=== PATIENT | female | born 1950 | race Caucasian/White ===

== ENCOUNTER 2017-03-28 14:12 | Outpatient (RCR) | payer MEDICARE, OTHER, SELFPAY ==
[2017-03-28 15:30] LABS: Albumin, Serum 3.8 g/dL (3.2-5.0); BUN 24 mg/dL (7-18); BUN/Creat Ratio 17.6 RATIO (10-20); Calcium,Total 8.8 mg/dL (8.5-10.1); Chloride 107 mmol/L (98-107); Creatinine, Serum 1.36 mg/dL (0.55-1.02); EST Glomerular Filtration Rate 41 mL/min (>60); Est Glom Filt Rate - Afr Amer 50 mL/min (>60); Glucose 182 mg/dL (74-106); Phosphorus 4.2 mg/dL (2.5-4.9); Potassium 4.6 mmol/L (3.5-5.1); Sodium Level 140 mmol/L (136-145)
== END 2017-03-28 15:00 | disposition home or self-care (01) ==
LOC: LAB 14:12
PROVIDERS: Visit Provider Internal Medicine Nephrology
DX: N18.3 Chronic kidney disease, stage 3 (moderate) (principal)
CPT/HCPCS: 36415; 80069

== ENCOUNTER 2017-04-28 13:54 | Outpatient (RCR) | payer MEDICARE, OTHER, SELFPAY ==
[2017-04-28 15:29] LABS: Albumin, Serum 3.8 g/dL (3.2-5.0); BUN 33 mg/dL (7-18); BUN/Creat Ratio 21.2 RATIO (10-20); Calcium,Total 8.5 mg/dL (8.5-10.1); Chloride 106 mmol/L (98-107); Creatinine, Serum 1.56 mg/dL (0.55-1.02); EST Glomerular Filtration Rate 35 mL/min (>60); Est Glom Filt Rate - Afr Amer 42 mL/min (>60); Glucose 153 mg/dL (74-106); Phosphorus 4.5 mg/dL (2.5-4.9); Potassium 4.9 mmol/L (3.5-5.1); Sodium Level 141 mmol/L (136-145)
== END 2017-04-28 15:00 | disposition home or self-care (01) ==
LOC: LAB 13:54
PROVIDERS: Visit Provider Internal Medicine Nephrology
DX: N18.3 Chronic kidney disease, stage 3 (moderate) (principal); E87.5 Hyperkalemia
CPT/HCPCS: 36415; 80069

== ENCOUNTER 2017-05-27 15:43 | Outpatient (RCR) | payer MEDICARE, OTHER, SELFPAY ==
[2017-05-27 18:06] LABS: BUN 28 mg/dL (7-18); BUN/Creat Ratio 19.7 RATIO (10-20); Calcium,Total 8.7 mg/dL (8.5-10.1); Chloride 104 mmol/L (98-107); Creatinine, Serum 1.42 mg/dL (0.55-1.02); EST Glomerular Filtration Rate 39 mL/min (>60); Est Glom Filt Rate - Afr Amer 47 mL/min (>60); Glucose 232 mg/dL (74-106); Phosphorus 4.1 mg/dL (2.5-4.9); Potassium 4.6 mmol/L (3.5-5.1); Sodium Level 138 mmol/L (136-145)
== END 2017-05-27 16:00 | disposition home or self-care (01) ==
LOC: LAB 15:43
PROVIDERS: Visit Provider Internal Medicine Nephrology
DX: N18.3 Chronic kidney disease, stage 3 (moderate) (principal); E87.5 Hyperkalemia
CPT/HCPCS: 36415; 80069

== ENCOUNTER → 2017-08-21 15:29 | Outpatient (CLI) | payer MEDICARE, OTHER, SELFPAY ==
[2017-08-21 17:31] LABS: Albumin, Serum 3.9 g/dL (3.2-5.0); BUN 52 mg/dL (7-18); BUN/Creat Ratio 19.8 RATIO (10-20); Calcium,Total 8.6 mg/dL (8.5-10.1); Chloride 109 mmol/L (98-107); Creatinine, Serum 2.63 mg/dL (0.55-1.02); EST Glomerular Filtration Rate 19 mL/min (>60); Est Glom Filt Rate - Afr Amer 23 mL/min (>60); Glucose 109 mg/dL (74-106); Phosphorus 4.8 mg/dL (2.5-4.9); Sodium Level 140 mmol/L (136-145)
== END ==
PROVIDERS: Visit Provider Internal Medicine Nephrology
DX: N18.3 Chronic kidney disease, stage 3 (moderate) (principal)
CPT/HCPCS: 36415; 80069

== ENCOUNTER → 2017-09-01 16:55 | Outpatient (CLI) | payer MEDICARE, OTHER, SELFPAY ==
[2017-09-01 17:36] LABS: Absolute Lymphocyte Count 2.13 X10^3/ul (0.83-4.51); Absolute Neutrophil Count 4.1 X10^3/uL (2.0-7.7); Basophil# 0.04 X10^3/uL; Basophil% 0.6 % (0-1); Eosinophil# 0.28 X10^3/uL; Hemoglobin 10.2 g/dl (12.0-15.0); Lymphocyte # 2.13 X10^3/ul (4.0); Lymphocyte % 30.4 % (19-41); Mean Corp Hgb Conc 32.9 g/gl (32-36); Mean Corpuscular Hgb 26.8 pg (27.0-32.0); Mean Corpuscular Volume 81.4 fL (81-99); Mean Platelet Vol. 10.8 fl (6.2-12.0); Monocyte# 0.42 X10^3/uL; Neutrophil # 4.12 X10^3/uL (2.7-7.7); Neutrophil % 58.9 % (47-70); Platelet Count 271 K/mm3 (150-450); RBC Distribution Width CV 16.7 % (11.6-14.6); RBC Distribution Width SD 48.1 fl (35.1-43.9); Red Blood Count 3.81 M/mm3 (4.2-5.4)
[2017-09-01 17:44] LABS: POSITIVE COUNT NO; POSITIVE DIFFERENTIAL NO; POSITIVE MORPHOLOGY NO
[2017-09-01 18:05] LABS: Vitamin D,25 Hydroxy 58.8 ng/mL (29.95-100.01)
[2017-09-01 18:06] LABS: ALB/GLOB Ratio 0.9 RATIO (0.9-2.4); AST(SGOT) 24 U/L (15-37); Alanine Aminotransfer ALT/SGPT 24 U/L (13-56); Alkaline Phosphatase 114 U/L (45-117); Anion Gap 10 (5-15); BUN 71 mg/dL (7-18); BUN/Creat Ratio 15.3 RATIO (10-20); Calcium,Total 8.7 mg/dL (8.5-10.1); Chloride 108 mmol/L (98-107); Creatinine, Serum 4.63 mg/dL (0.55-1.02); EST Glomerular Filtration Rate 10 mL/min (>60); Est Glom Filt Rate - Afr Amer 12 mL/min (>60); Globulin 4.4 g/dL (2.2-4.2); Glucose 84 mg/dL (74-106); Potassium 4.9 mmol/L (3.5-5.1); Protein, Total 8.4 g/dL (6.4-8.2); Sodium Level 140 mmol/L (136-145); Thyroid Stim Hormone (TSH) 0.81 uIU/mL (0.358-3.74)
[2017-09-02 09:06] LABS: Iron 65 ug/dL (50-170); Iron Binding Capacity,Total 316 ug/dL (250-450); PERCENT IRON SATURATION 20.6 % (15.0-55.0)
[2017-09-03 10:05] LABS: Hep C Antibodies <0.1 s/co ratio (0.0-0.9)
== END ==
PROVIDERS: Visit Provider Family Medicine Geriatric Medicine
DX: I10 Essential (primary) hypertension (principal); E55.9 Vitamin D deficiency, unspecified; D64.9 Anemia, unspecified; Z13.89 Encounter for screening for other disorder
CPT/HCPCS: 36415; 80053; 82306; 83540; 83550; 84443; 85025; 86803

== ENCOUNTER → 2017-09-16 11:57 | Outpatient (CLI) | payer MEDICARE, OTHER, SELFPAY ==
--- NOTE | 2017-09-16 12:18 | RAD_ITS ---
STUDY: X-RAY - LUMBAR SPINE REASON FOR EXAM: Female, 67 years old. Lower back pain radiating into the lower thoracic region for several years. TECHNIQUE: 3 view(s) of the lumbar spine were obtained. COMPARISON: None FINDINGS: Osteopenia. Unremarkable pelvis. No significant hip joint degenerative changes. No acute intra-abdominal process. Postsurgical changes are present in the epigastrium. Mild levoscoliotic curvature of the lumbar spine. Normal lordosis. Normal vertebral body height and alignment. Minimal disc narrowing at multiple levels, no significant disc or endplate degenerative changes. Minimal mid to low lumbar facet arthropathy. RAD/Lumbar Spine 2 or 3 Views IMPRESSION: Minimal spondylosis. No acute fracture or traumatic subluxation. Electronically Signed: Matias Hussein, at 12:56 EDT Tel , Service support ,
== END ==
PROVIDERS: Visit Provider Family Medicine Geriatric Medicine
DX: M54.5 Low back pain (principal); N17.9 Acute kidney failure, unspecified; N18.3 Chronic kidney disease, stage 3 (moderate)
CPT/HCPCS: 36415; 72100; 80069; 83970

== ENCOUNTER → 2017-09-16 15:56 | Outpatient (CLI) | payer MEDICARE, OTHER, SELFPAY ==
[2017-09-16 17:42] LABS: Albumin, Serum 4.4 g/dL (3.2-5.0); BUN 51 mg/dL (7-18); BUN/Creat Ratio 16.3 RATIO (10-20); Calcium,Total 9.4 mg/dL (8.5-10.1); Chloride 103 mmol/L (98-107); Creatinine, Serum 3.13 mg/dL (0.55-1.02); EST Glomerular Filtration Rate 16 mL/min (>60); Est Glom Filt Rate - Afr Amer 19 mL/min (>60); Glucose 116 mg/dL (74-106); Phosphorus 3.9 mg/dL (2.5-4.9); Potassium 4.5 mmol/L (3.5-5.1); Sodium Level 139 mmol/L (136-145)
[2017-09-17 08:25] LABS: PTHIN 160.7 pg/mL (18.4-80.1)
== END ==
PROVIDERS: Visit Provider Internal Medicine Nephrology
DX: N17.9 Acute kidney failure, unspecified (principal); N18.3 Chronic kidney disease, stage 3 (moderate)
CPT/HCPCS: 36415; 80069; 83970

== ENCOUNTER → 2017-10-06 16:56 | Outpatient (CLI) | payer MEDICARE, OTHER, SELFPAY ==
[2017-10-06 18:00] LABS: Anion Gap 6 (5-15); BUN 40 mg/dL (7-18); BUN/Creat Ratio 20.4 RATIO (10-20); Calcium,Total 9.1 mg/dL (8.5-10.1); Chloride 106 mmol/L (98-107); Cholesterol 174 mg/dL (200); Creatinine, Serum 1.96 mg/dL (0.55-1.02); EST Glomerular Filtration Rate 27 mL/min (>60); Est Glom Filt Rate - Afr Amer 33 mL/min (>60); Glucose 123 mg/dL (74-106); High Density Lipoprotein 25 mg/dL; Potassium 4.2 mmol/L (3.5-5.1); Sodium Level 139 mmol/L (136-145); Triglycerides 215 mg/dL; Very Low Density Lipoprotein 43 mg/dL (5-40)
== END ==
PROVIDERS: Visit Provider Family Medicine Geriatric Medicine
DX: N18.3 Chronic kidney disease, stage 3 (moderate) (principal); E78.4 Other hyperlipidemia
CPT/HCPCS: 36415; 80048; 80061

== ENCOUNTER → 2017-12-09 15:55 | Outpatient (CLI) | payer MEDICARE, OTHER, SELFPAY ==
--- NOTE | 2017-12-09 16:15 | RAD_ITS ---
STUDY: X-RAY CHEST REASON FOR EXAM: Female, 67 years old. Shortness of breath. Fatigue. Chest pain for one week. TECHNIQUE: PA and lateral views of the chest. COMPARISON: None. FINDINGS: The lungs are clear and expanded. There is no demonstrated pleural abnormality. Normal size heart. Normal mediastinum and rola. Normal visualized pulmonary arteries. Normal visualized aortic arch and descending thoracic aorta. There are diffuse degenerative changes of the visualized thoracic spine. There is degenerative osteoarthritis of the bilateral shoulders. There is no demonstrated abnormality of the visualized soft tissue structures of the upper abdomen. RAD/Chest PA and Lateral IMPRESSION: No acute cardiopulmonary disease. Electronically Signed: Christopher Waddell DO at 18:32 EDT Tel [phone], Service support ,
[2017-12-09 16:51] LABS: Hematocrit 30.7 % (37-47); Hemoglobin 9.9 g/dl (12.0-15.0); Mean Corp Hgb Conc 32.2 g/gl (32-36); Mean Corpuscular Hgb 27.6 pg (27.0-32.0); Mean Corpuscular Volume 85.5 fL (81-99); Mean Platelet Vol. 11.2 fl (6.2-12.0); Platelet Count 271 K/mm3 (150-450); RBC Distribution Width CV 14.9 % (11.6-14.6); Red Blood Count 3.59 M/mm3 (4.2-5.4); White Blood Count 9.2 K/mm3 (4.4-11.0)
[2017-12-09 16:56] LABS: Scan Indicated on CBC? Y/N NO
[2017-12-09 17:09] LABS: Anion Gap 9 (5-15); BUN 37 mg/dL (7-18); BUN/Creat Ratio 21.5 RATIO (10-20); CPK Total, Creatine Kinase 60 U/L (26-192); Calcium,Total 9.2 mg/dL (8.5-10.1); Chloride 112 mmol/L (98-107); Creatinine, Serum 1.72 mg/dL (0.55-1.02); EST Glomerular Filtration Rate 31 mL/min (>60); Est Glom Filt Rate - Afr Amer 38 mL/min (>60); Glucose 138 mg/dL (74-106); Potassium 5.2 mmol/L (3.5-5.1); Sodium Level 143 mmol/L (136-145)
[2017-12-09 17:14] LABS: BNP,B-Type NATRIURETIC PEPTIDE 606.2 pg/mL (0-100)
[2017-12-11 13:36] LABS: Myoglobin, Serum 81 ng/mL (25-58)
== END ==
LOC: POLAB3 15:57 → RAD 16:12
PROVIDERS: Family Provider Family Medicine Geriatric Medicine; PCP Family Medicine Geriatric Medicine; Referring Provider Family Medicine Geriatric Medicine; Visit Provider Family Medicine Geriatric Medicine
DX: I10 Essential (primary) hypertension (principal); R06.02 Shortness of breath; R53.83 Other fatigue; R07.9 Chest pain, unspecified
CPT/HCPCS: 36415; 71046; 80048; 82550; 83874; 83880; 84443; 85027; 85379

== ENCOUNTER → 2017-12-10 08:17 | Outpatient (CLI) | payer MEDICARE, OTHER, SELFPAY ==
--- NOTE | 2017-12-10 08:32 | CT_ITS ---
STUDY: CTA CHEST REASON FOR EXAM: Female, 67 years old. Shortness of breath with elevated d-dimer RADIATION DOSAGE (If Supplied By Facility): CTDIvol = ( 25.78 ) mGy, DLP = ( 638.99 ) mGycm TECHNIQUE: The examination was performed with the intravenous administration of 75 ml of Isovue 370 contrast material. Post-processing of the angiographic images was performed, with multiplanar reformation and 3D reconstruction. Individualized dose optimization techniques were used for this CT. COMPARISON: None. FINDINGS: Normal enhancement of the main pulmonary artery and right and left pulmonary arteries. Normal enhancement of the bilateral peripheral pulmonary arteries. There is no demonstrated pulmonary embolism. Normal thoracic aorta and visualized great vessels. There is no demonstrated aortic dissection. Normal heart and pericardium. Several small mediastinal lymph nodes are noted. Normal hilar regions. Normal visualized trachea and bronchi. The lungs are well expanded. Normal pulmonary parenchyma. Normal pleura. Left upper lobe pulmonary nodule measuring 4 mm. Pleural-based pulmonary nodule in the left lower lobe measuring 4.3 mm as well as in the right middle lobe measuring 2.8 mm Normal chest wall structures. There are degenerative changes of thoracic spine. Postsurgical changes of the stomach CT/CTA Chest W/WO Contrast IMPRESSION: 1. Negative for pulmonary embolism or thoracic aortic dissection 2. Lungs are adequately inflated and clear 3. Small pulmonary nodules as above Electronically Signed: Sean Bush DO at 9:18 EDT Tel , Service support ,
[2017-12-10 11:36] LABS: Anion Gap 9 (5-15); BUN 36 mg/dL (7-18); CPK Total, Creatine Kinase 57 U/L (26-192); Calcium,Total 8.7 mg/dL (8.5-10.1); Chloride 112 mmol/L (98-107); EST Glomerular Filtration Rate 30 mL/min (>60); Est Glom Filt Rate - Afr Amer 36 mL/min (>60); Glucose 130 mg/dL (74-106); Potassium 4.8 mmol/L (3.5-5.1); Sodium Level 142 mmol/L (136-145)
--- NOTE | 2017-12-10 13:58 | ECHOD_ITS ---
Reason For Study: ARRYTHMIA Procedure This was a 2D Doppler, Color Flow transthoracic echocardiogram. Exam performed in department. Left Ventricle Normal LV size. Left ventricular systolic function is normal. The estimated ejection fraction is 60 %. Stage 2 diastolic dysfunction. No regional wall motion abnormalities noted. Right Ventricle Normal RV size. Normal systolic function. Atria The left atrium is mildly enlarged. Normal right atrium. Bubble contrast study negative for right to left interatrial shunt. Mitral Valve Normal mitral valve. Trivial eccentric mitral valve insufficiency. Tricuspid Valve Normal tricuspid valve. Moderate (2+) tricuspid valve insufficiency. Pulmonary artery systolic pressure is 54 mmHg. Moderate pulmonary hypertension. Aortic Valve Trisinus/trileaflet aortic valve. Mild focal aortic valve calcification. Pulmonic Valve Normal pulmonic valve. Great Vessels Normal aortic root. The pulmonary artery is normal size. Normal inferior vena cava. Pericardium/Pleural No pericardial effusion. Medication 22 gauge I.V. with prn adaptor inserted into right arm. Performed a rapid injection of agitated mix of 9 cc saline and 1cc air to assess for atrial septal defect. MMode/2D Measurements & Calculations LVIDd: 4.8 cm IVSd: 0.87 cm Ao root diam: 3.3 cm LVIDs: 3.0 cm LVPWd: 0.90 cm LA dimension: 4.0 cm RVDd: 4.0 cm FS: 37.9 % LAV(MOD-bp): 84.5 ml LVAd ap4: 36.5 cm2 SV(MOD-sp4): 85.5 ml LAV(MOD-bp) Indexed: 46.0 ml/m2 EDV(MOD-sp4): 134.4 ml LAV(MOD-sp2): 90.4 ml EDV(sp4-el): 140.8 ml LAV(MOD-sp4): 74.8 ml LVAs ap4: 19.2 cm2 ESV(MOD-sp4): 48.9 ml ESV(sp4-el): 48.5 ml EF(MOD-sp4): 63.6 % EF(sp4-el): 65.6 % SV(sp4-el): 92.4 ml LA A4 area: 24.0 cm2 RA A4 area: 19.8 cm2 Time Measurements MV dec time: 0.16 sec Doppler Measurements & Calculations MV E max josephine: 156.2 cm/sec Ao V2 max: 186.5 cm/sec LV V1 max: 193.1 cm/sec MV A max josephine: 99.1 cm/sec Ao max P.9 mmHg LV V1 max P.9 mmHg MV E/A: 1.6 PA V2 max: 161.3 cm/sec TR max josephine: 356.6 cm/sec TR max P.9 mmHg Interpretation Summary Normal LV size. Left ventricular systolic function is normal. The estimated ejection fraction is 60 %. Stage 2 diastolic dysfunction. Moderate pulmonary hypertension. Ordering Physician: John Julio Referring Physician: Rigo Mckinney Chi Performed By: Ebony Moeller RDCS
[2017-12-11 13:37] LABS: Myoglobin, Serum 64 ng/mL (25-58)
== END ==
PROVIDERS: Family Provider Family Medicine Geriatric Medicine; PCP Family Medicine Geriatric Medicine; Referring Provider Family Medicine Geriatric Medicine; Visit Provider Family Medicine Geriatric Medicine
DX: I26.99 Other pulmonary embolism without acute cor pulmonale (principal); R07.9 Chest pain, unspecified; R06.02 Shortness of breath; I44.1 Atrioventricular block, second degree; I11.0 Hypertensive heart disease with heart failure; N18.9 Chronic kidney disease, unspecified
CPT/HCPCS: 36415; 71275; 80048; 81001; 82550; 83874; 84484; 93306; Q9967; A4216

== ENCOUNTER → 2017-12-10 13:48 | Outpatient (CLI) | payer MEDICARE, OTHER, SELFPAY ==
[2017-12-10 13:52] LABS: Bacteria 0 SEEN /hpf (None Seen); Mucous, Urine 0 SEEN /hpf (<or=2+)
[2017-12-10 16:49] LABS: Color, Urine Yellow (Yellow); Glucose, Dipstick Normal (Normal); Ketone-Dipstick 5 mg/dl (Negative); Leukocyte Esterase-Dipstick 25 /ul (Negative); Nitrite-Dipstick Negative (Negative); Occult Blood-Urine 25 /ul (Negative); Protein-Dipstick 500 mg/dl (Negative); Specific Gravity, Urine 1.015 (1.002-1.030); Urine Bilirubin Dipstick Negative (Negative); Urine Clarity Clear (Clear); Urine Urobilinogen Normal (Normal)
[2017-12-10 17:55] LABS: Amorphous Sediment 1+ URATE; Hyaline Cast 0-5 SEEN /lpf (0-5); Red Blood Cells-Urine 0-5 SEEN /hpf (0-5); Squamous Epithelial Cells - UA 0-5 SEEN /hpf (5-10); White Blood Cells 0-5 SEEN /hpf (0-5)
== END ==
PROVIDERS: Family Provider Family Medicine Geriatric Medicine; PCP Family Medicine Geriatric Medicine; Visit Provider Internal Medicine Cardiovascular Disease
DX: I50.9 Heart failure, unspecified (principal); I44.1 Atrioventricular block, second degree; N18.9 Chronic kidney disease, unspecified
CPT/HCPCS: 81001; A4216

== ENCOUNTER 2017-12-11 09:34 | Observation (INO) | payer MEDICARE, OTHER, SELFPAY ==
[2017-12-10 13:29] VITALS: BMI 30.4
[2017-12-11] VITALS (18 sets, daily range): BP systolic 149–185; BP diastolic 68–83; PULSE 75–90; RESP 18; TEMP 36.7–37; O2SAT 94–98
[2017-12-11] MEDS: Acetaminophen 325 MG Tablet 650 MG PO ×2 (13:48→20:07)
[2017-12-11] MEDS: traMADol 50 MG Tablet 100 MG PO (23:14)
[2017-12-11] MEDS: Lisinopril 10 MG Tablet PO (23:14)
[2017-12-11] MEDS: Gabapentin 300 MG Capsule PO (23:14)
[2017-12-12 00:05] VITALS: BP 167/94; PULSE 79; RESP 16; TEMP 36.7; O2SAT 95
[2017-12-12 02:55] VITALS: PULSE 77
[2017-12-12 05:13] VITALS: BP 141/83; PULSE 74; RESP 16; TEMP 36.8; O2SAT 96
[2017-12-12] MEDS: Acetaminophen 325 MG Tablet 650 MG PO (05:20)
--- NOTE | 2017-12-12 05:55 | RAD_ITS ---
STUDY: X-RAY CHEST REASON FOR EXAM: Female, 67 years old. Pacemaker insertion TECHNIQUE: Frontal and lateral views of the chest. # of Images: 2 COMPARISON: None. FINDINGS: Dual-chamber pacemaker on the left. Leads overlie appropriate positions. No pneumothorax is seen. The lungs are clear and expanded. There is no demonstrated pleural abnormality. Normal size heart. Normal mediastinum and rola. Normal visualized pulmonary arteries. Normal visualized aortic arch and descending thoracic aorta. There are diffuse degenerative changes of the visualized thoracic spine. Normal visualized ribs, clavicles, and shoulders. Abdominal clips. RAD/Chest PA and Lateral IMPRESSION: Dual-chamber pacemaker on the left. Leads overlie appropriate positions. No pneumothorax is seen. Electronically Signed: Rell Yanez MD at 6:34 EDT Tel , Service support ,
--- NOTE | 2017-12-12 05:55 | RAD_ITS ---
STUDY: X-RAY CHEST REASON FOR EXAM: Female, 67 years old. Pacemaker insertion TECHNIQUE: Single frontal view of the chest. # of Images: 1 COMPARISON: 12/12/2017 FINDINGS: Dual-chamber pacemaker on the left. Leads overlie the appropriate positions. No pneumothorax. Stable left basilar atelectasis. Evolving central vascular congestion. There is no demonstrated pleural abnormality. Normal size heart. Normal mediastinum and rola. Normal visualized pulmonary arteries. Normal visualized aortic arch and descending thoracic aorta. Normal visualized thoracic spine. Normal visualized ribs, clavicles, and shoulders. There is no demonstrated abnormality of the visualized soft tissue structures of the upper abdomen. RAD/Chest 1 View IMPRESSION: Dual-chamber pacemaker on the left. Leads overlie the appropriate positions. No pneumothorax. Stable left basilar atelectasis. Evolving central vascular congestion. Electronically Signed: Rell Yanez MD at 6:36 EDT Tel , Service support ,
--- NOTE | 2017-12-12 06:55 | PCM.PN.CARD ---
Subjectve: Patient seen and evaluated. Appears to be doing well. Objective: Vital Signs Temp Pulse Resp BP Pulse Ox 98.3 F 74 16 141/83 H 96 12/12/17 05:13 12/12/17 05:13 12/12/17 05:13 12/12/17 05:13 12/12/17 05:13 Oxygen Delivery Method Room Air Weight: 177 lb Body Mass Index (BMI) 30.4 Intake and Output for Last 24 Hours 12/10/17 12/11/17 12/12/17 23:59 23:59 23:59 Intake Total 780 / 780 360 / 360 Balance 780 / 780 360 / 360 General: Awake, Alert, Oriented x 3 HEENT: PERRL, EOMI, Sclera Non Icteric Neck: Supple, Good ROM, No Lymph Node Enlargement Lungs: Clear to auscultation Cardiovascular: Regular Rhythm, Normal S1, Normal S2, No Murmurs, No Rubs, No Gallops Vascular: No Carotid Bruits, Normal Femoral Pulses, Normal Radial Pulses, Normal Dorsalis Pedal Pulse, Normal Posterior Tibial Pulses Abdomen: Bowel Sounds Present, Soft, Non Tender, No HSM, No Organomegaly Extremities: No Cyanosis, No Clubbing, No edema Neurological: No Focal Motor or Sensory Deficit Rhythm: EKG: ECHO: Stress Test: Cardiac Cath: PCI: CT Surgery: Holter monitor: EPS: PPM: CXR: Chest CT Scan: Medical Necessity - Tobacco Use Smoking Status: Former smoker Assessment/Plan 1. Status post pacemaker placement for high-grade AV block. Patient underwent dual-chamber pacemaker placement for high-grade AV block. Chest x-ray demonstrates adequate positioning. The pacemaker will be checked this morning. If it appears to be functioning well the patient will be discharged for outpatient follow-up. 2. Hypertension Patient's blood pressure appears to have improved. Would recommend restarting home medications. Thank you for allowing me to participate in the care of your patient. Please don't hesitate to call if any issues arise
[2017-12-12 07:07] VITALS: PULSE 74
--- NOTE | 2017-12-12 07:48 | PCM.DC.PACE ---
Discharge Diet: No Restrictions Discharge Activity: May Not Drive May resume sexual activity in: 2 weeks Call your doctor if your incision/area has: Continuous Slow Oozing, Sudden Increased Bleeding, Increased Pain/ Swelling, Increased Redness, Foul Smelling Discharge, Swelling at the incision site Call your doctor if you observe: Fever of 101 or Higher, Shortness of breath, Dizziness, Fainting spells, Swelling in the ankles, Chest pain, Prolonged hiccoughing, Increased palpitations (irregular heartbeat) Suture Line Care: Avoid Pulling/Pushing, Avoid Pinching/Bending Cleanse incision/area with: Do not get Incision Wet, Keep Dressing Clean & Dry Additional Dressing/Incision Instructions:: When dressing is removed, wash and dry incision. Keep covered with a light bandage if it is rubbing against your clothing. Do not cover the incision with an airtight bandage. Change the bandage daily. Do not remove steri strips. The strips will fall off on their own. Additional Instructions: Signs and Symptoms to Report to Your Doctor at Once - call your doctor's office or Doctor's Registry ([phone]) Call [phone] or go to the nearest Emergency Department if you feel you need urgent care. *Infection (fever, increased redness or swelling at the incision site, drainage from the incision increased pain at the pacemaker site) *Shortness of breath *Dizziness *Fainting spells *Swelling in the ankles *Chest pain *Prolonged hiccoughing *Increased palpitaitons (irregular heartbeat) Medications: Take your pain medication as directed. Refer to your discharge instruction sheet for a list of medications you are to take. Allergies/Adverse Reactions: Allergies NSAIDS (Non-Steroidal Anti-Inflamma Adverse Reaction (Verified 12/10/17 11:18) Had bariatric surgery Medications to take at Discharge cholecalciferol (vitamin D3) 2,000 unit capsule 5,000 unit PO QWEEK 12/10/17 famotidine 20 mg tablet 20 mg PO BID 12/10/17 Gabapentin [Neurontin] 300 mg PO QHS 12/11/17 Tramadol HCl [Ultram] 100 mg PO 12/11/17 Primary Care Physician: Rigo Mckinney Chi, MD [Primary Care Provider] - Test Results: Test results from this visit will be discussed in further detail at your follow-up appointment, if applicable. Please Follow Up With: [facility] 12/17 AT 2 PM
--- NOTE | 2017-12-12 07:52 | DCINST_ITS ---
Discharge Diet: No Restrictions Discharge Activity: May Not Drive May resume sexual activity in: 2 weeks Call your doctor if your incision/area has: Continuous Slow Oozing, Sudden Increased Bleeding, Increased Pain/ Swelling, Increased Redness, Foul Smelling Discharge, Swelling at the incision site Call your doctor if you observe: Fever of 101 or Higher, Shortness of breath, Dizziness, Fainting spells, Swelling in the ankles, Chest pain, Prolonged hiccoughing, Increased palpitations (irregular heartbeat) Suture Line Care: Avoid Pulling/Pushing, Avoid Pinching/Bending Cleanse incision/area with: Do not get Incision Wet, Keep Dressing Clean & Dry Additional Dressing/Incision Instructions:: When dressing is removed, wash and dry incision. Keep covered with a light bandage if it is rubbing against your clothing. Do not cover the incision with an airtight bandage. Change the bandage daily. Do not remove steri strips. The strips will fall off on their own. Additional Instructions: Signs and Symptoms to Report to Your Doctor at Once - call your doctor's office or Doctor's Registry ([phone]) Call [phone] or go to the nearest Emergency Department if you feel you need urgent care. *Infection (fever, increased redness or swelling at the incision site, drainage from the incision increased pain at the pacemaker site) *Shortness of breath *Dizziness *Fainting spells *Swelling in the ankles *Chest pain *Prolonged hiccoughing *Increased palpitaitons (irregular heartbeat) Medications: Take your pain medication as directed. Refer to your discharge instruction sheet for a list of medications you are to take. Allergies/Adverse Reactions: Allergies NSAIDS (Non-Steroidal Anti-Inflamma Adverse Reaction (Verified 12/10/17 11:18) Had bariatric surgery Medications to take at Discharge cholecalciferol (vitamin D3) 2,000 unit capsule 5,000 unit PO QWEEK 12/10/17 famotidine 20 mg tablet 20 mg PO BID 12/10/17 Gabapentin [Neurontin] 300 mg PO QHS 12/11/17 Tramadol HCl [Ultram] 100 mg PO 12/11/17 Primary Care Physician: Rigo Mckinney Chi, MD [Primary Care Provider] - Test Results: Test results from this visit will be discussed in further detail at your follow- up appointment, if applicable. Please Follow Up With: [facility] 12/17 AT 2 PM
[2017-12-12 08:47] VITALS: BP 164/80; PULSE 90; RESP 16; TEMP 36.8; O2SAT 97
--- NOTE | 2017-12-12 13:33 | CL.IE_ITS ---
Patient: GILBERTO COBURN Study Date: 12/11/2017 Performing: John Julio MD : 1950 Age: 67 Gender: female PROCEDURES PERFORMED [id number] PACER INSERT+DUAL LEADS INDICATIONS Mobitz (type II) AV block PROCEDURE DETAILS The patient was brought to the Catheterization Lab in the postabsorptive nonsedated state. Informed consent was obtained prior to the procedure. Local anesthetic was given subcutaneously to the left longoria bclavian region with Lidocaine 2%. Incision was made to the left upper chest. Access was achieved and a guidewire was advanced into the left subclavian vein. PPM ventricular lead was inserted / position ed to right ventricular septal wall. PPM ventricular lead testing performed. PPM ventricular lead blake ting performed. PPM atrial lead was inserted / positioned to the right atrial appendage. PPM atrial l ead testing performed. PPM atrial lead was repositioned and checked. The Atrial lead sutured in place with 2-0 Silk. The Ventricular PM lead sutured in place with 2-0 Silk. Device pocket was irrigated w ith antibiotic. PPM generator was attached to the lead(s) and inserted into the pocket. PPM generator was then interrogated by the graphics programmer. Steri-strips applied to left subclavicular incision. Instru ment, sponge, and needle counts were noted to be normal. The patient tolerated the procedure well. Estimated Blood Loss: < 10 mls IMPLANTED / EX-PLANTED DEVICES IMPLANTED DEVICE(S): PPM Generator - Revolving Field Assembler: [employer], Model # L111 , Serial # [id number] PPM Atrial lead - Revolving Field Assembler: [employer], Model # 7740 , Serial # [id number] PPM Ventricular lead - Revolving Field Assembler: [employer], Model # 7741 , Serial # [id number] DEVICE PARAMETERS ATRIAL LEAD PARAMETERS: P wave (mV) - 1.7 Current (mA) - 1.5 threshold (V) - 0.8 impedence (OHMS) - 562 VENTRICULAR LEAD PARAMETERS: current (mA) - 0.5 threshold (V) - 0.4 impedence (OHMS) - 849 R wave (mV) - 11.8 DEVICE PARAMETERS: Mode - DDD lower rate - 60 upper rate - 130 rate response off CONCLUSIONS / RECOMMENDATIONS Device Conclusions: Successful implantation of a dual chamber pacemaker Device Recommendations: Follow up with Primary Care Physician PROCEDURE MEDICATIONS Versed 1 mg IV Fentanyl 50 mcg IV Versed 1 mg IV Versed 1 mg IV Versed 1 mg IV Oxygen: 2 L/min via nasal cannula Antibiotic given in appropriate timeframe. Ancef 2 Gm IV @ 12/11/2017 08:10:22 Signed By John Julio MD On 12/12/2017 13:32:59 John Julio MD
== END 2017-12-12 07:52 | disposition home or self-care (01) ==
LOC: PCU 12-12 11:33
PROVIDERS: Admitting Provider Internal Medicine Cardiovascular Disease; Family Provider Family Medicine Geriatric Medicine; PCP Family Medicine Geriatric Medicine; Referring Provider Internal Medicine Cardiovascular Disease; Visit Provider Internal Medicine Cardiovascular Disease
DX: Z45.018 Encounter for adjustment and management of other part of cardiac pacemaker (principal); I44.1 Atrioventricular block, second degree; I13.0 Hypertensive heart and chronic kidney disease with heart failure and stage 1 through stage 4 chronic kidney disease, or unspecified chronic kidney disease; N18.9 Chronic kidney disease, unspecified; I50.9 Heart failure, unspecified; Z98.84 Bariatric surgery status; Z87.891 Personal history of nicotine dependence
CPT/HCPCS: 33208; 71045; 71046; 99152; 99153; 99218; J7040; J7050; C1894; G0378; G0379

== ENCOUNTER → 2017-12-17 15:43 | Outpatient (CLI) | payer MEDICARE, OTHER, SELFPAY ==
[2017-12-17 16:41] LABS: Absolute Lymphocyte Count 2.89 X10^3/ul (0.83-4.51); Basophil# 0.06 X10^3/uL; Basophil% 0.7 % (0-1); Eosinophil# 0.31 X10^3/uL; Eosinophils% 3.6 % (0-5); Hematocrit 32.7 % (37-47); Hemoglobin 10.3 g/dl (12.0-15.0); Lymphocyte # 2.89 X10^3/ul (4.0); Lymphocyte % 33.3 % (19-41); Mean Corp Hgb Conc 31.5 g/gl (32-36); Mean Corpuscular Hgb 27.2 pg (27.0-32.0); Mean Corpuscular Volume 86.5 fL (81-99); Mean Platelet Vol. 10.7 fl (6.2-12.0); Monocyte# 0.41 X10^3/uL; Monocyte% 4.7 % (0-10); Neutrophil % 57.6 % (47-70); Platelet Count 301 K/mm3 (150-450); RBC Distribution Width CV 15.1 % (11.6-14.6); RBC Distribution Width SD 46.5 fl (35.1-43.9); Red Blood Count 3.78 M/mm3 (4.2-5.4); White Blood Count 8.7 K/mm3 (4.4-11.0)
[2017-12-17 16:44] LABS: POSITIVE COUNT NO; POSITIVE DIFFERENTIAL NO; POSITIVE MORPHOLOGY NO
[2017-12-17 16:59] LABS: ALB/GLOB Ratio 0.9 RATIO (0.9-2.4); AST(SGOT) 20 U/L (15-37); Alanine Aminotransfer ALT/SGPT 24 U/L (13-56); Albumin, Serum 3.7 g/dL (3.2-5.0); Alkaline Phosphatase 113 U/L (45-117); Anion Gap 6 (5-15); BUN 30 mg/dL (7-18); Bilirubin, Direct 0.07 mg/dL (0.00-0.30); Calcium,Total 8.7 mg/dL (8.5-10.1); Chloride 110 mmol/L (98-107); Cholesterol 174 mg/dL (200); EST Glomerular Filtration Rate 37 mL/min (>60); Est Glom Filt Rate - Afr Amer 44 mL/min (>60); Globulin 3.9 g/dL (2.2-4.2); Glucose 108 mg/dL (74-106); High Density Lipoprotein 30 mg/dL; Phosphorus 3.4 mg/dL (2.5-4.9); Potassium 5.2 mmol/L (3.5-5.1); Protein, Total 7.6 g/dL (6.4-8.2); Sodium Level 141 mmol/L (136-145); Thyroid Stim Hormone (TSH) 1.21 uIU/mL (0.358-3.74); Triglycerides 253 mg/dL; Very Low Density Lipoprotein 51 mg/dL (5-40); Vitamin D,25 Hydroxy 48.4 ng/mL (29.95-100.01)
[2017-12-17 17:14] LABS: PTHIN 138.6 pg/mL (18.4-80.1)
== END ==
PROVIDERS: Internal Medicine Nephrology; Family Provider Family Medicine Geriatric Medicine; PCP Family Medicine Geriatric Medicine; Visit Provider Family Medicine Geriatric Medicine
DX: E11.22 Type 2 diabetes mellitus with diabetic chronic kidney disease (principal); I12.9 Hypertensive chronic kidney disease with stage 1 through stage 4 chronic kidney disease, or unspecified chronic kidney disease; N18.3 Chronic kidney disease, stage 3 (moderate); D50.9 Iron deficiency anemia, unspecified; E78.49 Other hyperlipidemia; E55.9 Vitamin D deficiency, unspecified
CPT/HCPCS: 36415; 80053; 80061; 82248; 82306; 83970; 84100; 84443; 85025

== ENCOUNTER → 2017-12-24 05:25 | Outpatient (CLI) | payer MEDICARE, OTHER, SELFPAY ==
[2017-12-24 17:58] LABS: Protein, Urine (Random) 244.8 mg/dL (<11.9); Protein:Creat Ratio 2974 mg/g CRE (0-200)
== END ==
PROVIDERS: Family Provider Family Medicine Geriatric Medicine; PCP Family Medicine Geriatric Medicine; Visit Provider Internal Medicine Nephrology
DX: E11.22 Type 2 diabetes mellitus with diabetic chronic kidney disease (principal)
CPT/HCPCS: 82570; 84156

== ENCOUNTER → 2018-01-21 06:56 | Outpatient (CLI) | payer MEDICARE, OTHER, SELFPAY ==
--- NOTE | 2018-01-21 13:05 | STRESSREP ---
Stress Test Report Pharmacologic myocardial perfusion stress test. 67-year-old lady with a history of shortness of breath status post pacemaker implantation. Resting EKG demonstrates normal sinus rhythm with a rate of 97 bpm and ventricular pacing. 0.4 mg of regadenoson was infused per usual protocol followed by rapid intravenous saline flush injection continuous EKG monitoring was performed. The patient maintained sinus rhythm with ventricular pacing throughout the recording. The maximum heart rate attained was 146 bpm was 96% of maximum predicted heart rate maximum workload was 1 metabolic equivalent. The patient maintained ventricular pacing throughout. The resting blood pressure was 162/100 mmHg with a final blood pressure 170/88 mmHg. Myocardial perfusion protocol. 11.9 mCi of technetium 99m sestamibi was injected at rest. 0.4 mg of regadenoson was infused per usual protocol peak infusion 31.2 mCi of technetium 99m sestamibi was injected stress images were obtained stress and rest images were reconstructed and compared in the short axis vertical long horizontal long axis. Gated images were also obtained per Perfusion SPECT analysis. Review of the stress images demonstrate normal uptake of tracer noted in the septum anterior wall and lateral wall. There is a medium-sized defect noted in the mid inferior wall on the stress images which normalizes on the resting images. It extends to the inferolateral wall. The above is suggestive of a medium size inferior and inferolateral perfusion defect. Gated SPECT analysis: The gated ejection fraction is noted to be 60%. Conclusion: Abnormal pharmacologic myocardial perfusion stress test with evidence of mid inferior and inferolateral ischemia. Preserved ejection fraction. Ventricular pacing noted.
--- OUTSIDE RECORDS SUMMARY | 2018-03-18 11:37 | XMS RPT_ITS ---
:1950 Author Organization [place] Support Name Relationship Address Phone IRISHROJELIOY Unavailable [address] + [place] [address] PIETRASZ, ZHANG Unavailable Unavailable + [place] [address] R Unavailable Unavailable Unavailable PIETRASZ, LUCÍA Unavailable [address] + [place] [address] PIETRASZ, ZHANG Unavailable Unavailable + [place] [address] R Unavailable Unavailable Unavailable PIETRASZ, LUCÍA Unavailable [address] + [place] [address] PIETRASZ, ZHANG Unavailable Unavailable + [place] [address] R Unavailable Unavailable Unavailable PIETRASZ, LUCÍA Unavailable [address] + [place] [address] PIETRASZ, ZHANG Unavailable Unavailable + [place] [address] R Unavailable Unavailable Unavailable PIETRASZ, LUCÍA Unavailable [address] + [place] [address] PIETRASZ, ZHANG Unavailable Unavailable + [place] [address] R Unavailable Unavailable Unavailable PIETRASZ, LUCÍA Unavailable [address] + [place] [address] PIETRASZ, ZHANG Unavailable Unavailable + [place] [address] R Unavailable Unavailable Unavailable PIETRASZ, LUCÍA Unavailable [address] + [place] [address] PIETRASZ, ZHANG Unavailable Unavailable + [place] [address] R Unavailable Unavailable Unavailable PIETRASZ, LUCÍA Unavailable [address] + [place] [address] PIETRASZ, ZHANG Unavailable Unavailable + [place] [address] R Unavailable Unavailable Unavailable PIETRASZ, LUCÍA Unavailable [address] + [place] [address] PIETRASZ, ZHANG Unavailable Unavailable + [place] [address] R Unavailable Unavailable Unavailable PIETRASZ, LUCÍA Unavailable [address] + [place] [address] PIETRASZ, ZHANG Unavailable Unavailable + [place] [address] R Unavailable Unavailable Unavailable PIETRASZ, LUCÍA Unavailable [address] + [place] [address] PIETRASZ, ZHANG Unavailable Unavailable + [place] [address] R Unavailable Unavailable Unavailable PIETRASZ, LUCÍA Unavailable [address] + [place] [address] PIETRASZ, ZHANG Unavailable Unavailable + [place] [address] R Unavailable Unavailable Unavailable PIETRASZ, LUCÍA Unavailable [address] + [place] [address] PIETRASZ, ZHANG Unavailable Unavailable + [place] [address] R Unavailable Unavailable Unavailable PIETRASZ, LUCÍA Unavailable [address] + [place] [address] PIETRASZ, ZHANG Unavailable Unavailable + [place] [address] R Unavailable Unavailable Unavailable PIETRASZ, LUCÍA Unavailable [address] + [place] [address] PIETRASZ, ZHANG Unavailable Unavailable + [place] [address] R Unavailable Unavailable Unavailable PIETRASZ, LUCÍA Unavailable [address] + [place] [address] PIETRASZ, ZHANG Unavailable Unavailable + [place] [address] R Unavailable Unavailable Unavailable PIETRASZ, LUCÍA Unavailable [address] + [place] [address] PIETRASZ, ZHANG Unavailable Unavailable + [place] [address] R Unavailable Unavailable Unavailable PIETRASZ, LUCÍA Unavailable [address] + [place] [address] PIETRASZ, ZHANG Unavailable Unavailable + [place] [address] R Unavailable Unavailable Unavailable PIETRASZ, LUCÍA Unavailable [address] + [place] [address] PIETRASZ, ZHANG Unavailable Unavailable + [place] [address] R Unavailable Unavailable Unavailable PIETRASZ, LUCÍA Unavailable [address] + [place] [address] PIETRASZ, ZHANG Unavailable Unavailable + [place] [address] R Unavailable Unavailable Unavailable PIETRASZ, LUCÍA Unavailable [address] + [place] [address] PIETRASZ, ZHANG Unavailable Unavailable + [place] [address] R Unavailable Unavailable Unavailable PIETRASZ, LUCÍA Unavailable [address] + [place] [address] PIETRASZ, ZHANG Unavailable Unavailable + [place] [address] R Unavailable Unavailable Unavailable PIETRASZ, LUCÍA Unavailable [address] + [place] [address] PIETRASZ, ZHANG Unavailable Unavailable + [place] [address] R Unavailable Unavailable Unavailable PIETRASZ, LUCÍA Unavailable [address] + [place] [address] PIETRASZ, ZHANG Unavailable Unavailable + [place] [address] R Unavailable Unavailable Unavailable PIETRASZ, LUCÍA Unavailable [address] + [place] [address] PIETRASZ, ZHANG Unavailable Unavailable + [place] [address] R Unavailable Unavailable Unavailable PIETRASZ, LUCÍA Unavailable [address] + [place] [address] PIETRASZ, ZHANG Unavailable Unavailable + [place] [address] R Unavailable Unavailable Unavailable PIETRASZ, LUCÍA Unavailable [address] + [place] [address] PIETRASZ, ZHANG Unavailable Unavailable + [place] [address] R Unavailable Unavailable Unavailable PIETRASZ, LUCÍA Unavailable [address] + [place] [address] PIETRASZ, ZHANG Unavailable Unavailable + [place] [address] R Unavailable Unavailable Unavailable PIETRASZ, LUCÍA Unavailable [address] + [place] [address] PIETRASZ, ZHANG Unavailable Unavailable + [place] [address] R Unavailable Unavailable Unavailable PIETRASZ, LUCÍA Unavailable [address] + [place] [address] PIETRASZ, ZHANG Unavailable . + [place] [address] R Unavailable Unavailable Unavailable PIETRASZ, LUCÍA Unavailable [address] + [place] [address] PIETRASZ, ZHANG Unavailable . + [place] [address] R Unavailable Unavailable Unavailable PIETRASZ, LUCÍA Unavailable [address] + [place] [address] PIETRASZ, ZHANG Unavailable . + [place] [address] R Unavailable Unavailable Unavailable Care Team Providers Name Role Phone RELL SERRANO Referring Unavailable RELL SERRANO Attending Unavailable RELL SERRANO Referring Unavailable YAMILET MAGANA Attending Unavailable AYMILET MAGANA Referring Unavailable JANET PATTERSON Admitting Unavailable JANET PATTERSON Attending Unavailable LUCIANA REDMAN Consulting Unavailable Sumanth, John Attending Unavailable Sumanth, Lockbourne Referring Unavailable Rubén Singhine Attending Unavailable NEGRO KATE Primary Care Unavailable Luciana Singh Attending Unavailable Francisco, Luciana Referring Unavailable NEGRO KATE Primary Care Unavailable Luciana Singh Attending Unavailable Francisco, Luciana Referring Unavailable NEGRO KATE Primary Care Unavailable Luciana Singh Attending Unavailable Francisco, Luciana Referring Unavailable NEGRO KATE Primary Care Unavailable Luciana Singh Attending Unavailable Francisco, Luciana Referring Unavailable NEGRO KATE Primary Care Unavailable Luciana Singh Attending Unavailable NEGRO KATE Primary Care Unavailable Francisco, Luciana Referring Unavailable Hank, Rigo Chi Attending Unavailable NEGRO KATE Primary Care Unavailable Hank, Rigo Chi Attending Unavailable Hank, Rigo Chi Referring Unavailable NEGRO KATE Primary Care Unavailable Francisco, Luciana Attending Unavailable Francisco, Luciana Attending Unavailable NEGRO KATE Primary Care Unavailable Hank, Rigo Chi Attending Unavailable NEGRO KATE Primary Care Unavailable Hank, Rigo Chi Attending Unavailable Hank, Rigo Chi Referring Unavailable Hank, Rigo Chi Primary Care Unavailable Hank, Rigo Chi Attending Unavailable Hank, Rigo Chi Referring Unavailable Hank, Rigo Chi Primary Care Unavailable Sumanth, John Attending Unavailable Hank, Rigo Chi Referring Unavailable Sumanth, John Attending Unavailable Hank, Rigo Chi Primary Care Unavailable Sumanth, Lockbourne Referring Unavailable Sumanth, Lockbourne Admitting Unavailable Sumanth, Lockbourne Attending Unavailable Hank, Rigo Chi Primary Care Unavailable Sumanth, John Attending Unavailable Hank, Rigo Chi Referring Unavailable Hank, Rigo Chi Primary Care Unavailable Hank, Rigo Chi Consulting Unavailable Sumanth, John Attending Unavailable Sumanth, John Referring Unavailable Hank, Rigo Chi Primary Care Unavailable Sumanth, John Consulting Unavailable Katie Perry Attending Unavailable Hank, Rgio Chi Referring Unavailable Hank, Rigo Chi Attending Unavailable Hank, Rigo Chi Primary Care Unavailable Francisco, Luciana Attending Unavailable Hank, Rigo Chi Primary Care Unavailable Francisco, Lucaina Attending Unavailable Hank, Rigo Chi Primary Care Unavailable Sumanth, Lockbourne Attending Unavailable Sumanth, Lockbourne Referring Unavailable Francisco, Luciana Attending Unavailable Hank, Rigo Chi Primary Care Unavailable Heide Ivey Attending Unavailable Sumanth, Lockbourne Attending Unavailable Hank, Rigo Chi Referring Unavailable Sumanth, Lockbourne Attending Unavailable Sumanth, John Referring Unavailable Hank, Rigo Chi Primary Care Unavailable Katie Perry Attending Unavailable Hank, Rigo Chi Referring Unavailable Nurse, Standard Attending Unavailable Hank, Rigo Chi Referring Unavailable Sumanth, John Attending Unavailable Sumanth, John Referring Unavailable Hank, Rigo Chi Primary Care Unavailable Sumanth, Lockbourne Attending Unavailable Sumanth, John Referring Unavailable Hank, Rigo Chi Primary Care Unavailable PROBLEMS PROBLEMS DATE TYPE CONDITION / CODE ATTENDING STATUS SOURCE 02/10/2018 Unknown R06.02 - Shortness of Sumanth, Lockbourne Active [facility] breath / Community R06.02(ICD-10) Hospital Repository 01/09/2018 Unknown I10 - Essential Sumanth, John Active [facility] (primary) hypertension Community / I10(ICD-10) Hospital Repository 01/09/2018 Unknown Z95.0 - Presence of Sumanth, Lockbourne Active [facility] cardiac pacemaker / Community Z95.0(ICD-10) Hospital Repository 01/09/2018 Unknown I50.32 - Chronic Sumanth, Lockbourne Active [facility] diastolic (congestive) Community heart failure / Hospital I50.32(ICD-10) Repository 12/17/2017 Unknown E55.9 - Vitamin D Hank, Rigo Chi Active [facility] deficiency, Community unspecified / Hospital E55.9(ICD-10) Repository 12/18/2017 Unknown 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, second degree / Hospital I44.1(ICD-10) Repository 12/18/2017 Unknown R00.1 - Bradycardia, Katie Perry Active [facility] unspecified / Community R00.1(ICD-10) Hospital Repository 12/18/2017 Unknown I51.9 - Heart disease, Katie Perry Active [facility] unspecified / Community I51.9(ICD-10) Hospital Repository 12/10/2017 Unknown I50.9 - Heart failure, Sumanth, Lockbourne Active [facility] unspecified / Community I50.9(ICD-10) Hospital Repository 10/07/2017 Active Unknown / UNK(Unknown) YAMILET MAGANA Active [facility] [place] Repository 10/31/2017 Unknown N18.3 - Chronic kidney Hank, Rigo Chi Active [facility] disease, stage 3 Community (moderate) / Hospital N18.3(ICD-10) Repository 09/16/2017 Unknown M54.5 - Low back pain Hank, Rigo Chi Active [facility] / M54.5(ICD-10) Community Hospital Repository 09/05/2017 Active Hyperosmolality and CHUKWUANI, Active [facility] hypernatremia / [facility] Other E87.0(ICD-10) [place] Repository 09/05/2017 Active Acidosis / CHUKWUANI, Active [facility] E87.2(ICD-10) [facility] Other [place] Repository 09/05/2017 Active Anemia, unspecified / CHUKWUANI, Active [facility] D64.9(ICD-10) [facility] Other [place] Repository 09/02/2017 Active Chronic kidney CHUKWUANI, Active [facility] disease, stage 5 / [facility] Other N18.5(ICD-10) [place] Repository 09/02/2017 Active Type 2 diabetes CHUKWUANI, Active [facility] mellitus with diabetic [facility] Other chronic kidney disease [place] / E11.22(ICD-10) Repository 09/02/2017 Active Essential (primary) CHUKWUANI, Active [facility] hypertension / [facility] Other I10(ICD-10) [place] Repository 09/02/2017 Active Acute kidney failure, CHUKWUANI, Active [facility] unspecified / [facility] Other N17.9(ICD-10) [place] Repository 09/02/2017 Active Chronic kidney CHUKWUANI, Active [facility] disease, unspecified / [facility] Other N18.9(ICD-10) [place] Repository 09/02/2017 Active Hypermagnesemia / CHUKWUANI, Active [facility] E83.41(ICD-10) [facility] Other [place] Repository 09/02/2017 Active Other acute kidney CHUKWUANI, Active [facility] failure / [facility] Other N17.8(ICD-10) [place] Repository 08/13/2017 Active Restless legs syndrome NA Active [facility] / G25.81(ICD-10) Clinic Main [place] Repository 07/24/2017 Active Iron deficiency NA Active [facility] anemia, unspecified / Clinic Main D50.9(ICD-10) [place] Repository 07/24/2017 Active Type 2 diabetes NA Active [facility] mellitus without Clinic Main complications / [place] E11.9(ICD-10) Repository 07/15/2017 Active Encounter for NA Active [facility] screening mammogram Clinic Other for malignant neoplasm [place] of breast / Repository Z12.31(ICD-10) PROCEDURES PROCEDURES No Procedure Records FoundRESULTS RESULTS PACEMAKER CHECK Observed: 01/26/2018 Status: F Source: [place] 8:40 AM [facility] REPOSITORY [facility] [address] [place] [address]. [address] [place] [address] Pacemaker Check Date of Service: 01/23/18 1659 MR#: [id number] Acct: [id number] Name: CELESTE DESOUZA Rep #: [id number] : 1950 From: Katie Perry Age/Sex: 67/F [place] [facility] [place] Status: Signed Billing Codes PM Device Codes: PM Dev Erin Wise, Dual 01/23/18 1701 <Electronically signed by Katie Perry > Date Katie Perry 01/26/18 0840<Electronically signed by John Julio MD> Cosigner Signature: Date (if applicable) John Julio MD CC: PROTHROMBIN TIME W/INR Collected: 01/23/2018 Status: F Source: [place] 3:25 PM [facility] REPOSITORY TYPE CODE TESTS RESULT OUT OF RANGE REFERENCE UNITS LAB L300.4150 11.7-14.9 SECONDS Normal PROTIME 13.5 LAB L300.4200 Normal INR 1.0 Performed By: #### L300.3900 #### [facility] [place], [address] CBC W/DIFF, AUTOMATED Collected: 01/23/2018 Status: F Source: [place] 3:25 PM [facility] REPOSITORY TYPE CODE TESTS RESULT OUT OF RANGE REFERENCE UNITS LAB L100.1000 4.4-11.0 K/mm3 Normal WBC 9.5 LAB L100.1200 4.2-5.4 M/mm3 Low RBC 4.01 LAB L100.1300 12.0-15.0 g/dl Low HGB 10.6 LAB L100.1400 37-47 % Low HCT 33.8 LAB L100.1500 81-99 fL Normal MCV 84.3 LAB L100.1600 27.0-32.0 pg Low MCH 26.4 LAB L100.1700 32-36 g/gl Low MCHC 31.4 LAB L100.1810 11.6-14.6 % High RDW CV 15.2 LAB L100.1820 35.1-43.9 fl High RDW SD 47.2 LAB L100.1900 150-450 K/mm3 Normal PLT 321 LAB L100.2000 6.2-12.0 fl Normal MPV 9.5 LAB L100.2100 47-70 % Normal NEUT% 54.8 LAB L100.2200 19-41 % Normal LY% 33.4 LAB L100.2300 0-10 % Normal MONO% 6.5 LAB L100.2400 0-5 % Normal EO% 4.8 LAB L100.2500 0-1 % Normal BASO% 0.4 LAB L100.2550 0.0-0.9 % Normal IM GRAN % 0.100 Result Comment: IG% - Immature Granulocytes (promyelocytes, myelocytes and metamyelocytes) > 1% indicates that a LEFT SHIFT is Present. LAB L100.2620 2.0-7.7 X10 3/uL Normal Absolute Neut 5.2 LAB L100.2720 0.83-4.51 X10 3/ul Normal Absolute Lymph 3.16 Performed By: #### L100.0100 #### [facility] [address] [place], [address] BASIC METABOLIC Collected: 01/23/2018 Status: F Source: [place] PROFILE ([facility]) 3:25 PM [facility] REPOSITORY TYPE CODE TESTS RESULT OUT OF RANGE REFERENCE UNITS LAB L501.0100 74-106 mg/dL Low GLU 73 Result Comment: Please note revised GLUCOSE reference range effective 2017. LAB L501.1000 7-18 mg/dL High BUN 29 LAB L501.1100 0.55-1.02 mg/dL High CREAT,SERUM 1.64 Result Comment: The validity of the calculated GFR AND GFRAA in patients over 70 years has not been determined. Clinical correlation is essential. LAB L501.1110 >60 mL/min Low EST GFR 33 Result Comment: Non- GFR Calc LAB L501.1115 >60 mL/min Low EST GFR - AA 40 Result Comment: GFR Calc LAB L501.1300 10-20 RATIO Normal BUN/CRE 17.7 LAB L501.2200 8.5-10.1 mg/dL CA Normal 9.2 LAB L501.5300 136-145 mmol/L NA Normal 142 LAB L501.5600 3.5-5.1 mmol/L K Normal 5.1 LAB L501.5900 98-107 mmol/L High CL 108 LAB L501.6100 21.0-32.0 mmol/L Normal CO2 28.0 LAB L501.6200 5-15 Normal GAP 6 Performed By: #### L500.2500 #### [facility] [address] [facility] [place], [address] STRESS REPORT Observed: 01/21/2018 Status: F Source: [place] 1:08 PM [facility] REPOSITORY [facility] Cardiovascular Services [address] [place] [address] MR#: [id number] Acct: [id number] Name: CELESTE DESOUZA Rep #: [id number] : 1950 67 From: John Julio MD Primary Care: Hank SMYTH,Rigo Chi Status: REG CLI Ordering Dr: Sex: F C Stress Test Report Pharmacologic myocardial perfusion stress test. 67-year-old lady with a history of shortness of breath status post pacemaker implantation. Resting EKG demonstrates normal sinus rhythm with a rate of 97 bpm and ventricular pacing. 0.4 mg of regadenoson was infused per usual protocol followed by rapid intravenous saline flush injection continuous EKG monitoring was performed. The patient maintained sinus rhythm with ventricular pacing throughout the recording. The maximum heart rate attained was 146 bpm was 96% of maximum predicted heart rate maximum workload was 1 metabolic equivalent. The patient maintained ventricular pacing throughout. The resting blood pressure was 162/100 mmHg with a final blood pressure 170/88 mmHg. Myocardial perfusion protocol. 11.9 mCi of technetium 99m sestamibi was injected at rest. 0.4 mg of regadenoson was infused per usual protocol peak infusion 31.2 mCi of technetium 99m sestamibi was injected stress images were obtained stress and rest images were reconstructed and compared in the short axis vertical long horizontal long axis. Gated images were also obtained per Perfusion SPECT analysis. Review of the stress images demonstrate normal uptake of tracer noted in the septum anterior wall and lateral wall. There is a medium-sized defect noted in the mid inferior wall on the stress images which normalizes on the resting images. It extends to the inferolateral wall. The above is suggestive of a medium size inferior and inferolateral perfusion defect. Gated SPECT analysis: The gated ejection fraction is noted to be 60%. Conclusion: Abnormal pharmacologic myocardial perfusion stress test with evidence of mid inferior and inferolateral ischemia. Preserved ejection fraction. Ventricular pacing noted. 01/21/18 1308 <Electronically signed by John Julio MD> Date John Julio MD CC: John Julio MD; Rigo Mckinney MD Date Dictated: 01/21/181304 Date Transcribed: 01/21/181304 Health Analyst: CO Signed CARDIOLOGY VISIT Observed: 01/09/2018 Status: F Source: [place] REPORT 2:39 PM [facility] REPOSITORY [facility] [address] [place] [address] OFFICE VISIT Date of Service: 01/09/18 MR#: [id number] Acct: [id number] Name: CELESTE DESOUZA Rep #: [id number] : 1950 Provider: John Julio MD Age/Sex: 67/F Location: [facility] [place] Status: Signed HPI HPI Chief Complaint: Follow up visit Details: CELESTE DESOUZA, is a 67 F who presents to the office today for a follow-up visit. She had been seen in the office earlier on complaining of chest discomfort and a dull ache she was noted to be in a 2-1 heart block with an elevated natruretic peptide and a low hemoglobin. She underwent a permanent pacemaker implantation on 12/11/2017. Since then she has been seen in the pacemaker clinic she says that she has been feeling well since then denying any chest pain or shortness breath or paroxysmal nocturnal dyspnea pedal edema she has had no neck arm or jaw discomfort suggest angina. She has been compliant with her medications. Her physical exam demonstrates clear lung little regular rate and rhythm and no pedal edema. Intake Vital Signs01/09/18 Height 5 ft 4 in 01/09/18 Weight: 175 lb 01/09/18 Body Mass Index (BMI) 30.0 01/09/18 Blood Pressure 124/70 H 01/09/18 Respiratory Rate 18 01/09/18 Pulse Rate 74 Intake Visit Reasons: post implant f/up Allergies NSAIDS (Non-Steroidal Anti-Inflamma Adverse Reaction (Verified 01/09/18 13:27) Had bariatric surgery Medications famotidine 20 mg tablet 20 mg PO BID 12/10/17 [History Confirmed 01/09/18] cholecalciferol (vitamin D3) 50,000 unit capsule 50,000 unit PO .QOW cap 01/09/18 [History Confirmed 01/09/18] doxepin 25 mg capsule 25 mg PO QHS 01/09/18 [History Confirmed 01/09/18] metoprolol tartrate 50 mg tablet 50 mg PO BID 01/09/18 [History Confirmed 01/09/18] [facility] Medical History Incomplete right bundle branch block (Chronic) Chronic diastolic (congestive) heart failure (Chronic) Diastolic dysfunction (Chronic) Secondary pulmonary arterial hypertension (Chronic) Non-rheumatic tricuspid valve insufficiency (Chronic) Second degree AV block (Acute) Essential (primary) hypertension (Chronic) Type 2 diabetes mellitus (Acute) Chronic kidney disease (Chronic) Anemia (Chronic) Obesity (Chronic) HOMAR (acute kidney injury) (Inactive) Bradycardia (Inactive) Surgical History Presence of permanent cardiac pacemaker (Chronic 12/11/17) Bariatric surgery status (Resolved) Family History Mother Cancer Other Adopted Sudden cardiac Social History Smoking Status: Former smoker quit date: 02/24/93 pack-years: 35 ROS Const Const: Positive for fatigue; negative for weakness, difficulty sleeping, frequent falls, excessive sweating or headache(s) Eyes Eyes: Negative for loss of peripheral vision, transient loss of vision, blurry vision, tunnel vision or double vision ENT ENT: Negative for headache(s), dizziness, Nosebleed/epistaxis or balance problems Cardio Chest Pain: No Palpitations: No Edema: None Muscle aches with walking: None Resp Respiratory: Negative for SOB with activity, SOB at rest, SOB orthopnea\SOB lying down, paroxysmal nocturnal dyspnea or Cough GI GI: Negative nausea, heartburn, black,tarry stools or vomiting : Negative for hematuria Musc Musc: Negative for balance problems, muscle aches/ myalgia, muscle weakness or joint pain Skin Skin: Negative non-healing lesions, unusual bruising or rash Neuro Neuro: Negative for weakness, frequent falls, headache(s), blurry vision, double vision, dizziness, lightheadedness, orthostatic symptoms, near syncope, syncope or lack of coordination Martin Hematologic/Lymphatic: Negative for easy bruising or easy bleeding Endo Endo: Positive for fatigue; negative for excessive sweating or increased thirst/drinking Psych Psych: Positive for depression; negative for anxiety Allergy Allergy/Immunology: Negative for hives, Negative for rash Cardiology Exam Const Appearance: cooperative, healthy appearing, well developed, well groomed and no acute distress Nutritional Appearance: well nourished and average body habitus Orientation: alert, awake and oriented x3 Head Head: normal to inspection, normocephalic and atraumatic Ears: hearing grossly normal bilaterally and external ears normal Nose: external nose normal, nasal mucous membranes and turbinates normal, nares normal, septum normal, no nasal discharge Face and Sinus: face symmetric Mouth: oral mucosae normal, tongue normal, oropharynx normal and moist mucous membranes Teeth and gingiva: dentition normal Throat: posterior oropharynx normal, tonsils normal and uvula midline Eyes General: appearance normal, both eyes and all related structures Eyelids: eyelids normal Conjunctivae: conjunctivae normal Pupils: PERRL, normal by confrontation and accommodation normal EOM: EOM intact bilaterally Neck Neck: normal visual inspection, trachea midline and no JVD JVD: +5 Carotids: normal carotid upstroke and bounding pulses Chest Chest inspection: normal inspection of the chest, symmetric chest movement and normal respiratory effort Auscultation: Bilateral: Clear to Auscultation Cardio Palpation: normal PMI Rate: regular rate Rhythm: regular rhythm Heart sounds: S1 normal, S2 normal and normal, physiologic split S2; negative rub, gallop or murmur GI GI: normal to inspection, soft, no hepatosplenomegaly and bowel sounds present Neuro General: alert, awake, oriented x3, no focal sensory deficit, gait normal and moves all extremities Skin Skin: no rashes or lesions noted Extremities Pulses: Normal: Right Femoral Pulse, Left Femoral Pulse, Right Dorsalis Pedis Pulse, Left Dorsalis Pedis Pulse, Right Posterior Tibial Pulse, Left Posterior Tibial Pulse, Right Radial Pulse, Left Radial Pulse Lower Extremity Edema: None: Bilateral Musculoskel Musculoskeletal: No joint tenderness Psych Psychological: normal affect Assessment AND Plan 1. Presence of permanent cardiac pacemaker Z95.0 Plan She does have a permanent pacemaker implanted. Her pacemaker check demonstrated adequate pacemaker function. I would not recommend we make any changes he will continue following up in the pacemaker clinic. 2. Essential (primary) hypertension I10 Plan She does have a history of hypertension blood pressure appears to be well controlled at this visit she will remain on the metoprolol at the same dosage without making any changes. 3. Chronic diastolic (congestive) heart failure I50.32 Plan She did appear to have shortness of breath on her last visit an echocardiogram which was performed that demonstrated stage II diastolic dysfunction with pulmonary pressures of 54 mmHg and an ejection fraction of 60%. Her natruretic peptide was also elevated. At this particular time she appears to doing remarkably well my recommendation would be for us to obtain a pharmacologic myocardial perfusion stress test to exclude coronary ischemia as responsible for some of her presentation. Depending on the findings further recommendations will be made. Orders Orders: Plan Detail Follow Up 6 Months (expander) Coding Level of Care Code Off vis,est,level 3 Diagnoses Presence of permanent cardiac pacemaker Z95.0 Essential (primary) hypertension I10 Chronic diastolic (congestive) heart failure I50.32 Coding Level of Care Code Off vis,est,level 3 Diagnoses Presence of permanent cardiac pacemaker Z95.0 Essential (primary) hypertension I10 Chronic diastolic (congestive) heart failure I50.32 01/09/18 1439 <Electronically signed by John Julio MD> Date John Julio MD Cosigner Signature: Date (if applicable) CC: Rigo Mckinney MD PROTEIN+CREATININE Collected: Status: F Source: [place] RATIO,URINE 12/24/2017 3:37 PM [facility] REPOSITORY TYPE CODE TESTS RESULT OUT OF RANGE REFERENCE UNITS LAB L501.1200 NO RANGE EST. mg/dL Normal UR CREAT 82.30 LAB L501.1930 <11.9 mg/dL High 244.8 PROTEIN,UR.R AN. LAB L501.1940 0-200 mg/g CRE High PROT:CRE 2974 RATIO Performed By: #### L501.0900 #### [facility] [address] [place], [address] PACEMAKER CHECK Observed: 12/17/2017 Status: F Source: [place] 4:38 PM [facility] REPOSITORY [facility] [address] [place] [address] Pacemaker Check Date of Service: 12/17/171623 MR#: [id number] Acct: [id number] Name: CELESTE DESOUZA Rep #: [id number] : 1950 From: Katie Perry Age/Sex: 67/F [place] [facility] [place] Status: Signed Billing Codes PM Device Codes: PM Dev Prog Eval, Dual 12/17/17 1625 <Electronically signed by Katei Perry > Date Katie Perry 12/17/17 1638<Electronically signed by Vijaya GROSSMAN> Cosigner Signature: Date (if applicable) Vijaya Coyle CC: John Julio MD CBC W/DIFF, AUTOMATED Collected: 12/17/2017 Status: F Source: [place] 3:47 PM [facility] REPOSITORY TYPE CODE TESTS RESULT OUT OF RANGE REFERENCE UNITS LAB L100.1000 4.4-11.0 K/mm3 Normal WBC 8.7 LAB L100.1200 4.2-5.4 M/mm3 Low RBC 3.78 LAB L100.1300 12.0-15.0 g/dl Low HGB 10.3 LAB L100.1400 37-47 % Low HCT 32.7 LAB L100.1500 81-99 fL Normal MCV 86.5 LAB L100.1600 27.0-32.0 pg Normal MCH 27.2 LAB L100.1700 32-36 g/gl Low MCHC 31.5 LAB L100.1810 11.6-14.6 % High RDW CV 15.1 LAB L100.1820 35.1-43.9 fl High RDW SD 46.5 LAB L100.1900 150-450 K/mm3 Normal PLT 301 LAB L100.2000 6.2-12.0 fl Normal MPV 10.7 LAB L100.2100 47-70 % Normal NEUT% 57.6 LAB L100.2200 19-41 % Normal LY% 33.3 LAB L100.2300 0-10 % Normal MONO% 4.7 LAB L100.2400 0-5 % Normal EO% 3.6 LAB L100.2500 0-1 % Normal BASO% 0.7 LAB L100.2550 0.0-0.9 % Normal IM GRAN % 0.100 Result Comment: IG% - Immature Granulocytes (promyelocytes, myelocytes and metamyelocytes) > 1% indicates that a LEFT SHIFT is Present. LAB L100.2620 2.0-7.7 X10 3/uL Normal Absolute Neut 5.0 LAB L100.2720 0.83-4.51 X10 3/ul Normal Absolute Lymph 2.89 Performed By: #### L100.0100 #### [facility] [address] [facility] [place], [place], [address] COMPREHENSIVE METABOLIC Collected: 12/17/2017 Status: F [facility] 3:47 PM [facility] REPOSITORY Order Comment: DR SINGH ORDERED RENAL ONLY PT UNABLE TO VOID TYPE CODE TESTS RESULT OUT OF RANGE REFERENCE UNITS LAB L501.0100 74-106 mg/dL High GLU 108 Result Comment: Fasting Glucose result from 100 to 125 mg/dL suggests IMPAIRED HOMEOSTASIS per A.D.A. criteria. Please note revised GLUCOSE reference range effective 2017. LAB L501.1000 7-18 mg/dL High BUN 30 LAB L501.1100 0.55-1.02 mg/dL High CREAT,SERUM 1.50 Result Comment: The validity of the calculated GFR AND GFRAA in patients over 70 years has not been determined. Clinical correlation is essential. LAB L501.1110 >60 mL/min Low EST GFR 37 Result Comment: Non- GFR Calc LAB L501.1115 >60 mL/min Low EST GFR - AA 44 Result Comment: GFR Calc LAB L501.1300 10-20 RATIO Normal BUN/CRE 20.0 LAB L501.1500 6.4-8.2 g/dL T Normal PROT 7.6 LAB L501.1800 3.2-5.0 g/dL Normal ALB 3.7 LAB L501.1950 2.2-4.2 g/dL Normal GLOB 3.9 LAB L501.2000 0.9-2.4 RATIO Normal A/G 0.9 LAB L501.2200 8.5-10.1 mg/dL CA Normal 8.7 LAB L501.4100 15-37 U/L Normal AST 20 LAB L501.4305 45-117 U/L Normal ALK P 113 LAB L501.4405 13-56 U/L Normal ALT 24 LAB L501.4600 0.20-1.00 mg/dL T Normal BILI 0.30 LAB L501.5300 136-145 mmol/L NA Normal 141 LAB L501.5600 3.5-5.1 mmol/L High K 5.2 LAB L501.5900 98-107 mmol/L High CL 110 LAB L501.6100 21.0-32.0 mmol/L Normal CO2 25.0 LAB L501.6200 5-15 Normal GAP 6 Performed By: #### L500.4050, L500.4100, L501.2300, L501.4700, L501.9520 #### [facility] [address] [place], [address] LIPID PROFILE Collected: 12/17/2017 Status: F Source: [place] 3:47 PM [facility] REPOSITORY Order Comment: DR SINGH ORDERED RENAL ONLY PT UNABLE TO VOID TYPE CODE TESTS RESULT OUT OF RANGE REFERENCE UNITS LAB L501.4900 200 mg/dL Normal CHOL 174 Result Comment: <200 mg/dL Desirable 200-240 mg/dL Borderline >240 mg/dL High Risk LAB L501.5000 mg/dL High TRIG 253 Result Comment: The drugs N-Acetylcysteine and Metamizole may falsely depress this assay. Serum Triglycerides Reference Interval Normal <150 mg/dL Borderline high 150 - 199 mg/dL High 200 - 499 mg/dL Very High > or = 500 mg/dL LAB L501.6400 mg/dL Low HDL 30 Result Comment: The drugs N-Acetylcysteine and Metamizole may falsely depress this assay. Reference Range HDL <40 mg/dL Low HDL Cholesterol HDL >or= 60 mg/dL High HDL Cholesterol LAB L501.6500 0-130 mg/dL Normal LDL 93 LAB L501.6600 5-40 mg/dL High VLDL 51 Performed By: #### L500.4050, L500.4100, L501.2300, L501.4700, L501.9520 #### [facility] [address] [place], [place], [address] PHOSPHORUS Collected: 12/17/2017 Status: F Source: [place] 3:47 PM [facility] REPOSITORY Order Comment: DR SINGH ORDERED RENAL ONLY PT UNABLE TO VOID TYPE CODE TESTS RESULT OUT OF RANGE REFERENCE UNITS LAB L501.2300 2.5-4.9 mg/dL Normal PHOS 3.4 Performed By: #### L500.4050, L500.4100, L501.2300, L501.4700, L501.9520 #### [facility] [address] [place], [place], [id number] BILIRUBIN, DIRECT Collected: 12/17/2017 Status: F Source: [place] 3:47 PM [facility] REPOSITORY Order Comment: DR SINGH ORDERED RENAL ONLY PT UNABLE TO VOID TYPE CODE TESTS RESULT OUT OF RANGE REFERENCE UNITS LAB L501.4700 0.00-0.30 mg/dL Normal D BILI 0.07 Performed By: #### L500.4050, L500.4100, L501.2300, L501.4700, L501.9520 #### [facility] [address] [place], [place], [id number] THYROID STIM HORMONE Collected: 12/17/2017 Status: F Source: [place] (TSH) 3:47 PM [facility] REPOSITORY Order Comment: DR SINGH ORDERED RENAL ONLY PT UNABLE TO VOID TYPE CODE TESTS RESULT OUT OF RANGE REFERENCE UNITS LAB L501.9520 0.358-3.74 uIU/mL Normal TSH 1.21 Performed By: #### L500.4050, L500.4100, L501.2300, L501.4700, L501.9520 #### [facility] [address] [place], [address] VITAMIN D,25 HYDROXY Collected: 12/17/2017 Status: F Source: [place] 3:47 PM [facility] REPOSITORY TYPE CODE TESTS RESULT OUT OF RANGE REFERENCE UNITS LAB L506.1000 29.95-100.01 ng/mL Normal Vitamin D 48.4 25-OH Result Comment: Vitamin D 25(OH) Status Range Deficiency <20 ng/mL (50nmol/L) Insuffciency 20 - 30 ng/mL (50 - 75 nmol/L) Sufficiency 30 - 100 ng/mL (75 - 250 nmol/L) Toxicity >100 ng/mL (>250 nmol/L) Performed By: #### L506.1000 #### [facility] [address] [place], [address] PTHIN Collected: 12/17/2017 Status: F Source: [place] 3:47 PM [facility] REPOSITORY TYPE CODE TESTS RESULT OUT OF RANGE REFERENCE UNITS LAB L509.1000 18.4-80.1 pg/mL High PTHIN 138.6 Performed By: #### L509.1000 #### [facility] [address] [place], [address] DISCHARGE INSTRUCTION Observed: 12/12/2017 Status: F Source: [place] 7:52 AM [facility] REPOSITORY [facility] Medical Records Department [address] [place] [address] Instructions for Home/Discharge Instructions 12/12/17 0748 MR#: [id number] Acct: [id number] Name: CELESTE DESOUZA Rep #: [id number] : 1950 67 From: John Julio MD PCP: Rigo Mckinney MD, Chi Status: REG SDC Discharge Diet: No Restrictions Discharge Activity: May Not Drive May resume sexual activity in: 2 weeks Call your doctor if your incision/area has: Continuous Slow Oozing, Sudden Increased Bleeding, Increased Pain/ Swelling, Increased Redness, Foul Smelling Discharge, Swelling at the incision site Call your doctor if you observe: Fever of 101 or Higher, Shortness of breath, Dizziness, Fainting spells, Swelling in the ankles, Chest pain, Prolonged hiccoughing, Increased palpitations (irregular heartbeat) Suture Line Care: Avoid Pulling/Pushing, Avoid Pinching/Bending Cleanse incision/area with: Do not get Incision Wet, Keep Dressing Clean AND Dry Additional Dressing/Incision Instructions:: When dressing is removed, wash and dry incision. Keep covered with a light bandage if it is rubbing against your clothing. Do not cover the incision with an airtight bandage. Change the bandage daily. Do not remove steri strips. The strips will fall off on their own. Additional Instructions: Signs and Symptoms to Report to Your Doctor at Once - call your doctor's office or Doctor's Registry ([phone]) Call 911 or go to the nearest Emergency Department if you feel you need urgent care. *Infection (fever, increased redness or swelling at the incision site, drainage from the incision increased pain at the pacemaker site) *Shortness of breath *Dizziness *Fainting spells *Swelling in the ankles *Chest pain *Prolonged hiccoughing *Increased palpitaitons (irregular heartbeat) Medications: Take your pain medication as directed. Refer to your discharge instruction sheet for a list of medications you are to take. Allergies/Adverse Reactions: Allergies NSAIDS (Non-Steroidal Anti-Inflamma Adverse Reaction (Verified 12/10/17 11:18) Had bariatric surgery Medications to take at Discharge cholecalciferol (vitamin D3) 2,000 unit capsule 5,000 unit PO QWEEK 12/10/17 famotidine 20 mg tablet 20 mg PO BID 12/10/17 Gabapentin [Neurontin] 300 mg PO QHS 12/11/17 Tramadol HCl [Ultram] 100 mg PO 12/11/17 Primary Care Physician: Rigo Mckinney Chi, MD [Primary Care Provider] - Test Results: Test results from this visit will be discussed in further detail at your follow-up appointment, if applicable. Please Follow Up With: [facility] 12/17 AT 2 PM 12/12/17 0752 <Electronically signed by John Julio MD> Date John Julio MD CC: Rigo Mckinney MD CHEST 1 VIEW Observed: 12/12/2017 Status: F Source: [place] 12:12 AM [facility] REPOSITORY [facility] Imaging Services [address] [place] [address] Chest 1 View MR#: [id number] Acct: [id number] Name: CELESTE DESOUZA Rep #: [id number] : 1950 F 67 From: Rell Yanez MD PCP: Rigo Mckinney MD, Chi Status: REG [facility] Study: Chest 1 View Date of Exam: 12/12/17 Exam# [id number] Ordering Dr: John Julio MD STUDY: X-RAY CHEST REASON FOR EXAM: Female, 67 years old. Pacemaker insertion TECHNIQUE: Single frontal view of the chest. # of Images: 1 COMPARISON: 12/12/2017 FINDINGS: Dual-chamber pacemaker on the left. Leads overlie the appropriate positions. No pneumothorax. Stable left basilar atelectasis. Evolving central vascular congestion. There is no demonstrated pleural abnormality. Normal size heart. Normal mediastinum and rola. Normal visualized pulmonary arteries. Normal visualized aortic arch and descending thoracic aorta. Normal visualized thoracic spine. Normal visualized ribs, clavicles, and shoulders. There is no demonstrated abnormality of the visualized soft tissue structures of the upper abdomen. RAD/Chest 1 View IMPRESSION: Dual-chamber pacemaker on the left. Leads overlie the appropriate positions. No pneumothorax. Stable left basilar atelectasis. Evolving central vascular congestion. Electronically Signed: Rell Yanez MD at 6:36 EDT Tel , Service support , CC: John Julio MD; Rigo Mckinney MD Health Analyst: Signed CHEST PA AND LATERAL Observed: 12/12/2017 Status: F Source: [place] 12:00 AM [facility] REPOSITORY [facility] Imaging Services [address] [place] [address] Chest PA and Lateral MR#: [id number] Acct: [id number] Name: CELESTE DESOUZA Rep #: [id number] : 1950 F 67 From: Rell Yanez MD PCP: Rigo Mckinney MD, Chi Status: REG [facility] [place] Study: Chest PA and Lateral Date of Exam: 12/12/17 Exam# [id number] Ordering Dr: John Julio MD STUDY: X-RAY CHEST REASON FOR EXAM: Female, 67 years old. Pacemaker insertion TECHNIQUE: Frontal and lateral views of the chest. # of Images: 2 COMPARISON: None. FINDINGS: Dual-chamber pacemaker on the left. Leads overlie appropriate positions. No pneumothorax is seen. The lungs are clear and expanded. There is no demonstrated pleural abnormality. Normal size heart. Normal mediastinum and rola. Normal visualized pulmonary arteries. Normal visualized aortic arch and descending thoracic aorta. There are diffuse degenerative changes of the visualized thoracic spine. Normal visualized ribs, clavicles, and shoulders. Abdominal clips. RAD/Chest PA and Lateral IMPRESSION: Dual-chamber pacemaker on the left. Leads overlie appropriate positions. No pneumothorax is seen. Electronically Signed: Rell Yanez MD at 6:34 EDT Tel , Service support , CC: John Julio MD; Rigo Mckinney MD Health Analyst: Signed ECHOCARDIOGRAM COMPLETE Observed: 12/10/2017 Status: F Source: [place] 5:10 PM [facility] REPOSITORY [facility] Cardiovascular [place] [address] Echo Complete 12/10/17 1427 MR#: [id number] Acct: [id number] Name: CELESTE DESOUZA Rep #: [id number] : 1950 67 From: John Julio MD Attending Dr: Rigo Mckinney MD, Chi Status: REG CLI Ordering Dr: John Julio MD Date: 12/10/17 Location: MD Sex: F C Admitted: Reason For Study: ARRYTHMIA Procedure This was a 2D Doppler, Color Flow transthoracic echocardiogram. Exam performed in department. Left Ventricle Normal LV size. Left ventricular systolic function is normal. The estimated ejection fraction is 60 %. Stage 2 diastolic dysfunction. No regional wall motion abnormalities noted. Right Ventricle Normal RV size. Normal systolic function. Atria The left atrium is mildly enlarged. Normal right atrium. Bubble contrast study negative for right to left interatrial shunt. Mitral Valve Normal mitral valve. Trivial eccentric mitral valve insufficiency. Tricuspid Valve Normal tricuspid valve. Moderate (2+) tricuspid valve insufficiency. Pulmonary artery systolic pressure is 54 mmHg. Moderate pulmonary hypertension. Aortic Valve Trisinus/trileaflet aortic valve. Mild focal aortic valve calcification. Pulmonic Valve Normal pulmonic valve. Great Vessels Normal aortic root. The pulmonary artery is normal size. Normal inferior vena cava. Pericardium/Pleural No pericardial effusion. Medication 22 gauge I.V. with prn adaptor inserted into right arm. Performed a rapid injection of agitated mix of 9 cc saline and 1cc air to assess for atrial septal defect. MMode/2D Measurements AND Calculations LVIDd: 4.8 cm IVSd: 0.87 cm Ao root diam: 3.3 cm LVIDs: 3.0 cm LVPWd: 0.90 cm LA dimension: 4.0 cm RVDd: 4.0 cm FS: 37.9 % LAV(MOD-bp): 84.5 ml LVAd ap4: 36.5 cm2 SV(MOD-sp4): 85.5 ml LAV(MOD-bp) Indexed: 46.0 ml/m2 EDV(MOD-sp4): 134.4 ml LAV(MOD-sp2): 90.4 ml EDV(sp4-el): 140.8 ml LAV(MOD-sp4): 74.8 ml LVAs ap4: 19.2 cm2 ESV(MOD-sp4): 48.9 ml ESV(sp4-el): 48.5 ml EF(MOD-sp4): 63.6 % EF(sp4-el): 65.6 % SV(sp4-el): 92.4 ml LA A4 area: 24.0 cm2 RA A4 area: 19.8 cm2 Time Measurements MV dec time: 0.16 sec Doppler Measurements AND Calculations MV E max josepihne: 156.2 cm/sec Ao V2 max: 186.5 cm/sec LV V1 max: 193.1 cm/sec MV A max josephine: 99.1 cm/sec Ao max P.9 mmHg LV V1 max P.9 mmHg MV E/A: 1.6 PA V2 max: 161.3 cm/sec TR max josephine: 356.6 cm/sec TR max P.9 mmHg Interpretation Summary Normal LV size. Left ventricular systolic function is normal. The estimated ejection fraction is 60 %. Stage 2 diastolic dysfunction. Moderate pulmonary hypertension. Ordering Physician: John Julio Referring Physician: Rigo Mckinney Chi Performed By: Ebony Moeller RDCS 12/10/17 171 Date John Julio MD CC: John Julio MD; Rigo Mckinney MD Date Dictated: 12/10/17 142 Date Transcribed: 12/10/171709 Health Analyst: Signed URINALYSIS, COMPLETE Collected: 12/10/2017 Status: F Source: [place] 1:51 PM [facility] REPOSITORY Order Comment: How was Urine Obtained? CLEAN CATCH TYPE CODE TESTS RESULT OUT OF RANGE REFERENCE UNITS LAB L400.3000 Yellow COLOR Normal Yellow LAB L400.3050 Clear Normal CLARITY Clear LAB L400.3200 Normal mg/dl Normal GLUCOSE, UR Normal LAB L400.3300 Negative mg/dL Normal BILIRUBIN URINE Negative LAB L400.3400 Negative mg/dl High 5 KETONE UR LAB L400.3465 1.002-1.030 Normal SP.GR. DIPSTX 1.015 LAB L400.3550 5.0 - 8.0 pH UR Normal 5.0 LAB L400.3600 Negative mg/dl High PROT DIPSTX 500 LAB L400.3700 Normal mg/dl Normal UROBILI Normal LAB L400.3750 Negative Normal NITRITE UR Negative LAB L400.3780 Negative /ul High 25 OCCULT BLOOD-UR LAB L400.3800 Negative /ul High LEUK 25 ESTERASE LAB L400.4050 0-5 /hpf WBC Normal 0-5 SEEN LAB L400.4100 0-5 /hpf Normal RBC-UA 0-5 SEEN LAB L400.4150 5-10 /hpf SQUAM Normal EPI 0-5 SEEN LAB L400.4300 None Seen /hpf 0 Normal BACTERIA SEEN LAB L400.4350 <or=2+ /hpf 0 Normal MUCUS, URINE SEEN LAB L400.4400 0-5 /lpf Normal HYALINE CAST 0-5 SEEN LAB L400.4900 1+ Normal AMORPHOUS URATE Performed By: #### L400.0001 #### [facility] [address] [place], [address] CARDIOLOGY VISIT Observed: 12/10/2017 Status: F Source: [place] REPORT 11:50 AM [facility] REPOSITORY [facility] [address] [place] [address] OFFICE VISIT Date of Service: 12/10/17 MR#: [id number] Acct: [id number] Name: CELESTE DESOUZA Rep #: [id number] : 1950 Provider: John Julio MD Age/Sex: 67/F Location: [facility] [place] Status: Signed HPI HPI Chief Complaint: Initial visit Details: CELESTE DESOUZA, is a 67 F who presents to the office today for an initial visit. She is a pleasant lady who has been complaining of fatigue over the last few months. She says that she also has been having some chest discomfort which is a dull constant ache. A few weeks ago they went into the crouch and she had a very hard time getting back up. She was noted to be fatigued and short of breath with minimal exertion. As you know she has had some anemia previously. She was seen in the office an EKG was done which demonstrated an incomplete right bundle branch block and also noted to be in a 2-1 heart block. Her natruretic peptide was also elevated at 600 and her hemoglobin was down to 9.9. She tells me that she has had an episode of dizziness in the past as well as syncope a few months ago. She was asked to see me today. Her physical exam demonstrates clear lung little regular rate and rhythm with no pedal edema. Her electric cardiogram was reviewed. It does reveal sinus rhythm with a 2-1 heart block. Intake Vital Signs12/10/17 Height 5 ft 4 in 12/10/17 Weight: 177 lb 12/10/17 Body Mass Index (BMI) 30.4 12/10/17 Blood Pressure 182/50 H 12/10/17 Respiratory Rate 18 12/10/17 Pulse Rate 42 L Intake Visit Reasons: PCP ref'd for daron, afib, SOB, elevated d-dimer Allergies NSAIDS (Non-Steroidal Anti-Inflamma Adverse Reaction (Verified 12/10/17 11:18) Had bariatric surgery Medications cholecalciferol (vitamin D3) 2,000 unit capsule 2,000 unit PO DAILY 12/10/17 [History Confirmed 12/10/17] famotidine 20 mg tablet 20 mg PO DAILY 12/10/17 [History Confirmed 12/10/17] PFSH Medical History CKD (chronic kidney disease) (Chronic) Essential (primary) hypertension (Chronic) Congestive heart failure (Acute) HOMAR (acute kidney injury) (Acute) Anemia (Chronic) Obesity (Chronic) Surgical History Bariatric surgery status (Resolved) Family History Mother Cancer Other Adopted Sudden cardiac Social History Smoking Status: Former smoker quit date: 02/24/93 pack-years: 35 ROS Const Const: Positive for fatigue; negative for weakness, difficulty sleeping, frequent falls, excessive sweating or headache(s) Eyes Eyes: Negative for loss of peripheral vision, transient loss of vision, blurry vision, tunnel vision or double vision ENT ENT: Negative for headache(s), dizziness, Nosebleed/epistaxis or balance problems Cardio Chest Pain: Yes (New onset 6 days ago with SOB) Palpitations: No Edema: None Muscle aches with walking: None Resp Respiratory: Positive for SOB with activity and SOB at rest; negative for SOB orthopnea\SOB lying down, paroxysmal nocturnal dyspnea or Cough GI GI: Negative nausea, heartburn, black,tarry stools or vomiting : Negative for hematuria Musc Musc: Negative for balance problems, muscle aches/ myalgia, muscle weakness or joint pain Skin Skin: Negative non-healing lesions, unusual bruising or rash Neuro Neuro: Negative for weakness, frequent falls, headache(s), blurry vision, double vision, dizziness, lightheadedness, orthostatic symptoms, near syncope, syncope or lack of coordination Martin Hematologic/Lymphatic: Negative for easy bruising or easy bleeding Endo Endo: Positive for fatigue; negative for excessive sweating or increased thirst/drinking Psych Psych: Negative for anxiety or depression Allergy Allergy/Immunology: Negative for hives, Negative for rash Cardiology Exam Const Appearance: cooperative, healthy appearing, well developed, well groomed and no acute distress Nutritional Appearance: well nourished and average body habitus Orientation: alert, awake and oriented x3 Head Head: normal to inspection, normocephalic and atraumatic Ears: hearing grossly normal bilaterally and external ears normal Nose: external nose normal, nasal mucous membranes and turbinates normal, nares normal, septum normal, no nasal discharge Face and Sinus: face symmetric Mouth: oral mucosae normal, tongue normal, oropharynx normal and moist mucous membranes Teeth and gingiva: dentition normal Throat: posterior oropharynx normal, tonsils normal and uvula midline Eyes General: appearance normal, both eyes and all related structures Eyelids: eyelids normal Conjunctivae: conjunctivae normal Pupils: PERRL, normal by confrontation and accommodation normal EOM: EOM intact bilaterally Neck Neck: normal visual inspection, trachea midline and no JVD JVD: +5 Carotids: normal carotid upstroke and bounding pulses Chest Chest inspection: normal inspection of the chest, symmetric chest movement and normal respiratory effort Auscultation: Bilateral: Clear to Auscultation Cardio Palpation: normal PMI Rate: regular rate Rhythm: regular rhythm Heart sounds: S1 normal, S2 normal and normal, physiologic split S2; negative rub, gallop or murmur GI GI: normal to inspection, soft, no hepatosplenomegaly and bowel sounds present Neuro General: alert, awake, oriented x3, no focal sensory deficit, gait normal and moves all extremities Skin Skin: no rashes or lesions noted Extremities Pulses: Normal: Right Femoral Pulse, Left Femoral Pulse, Right Dorsalis Pedis Pulse, Left Dorsalis Pedis Pulse, Right Posterior Tibial Pulse, Left Posterior Tibial Pulse, Right Radial Pulse, Left Radial Pulse Lower Extremity Edema: None: Bilateral Musculoskel Musculoskeletal: No joint tenderness Psych Psychological: normal affect Assessment AND Plan 1. 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 My recommendation at this time will be for us to proceed with a permanent pacemaker implantation. Risks benefits and alternatives have been explained to her she understands and agrees to proceed. I would also recommend that we obtain an echocardiogram to assess her left ventricular function. Orders Orders: 2. Congestive heart failure I50.9 Plan She likely has congestive heart failure as well due to her elevated natruretic peptide. I would recommend that we obtain an echocardiogram to assess her left ventricular function. Depending on the findings of the above further recommendations will be made. 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 criteria. Please note revised GLUCOSE reference range effective 2017. LAB L501.1000 7-18 mg/dL High BUN 36 LAB L501.1100 0.55-1.02 mg/dL High CREAT,SERUM 1.80 Result Comment: The validity of the calculated GFR AND GFRAA in patients over 70 years has not been determined. Clinical correlation is essential. LAB L501.1110 >60 mL/min Low EST GFR 30 Result Comment: Non- GFR Calc LAB L501.1115 >60 mL/min Low EST GFR - AA 36 Result Comment: GFR Calc LAB L501.1300 10-20 RATIO Normal BUN/CRE 20.0 LAB L501.2200 8.5-10.1 mg/dL CA Normal 8.7 LAB L501.5300 136-145 mmol/L NA Normal 142 LAB L501.5600 3.5-5.1 mmol/L K Normal 4.8 LAB L501.5900 98-107 mmol/L High CL 112 LAB L501.6100 21.0-32.0 mmol/L Normal CO2 21.0 LAB L501.6200 5-15 Normal GAP 9 Performed By: #### L500.2500, L501.3620, L501.4010 #### [facility] [address] [place], [address] CPK TOTAL, CREATINE Collected: 12/10/2017 Status: F Source: [place]INASE 10:53 AM [facility] REPOSITORY Order Comment: 'TROP' Serial specimen #1, #2, #3, or #4: 1 TYPE CODE TESTS RESULT OUT OF RANGE REFERENCE UNITS LAB L501.3620 26-192 U/L Normal CPK TOTAL 57 Performed By: #### L500.2500, L501.3620, L501.4010 #### [facility] [address] [place], [place], [address] TROPONIN-I Collected: 12/10/2017 Status: F Source: PAVAN 10:53 AM [facility] REPOSITORY Order Comment: 'TROP' Serial specimen #1, #2, #3, or #4: 1 TYPE CODE TESTS RESULT OUT OF RANGE REFERENCE UNITS LAB L501.4010 <0.045 ng/mL Normal < 0.015 TROPONIN-I Result Comment: TROPONIN-I EXPECTED VALUES <0.045 Negative 0.045 - 0.590 Consistent with Cardiac Damage > OR = 0.600 Critical Value Not every elevated troponin is indicative of AR. These values should be used with clinical judgement in examining the patient's clinical picture for diagnosis. To establish a diagnosis of AR versus myocardial injury, there must be a demonstrated rise and/or fall in the troponin values, in addition to ischemic symptoms, EKG changes, new regional wall motion abnormality, and/or angiographical evidence. PLEASE NOTE: REFERENCE RANGES EDITED 17 Performed By: #### L500.2500, L501.3620, L501.4010 #### [facility] [address] [place], [address] MYOGLOBIN, SERUM Collected: 12/10/2017 Status: F Source: PAVAN 10:53 AM [facility] REPOSITORY TYPE CODE TESTS RESULT OUT OF RANGE REFERENCE UNITS LAB L3600.5100 25-58 ng/mL High 64 Myoglobin, Ser Result Comment: Performed at: - [facility] [id number] [place] Dipper: Mega Blanca PhD, Phone: [phone] Performed By: #### L3600.5100 #### [facility] (refer to report for specific site) refer to report for address and phone number CTA CHEST W/WO Observed: 12/10/2017 Status: F Source: PAVAN CONTRAST 8:33 AM [facility] REPOSITORY [facility] Imaging Services [address] [place] [address] CTA Chest W/WO Contrast MR#: [id number] Acct: [id number] Name: CELESTE DESOUZA Rep #: [id number] : 1950 F 67 From: Sean Bush DO PCP: Rigo Mckinney MD, Chi Status: REG CLI Study: CTA Chest W/WO Contrast Date of Exam: 12/10/17 Exam# [id number] Ordering Dr: Rigo Mckinney MD STUDY: CTA CHEST REASON FOR EXAM: Female, 67 years old. Shortness of breath with elevated d-dimer RADIATION DOSAGE (If Supplied By Facility): CTDIvol = ( 25.78 ) mGy, DLP = ( 638.99 ) mGycm TECHNIQUE: The examination was performed with the intravenous administration of 75 ml of Isovue 370 contrast material. Post-processing of the angiographic images was performed, with multiplanar reformation and 3D reconstruction. Individualized dose optimization techniques were used for this CT. COMPARISON: None. FINDINGS: Normal enhancement of the main pulmonary artery and right and left pulmonary arteries. Normal enhancement of the bilateral peripheral pulmonary arteries. There is no demonstrated pulmonary embolism. Normal thoracic aorta and visualized great vessels. There is no demonstrated aortic dissection. Normal heart and pericardium. Several small mediastinal lymph nodes are noted. Normal hilar regions. Normal visualized trachea and bronchi. The lungs are well expanded. Normal pulmonary parenchyma. Normal pleura. Left upper lobe pulmonary nodule measuring 4 mm. Pleural-based pulmonary nodule in the left lower lobe measuring 4.3 mm as well as in the right middle lobe measuring 2.8 mm Normal chest wall structures. There are degenerative changes of thoracic spine. Postsurgical changes of the stomach CT/CTA Chest W/WO Contrast IMPRESSION: 1. Negative for pulmonary embolism or thoracic aortic dissection 2. Lungs are adequately inflated and clear 3. Small pulmonary nodules as above Electronically Signed: Sean Bush DO at 9:18 EDT Tel , Service support , CC: Rigo Mckinney MD Health Analyst: Signed CHEST PA AND LATERAL Observed: 12/09/2017 Status: F Source: [place] 4:13 PM [facility] REPOSITORY [facility] Imaging Services [address] [place] [address] Chest PA and Lateral MR#: [id number] Acct: [id number] Name: CELESTE DESOUZA Rep #: [id number] : 1950 F 67 From: Christopher Waddell DO PCP: Rigo Mckinney MD, Chi Status: REG CLI Study: Chest PA and Lateral Date of Exam: 12/09/17 Exam# [id number] Ordering Dr: Rigo Mckinney MD STUDY: X-RAY CHEST REASON FOR EXAM: Female, 67 years old. Shortness of breath. Fatigue. Chest pain for one week. TECHNIQUE: PA and lateral views of the chest. COMPARISON: None. FINDINGS: The lungs are clear and expanded. There is no demonstrated pleural abnormality. Normal size heart. Normal mediastinum and rola. Normal visualized pulmonary arteries. Normal visualized aortic arch and descending thoracic aorta. There are diffuse degenerative changes of the visualized thoracic spine. There is degenerative osteoarthritis of the bilateral shoulders. There is no demonstrated abnormality of the visualized soft tissue structures of the upper abdomen. RAD/Chest PA and Lateral IMPRESSION: No acute cardiopulmonary disease. Electronically Signed: Christopher Waddell DO at 18:32 EDT Tel [phone], Service support , CC: Rigo Mckinney MD Health Analyst: Signed CBC-COMPLETE BLOOD CNT Collected: 12/09/2017 Status: F Source: PAVAN NO DIFF 3:58 PM [facility] REPOSITORY TYPE CODE TESTS RESULT OUT OF RANGE REFERENCE UNITS LAB L100.1000 4.4-11.0 K/mm3 Normal WBC 9.2 LAB L100.1200 4.2-5.4 M/mm3 Low RBC 3.59 LAB L100.1300 12.0-15.0 g/dl Low HGB 9.9 LAB L100.1400 37-47 % Low HCT 30.7 LAB L100.1500 81-99 fL Normal MCV 85.5 LAB L100.1600 27.0-32.0 pg Normal MCH 27.6 LAB L100.1700 32-36 g/gl Normal MCHC 32.2 LAB L100.1810 11.6-14.6 % High RDW CV 14.9 LAB L100.1820 35.1-43.9 fl High RDW SD 45.0 LAB L100.1900 150-450 K/mm3 Normal PLT 271 LAB L100.2000 6.2-12.0 fl Normal MPV 11.2 Performed By: #### L100.0500 #### [facility] [place], [address] BASIC METABOLIC Collected: 12/09/2017 Status: F Source: PAVAN PROFILE (BMP) 3:58 PM [facility] REPOSITORY TYPE CODE TESTS RESULT OUT OF RANGE REFERENCE UNITS LAB L501.0100 74-106 mg/dL High GLU 138 Result Comment: Fasting Glucose result greater than or equal to 126 mg/dL suggests DIABETES MELLITUS per A.D.A. criteria. Please note revised GLUCOSE reference range effective 2017. LAB L501.1000 7-18 mg/dL High BUN 37 LAB L501.1100 0.55-1.02 mg/dL High CREAT,SERUM 1.72 Result Comment: The validity of the calculated GFR AND GFRAA in patients over 70 years has not been determined. Clinical correlation is essential. LAB L501.1110 >60 mL/min Low EST GFR 31 Result Comment: Non- GFR Calc LAB L501.1115 >60 mL/min Low EST GFR - AA 38 Result Comment: GFR Calc LAB L501.1300 10-20 RATIO High BUN/CRE 21.5 LAB L501.2200 8.5-10.1 mg/dL CA Normal 9.2 LAB L501.5300 136-145 mmol/L NA Normal 143 LAB L501.5600 3.5-5.1 mmol/L High K 5.2 LAB L501.5900 98-107 mmol/L High CL 112 LAB L501.6100 21.0-32.0 mmol/L Normal CO2 22.0 LAB L501.6200 5-15 Normal GAP 9 Performed By: #### L500.2500, L501.3620, L501.9520 #### [facility] [address] [place], [place], [id number] CPK TOTAL, CREATINE Collected: 12/09/2017 Status: F Source: PAVAN KINASE 3:58 PM [facility] REPOSITORY TYPE CODE TESTS RESULT OUT OF RANGE REFERENCE UNITS LAB L501.3620 26-192 U/L Normal CPK TOTAL 60 Performed By: #### L500.2500, L501.3620, L501.9520 #### [facility] [address] [place], [address] THYROID STIM HORMONE Collected: 12/09/2017 Status: F Source: PAVAN (TSH) 3:58 PM [facility] REPOSITORY TYPE CODE TESTS RESULT OUT OF RANGE REFERENCE UNITS LAB L501.9520 0.358-3.74 uIU/mL Normal TSH 0.90 Performed By: #### L500.2500, L501.3620, L501.9520 #### [facility] [address] [place], [address] BNP,B-TYPE NATRIURETIC Collected: 12/09/2017 Status: F Source: PAVAN PEPTIDE 3:58 PM [facility] REPOSITORY TYPE CODE TESTS RESULT OUT OF RANGE REFERENCE UNITS LAB L503.6620 0-100 pg/mL High B-TYPE 606.2 NIC PEP Performed By: #### L503.6620 #### [facility] [address] [place], [address] D-DIMER QUANTITATIVE Collected: 12/09/2017 Status: F Source: PAVAN (DVT/PE) 3:58 PM [facility] REPOSITORY TYPE CODE TESTS RESULT OUT OF RANGE REFERENCE UNITS LAB L300.8000 0.27-0.49 FEU/ug/m High alert D-DIMER 2.40 QUANT Result Comment: D-Dimer ELEVATED (>0.49): Additional studies and clinical assessments are indicated to conclude diagnosis of: Deep Vein Thrombosis (DVT) or Pulmonary Embolism (PE) CRITICAL VALUE VERIFIED. CALLED TO DR MCKINNEY 12/09/17 172 Kajal Worrell. RESULTS READ BACK BY SAME . Performed By: #### L300.8000 #### [facility] [address] [place], [address] MYOGLOBIN, SERUM Collected: 12/09/2017 Status: F Source: PAVAN 3:58 PM [facility] REPOSITORY TYPE CODE TESTS RESULT OUT OF RANGE REFERENCE UNITS LAB L3600.5100 25-58 ng/mL High 81 Myoglobin, Ser Result Comment: Performed at: - [facility] [address] [id number] [place] Dipper: Mega Blanca PhD, Phone: [phone] Performed By: #### L3600.5100 #### [facility] (refer to report for specific site) refer to report for address and phone number PROGRESS Observed: 10/07/2017 Status: COMPLETED Source: [place] 4:16 PM [facility] REPOSITORY HNO ID: [id number] Author: Yamilet Magana MD Service: (none) Author Type: Physician Type: Progress Notes Filed: 10/08/2017 3:53 PM Note Text: Celeste Desouza is a 67 year old who presents for her annual gynecologic exam without complaints. Thorough past history obtained/updated/reviewed with today's visit. Pt states there are no significant changes to her past medical and surgical history. 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 ABN discussed- her supplemental covers annual exams. Postmenopausal: Yes since age ~50's HRT use: No. Last Pap: 2009 normal History of abnormal pap: No Last mammogram: 2018 normal History of abnormal mammogram: Yes - benign biopsy Sexually active: RARELY- not interested, also has medical issues Hot flashes/Night sweats: No Vaginal dryness: No Obstetric History T2 L2 SAB0 TAB0 Ectopic0 Multiple0 Live Births2 PAST MEDICAL HISTORY Diagnosis Date - Ankle fracture, bimalleolar, closed s/p surgery R, - CTS (carpal tunnel syndrome) bilateral s/p surgery - Diabetes mellitus 1989 - Esophageal varices with hemorrhage (HCC) 2008 cauterized - Hypercholesteremia - Hyperkalemia history of admit - Hypertension - Osteoarthritis multiple sites - Osteopenia - PUD (peptic ulcer disease) 2009 after bariatric surgery - Restless leg syndrome PAST SURGICAL HISTORY Procedure Laterality Date - BREAST BIOPSY 2007 right - CARPAL TUNNEL 2012 left then right - COLONOSCOPY 07/06 Dr Kline - KNEE SCOPE,DIAGNOSTIC 04/29/12 meniscal tear - LAPAROSCOP GASTRIC BYPASS 2009 - PAST SURGICAL HISTORY OF Left toe fracture - PROC RM-UPPER GI ENDSCOPY W/CA - REPAIR COMPL ROTATOR CUFF AVULSN,CHR right - TREATMENT OF ANKLE FRACTURE ~2001 left plates and screws - TREATMENT OF ANKLE FRACTURE 2012 ORIF ANKLE BIMALLEOLAR (Right) - VAGINAL HYSTERECTOMY adenomyosis FAMILY HISTORY Problem Relation Age of Onset - Adopted: Yes - Cancer Mother uterine - None Son - Multiple Sclerosis Son SOCIAL HISTORY Social History Substance Use Topics - Smoking status: Former Smoker Packs/day: 1.00 Years: 0.00 Types: Cigarettes - Smokeless tobacco: Never Used Comment: quit 20 years ago - Alcohol use No REVIEW OF SYSTEMS Abdomen: No abdominal pain, nausea, vomiting, diarrhea. No bloating, early satiety, indigestion, or increased flatulence. Chronic issues with constipation Bladder: No dysuria, gross hematuria, urinary frequency, urinary urgency, or incontinence Breast: No breast lumps, nipple d/c, overlying skin changes, redness or skin retraction and +/-SBE normal Allergies and current medication updated:Yes EXAM: BP 110/52 Wt 170 lb 12.8 oz (77.5kg) GENERAL: pleasant, female in no apparent distress HEENT: Normocephalic, atraumatic, mucus membranes moist and no lesions NECK: Supple, full range of motion, no adenopathy and thyroid normal DERMATOLOGY: Normal, without lesions, non-icteric and non-hirsute BREAST: soft, non-tender, symmetric, no dominant mass, normal nipple-areolar complex, no lymphadenopathy and no nipple discharge CHEST: Clear to auscultation Normal inspiratory effort Regular rate and rhythm ABDOMEN: soft, non-tender and no masses PELVIC: external genitalia normal, normal Bartholin's glands, urethra, Quitman's glands, no vulvar lesions, physiologic discharge present, normal appearing perineal body and perianal region, cervix surgically absent, atrophic changes BIMANUAL: no adnexal masses, non-tender and uterus surgically absent RECTOVAGINAL: deferred. NEURO: alert and oriented x3,exam grossly non-focal EXTREMITIES: normal ASSESSMENT/PLAN: 1) Health maintenance: Pap/HPV screening no longer needed Mammogram ordered Nutrition, exercise and routine health maintenance exams reviewed. Calcium/Vitamin D supplementation information provided. Colon cancer screening: up to date with screening- [facility] (2017) TSH/lipids/glucose: With PCP AND up to date BMD: BMD/Dexa done 2014, shows osteopenia 2) Follow up one year or sooner as needed 3) Pt made aware that we will notify of Abnormal results only. I will use her MyChart as needed for results, she may contact office to get any results at her convenience. Yamilet Magana MD, MD MARREROOV Observed: 10/07/2017 Status: COMPLETED Source: [place] 3:30 PM [facility] REPOSITORY Office Visit (OBGMEM) CELESTE DESOUZA ([id number]) 1950 F Date Time Provider Department 10/07/17 3:30 PM YAMILET MAGANA During your visit today, we recorded the following information about you: Blood pressure Weight 110/52 77.5 kg Yamilet Magana MD, MD 10/08/2017 3:53 PM Signed Celeste Desouza is a 67 year old who presents for her annual gynecologic exam without complaints. Thorough past history obtained/updated/reviewed with today's visit. Pt states there are no significant changes to her past medical and surgical history. 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 ABN discussed- her supplemental covers annual exams. Postmenopausal: Yes since age ~50's HRT use: No. Last Pap: 2009 normal History of abnormal pap: No Last mammogram: 2017 normal History of abnormal mammogram: Yes - benign biopsy Sexually active: RARELY- not interested, also has medical issues Hot flashes/Night sweats: No Vaginal dryness: No Obstetric History T2 L2 SAB0 TAB0 Ectopic0 Multiple0 Live Births2 PAST MEDICAL HISTORY Diagnosis Date - Ankle fracture, bimalleolar, closed s/p surgery R, - CTS (carpal tunnel syndrome) bilateral s/p surgery - Diabetes mellitus 1989 - Esophageal varices with hemorrhage (HCC) 2009 cauterized - Hypercholesteremia - Hyperkalemia history of admit - Hypertension - Osteoarthritis multiple sites - Osteopenia - PUD (peptic ulcer disease) 2009 after bariatric surgery - Restless leg syndrome PAST SURGICAL HISTORY Procedure Laterality Date - BREAST BIOPSY 2007 right - CARPAL TUNNEL 2012 left then right - COLONOSCOPY 07/06 Dr Kline - KNEE SCOPE,DIAGNOSTIC 04/29/12 meniscal tear - LAPAROSCOP GASTRIC BYPASS 2009 - PAST SURGICAL HISTORY OF Left toe fracture - PROC RM-UPPER GI ENDSCOPY W/CA - REPAIR COMPL ROTATOR CUFF AVULSN,CHR right - TREATMENT OF ANKLE FRACTURE ~2001 left plates and screws - TREATMENT OF ANKLE FRACTURE 2012 ORIF ANKLE BIMALLEOLAR (Right) - VAGINAL HYSTERECTOMY adenomyosis FAMILY HISTORY Problem Relation Age of Onset - Adopted: Yes - Cancer Mother uterine - None Son - Multiple Sclerosis Son SOCIAL HISTORY Social History Substance Use Topics - Smoking status: Former Smoker Packs/day: 1.00 Years: 0.00 Types: Cigarettes - Smokeless tobacco: Never Used Comment: quit 20 years ago - Alcohol use No REVIEW OF SYSTEMS Abdomen: No abdominal pain, nausea, vomiting, diarrhea. No bloating, early satiety, indigestion, or increased flatulence. Chronic issues with constipation Bladder: No dysuria, gross hematuria, urinary frequency, urinary urgency, or incontinence Breast: No breast lumps, nipple d/c, overlying skin changes, redness or skin retraction and +/-SBE normal Allergies and current medication updated:Yes EXAM: BP 110/52 Wt 170 lb 12.8 oz (77.5kg) GENERAL: pleasant, female in no apparent distress HEENT: Normocephalic, atraumatic, mucus membranes moist and no lesions NECK: Supple, full range of motion, no adenopathy and thyroid normal DERMATOLOGY: Normal, without lesions, non-icteric and non-hirsute BREAST: soft, non-tender, symmetric, no dominant mass, normal nipple-areolar complex, no lymphadenopathy and no nipple discharge CHEST: Clear to auscultation Normal inspiratory effort Regular rate and rhythm ABDOMEN: soft, non-tender and no masses PELVIC: external genitalia normal, normal Bartholin's glands, urethra, Quitman's glands, no vulvar lesions, physiologic discharge present, normal appearing perineal body and perianal region, cervix surgically absent, atrophic changes BIMANUAL: no adnexal masses, non-tender and uterus surgically absent RECTOVAGINAL: deferred. NEURO: alert and oriented x3,exam grossly non-focal EXTREMITIES: normal ASSESSMENT/PLAN: 1) Health maintenance: Pap/HPV screening no longer needed Mammogram ordered Nutrition, exercise and routine health maintenance exams reviewed. Calcium/Vitamin D supplementation information provided. Colon cancer screening: up to date with screening- [facility] (2017) TSH/lipids/glucose: With PCP AND up to date BMD: BMD/Dexa done 2014, shows osteopenia 2) Follow up one year or sooner as needed 3) Pt made aware that we will notify of Abnormal results only. I will use her MyChart as needed for results, she may contact office to get any results at her convenience. Yamilet Magana MD, MD Yamilet Magana MD, MD 10/07/2017 4:22 PM Signed Calcium and Vitamin D Supplementation (from the National Institutes of Health Office of Dietary Supplements 2011) Calcium is required by the body for blood vessel, muscle, hormone and nerve functioning. Most of the body's calcium is stored in the bones and teeth where it supports structure and function. Bone is continuously broken down and reformed. When bone breakdown exceeds formation, especially in postmenopausal women, bone loss can increase the risk of osteoporosis and fractures. In addition to low calcium intake, women who smoke, have a family history of osteoporosis, are thin, or , or who take certain medications such as cancer chemotherapy, seizure mediations and steroids are at increased risk of osteoporosis. The calcium requirements in women change with age. The National Institutes of Health (NIH) recommends: 1000mg elemental calcium for premenopausal women age 19-50 1200mg elemental calcium for postmenopausal women and all women over 50 Milk, yogurt, and cheese are rich natural sources of calcium and are the major food contributors in the [place]. For example, 8oz of milk (whole, lowfat or skim) contains about 300mg calcium, 8oz of yogurt contains 415mg. Nondairy sources include salmon and sardines and vegetables, such as Iranian cabbage, kale, and broccoli. Foods fortified with calcium include many fruit juices, tofu and cereals. For more food calcium content information, visit http://ods.od.nih.gov/factsheets/calcium. Calcium supplements come in several different forms. Remember that the recommendations are for millgrams (mg) of elemental calcium which may be less than the total weight of the supplement. The amount of elemental calcium is required to be printed on the label. Calcium carbonate is the least expensive form. It must be taken on a full stomach to be properly absorbed. Some patients may experience gas or constipation. Calcium phosphate and calcium citrate may be taken either with or without food and tend to have less side effects but are generally more expensive. Because of its ability to neutralize stomach acid, calcium carbonate is found in some gjgi-sgy-fuhjgla antacid products, such as Tums? and Rolaids?. Depending on its strength, each chewable pill or softchew provides 200 to 400 mg of elemental calcium. The percentage of calcium absorbed depends on the total amount of elemental calcium consumed at one time. Absorption is highest in doses <500mg. So a woman who takes 1,000mg/day of calcium from supplements should split the dose and take 500mg at two separate times during the day. Too much calcium can cause kidney stones, constipation, difficulty absorbing other nutrients and calcium buildup in blood vessels. Women under 50 should not exceed 2500mg/day (2000mg/day for women over 50) of calcium from food and supplements. Excessive alcohol and caffeine intake can inhibit absorption of calcium. Calcium can reduce the absorption of some medications if taken at the same time of day (bisphosphonates, thyroid medication, Phenytoin and other seizure medications, some antibiotics and iron supplements). Vitamin D promotes calcium absorption in the gut and maintains adequate blood levels of calcium and phosphate for normal bone growth and bone remodeling. Vitamin D also helps regulate cell growth as well as nerve, muscle and immune system function. Vitamin D is produced in the skin as a result of ultraviolet sunlight rays and must be altered in the liver and kidney to become its active form. Recommended intake according to the National Institutes of Health is 600 International Units (IU) for girls and women ages 1-70 and 800 IU for women over 70. Very few foods in nature contain vitamin D. The flesh of fatty fish (such as salmon, tuna, and mackerel) and fish liver oils are among the best sources. Small amounts of vitamin D are found in beef liver, cheese, mushrooms and egg yolks. Most people meet at least some of their vitamin D needs through exposure to sunlight. Season, time of day, length of day, cloud cover, smog, skin melanin content, and sunscreen are among the factors that affect UV radiation exposure and vitamin D synthesis. Despite the importance of the sun for vitamin D synthesis, it is prudent to limit exposure of skin to sunlight and avoid tanning beds. UV radiation is a carcinogen responsible for most of the estimated 1.5 million skin cancers that occur annually in the [place]. Lifetime cumulative UV damage to skin is also responsible for some age-associated dryness and other cosmetic changes. In supplements and fortified foods, vitamin D is available in two forms, D2 (ergocalciferol) and D3 (cholecalciferol). The two are equivalent at normal supplement doses. For women who require high supplement doses because of vitamin D deficiency, D3 may work better to raise blood levels. Some medications can prevent proper absorption of Vitamin D. These include laxatives, corticosteroids like prednisone, the seizure drugs phenobarbital and phenytoin, the weight-loss drug orlistat ( Xenical? and AlliTM) and the cholesterol-lowering drug cholestyramine (Questran?, LoCholest?, and Prevalite?). Talk to your doctor about adjusting your recommended daily vitamin D dosage if you take these medications. You should not exceed 4000 mg of vitamin D supplementation daily unless specifically prescribed by your doctor. ACOG Screening Guidelines (2015) The following health screening schedule is recommended by the [place] [employer] (ACOG). Some of these tests may be ordered or performed by your primary care doctor. Pap test screening The pap test looks at cells on the cervix (the opening from the vagina to the uterus) to look for cancer or pre-cancerous changes. These changes are caused by the human papillomavirus (HPV). Studies estimate that half of all women will test positive for this virus within 3 years of starting sexual activity. For young women with a normal immune system, 90% of HPV infections will resolve within 2 years. There is a vaccine available against some forms of HPV. This is recommended for girls and women age 9-26 and is a series of 3 injections over 6 months. Because this vaccine does not protect against all HPV types which can cause cervical cancer, women who received the vaccine still need pap tests. Pap smear screening should be started at age 21. The pap test should be done every 3 years from age 21-29. From age 30-65, pap smears can be done every 5 years if HPV test is negative or every 3 years if HPV testing is not done. For women over the age of 65, ACOG recommends against screening women who have had adequate prior screening and are not otherwise at high risk for cervical cancer. Women who have had a hysterectomy also do not need routine pap smear screening unless the pap smear was done for a cervical cancer or moderate to severe dysplasia. Breast cancer screening Mammogram should be performed every 1-2 years starting at age 40 and every year starting at age 50. Screening may be started earlier depending on family history. Cholesterol screening Lipid panel (cholesterol test) should be checked every 5 years starting at age 45. Diabetes screening Fasting glucose (blood sugar) test should be performed every 3 years starting at age 45. Colorectal cancer screening Starting at age 50, women should have a screening colonoscopy at least every 10 years. Screening may be started earlier depending on family history. Thyroid screening Thyroid function test (TSH) should be checked every 5 years starting at age 50. Bone mineral density screening All postmenopausal women age 65 and over and postmenopausal women with risk factors for osteoporosis should have a bone mineral density test performed. Risk factors include race, family history of osteoporosis, personal history of fractures, poor nutrition, smoking, heavy alcohol use, early menopause, low calcium intake and low body weight. Certain medical conditions and long-term use of some medications may also increase risk. Referring Provider: SELF [[id number]] Allergies As of Date: 10/07/2017 Noted Allergy Reaction AMITRIPTYLINE 07/06/2010 14 - Other: See Comments Comments: Dizziness CLOZAPINE 07/06/2010 14 - Other: See Comments Comments: Nightmares ENALAPRIL 08/19/2011 14 - Other: See Comments Comments: Increase potassium LISINOPRIL 07/06/2010 14 - Other: See Comments Comments: increases potassium Date Reviewed: 10/07/2017 Reviewed by: Yamilet Magana MD - Fully Assessed Reason for Visit: Well Woman [1463] Cmt: Annual Primary Visit Diagnosis:Encounter for gynecological examination (general) (routine) without abnormal findings [Z01.419] Other Visit Diagnosis:Encounter for screening mammogram for breast cancer [Z12.31] Order(s):[facility] SCREENING W JULIO [[id number]] Order #: [id number] FUTURE Prescriptions as of 10/07/2017 Sig: VITAMIN B12 ORAL Take by mouth once daily. VITAMIN DAILY ORAL Take by mouth once daily. Vit* GABAPENTIN 100 MG CAPSULE Take 2 capsules by mouth marily* BLOOD SUGAR DIAGNOSTIC STRIPS Accu check test strips check * ERGOCALCIFEROL (VITAMIN D2) 5* TAKE ONE CAPSULE BY MOUTH ONC* METOPROLOL TARTRATE 50 MG TAB* TAKE 1 TABLET BY MOUTH TWICE * LANCETS Use as instructed AMLODIPINE 5 MG TABLET Take 1 tablet by mouth once d* Patient not taking: Reported on 10/07/2017 FAMOTIDINE 20 MG TABLET Take 1 tablet by mouth every * Patient not taking: Reported on 10/07/2017 Problem List As Of Date 10/07/2017 Noted Resolved Hypertension [I10] INVALID FOR*12/15/2014 More... Hypercholesterolemia [E78.00] INVALID FOR* Diabetes mellitus [E11.9] INVALID FOR*12/15/2014 More... Osteopenia [M85.80] INVALID FOR* CTS (carpal tunnel syndrome) [G56.00] INVALID FOR*01/24/2016 Bimalleolar ankle fracture [S82.843A] INVALID FOR*05/14/2013 More... SUMMARY [V999.95] INVALID FOR*11/29/2015 Priority: A More... Delirium [R41.0] INVALID FOR*05/14/2013 Priority: C More... Fever and leucocytosis [R50.9] INVALID FOR*05/14/2013 Priority: B More... PUD (peptic ulcer disease) [K27.9] More... 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 Restless leg syndrome [G25.81] Medial meniscus tear [S83.249A] INVALID FOR*11/15/2013 Fibromyalgia [M79.7] INVALID FOR*01/24/2016 Fracture of metatarsal bone, open [S92.309B] INVALID FOR*11/15/2013 Fracture of metatarsal [S92.309A] INVALID FOR*11/15/2013 Metatarsal fracture [S92.309A] INVALID FOR* Hyperkalemia [E87.5] 12/15/2014 More... Trigger ring finger of right hand [M65.341] INVALID FOR*01/24/2016 Degenerative arthritis of finger [M19.049] INVALID FOR* Type 2 diabetes mellitus with stage 5 chronic k*INVALID FOR* Essential hypertension [I10] INVALID FOR* Primary osteoarthritis involving multiple joint*INVALID FOR* Tubular adenoma [D36.9] INVALID FOR* More... Qsloi-ka-bbdrpzb kidney injury (HCC) [N17.9, N1*INVALID FOR*09/05/2017 Anemia [D64.9] INVALID FOR* Hyperchloremic metabolic acidosis [E87.2] INVALID FOR*09/05/2017 Hypernatremia [E87.0] INVALID FOR*09/05/2017 CKD (chronic kidney disease) stage 5, GFR less *INVALID FOR* Other instructions from your clinician: Calcium and Vitamin D Supplementation (from the National Institutes of Health Office of Dietary Supplements 2010) Calcium is required by the body for blood vessel, muscle, hormone and nerve functioning. Most of the body's calcium is stored in the bones and teeth where it supports structure and function. Bone is continuously broken down and reformed. When bone breakdown exceeds formation, especially in postmenopausal women, bone loss can increase the risk of osteoporosis and fractures. In addition to low calcium intake, women who smoke, have a family history of osteoporosis, are thin, or , or who take certain medications such as cancer chemotherapy, seizure mediations and steroids are at increased risk of osteoporosis. The calcium requirements in women change with age. The National Institutes of Health (NIH) recommends: 1000mg elemental calcium for premenopausal women age 19-50 1200mg elemental calcium for postmenopausal women and all women over 50 Milk, yogurt, and cheese are rich natural sources of calcium and are the major food contributors in the [place]. For example, 8oz of milk (whole, lowfat or skim) contains about 300mg calcium, 8oz of yogurt contains 415mg. Nondairy sources include salmon and sardines and vegetables, such as Iranian cabbage, kale, and broccoli. Foods fortified with calcium include many fruit juices, tofu and cereals. For more food calcium content information, visit http://ods.od.nih.gov/factsheets/calcium. Calcium supplements come in several different forms. Remember that the recommendations are for millgrams (mg) of elemental calcium which may be less than the total weight of the supplement. The amount of elemental calcium is required to be printed on the label. Calcium carbonate is the least expensive form. It must be taken on a full stomach to be properly absorbed. Some patients may experience gas or constipation. Calcium phosphate and calcium citrate may be taken either with or without food and tend to have less side effects but are generally more expensive. Because of its ability to neutralize stomach acid, calcium carbonate is found in some jiwd-lhp-jdwffqz antacid products, such as Tums? and Rolaids?. Depending on its strength, each chewable pill or softchew provides 200 to 400 mg of elemental calcium. The percentage of calcium absorbed depends on the total amount of elemental calcium consumed at one time. Absorption is highest in doses <500mg. So a woman who takes 1,000mg/day of calcium from supplements should split the dose and take 500mg at two separate times during the day. Too much calcium can cause kidney stones, constipation, difficulty absorbing other nutrients and calcium buildup in blood vessels. Women under 50 should not exceed 2500mg/day (2000mg/day for women over 50) of calcium from food and supplements. Excessive alcohol and caffeine intake can inhibit absorption of calcium. Calcium can reduce the absorption of some medications if taken at the same time of day (bisphosphonates, thyroid medication, Phenytoin and other seizure medications, some antibiotics and iron supplements). Vitamin D promotes calcium absorption in the gut and maintains adequate blood levels of calcium and phosphate for normal bone growth and bone remodeling. Vitamin D also helps regulate cell growth as well as nerve, muscle and immune system function. Vitamin D is produced in the skin as a result of ultraviolet sunlight rays and must be altered in the liver and kidney to become its active form. Recommended intake according to the National Institutes of Health is 600 International Units (IU) for girls and women ages 1-70 and 800 IU for women over 70. Very few foods in nature contain vitamin D. The flesh of fatty fish (such as salmon, tuna, and mackerel) and fish liver oils are among the best sources. Small amounts of vitamin D are found in beef liver, cheese, mushrooms and egg yolks. Most people meet at least some of their vitamin D needs through exposure to sunlight. Season, time of day, length of day, cloud cover, smog, skin melanin content, and sunscreen are among the factors that affect UV radiation exposure and vitamin D synthesis. Despite the importance of the sun for vitamin D synthesis, it is prudent to limit exposure of skin to sunlight and avoid tanning beds. UV radiation is a carcinogen responsible for most of the estimated 1.5 million skin cancers that occur annually in the [place]. Lifetime cumulative UV damage to skin is also responsible for some age-associated dryness and other cosmetic changes. In supplements and fortified foods, vitamin D is available in two forms, D2 (ergocalciferol) and D3 (cholecalciferol). The two are equivalent at normal supplement doses. For women who require high supplement doses because of vitamin D deficiency, D3 may work better to raise blood levels. Some medications can prevent proper absorption of Vitamin D. These include laxatives, corticosteroids like prednisone, the seizure drugs phenobarbital and phenytoin, the weight-loss drug orlistat ( Xenical? and AlliTM) and the cholesterol-lowering drug cholestyramine (Questran?, LoCholest?, and Prevalite?). Talk to your doctor about adjusting your recommended daily vitamin D dosage if you take these medications. You should not exceed 4000 mg of vitamin D supplementation daily unless specifically prescribed by your doctor. ACOG Screening Guidelines (2015) The following health screening schedule is recommended by the [employer] [employer] (ACOG). Some of these tests may be ordered or performed by your primary care doctor. Pap test screening The pap test looks at cells on the cervix (the opening from the vagina to the uterus) to look for cancer or pre-cancerous changes. These changes are caused by the human papillomavirus (HPV). Studies estimate that half of all women will test positive for this virus within 3 years of starting sexual activity. For young women with a normal immune system, 90% of HPV infections will resolve within 2 years. There is a vaccine available against some forms of HPV. This is recommended for girls and women age 9-26 and is a series of 3 injections over 6 months. Because this vaccine does not protect against all HPV types which can cause cervical cancer, women who received the vaccine still need pap tests. Pap smear screening should be started at age 21. The pap test should be done every 3 years from age 21-29. From age 30-65, pap smears can be done every 5 years if HPV test is negative or every 3 years if HPV testing is not done. For women over the age of 65, ACOG recommends against screening women who have had adequate prior screening and are not otherwise at high risk for cervical cancer. Women who have had a hysterectomy also do not need routine pap smear screening unless the pap smear was done for a cervical cancer or moderate to severe dysplasia. Breast cancer screening Mammogram should be performed every 1-2 years starting at age 40 and every year starting at age 50. Screening may be started earlier depending on family history. Cholesterol screening Lipid panel (cholesterol test) should be checked every 5 years starting at age 45. Diabetes screening Fasting glucose (blood sugar) test should be performed every 3 years starting at age 45. Colorectal cancer screening Starting at age 50, women should have a screening colonoscopy at least every 10 years. Screening may be started earlier depending on family history. Thyroid screening Thyroid function test (TSH) should be checked every 5 years starting at age 50. Bone mineral density screening All postmenopausal women age 65 and over and postmenopausal women with risk factors for osteoporosis should have a bone mineral density test performed. Risk factors include race, family history of osteoporosis, personal history of fractures, poor nutrition, smoking, heavy alcohol use, early menopause, low calcium intake and low body weight. Certain medical conditions and long-term use of some medications may also increase risk. Disposition: Return in 1 year (on 10/07/2018), or if symptoms worsen or fail to improve, for Annual Exam. Follow-up and Disposition History Recorded Encounter Status:Closed by YAMILET MAGANA MD on 10/08/17 BASIC METABOLIC Collected: 10/06/2017 Status: F Source: [place] PROFILE (BMP) 4:57 PM [facility] REPOSITORY TYPE CODE TESTS RESULT OUT OF RANGE REFERENCE UNITS LAB L501.0100 74-106 mg/dL High GLU 123 Result Comment: Fasting Glucose result from 100 to 125 mg/dL suggests IMPAIRED HOMEOSTASIS per A.D.A. criteria. Please note revised GLUCOSE reference range effective 2017. LAB L501.1000 7-18 mg/dL High BUN 40 LAB L501.1100 0.55-1.02 mg/dL High CREAT,SERUM 1.96 Result Comment: The validity of the calculated GFR AND GFRAA in patients over 70 years has not been determined. Clinical correlation is essential. LAB L501.1110 >60 mL/min Low EST GFR 27 Result Comment: Non- GFR Calc LAB L501.1115 >60 mL/min Low EST GFR - AA 33 Result Comment: GFR Calc LAB L501.1300 10-20 RATIO High BUN/CRE 20.4 LAB L501.2200 8.5-10.1 mg/dL CA Normal 9.1 LAB L501.5300 136-145 mmol/L NA Normal 139 LAB L501.5600 3.5-5.1 mmol/L K Normal 4.2 LAB L501.5900 98-107 mmol/L CL Normal 106 LAB L501.6100 21.0-32.0 mmol/L Normal CO2 27.0 LAB L501.6200 5-15 Normal GAP 6 Performed By: #### L500.2500, L500.4100 #### [facility] [address] [place], [place], [id number] LIPID PROFILE Collected: 10/06/2017 Status: F Source: [place] 4:57 PM [facility] REPOSITORY TYPE CODE TESTS RESULT OUT OF RANGE REFERENCE UNITS LAB L501.4900 200 mg/dL Normal CHOL 174 Result Comment: <200 mg/dL Desirable 200-240 mg/dL Borderline >240 mg/dL High Risk LAB L501.5000 mg/dL High TRIG 215 Result Comment: The drugs N-Acetylcysteine and Metamizole may falsely depress this assay. Serum Triglycerides Reference Interval Normal <150 mg/dL Borderline high 150 - 199 mg/dL High 200 - 499 mg/dL Very High > or = 500 mg/dL LAB L501.6400 mg/dL Low HDL 25 Result Comment: The drugs N-Acetylcysteine and Metamizole may falsely depress this assay. Reference Range HDL <40 mg/dL Low HDL Cholesterol HDL >or= 60 mg/dL High HDL Cholesterol LAB L501.6500 0-130 mg/dL Normal LDL 106 LAB L501.6600 5-40 mg/dL High VLDL 43 Performed By: #### L500.2500, L500.4100 #### [facility] [address] [place], [address] RENAL PROFILE Collected: 09/16/2017 Status: F Source: [place] 3:57 PM [facility] REPOSITORY TYPE CODE TESTS RESULT OUT OF RANGE REFERENCE UNITS LAB L501.0100 74-106 mg/dL High GLU 116 Result Comment: Fasting Glucose result from 100 to 125 mg/dL suggests IMPAIRED HOMEOSTASIS per A.D.A. criteria. Please note revised GLUCOSE reference range effective 2017. LAB L501.1000 7-18 mg/dL High BUN 51 LAB L501.1100 0.55-1.02 mg/dL High CREAT,SERUM 3.13 Result Comment: The validity of the calculated GFR AND GFRAA in patients over 70 years has not been determined. Clinical correlation is essential. LAB L501.1110 >60 mL/min Low EST GFR 16 Result Comment: Non- GFR Calc LAB L501.1115 >60 mL/min Low EST GFR - AA 19 Result Comment: GFR Calc LAB L501.1300 10-20 RATIO Normal BUN/CRE 16.3 LAB L501.1800 3.2-5.0 g/dL Normal ALB 4.4 LAB L501.2200 8.5-10.1 mg/dL CA Normal 9.4 LAB L501.2300 2.5-4.9 mg/dL Normal PHOS 3.9 LAB L501.5300 136-145 mmol/L NA Normal 139 LAB L501.5600 3.5-5.1 mmol/L K Normal 4.5 LAB L501.5900 98-107 mmol/L CL Normal 103 LAB L501.6100 21.0-32.0 mmol/L Normal CO2 28.0 Performed By: #### L500.3600 #### [facility] [address] [place], [address] PTHIN Collected: 09/16/2017 Status: F Source: [place] 3:57 PM [facility] REPOSITORY TYPE CODE TESTS RESULT OUT OF RANGE REFERENCE UNITS LAB L509.1000 18.4-80.1 pg/mL High PTHIN 160.7 Performed By: #### L509.1000 #### [facility] [address] [place], [address] LUMBAR SPINE 2 OR 3 Observed: 09/16/2017 Status: F Source: [place] VIEWS 12:02 PM [facility] REPOSITORY [facility] Imaging Services [address] [facility] [place] [address] Lumbar Spine 2 or 3 Views MR#: [id number] Acct: [id number] Name: CELESTE DESOUZA Rep #: [id number] : [id number] F [id number] From: Matias Hussein MD PCP: OUT OF [facility] Status: REG CLI Study: Lumbar Spine 2 or 3 Views Date of Exam: 09/16/17 Exam# [id number] Ordering Dr: Rigo Mckinney MD STUDY: X-RAY - LUMBAR SPINE REASON FOR EXAM: Female, 67 years old. Lower back pain radiating into the lower thoracic region for several years. TECHNIQUE: 3 view(s) of the lumbar spine were obtained. COMPARISON: None FINDINGS: Osteopenia. Unremarkable pelvis. No significant hip joint degenerative changes. No acute intra-abdominal process. Postsurgical changes are present in the epigastrium. Mild levoscoliotic curvature of the lumbar spine. Normal lordosis. Normal vertebral body height and alignment. Minimal disc narrowing at multiple levels, no significant disc or endplate degenerative changes. Minimal mid to low lumbar facet arthropathy. RAD/Lumbar Spine 2 or 3 Views IMPRESSION: Minimal spondylosis. No acute fracture or traumatic subluxation. Electronically Signed: Matias Hussein, at 12:56 EDT Tel , Service support , CC: OUT [facility] DOCTOR; Rigo Mckinney MD Health Analyst: Signed CASE MANAGEM Observed: 09/05/2017 Status: COMPLETED Source: [place] 4:07 PM [facility] OTHER [facility] REPOSITORY O ID: [id number] Author: Amanda Buckner ([place]) Service: Care Management Author Type: Chair Upholsterer Type: Care Mgt Progress Note Filed: 09/05/2017 4:10 PM Note Text: CARE MANAGEMENT DISCHARGE NOTE SERVICE DATE: 09/05/2017 SERVICE TIME: 4:07 PM LOS: 3 days Admission Date: 09/02/2017 DISCHARGE ARRANGEMENT (list agency and phone number) Home Provider: n/a Phone: n/a CAREGIVER ASSESSMENT: Caregiver is ready, willing and able to meet the patient's needs as recommended by the inter-professional team? No Caregiver Needed Patient's transition needs and plan for meeting these needs: Pt returning home with supportive and self care. Does the patient have an acute stroke diagnosis, or has the patient had a stroke during this admission? No HANDOFF COMMUNICATION: Primary Care Physician: Rigo Mckinney TRANSPORTATION ARRANGEMENTS: Car via family ADDITIONAL CONTACT RESOURCES: n/a Discharge Information Row Name ED to Hosp-Admission (Current) from 09/02/2017 in [facility] Follow-Up Appointment Specialty PCP Provider Name Rigo Mckinney MD Address [address] [place] [address], [facility] [address] Mckinney's office will contact you to schedule a follow up appointment. Additonal Instructions Patient should bring the following to appointment: Picture ID, Insurance Card, Copay (if applicable), Medications/Med List. Please provide a minimum of 24 hours' notice for cancelations/rescheduling. Please arrive 15 minutes prior to your appointment. D/c orders received for pt to return home with no skilled needs. Pt was out of the room prior to CM discussing d/c with pt. [facility] scheduled PCP follow up appt. No identified skilled needs. Summary of care sent to PCP via [facility]. SIGNATURE: Amanda Buckner MSW, FOREPART REDUCER PATIENT NAME: Celeste Desouza DATE: September 05, 2017 TIME: 4:07 PM PAGER/CONTACT #: [phone] CNDS Observed: 09/05/2017 Status: COMPLETED Source: [place] 3:50 PM CLINIC OTHER CAMPUS REPOSITORY HNO ID: [id number] Author: Janet Patterson Service: Hospital Medicine Author Type: Physician Type: Discharge Summaries Filed: 09/08/2017 3:06 AM Note Text: DISCHARGE SUMMARY PATIENT NAME: Celeste Desouza Admission Information Admission Information ADMIT DATE: 09/02/2017 DISCHARGE DATE: 09/05/17 MY DOCTORS AND MEDICAL TEAM: My Main Hospital Doctor: Janet Patterson Primary Care Provider: Rigo Mckinney MD My Medical Team Members: Treatment Team: Attending Provider: Janet Patterson Consulting: Luciana Singh I MY CONDITION AT DISCHARGE: Stable REASON I WAS IN THE HOSPITAL: Admitted because of Weakness,tremors and clumsiness with labs showing acute on chronic kidney injury stage 3,hyperchloremic hypernatremic metabolic acidosis. Was hypertensive on admission as some if her meds (including losartan) was recently stopped by her station attendant. Cr on admission Was 4.61.It was 2.22 on 08/13/17. Last baseline 01/25/17 was 1.4 Renal U/S was negative. Kidney numbers improved with intravenous hydration. Her medications were adjusted Per renal dosing. Cr at discharge was 3.34. She was seen by the station attendant who recc continuing the IVF, adjusted her BP meds. She belives the tremors is due to tramadol./neurontin And plans to wean her off the medication during f/up.. The station attendant recommends f/up in a week. She was advised to see her family doctor in 5 Days . Until then, advised to Check her blood pressure every 1-2 days. Target blood pressure is >100/60 and <130/80 as long as she Does not Feel dizzy. SUMMARY OF WHAT HAPPENED WHILE I WAS IN THE HOSPITAL: See above OTHER PROBLEMS/DIAGNOSIS: Active Problems: Type 2 diabetes mellitus with stage 5 chronic kidney disease not on chronic dialysis, without long-term current use of insulin (HCC) Essential hypertension Anemia CKD (chronic kidney disease) stage 5, GFR less than 15 ml/min ([facility]) Resolved Problems: Pikdw-vk-zwybmxp kidney injury (HCC) Hyperchloremic metabolic acidosis Hypernatremia OPERATIONS PERFORMED WHILE IN THE HOSPITAL: None IMPORTANT TEST/PROCEDURES: No procedures performed TEST RESULTS NOT AVAILABLE AT THIS TIME: No pending results Discharge Disposition Discharge Disposition: Home With Self Care Activity When You Leave the Hospital Resume pre-hospital activity As tolerated Diet Instructions Diabetic No Added Salt Renal Call Your Doctor If For the following: Any Health Questions or concerns Follow Up Appointments Follow-Up Appointment Repeat cbc an BMP during follow up When: In 5 days Patient/Parents to call for appointment?: Yes Rigo Mckinney [phone] [address] PCP Requested Referral Follow-Up Appointment When: In 5 days Luciana Singh I [phone] [facility] [address] [facility] [address] [address] [address] PCP Requested Referral Additional Provider to Provider Information: See discharge instructions FOLLOW-UP APPOINTMENTS ALREADY SCHEDULED WITH A [facility] PROVIDER: Future Appointments Date Time Provider Department Center 10/07/2017 3:30 PM Yamilet Magana MD [facility] 11/14/2017 1:40 PM [facility] Discharge Information Row Name ED to Hosp-Admission (Discharged) from 09/02/2017 in [facility] Follow-Up Appointment Specialty PCP Provider Name Rigo Mckinney MD Address [address] [facility] [address], [facility] [address] Mckinney's office will contact you to schedule a follow up appointment. Additonal Instructions Patient should bring the following to appointment: Picture ID, Insurance Card, Copay (if applicable), Medications/Med List. Please provide a minimum of 24 hours' notice for cancelations/rescheduling. Please arrive 15 minutes prior to your appointment. DISCHARGE MEDICATION: Discharge Medication List as of 09/05/2017 3:08 PM START taking these medications amLODIPine (NORVASC) 5 mg tablet Take 1 tablet by mouth once daily. Normal, Disp-30 tablet, R-0, Long-term CONTINUE these medications which have CHANGED gabapentin (NEURONTIN) 100 mg capsule Take 2 capsules by mouth daily at bedtime for 30 days. Print RX, Disp-60 capsule, R-0, Long-term famotidine (PEPCID) 20 mg tablet Take 1 tablet by mouth every 48 hours. Med Update CONTINUE these medications which have NOT CHANGED traMADol (ULTRAM) 50 mg tablet Take 1-2 tablets every 8 hours as needed max of 6 pills per day Call Rx, Disp-180 tablet, R-0 Dx: 1. Fibromyalgia 2. Restless leg syndrome blood sugar diagnostic test strip Accu check test strips check twice time daily dx dm 250.00 ICD E11.9 Normal, Disp-200 Strip, R-3 ergocalciferol, vitamin D2, (DRISDOL) 50,000 unit capsule TAKE ONE CAPSULE BY MOUTH ONCE A WEEK Normal, Disp-12 capsule, R-3, Long-term metoprolol tartrate, short acting, (LOPRESSOR) 50 mg tablet TAKE 1 TABLET BY MOUTH TWICE DAILY. Normal, Disp-180 tablet, R-3, Long-term Lancets lancets Use as instructed Normal, Disp-90 Each, R-3 Discharge Physical Exam: VITAL SIGNS: BP 154/59 Pulse 62 Temp 36.5 ?C (97.7 ?F) (Oral) Resp 20 Ht 162.6 cm (5' 4) Wt 81.5 kg (179 lb 9.6 oz) SpO2 99% BMI 30.83 kg/m? GENERAL: Alert, no distress, cooperative,anxious LUNGS: Lungs clear to auscultation, Good diaphragmatic excursion CARDIAC: Normal S1 and S2; no rubs, murmurs, or gallops ABDOMEN: Abdomen soft, non-tender, BS normal, EXTREMITIES:No edema NEURO: Awake,alert,oriented x3 ,No obvious focal neurological deficit TIME OF CARE: Discharge Management: I personally spent greater than 30 minutes involved in the discharge management of this patient. SIGNATURE: Janet Patterson MD PAGER/CONTACT #: DATE: September 08, 2017 TIME: 2:50 AM CBC Collected: 09/05/2017 Status: F Source: [place] 4:43 AM CLINIC OTHER CAMPUS REPOSITORY TYPE CODE TESTS RESULT OUT OF REFERENCE UNITS RANGE LAB WBC 3.70-11.00 k/uL WBC 8.74 LAB RBC 3.90-5.20 m/uL Low RBC 3.42 LAB HGB 11.5-15.5 g/dL Low Hemoglobin 9.1 LAB HCT 36.0-46.0 % Low Hematocrit 27.5 LAB MCV 80.0-100.0 fL MCV 80.4 LAB MCH 26.0-34.0 pG MCH 26.6 LAB MCHC 30.5-36.0 g/dL MCHC 33.1 LAB RDWCV 11.5-15.0 % RDW-CV High 15.9 LAB PLTCT 150-400 k/uL Platelet Count 247 LAB MPV 9.0-12.7 fL MPV 10.1 Performed By: #### CBC, BMP, MG1 #### [facility] [address] [facility] [phone] BASIC METABOLIC PANL Collected: 09/05/2017 Status: F Source: [place] 4:43 AM [facility] OTHER CAMPUS REPOSITORY TYPE CODE TESTS RESULT OUT OF REFERENCE UNITS RANGE LAB GLU 74-99 mg/dL High Glucose 106 Result Comment: The [place] Diabetes [employer] (ADA) provides guidance for cutoff values for fasting glucose and random glucose. The ADA defines fasting as no caloric intake for at least 8 hours. Fas ting plasma glucose results between 100 to 125 mg/dL indicate increased risk for diabetes (prediabetes). Fasting plasma glucose results greater than or equal to 126 mg/dL meet the criteria for diagnosis of diabetes. In the absence of unequivocal hyperglycemia, results should be confirmed by repeat testing. In a patient with classic symptoms of hyperglycemia or hyperglycemic crisis, random plasma glucose results greater than or equal to 200 mg/dL meet the criteria for diagnosis of diabetes. Reference: Standards of Medical Care in Diabetes 2016, [place] [employer] Association. Diabetes Care. 2016.39(Suppl 1). LAB BUN 7-21 mg/dL BUN High 49 LAB CRET 0.58-0.96 mg/dL Creatinine High 3.34 LAB NA 136-144 mmol/L Sodium 141 LAB K 3.7-5.1 mmol/L Potassium 4.0 LAB CL 97-105 mmol/L Chloride 105 LAB CO2 22-30 mmol/L CO2 23 LAB AGAP 9-18 mmol/L Anion Gap 13 LAB CA 8.5-10.2 mg/dL Calcium, Total 8.6 LAB GFRAA eGFR- Amer. 17 LAB GFRNAA . eGFR-All Other Races 14 Result Comment: eGFR (Estimated GFR) Units of measure: mL/min/1.73 meters squared eGFR is derived from the reexpressed MDRD Study equation using the following parameters: serum creatinine, age, gender and race. The creatinine assay has been calibrated to be traceable to IDWV. An eGFR <60 mL/min/1.73m2 for >3 months is consistent with chronic kidney disease. Refer to KDOQI guidelines for clinical interpretation. In patients with unstable renal function, e.g. those with acute kidney injury, the eGFR may not accurately reflect actual GFR. Performed By: #### CBC, BMP, MG1 #### [facility] [address] [place] [address] MAGNESIUM Collected: 09/05/2017 Status: F Source: [place] 4:43 AM [facility] REPOSITORY TYPE CODE TESTS RESULT OUT OF REFERENCE UNITS RANGE LAB MG 1.7-2.3 mg/dL Magnesium 1.8 Performed By: #### CBC, BMP, MG1 #### [facility] [address] [facility] [phone] NURSING PROG Observed: 09/05/2017 Status: COMPLETED Source: [place] 3:09 AM [facility] REPOSITORY HNO ID: [id number] Author: Carlota (Rn) SAUL Fernandez Service: (none) Author Type: Registered Nurse Type: Nursing Progress Note Filed: 09/05/2017 3:13 AM Note Text: Nursing Progress Note Patient Name: Celeste Desouza Patient Location[id number] Daily Note: Patient calls for assist to use the BR. Patient unsteady with plugging and unplugging her iv pump. Patient is pleasant and cooperative, and maintains all safety instruction and education. Patient hopes to be discharged in the am. to check labs in am to determine DC or not. Safety maintained. Will continue to monitor patient. This note was completed by: Carlota Fernandez RN CNCO Observed: 09/05/2017 Status: COMPLETED Source: [place] 12:00 AM [facility] OTHER [place] REPOSITORY Letter Text September 05, 2017 Celeste Desouza [address] [place] [address] Dear Ms. Desouza, The nurses and staff of [facility] hope this letter finds you feeling well and progressing in your recovery. Our staff would like to thank you for trusting and choosing us for your health care needs. It was an honor for us to provide your nursing care. We know that placing our Patients First and maintaining a culture of continuous improvement each and every day, are essential to the success of our organization. I hope your stay with us has been positive. We want to hear from you. If you have any comments, questions or concerns about your hospital stay, please feel free to contact me, Domonique Narvaez RN ([phone]) or email me at, [email or web address] Additionally, you will receive a survey in the mail asking you to rate the care you received while in the hospital. Please take the time to complete and send back the survey, as it is essential to our continued success. I personally review all the results and would appreciate your feedback. Thank you in advance for your participation and thank you for choosing the [facility] for your health needs. Sincerely, Nurse Print Finishing Worker: Domonique Narvaez RN ([phone]) [facility] Unit: 2 [facility] CASE MANAGEM Observed: 09/04/2017 Status: COMPLETED Source: [place] 3:01 PM [facility] OTHER CAMPUS REPOSITORY HNO ID: [id number] Author: Amanda Buckner (Sw) Service: Care Management Author Type: Chair Upholsterer Type: Care Mgt Progress Note Filed: 09/04/2017 3:03 PM Note Text: CARE MANAGEMENT PROGRESS NOTE SERVICE DATE: 09/04/2017 SERVICE TIME: 3:01 PM LOS: 2 days Needs Prior to Discharge: To Be Determined Darcy reviewed EMR. Pt's creatinine decreasing, but still significantly elevated at 3.67 from 4.61. Per chart, baseline is 1.4. Anticipate d/c home with no skilled needs. CM will continue to follow for d/c planning. SIGNATURE: BENITO Ruiz, KRISTAL PATIENT NAME: Celeste Desouza DATE: September 04, 2017 TIME: 3:01 PM PAGER/CONTACT #: [phone] NUTRITION Observed: 09/04/2017 Status: COMPLETED Source: [place] 2:57 PM CLINIC OTHER CAMPUS REPOSITORY HNO ID: [id number] Author: Nikia Dominique) [place] Service: Nutrition Therapy Author Type: Registered Dietitian Type: Nutrition Filed: 09/04/2017 2:59 PM Note Text: NUTRITION THERAPY NOTE SERVICE DATE: 09/04/2017 SERVICE TIME: 1400 Anthropometrics: Height: 162.6 cm (5' 4) Current Weight: Weight: 81.5 kg (179 lb 9.6 oz) Intentional weight loss reported Date: Wt: 09/02/2017 81.5 kg (179 lb 9.6 oz) 08/13/2017 84.4 kg (186 lb) 01/27/2017 94.3 kg (208 lb) 12/02/2016 93.4 kg (206 lb) 07/24/2016 91.2 kg (201 lb) 03/21/2016 89.8 kg (198 lb) 01/24/2016 90.7 kg (200 lb) 11/29/2015 89.9 kg (198 lb 3.2 oz) 11/06/2015 88.9 kg (195 lb 14.4 oz) 07/13/2015 91.4 kg (201 lb 9.6 oz) Body mass index is 30.83 kg/m?. Loss of lean body mass/visual muscle wasting: no Admitting Diagnosis: Acute renal failure (ARF) ([facility]) [N17.9] Present Diet Order: Heart Healthy 2 gm Na and Renal Is the patient having any pain that is interfering with oral/enteral intake? No Allergies: ALLERGIES Allergen Reactions - Amitriptyline Other: See Comments Dizziness - Clozapine Other: See Comments Nightmares - Enalapril Other: See Comments Increase potassium - Lisinopril Other: See Comments increases potassium Reason for Visit: Education needs: Patient education completed for: diabetes and renal Refer to patient education notes Intentionally losing weight, following a high metabolism diet that they discovered on Dr. Solorzano They cycle carbs (3 days high carb followed by 3 days low carbs- discussed this not being good for her kidney function and that she should not continue following this diet Nursing Admission Assessment Malnutrition Score Tool: 0 Plan of Care: Recommendation No problems noted at this time. Will screen again within 7 days Discharge Plan: Carb controlled, renal MNT Billing Type: Initial Assess/15 min 4 units SIGNATURE: Nikia Esquivel RD PATIENT NAME: Celeste Desouza DATE: September 04, 2017 TIME: 2:57 PM NUTRITION Observed: 09/04/2017 Status: COMPLETED Source: [place] 2:55 PM [facility] OTHER [place] REPOSITORY HNO ID: [id number] Author: Nikia Esquivel Service: Nutrition Therapy Author Type: Registered Dietitian Type: Nutrition Filed: 09/04/2017 2:57 PM Note Text: NUTRITION THERAPY PATIENT EDUCATION SERVICE DATE: 09/04/2017 SERVICE TIME: 1400 TOPIC: Survival Skills: Diet Diagnosis: ADULT: Diabetes, CKD READINESS TO LEARN Cognitive Ability: Confused at times Motivation to Learn: Interested Family Support: Present and listened Instruction Provided to: Patient and Family member Patient Learns Best by: Individual Instruction Written Instruction - Hand-outs Verbal Instruction Factors Affecting Learning: None Physical Limitations Affecting Learning: None LEARNING RESPONSE Patient / Family Response: Verbalizes understanding of Verbalizes understanding of high carbohydrate foods, counting carbohydrate exchanges, reading and identifying number of carbohydrates on a nutrition label, how to create a balanced plate (2-3 choices per meal) Discussed renal diet education, following a low potassium diet, foods that are high, moderate and low in potassium along with relationship of this with the carbohydrate foods Method of Instruction: Individual instruction Instructional Aids Used: NA Supplemental Material Provided to Patient: Diabetes guide and Your Guide to Potassium Follow-Up Plan: Complete - No need for follow-up Referral (Recommendation): Nutrition - Outpatient and Primary Care Provider MNT Billing: Initial Assess/15 min 4 units SIGNATURE: Nikia Esquivel RD PATIENT NAME: Celeste Desouza DATE: September 04, 2017 TIME: 2:55 PM PROGRESS Observed: 09/04/2017 Status: COMPLETED Source: [place] 12:10 PM [facility] OTHER [place] REPOSITORY HNO ID: [id number] Author: Luciana Singh I Service: Nephrology Author Type: Physician Type: Progress Notes Filed: 09/04/2017 12:15 PM Note Text: INPATIENT NEPHROLOGY PROGRESS NOTE Patient Name: Celeste Desouza DATE of SERVICE: 09/04/2017 TIME of SERVICE: 12:10 PM PRIMARY SERVICE: Nephrology INTERVAL HPI: She is doing well without shortness of breath, edema, CP. Tremors resolved. Renal fxn improving. Still has pain in back and ankles without relief with gabapentin. States tramadol helps. States she has prescription waiting for her at the pharmacy for lower dose of gabapentin. MEDICATIONS: Current hospital medications: gabapentin 200 mg cap(s) (NEURONTIN) 200 mg ORAL AT BEDTIME NaCl 0.45% iv infusion 100 mL/hr INTRAVENOUS CONTINUOUS melatonin 6 mg tab(s) 6 mg ORAL DAILY (8 PM) amLODIPine 5 mg tab(s) (NORVASC) 5 mg ORAL DAILY traMADol 50 mg tab(s) (ULTRAM) 50 mg ORAL q 12 H PRN metoprolol tartrate (short acting) 50 mg tab(s) (LOPRESSOR) 50 mg ORAL BID famotidine 20 mg tab(s) (PEPCID) 20 mg ORAL q 48 HR [START ON 09/07/2017] ergocalciferol (vitamin D2) 50,000 Units cap(s) (DRISDOL) 50,000 Units ORAL q 1 WEEK 0.9% NaCl 3-5 mL 3-5 mL INTRAVENOUS q 12 H docusate sodium 100 mg cap(s) (COLACE) 100 mg ORAL BID PRN dextrose 40 % 15 g 15 g ORAL PRN glucagon 1 mg injection (GLUCAGEN) 1 mg INTRAMUSCULAR PRN dextrose 50% in water 25 mL syringe 12.5 g INTRAVENOUS PRN insulin lispro injection (rapid acting) (HumaLOG) SUBCUTANEOUS w MEALS PHYSICAL EXAM: Intake/Output Summary (Last 24 hours) at 09/04/17 1210 Last data filed at 09/04/17 1100 Gross per 24 hour Intake 4451 ml Output 3401 ml Net 1050 ml Patient Vitals for the past 24 hrs: BP Temp Temp src Pulse Resp SpO2 09/04/17 1152 153/56 36.8 ?C (98.2 ?F) Oral 66 16 100 % 09/04/17 0747 158/61 36.3 ?C (97.3 ?F) Oral 71 16 100 % 09/04/17 0334 115/53 36.3 ?C (97.3 ?F) Oral 60 18 96 % 09/03/17 2354 150/57 36.8 ?C (98.2 ?F) Oral 65 18 96 % 09/03/17 1950 151/71 36.6 ?C (97.9 ?F) Oral 72 18 100 % 09/03/17 1613 167/67 36.7 ?C (98.1 ?F) Oral 74 16 98 % Body mass index is 30.83 kg/m?. GENERAL: Alert, no distress, cooperative CARDIAC: Normal S1 and S2; no rubs, murmurs, or gallops LUNGS: Lungs clear to auscultation, Good diaphragmatic excursion ABDOMEN: Abdomen soft, non-tender, BS normal, No masses or organomegaly EXTREMITIES: Extremities normal, no deformities, edema, clubbing or skin discoloration. Recent Labs 09/04/17 0457 09/03/17 0626 09/02/17 1150 CREAT 3.67* 4.19* 4.61* BUN 52* 64* 73* NA 146* 145* 140 K 4.1 4.5 4.5 CHLOR 108* 109* 103 CO2 23 21* 21* ANION 15 15 16 GLUC 99 92 111* CA 9.2 8.8 9.2 P 4.2 -- 5.5* MG 2.1 2.5* 2.8* ALB 3.7* -- 3.9 WBC 7.25 6.91 7.48 HB 9.6* 9.7* 10.4* HCT 29.2* 29.9* 32.3* PLT 246 256 263 Coags: Invalid input(s): PT ABG's: ASSESSMENT AND PLAN: 1. HOMAR on CKD stage 3 with improved creatinine on iv fluids. Continue to hold ARB. Baseline creatinine 1.4. Renal US unremarkable. 2. Tremors resolved likely from tramadol/gabapentin high doses. Wean gabapentin since it does not help with the pain 3. Anemia hgb stable 4. Mild hypernatremia. May change NSS to 1/2NS as current rate. 5. HTN added amlodipine 6. DM2 stable Discussed with hospitalist. SIGNATURE: Luciana Singh DO DATE: September 04, 2017 TIME: 12:10 PM PROGRESS Observed: 09/04/2017 Status: COMPLETED Source: [place] 11:09 AM CLINIC OTHER CAMPUS REPOSITORY HNO ID: [id number] Author: Janet Ptaterson Service: Hospital Medicine Author Type: Physician Type: Progress Notes Filed: 09/05/2017 2:12 AM Note Text: INPATIENT PROGRESS NOTE SERVICE DATE: 09/04/2017 SERVICE TIME: 10.30AM Subjective CHIEF COMPLAINT: Feeling so much better Weakness,tremors ,clumsiness resolved . Wants to know when to go home Current hospital medications: gabapentin 200 mg cap(s) (NEURONTIN) 200 mg ORAL AT BEDTIME NaCl 0.45% iv infusion 100 mL/hr INTRAVENOUS CONTINUOUS melatonin 6 mg tab(s) 6 mg ORAL DAILY (8 PM) amLODIPine 5 mg tab(s) (NORVASC) 5 mg ORAL DAILY traMADol 50 mg tab(s) (ULTRAM) 50 mg ORAL q 12 H PRN metoprolol tartrate (short acting) 50 mg tab(s) (LOPRESSOR) 50 mg ORAL BID famotidine 20 mg tab(s) (PEPCID) 20 mg ORAL q 48 HR [START ON 09/07/2017] ergocalciferol (vitamin D2) 50,000 Units cap(s) (DRISDOL) 50,000 Units ORAL q 1 WEEK 0.9% NaCl 3-5 mL 3-5 mL INTRAVENOUS q 12 H docusate sodium 100 mg cap(s) (COLACE) 100 mg ORAL BID PRN dextrose 40 % 15 g 15 g ORAL PRN glucagon 1 mg injection (GLUCAGEN) 1 mg INTRAMUSCULAR PRN dextrose 50% in water 25 mL syringe 12.5 g INTRAVENOUS PRN insulin lispro injection (rapid acting) (HumaLOG) SUBCUTANEOUS w MEALS Objective PHYSICAL EXAM: BP 158/61 Pulse 71 Temp (Src) 97.3 (Oral) Resp 16 Ht 5' 4 (1.63m) Wt 179 lb 9.6 oz (81.5kg) SpO2 100% BMI 30.81 kg/(m2). Physical Exam Performed GENERAL: Alert, no distress, cooperative LUNGS: Lungs clear to auscultation, Good diaphragmatic excursion CARDIAC: Normal S1 and S2; no rubs, murmurs, or gallops ABDOMEN: Abdomen soft, non-tender, BS normal EXTREMITIES: No edema NEURO: Awake,alert,oriented x3 DATA: Diagnostic tests reviewed for today's visit: Most recent labs and imaging results. Assessment/Plan Active Problems: ? Nmdhp-li-vzhzwqt kidney injury (HCC) POA: Yes ?Assessment AND?Plan: Unknown cause. Improving nos with IVF From 4.61 on admission to 3.67 today. Was 2.22 on 08/13 Last baseline 01/25 was 1.4 Hypernatremia and hyperchloremia persists Potassium normal . Renal ultrasound shows no obstruction, no clear cut finding of medico renal disease. Will continue IVF but change to D5 in 1/2 N/S- (discussed with nephro) Appreciate Nutrition consult ? ? Hyperchloremia/hypernatremia : Despite changing IV N/S to LR. Spoke with nephro, changed IVF to dextrose in 1/2 N/S Encourage intake of free water Daily Renal function test ?Essential hypertension POA: Yes ?Assessment AND?Plan: Improved control since starting norvasc Continue current mgt ? ? Anemia : Normocytic Stable Hgb dropped from 10.4 to 9.7 and 9.6 today likely dilutional .and also due to anemia of CKD. Anemia work up negative Patient asymptomatic Daily cbc ? ? Diabetes aruna 2 with renal complications : HBAIC 6.6 on 06/26/17 Controlled glycemic Readings Continue accuchecks and SSI (patient nnow on dextrose infusion) Possible discharge am if nos continue to improve Medication and Non-Pharmacologic VTE Prophylaxis/Anticoagulants 09/02/17 1645 pneumatic compression stockings (in,ak) 09/02/17 1645 activity - mobilize patient ([place]) VTE Prophylaxis: VTE prophylaxis appropriate SIGNATURE: Janet Patterson MD PATIENT NAME: Celeste Desouza DATE: September 04, 2017 TIME: 11:09 AM PAGER: [phone] CBC Collected: 09/04/2017 Status: F Source: [place] 4:57 AM CLINIC OTHER CAMPUS REPOSITORY TYPE CODE TESTS RESULT OUT OF REFERENCE UNITS RANGE LAB WBC 3.70-11.00 k/uL WBC 7.25 LAB RBC 3.90-5.20 m/uL Low RBC 3.62 LAB HGB 11.5-15.5 g/dL Low Hemoglobin 9.6 LAB HCT 36.0-46.0 % Low Hematocrit 29.2 LAB MCV 80.0-100.0 fL MCV 80.7 LAB MCH 26.0-34.0 pG MCH 26.5 LAB MCHC 30.5-36.0 g/dL MCHC 32.9 LAB RDWCV 11.5-15.0 % RDW-CV High 16.4 LAB PLTCT 150-400 k/uL Platelet Count 246 LAB MPV 9.0-12.7 fL MPV 10.6 Performed By: #### CBC, MG1, RFP #### [facility] [address] [facility] [phone] MAGNESIUM Collected: 09/04/2017 Status: F Source: [place] 4:57 AM CLINIC OTHER CAMPUS REPOSITORY TYPE CODE TESTS RESULT OUT OF REFERENCE UNITS RANGE LAB MG 1.7-2.3 mg/dL Magnesium 2.1 Performed By: #### CBC, MG1, RFP #### [facility] [address] [facility] [phone] RENAL FUNCTION PANEL Collected: 09/04/2017 Status: F Source: [place] 4:57 AM CLINIC OTHER CAMPUS REPOSITORY TYPE CODE TESTS RESULT OUT OF REFERENCE UNITS RANGE LAB ALB 3.9-4.9 g/dL Low Albumin 3.7 LAB CA 8.5-10.2 mg/dL Calcium, Total 9.2 LAB PHOS 2.7-4.8 mg/dL Phosphorus 4.2 LAB GLU 74-99 mg/dL Glucose 99 Result Comment: The [place] [employer] (ADA) provides guidance for cutoff values for fasting glucose and random glucose. The ADA defines fasting as no caloric intake for at least 8 hours. Fas ting plasma glucose results between 100 to 125 mg/dL indicate increased risk for diabetes (prediabetes). Fasting plasma glucose results greater than or equal to 126 mg/dL meet the criteria for diagnosis of diabetes. In the absence of unequivocal hyperglycemia, results should be confirmed by repeat testing. In a patient with classic symptoms of hyperglycemia or hyperglycemic crisis, random plasma glucose results greater than or equal to 200 mg/dL meet the criteria for diagnosis of diabetes. Reference: Standards of Medical Care in Diabetes 2016, [place] [employer]. Diabetes Care. 2016.39(Suppl 1). LAB BUN 7-21 mg/dL BUN High 52 LAB CRET 0.58-0.96 mg/dL Creatinine High 3.67 LAB NA 136-144 mmol/L Sodium High 146 LAB K 3.7-5.1 mmol/L Potassium 4.1 LAB CL 97-105 mmol/L Chloride High 108 LAB CO2 22-30 mmol/L CO2 23 LAB AGAP 9-18 mmol/L Anion Gap 15 LAB GFRAA eGFR- Amer. 15 LAB GFRNAA . eGFR-All Other Races 12 Result Comment: eGFR (Estimated GFR) Units of measure: mL/min/1.73 meters squared eGFR is derived from the reexpressed MDRD Study equation using the following parameters: serum creatinine, age, gender and race. The creatinine assay has been calibrated to be traceable to IDMS. An eGFR <60 mL/min/1.73m2 for >3 months is consistent with chronic kidney disease. Refer to KDOQI guidelines for clinical interpretation. In patients with unstable renal function, e.g. those with acute kidney injury, the eGFR may not accurately reflect actual GFR. Performed By: #### CBC, MG1, RFP #### [facility] [address] [place] [address] NURSING PROG Observed: 09/04/2017 Status: COMPLETED Source: [place] 12:10 AM [facility] REPOSITORY HNO ID: [id number] Author: Ely (Rn) SAUL Navas Service: (none) Author Type: Registered Nurse Type: Nursing Progress Note Filed: 09/04/2017 2:11 AM Note Text: Nursing Progress Note Patient Name: Celeste Desouza Patient Location: [place] [id number] Daily Note:Pt assessment completed at this time. Pt c/o restless legs, but improving. Pt with no further complaints or other needs at this time. Pt aware to call for any needs. Pts call light and belongings within reach. This note was completed by: Ely Navas CREATININE,URINE,RAN Collected: Status: F Source: [place] 09/03/2017 5:45 PM [facility] REPOSITORY TYPE CODE TESTS RESULT OUT OF RANGE REFERENCE UNITS LAB UCRR 20-300 mg/dL Low 18.0 Creatinine,U rine,Ran Performed By: #### UCRR, UNAR #### [facility] [address] [place] [address] SODIUM,URINE,RANDOM Collected: Status: F Source: [place] 09/03/2017 5:45 PM CLINIC OTHER CAMPUS REPOSITORY TYPE CODE TESTS RESULT OUT OF RANGE REFERENCE UNITS LAB UNAR 14-216 mmol/L 76 Sodium,Urine ,Random Performed By: #### UCRR, UNAR #### [facility] [address] [facility] [phone] CONSULT Observed: 09/03/2017 Status: COMPLETED Source: [place] 4:20 PM CLINIC OTHER CAMPUS REPOSITORY HNO ID: [id number] Author: Luciana Singh I Service: Nephrology Author Type: Physician Type: Consults Filed: 09/03/2017 10:06 PM Note Text: INITIAL CONSULT NEPHROLOGY SERVICE DATE: 09/03/2017 SERVICE TIME: 4:21pm Requesting Service: Nephrology Requesting Provider: Janet Patterson Opinion/advice regarding: renal failure Final recommendations will be communicated back to the requesting physician by way of shared medical record. Subjective HPI: This is a 67 year old female Well known to me with CKD Stage 3 due to hypertension, diabetes baseline creatinine of 1.4, history of hyperkalemia on ACEI, then switched to Losartan. Pt switched to new PCP Dr. Mckinney after not able to get in to see her prior PCP Dr Aldrich from [facility] for coarse tremors that started in July 2017. She was instructed to go straight to ER for rise in creatinine to 4.8 on new pt lab work ordered by Dr. Mckinney two days ago. She had an increase in creatinine to 2.6 on 08/21 and was instructed to stop her Losartan. She has not been taking her Losartan since then. She was taken off all her diabetic medications and amlodipine. She was only on metoprolol for hypertension. She denied nausea, vomiting, diarrhea. Denied NSAID use. States has been trying to keep up with her fluid intake at home but had difficulty feeding herself due to her tremors. She complained of fatigue, increased somnolence. She is on tramadol and gabapentin at home for neuopathy pain at night. She denied syncope, palpitations, chest pain or shortness of breath. Denied fever, chills, cough. Creatinine on admit was 4.8 improved to 4.19 with LR overnight. She has been tearful lately. PAST MEDICAL HISTORY Diagnosis Date - Ankle fracture, bimalleolar, closed s/p surgery R, - CTS (carpal tunnel syndrome) bilateral s/p surgery - Diabetes mellitus 1989 - Esophageal varices with hemorrhage (HCC) 2008 cauterized - Hypercholesteremia - Hyperkalemia history of admit - Hypertension - Osteoarthritis multiple sites - Osteopenia - PUD (peptic ulcer disease) 2009 after bariatric surgery - Restless leg syndrome PAST SURGICAL HISTORY Procedure Laterality Date - BREAST BIOPSY 2007 right - CARPAL TUNNEL 2011 left then right - COLONOSCOPY - COLONOSCOPY 07/06 Dr Kline - KNEE SCOPE,DIAGNOSTIC 04/29/12 meniscal tear - LAPAROSCOP GASTRIC BYPASS 2009 - PAST SURGICAL HISTORY OF Left toe fracture - PROC RM-UPPER GI ENDSCOPY W/CA - REPAIR COMPL ROTATOR CUFF AVULSN,CHR right - TREATMENT OF ANKLE FRACTURE ~2001 left plates and screws - TREATMENT OF ANKLE FRACTURE 2011 ORIF ANKLE BIMALLEOLAR (Right) - VAGINAL HYSTERECTOMY adenomyosis FAMILY HISTORY Problem Relation Age of Onset - Adopted: Yes - Cancer Mother uterine - None Son - Multiple Sclerosis Son Social History Substance Use Topics - Smoking status: Former Smoker Packs/day: 1.00 Years: 0.00 Types: Cigarettes - Smokeless tobacco: Never Used Comment: quit 20 years ago - Alcohol use No traMADol (ULTRAM) 50 mg tablet Take 1-2 tablets every 8 hours as needed max of 6 pills per day gabapentin (NEURONTIN) 300 mg capsule TAKE 1 CAPSULE BY MOUTH TWICE DAILY. famotidine (PEPCID) 20 mg tablet TAKE 1 TABLET BY MOUTH TWICE DAILY. metoprolol tartrate, short acting, (LOPRESSOR) 50 mg tablet TAKE 1 TABLET BY MOUTH TWICE DAILY. blood sugar diagnostic test strip Accu check test strips check twice time daily dx dm 250.00 ICD E11.9 ergocalciferol, vitamin D2, (DRISDOL) 50,000 unit capsule TAKE ONE CAPSULE BY MOUTH ONCE A WEEK Lancets lancets Use as instructed Current hospital medications: melatonin 6 mg tab(s) 6 mg ORAL DAILY (8 PM) [START ON 09/04/2017] gabapentin 300 mg cap(s) (NEURONTIN) 300 mg ORAL AT BEDTIME lactated ringers infusion 100 mL/hr INTRAVENOUS CONTINUOUS traMADol 50 mg tab(s) (ULTRAM) 50 mg ORAL q 12 H PRN metoprolol tartrate (short acting) 50 mg tab(s) (LOPRESSOR) 50 mg ORAL BID famotidine 20 mg tab(s) (PEPCID) 20 mg ORAL q 48 HR [START ON 09/07/2017] ergocalciferol (vitamin D2) 50,000 Units cap(s) (DRISDOL) 50,000 Units ORAL q 1 WEEK 0.9% NaCl 3-5 mL 3-5 mL INTRAVENOUS q 12 H docusate sodium 100 mg cap(s) (COLACE) 100 mg ORAL BID PRN dextrose 40 % 15 g 15 g ORAL PRN glucagon 1 mg injection (GLUCAGEN) 1 mg INTRAMUSCULAR PRN dextrose 50% in water 25 mL syringe 12.5 g INTRAVENOUS PRN insulin lispro injection (rapid acting) (HumaLOG) SUBCUTANEOUS w MEALS Amitriptyline; Clozapine; Enalapril; Lisinopril Objective COMPLETE REVIEW OF SYSTEMS: 12 systems were reveiwed and were normal, except for what is mentioned in HPI. Vital Signs PHYSICAL EXAM: BP 140-170/76 P 74 RR 14 AF AO x3, NAD, anxious HRRR LCTAB Abdomen soft +BS, NT, ND Extrem no edema, pulses intact Neuro no noticible tremor, no focal weakness MS no weakness Psych, anxious. upbeat LABS: Recent Labs 09/03/17 0626 09/02/17 1150 CREAT 4.19* 4.61* BUN 64* 73* NA 145* 140 K 4.5 4.5 CHLOR 109* 103 CO2 21* 21* ANION 15 16 GLUC 92 111* CA 8.8 9.2 P -- 5.5* MG 2.5* 2.8* ALB -- 3.9 WBC 6.91 7.48 HB 9.7* 10.4* HCT 29.9* 32.3* PLT 256 263 DATA: Diagnostic tests reviewed for today's visit: Most recent labs and imaging results. Impression/Recommendations Active Problems: Acute renal failure on CKD Stage 3 underlying diabetic, hypertensive nephropathy with baseline creatinine at 1.4 now at 4.6 improved to 4.19 today with iv fluids. Continue with fluids. Change to NSS. Check renal us. Hold Losartan. Avoid nephrotoxins. May have become prerenal with tremors, difficulty feeding herself, increased somnolence. Type 2 diabetes mellitus monitor sugars off all meds Essential hypertension BP stable, continue metoprolol. Add amlodipine if needed. Anemia hgb 9.7g monitor. Guaiac stools Tremors may be from uremia, overdose of gabapentin, tramadol in presence of worsening renal fxn Hx hyperkalemia potassium stable, follow low K diet. Check phos level Diabetic neuropathy, cautious use of tramadol and gabapentin due to renal failure SIGNATURE: Luciana Singh DO PATIENT NAME: Celeste Desouza DATE: September 03, 2017 TIME: 4:21 PM PAGER/CONTACT #: [phone] PROGRESS Observed: 09/03/2017 Status: COMPLETED Source: [place] 1:39 PM CL[facility] OTHER [facility]AMP[facility] REPOSITORY HNO ID: [id number] Author: Janet Patterson Service: Hospital Medicine Author Type: Physician Type: Progress Notes Filed: 09/04/2017 2:29 AM Note Text: INPATIENT PROGRESS NOTE SERVICE DATE: 09/03/2017 SERVICE TIME: 1.00PM Subjective CHIEF COMPLAINT: Patient feeling much better. Denies feeling weak,clumsy nor tremors Anxious about plan of mgt Current hospital medications: melatonin 6 mg tab(s) 6 mg ORAL DAILY (8 PM) [START ON 09/04/2017] gabapentin 300 mg cap(s) (NEURONTIN) 300 mg ORAL AT BEDTIME lactated ringers infusion 100 mL/hr INTRAVENOUS CONTINUOUS traMADol 50 mg tab(s) (ULTRAM) 50 mg ORAL q 12 H PRN metoprolol tartrate (short acting) 50 mg tab(s) (LOPRESSOR) 50 mg ORAL BID famotidine 20 mg tab(s) (PEPCID) 20 mg ORAL q 48 HR [START ON 09/07/2017] ergocalciferol (vitamin D2) 50,000 Units cap(s) (DRISDOL) 50,000 Units ORAL q 1 WEEK 0.9% NaCl 3-5 mL 3-5 mL INTRAVENOUS q 12 H docusate sodium 100 mg cap(s) (COLACE) 100 mg ORAL BID PRN dextrose 40 % 15 g 15 g ORAL PRN glucagon 1 mg injection (GLUCAGEN) 1 mg INTRAMUSCULAR PRN dextrose 50% in water 25 mL syringe 12.5 g INTRAVENOUS PRN insulin lispro injection (rapid acting) (HumaLOG) SUBCUTANEOUS w MEALS Objective PHYSICAL EXAM: BP 161/59 Pulse 69 Temp (Src) 97.5 (Axillary) Resp 16 Ht 5' 4 (1.63m) Wt 179 lb 9.6 oz (81.5kg) SpO2 99% BMI 30.81 kg/(m2). Physical Exam Performed GENERAL: Alert, no distress, cooperative LUNGS: Lungs clear to auscultation, Good diaphragmatic excursion CARDIAC: Normal S1 and S2; no rubs, murmurs, or gallops ABDOMEN: Abdomen soft, non-tender, BS normal, No masses or organomegaly EXTREMITIES:No edema NEURO: Awake.alert,oriented x3, can move all extremities DATA: Diagnostic tests reviewed for today's visit: Most recent labs and imaging results. Assessment/Plan Active Problems: ? Xjbmp-sd-dpvacse kidney injury (HCC) POA: Yes Assessment AND Plan: Unknown cause. IVF challenge Showed ,mild improvement in renal function CR improved from 4.61 to 4.19 Notes Rising sodium level ,chloride and low CO2. Potassium normal . Renal ultrasound shows no obstruction, no clear cut finding of medico renal disease. Will continue IVF but change to LR. Await nephrology input Nutrition consult ? Hyperchloremic non anion gap metabolic acidosis Change IV N/S to LR. Encourage intake of free water Daily Renal function test ? ? ? Essential hypertension POA: Yes Assessment AND Plan: Poor control She brought her meds llist showing she was on amlodipine and lisinopril which was d/c Not sure why amlodipine was d/c but she said lisinopril was stopped due to hyperkalemia. Can start hydralazine or Resume norvasc if she had no s/e with norvasc But will await nephrology input. Continue current mgt ? ? Anemia : Normocytic Hgb dropped from 10.4 to 9.7 likely dilutional . and also due to anemia of CKD. Anemia work up negative Daily cbc ? Diabetes aruna 2 with renal complications : HBAIC 6.6 on 06/26/17 Controlled glycemic Readings Continue accuchecks and SSI Medication and Non-Pharmacologic VTE Prophylaxis/Anticoagulants 09/02/17 1645 pneumatic compression stockings (in,ak) 09/02/17 1645 activity - mobilize patient ([place]) VTE Prophylaxis: VTE prophylaxis appropriate SIGNATURE: Janet Patterson MD PATIENT NAME: Celeste Desouza DATE: September 03, 2017 TIME: 1:39 PM PAGER: [phone] CBC Collected: 09/03/2017 Status: F Source: [place] 6:26 AM CLINIC OTHER CAMPUS REPOSITORY TYPE CODE TESTS RESULT OUT OF REFERENCE UNITS RANGE LAB WBC 3.70-11.00 k/uL WBC 6.91 LAB RBC 3.90-5.20 m/uL Low RBC 3.71 LAB HGB 11.5-15.5 g/dL Low Hemoglobin 9.7 LAB HCT 36.0-46.0 % Low Hematocrit 29.9 LAB MCV 80.0-100.0 fL MCV 80.6 LAB MCH 26.0-34.0 pG MCH 26.1 LAB MCHC 30.5-36.0 g/dL MCHC 32.4 LAB RDWCV 11.5-15.0 % RDW-CV High 16.3 LAB PLTCT 150-400 k/uL Platelet Count 256 LAB MPV 9.0-12.7 fL MPV 9.7 Performed By: #### CBC, BMP, MG1 #### [facility] [address] [facility] [phone] BASIC METABOLIC PANL Collected: 09/03/2017 Status: F Source: [place] 6:26 AM CLINIC OTHER CAMPUS REPOSITORY TYPE CODE TESTS RESULT OUT OF REFERENCE UNITS RANGE LAB GLU 74-99 mg/dL Glucose 92 Result Comment: The [place] [employer] (ADA) provides guidance for cutoff values for fasting glucose and random glucose. The ADA defines fasting as no caloric intake for at least 8 hours. Fas ting plasma glucose results between 100 to 125 mg/dL indicate increased risk for diabetes (prediabetes). Fasting plasma glucose results greater than or equal to 126 mg/dL meet the criteria for diagnosis of diabetes. In the absence of unequivocal hyperglycemia, results should be confirmed by repeat testing. In a patient with classic symptoms of hyperglycemia or hyperglycemic crisis, random plasma glucose results greater than or equal to 200 mg/dL meet the criteria for diagnosis of diabetes. Reference: Standards of Medical Care in Diabetes 2016, [place] [employer]. Diabetes Care. 2016.39(Suppl 1). LAB BUN 7-21 mg/dL BUN High 64 LAB CRET 0.58-0.96 mg/dL Creatinine High 4.19 LAB NA 136-144 mmol/L Sodium High 145 LAB K 3.7-5.1 mmol/L Potassium 4.5 LAB CL 97-105 mmol/L Chloride High 109 LAB CO2 22-30 mmol/L Low CO2 21 LAB AGAP 9-18 mmol/L Anion Gap 15 LAB CA 8.5-10.2 mg/dL Calcium, Total 8.8 LAB GFRAA eGFR- Amer. 13 LAB GFRNAA . eGFR-All Other Races 11 Result Comment: eGFR (Estimated GFR) Units of measure: mL/min/1.73 meters squared eGFR is derived from the reexpressed MDRD Study equation using the following parameters: serum creatinine, age, gender and race. The creatinine assay has been calibrated to be traceable to IDMS. An eGFR <60 mL/min/1.73m2 for >3 months is consistent with chronic kidney disease. Refer to KDOQI guidelines for clinical interpretation. In patients with unstable renal function, e.g. those with acute kidney injury, the eGFR may not accurately reflect actual GFR. Performed By: #### CBC, BMP, MG1 #### [facility] [address] [place] [address] MAGNESIUM Collected: 09/03/2017 Status: F Source: [place] 6:26 AM [facility] OTHER [place] REPOSITORY TYPE CODE TESTS RESULT OUT OF REFERENCE UNITS RANGE LAB MG 1.7-2.3 mg/dL High Magnesium 2.5 Performed By: #### CBC, BMP, MG1 #### [facility] [address] [place] [address] URINALYSIS Collected: 09/02/2017 Status: F Source: [place] 10:25 PM [facility] OTHER [place] REPOSITORY TYPE CODE TESTS RESULT OUT OF RANGE REFERENCE UNITS LAB UCOL Yellow Color Abnormal Straw Alert LAB [facility] Clear Clarity Clear LAB UGLUC Negative mg/dL Glucose, Urine Negative LAB UBIL Negative Bilirubin, Urine Negative LAB UKET Negative Ketones, Urine Negative LAB USPG 1.001-1.029 Specific [place], Ur <=1.005 LAB UHGB Negative Hemoglobin/Blood, Negative Ur LAB UPH 5.0-8.0 pH 6.0 LAB UPROT Negative mg/dL Protein, Urine Negative LAB UUROB 0.2-1.0 Urobilinogen 0.2 LAB UNITR Negative Nitrites Negative LAB ULKEST Negative Leukest Negative Performed By: #### UA #### [facility] [address] [place] [phone] US KIDNEY/BLADDER Observed: 09/02/2017 Status: F Source: [place] 6:41 PM [facility] OTHER CAMPUS REPOSITORY * * *Final Report* * * DATE OF EXAM: Sep 02 2017 6:41PM AUGUSTINE 1055 - US KIDNEY/BLADDER / PROCEDURE REASON: Renal failure, acute (kidney injury) * * * * Physician Interpretation * * * * EXAMINATION: US KIDNEY/BLADDER CLINICAL HISTORY: Renal failure Comparison: None RESULT: The kidneys are normal in size, and upper limits of normal in echogenicity. The right measures 12.6, and the left 13.1 cm in length. There appears to be extrarenal pelvis on both sides. No hydronephrosis or solid renal mass is appreciated. No focal bladder wall abnormality is seen. Urinary bladder volume is 514 cc. IMPRESSION: No evidence of hydronephrosis or solid renal mass. Renal contours are suboptimally seen due to patient body habitus and overlying bowel gas Health Analyst: [facility] Transcribe Date/Time: Sep 02 2017 7:33P Dictated by : NATHAN QUINONES MD This examination was interpreted and the report reviewed and electronically signed by: NATHAN QUINONES MD on Sep 02 2017 7:36PM EST [id number] XR CHEST 1V FRONTAL Observed: 09/02/2017 Status: F Source: [facility] 5:01 PM CLINIC OTHER CAMPUS REPOSITORY * * *Final Report* * * DATE OF EXAM: Sep 02 2017 5:01PM MDX [id number] - XR CHEST 1V FRONTAL PORT / PROCEDURE REASON: Renal failure, acute (kidney injury) * * * * Physician Interpretation * * * * EXAMINATION: CHEST RADIOGRAPH (PORTABLE SINGLE VIEW AP) Exam Date/Time: 09/02/2017 5:01 PM Clinical History: Renal failure, acute (kidney injury) MQ: [id number] Comparison: None RESULT: See impression. IMPRESSION: Lines, tubes, and devices: None. Lungs and pleura: No acute parenchymal or pleural process is seen. Linear atelectasis/scarring seen in the left lower chest. Cardiomediastinal silhouette: Normal cardiomediastinal silhouette. Other: . Health Analyst: [facility] Transcribe Date/Time: Sep 02 2017 5:07P Dictated by : HATTIE ROBINS MD This examination was interpreted and the report reviewed and electronically signed by: HATTIE ROBINS MD on Sep 02 2017 5:07PM EST [id number] HISTORY PHYSICAL Observed: 09/02/2017 Status: COMPLETED Source: [place] 4:09 PM CLINIC OTHER CAMPUS REPOSITORY HNO ID: [id number] Author: Janet Carreon Kayceeolivachandnicora Service: Hospital Medicine Author Type: Physician Type: HANDP Filed: 09/05/2017 1:57 AM Note Text: HISTORY AND PHYSICAL EXAMINATION SERVICE DATE: 09/02/2017 SERVICE TIME: 3.45pm PRIMARY CARE PHYSICIAN: Rigo Mckinney MD Subjective CHIEF COMPLAINT: abnormal labs HPI: This is a 67 year old female with a hx of HTN.stage 3 CKD ,diabetes mellitus on no meds ,HL,hyperkalemia ,PUD ,RLS. Was sent in by her pcp Because of abnormal labs. She reports that she has battling with hyperkalemia For years but was never told she has CKD. Recentlynoticed that she Was feeling very fatigued, having jerking movements and was clumsy (objects fall off her hands a lot ). She reported her concerns to her physician who ordered some labs including renal function test which showed her creatinine Have gotten worse from BUN/CR of 38/2.22 on 08/13/17 to 73/4.61 today.Potassium is normal. She was sent to the ER as a result. She denies NSAID use nor use of any new OTC meds .Drinks a lot of water . Denies fever,chills,N/V/D,abd pain,chest pain,URI nor UTI symptoms FUNCTIONAL STATUS: Independent PAST MEDICAL HISTORY Diagnosis Date - Ankle fracture, bimalleolar, closed s/p surgery R, - CTS (carpal tunnel syndrome) bilateral s/p surgery - Diabetes mellitus 1989 - Esophageal varices with hemorrhage (HCC) 2009 cauterized - Hypercholesteremia - Hyperkalemia history of admit - Hypertension - Osteoarthritis multiple sites - Osteopenia - PUD (peptic ulcer disease) 2009 after bariatric surgery - Restless leg syndrome PAST SURGICAL HISTORY Procedure Laterality Date - BREAST BIOPSY 2007 right - CARPAL TUNNEL 2012 left then right - COLONOSCOPY - COLONOSCOPY 07/06 Dr Kline - KNEE SCOPE,DIAGNOSTIC 04/29/12 meniscal tear - LAPAROSCOP GASTRIC BYPASS 2009 - PAST SURGICAL HISTORY OF Left toe fracture - PROC RM-UPPER GI ENDSCOPY W/CA - REPAIR COMPL ROTATOR CUFF AVULSN,CHR right - TREATMENT OF ANKLE FRACTURE ~2001 left plates and screws - TREATMENT OF ANKLE FRACTURE 2011 ORIF ANKLE BIMALLEOLAR (Right) - VAGINAL HYSTERECTOMY adenomyosis FAMILY HISTORY Problem Relation Age of Onset - Adopted: Yes - Cancer Mother uterine - None Son - Multiple Sclerosis Son Social History Substance Use Topics - Smoking status: Former Smoker Packs/day: 1.00 Years: 0.00 Types: Cigarettes - Smokeless tobacco: Never Used Comment: quit 20 years ago - Alcohol use No Prescriptions Prior to Admission: traMADol (ULTRAM) 50 mg tablet Take 1-2 tablets every 8 hours as needed max of 6 pills per day Disp: 180 tablet Rfl: 0 09/01/2017 at Unknown time gabapentin (NEURONTIN) 300 mg capsule TAKE 1 CAPSULE BY MOUTH TWICE DAILY. Disp: 180 capsule Rfl: 3 09/02/2017 at Unknown time famotidine (PEPCID) 20 mg tablet TAKE 1 TABLET BY MOUTH TWICE DAILY. Disp: 180 tablet Rfl: 3 09/01/2017 at Unknown time metoprolol tartrate, short acting, (LOPRESSOR) 50 mg tablet TAKE 1 TABLET BY MOUTH TWICE DAILY. Disp: 180 tablet Rfl: 3 09/01/2017 at Unknown time blood sugar diagnostic test strip Accu check test strips check twice time daily dx dm 250.00 ICD E11.9 Disp: 200 Strip Rfl: 3 Taking ergocalciferol, vitamin D2, (DRISDOL) 50,000 unit capsule TAKE ONE CAPSULE BY MOUTH ONCE A WEEK Disp: 12 capsule Rfl: 3 08/31/2017 Lancets lancets Use as instructed Disp: 90 Each Rfl: 3 Taking ALLERGIES Allergen Reactions - Amitriptyline Other: See Comments Dizziness - Clozapine Other: See Comments Nightmares - Enalapril Other: See Comments Increase potassium - Lisinopril Other: See Comments increases potassium COMPLETE REVIEW OF SYSTEMS: See HPI Objective PHYSICAL EXAM: Physical Exam Performed: GENERAL: Alert, no distress, cooperative LUNGS: Lungs clear to auscultation, Good diaphragmatic excursion CARDIAC: Normal S1 and S2; no rubs, murmurs, or gallops ABDOMEN: Abdomen soft, non-tender, BS normal, No masses or organomegaly EXTREMITIES: No edema NEURO: Awake,alert,oriented x3 BP 174/76 Pulse 74 Temp (Src) 97.3 (Oral) Resp 22 Wt 179 lb (81.2kg) SpO2 94% DATA: Diagnostic tests reviewed for today's visit: Most recent labs and imaging results. Assessment/Plan Active Problems: Pwlcw-xd-kboqtmd kidney injury (HCC) POA: Yes Assessment AND Plan: Unknown cause. BUN/CR of 38/2.22 on 08/13/17 to 73/4.61 today.Potassium is normal. Last baseline on 01/25 was 1.4 IVF challenge Renally dose meds Daily renal function test,cbc,mag,phos,PTH,UA Renal ultrasound Nephrology consult Avoid nephrotoxins Essential hypertension POA: Yes Assessment AND Plan: Poor control Resume home meds . It seems she is only on metoprolol which is not a strong antihypertensive agent. - she states that some of her meds were recently d/c.- Was on lisinopril in the past . Continue lopressor for now Reasses BP meds am and adjust meds as needed Anemia : Normocytic . Notes hgb drop from 12.1 on 01/28/17 to 10.2 on 07/24/17 to 10.4 today. ?due to anemia of CKD. Anemia work up. Daily cbc Diabetes aruna 2 with renal complications : HBAIC 6.6 on 06/26/17 She is currently not on any meds RBS 111. Start accuchecks and SSI Medication and Non-Pharmacologic VTE Prophylaxis/Anticoagulants VTE Prophylaxis: VTE prophylaxis appropriate SIGNATURE: Janet Patterson MD PATIENT NAME: Celeste Desouza DATE: September 02, 2017 TIME: 4:09 PM PAGER/CONTACT #: [phone] ED NOTE Observed: 09/02/2017 Status: COMPLETED Source: [place] 2:42 PM CLINIC OTHER CAMPUS REPOSITORY HNO ID: [id number] Author: Jaelyn Alcaraz) SAUL Reveles Service: (none) Author Type: Registered Nurse Type: ED Notes Filed: 09/02/2017 2:42 PM Note Text: report given to Carlota HUGHES. ED NOTE Observed: 09/02/2017 Status: COMPLETED Source: [place] 2:40 PM CLINIC OTHER CAMPUS REPOSITORY HNO ID: [id number] Author: Jaelyn Alcaraz) SAUL Reveles Service: (none) Author Type: Registered Nurse Type: ED Notes Filed: 09/02/2017 2:40 PM Note Text: Report called to [facility] pt updated to POC and agreeable to admission. CASE MGT INIT Observed: 09/02/2017 Status: COMPLETED Source: [facility] 2:27 PM CLINIC OTHER CAMPUS REPOSITORY HNO ID: [id number] Author: Marely (Rn) SAUL Acosta Service: (none) Author Type: Registered Nurse Type: Care Mgt Initial Assessment Filed: 09/02/2017 3:37 PM Note Text: CARE MANAGEMENT: ASSESSMENT AND DISCHARGE PLAN SERVICE DATE: 09/02/2017 SERVICE TIME: 2:27 PM underwriting account representative met with patient, patient spouse and friend at bedside in the emergency department. Introduction made and role of case management explained. Patient states she is agreeable to assessment questions. Patient gives permission for her visitors to remain at bedside and participate in the interview. Assessment information provided by electronic medical record and patient. PRIMARY CARE PHYSICIAN: Rigo Mckinney MD - confirmed Patient states she prefers afternoon appointments. ADMISSION STATUS: Emergency MEDICAL: Patient/Occupational Medicine Specialist Stated Goals: To return home to life as it was Health Insurance: MEDICARE A AND B and [employer] Health Issues Impacting Discharge Plan: Acute Renal Failure Last Admission Date: Previous admit date: 09/26/2011 Is this Within the Past 30 days? No Advance Directive: Current Advance Directive: Health Care Power of Brand Protection Manager;Living Will In Chart: No Health Literacy: 1. How often do you need to have someone help you when you read instructions, pamphlets, or other written material from your doctor or pharmacy? Rarely - 2 2. How confident are you filling out medical forms by yourself? Quite a bit - 2 If Patient scores > 3 on either question, the following interventions were put into place: Use of plain language and active listening with Patient and family, Teach back methods employed to ensure comprehension and Use concrete and specific phrases, avoid medical jargon FUNCTIONAL AND COGNITIVE/BEHAVIORAL PRIOR TO ADMISSION: Baseline Mental Status: Alert AND Oriented, Person, Place , Time and Situation Functional Status: Independent Does Patient Currently Receive Any Community Services or Home Care? None Equipment Prior to Admission: None Has the Patient Been in a [facility] Facility in the Past 30 days? No SOCIAL: Living Arrangement: Home Lives With: Spouse Financial Resources: Retired Primary Contact: [place] [address] [place] Mobile Relation: Spouse Zhang Desouza Address: [address] [place] [address] [place] [address] Relation: Son Krunal Desouza Relation: Son Supportive: Yes - patient confirms her family is supportive Other Important Patient Contacts: None Caregiver Assessment: Caregiver is ready, willing and able to meet the patient's needs as recommended by the inter-professional team? No Caregiver Needed Patient's transition needs and plan for meeting these needs: Discharge needs: To be Detemined Anticipate: Home/Self Care Discharge Transportation: Family to Transport - Spouse Does the patient have an acute stroke diagnosis, or has the patient had a stroke during this admission? No Medication Adherence: I am convinced of the importance of my prescription medication: Agree completely - 0 I worry that my prescription medication will do more harm than good to me Disagree completely - 0 I feel financially burdened by my vvf-ic-qldffz expenses for my prescription medication: Disagree completely - 0 Patient is categorized as low risk < 2 Are you interested in bedside delivery of your medications? No Food Concerns: In the Last Month, Have You had Trouble Getting Food? No trouble getting food During the Last Month, Have You Worried Whether Your Food Would Run Out Before You Had Enough Money to Buy More? No Is the Patient Psychosocially Complex? No ASSESSMENT AND PLAN: Medical Needs: 2 or more chronic diseases History of: PUD - Osteopenia - RLS - DM2 - Essential HTN - OA - CTS - Hypercholesteremia - OA Psychosocial Needs: None FREEDOM OF CHOICE EXPLAINED: N/A POTENTIAL TRANSITION PLANS Discharge Needs: To Be Determined Anticipate: Home/Self Care Discharge Transportation: Family to Transport - Spouse Patient informed Care Management is available to aid in discharge planning needs. Primary Care Physician: Rigo Mckinney MD - [facility] Summary of Care to be sent at discharge. SIGNATURE: Marely Acosta RN PATIENT NAME: Celeste Desouza DATE: September 02, 2017 TIME: 2:27 PM PAGER/CONTACT #: [phone] ED NOTE Observed: 09/02/2017 Status: COMPLETED Source: [place] 2:23 PM CLINIC OTHER CAMPUS REPOSITORY HNO ID: [id number] Author: Jaelyn Alcaraz) SAUL Reveles Service: (none) Author Type: Registered Nurse Type: ED Notes Filed: 09/02/2017 2:24 PM Note Text: 10 minute report called ED NOTE Observed: 09/02/2017 Status: COMPLETED Source: [place] 2:00 PM CLINIC OTHER CAMPUS REPOSITORY HNO ID: [id number] Author: Jaelyn GomezRn) Abdirizak RN Service: (none) Author Type: Registered Nurse Type: ED Notes Filed: 09/02/2017 2:42 PM Note Text: Pt is resting comfortably in bed with call light in reach. Pt updated on plan of care. Bed is locked and in the lowest position. Pt is stable. No acute distress. Will continue to monitor. ED NOTE Observed: 09/02/2017 Status: COMPLETED Source: [place] 1:30 PM [facility] OTHER CAMPUS REPOSITORY HNO ID: [id number] Author: Jaelyn Alcaraz) SAUL Reveles Service: (none) Author Type: Registered Nurse Type: ED Notes Filed: 09/02/2017 2:43 PM Note Text: Pt is resting comfortably in bed with call light in reach. Pt updated on plan of care. Bed is locked and in the lowest position. Pt is stable. No acute distress. Will continue to monitor. URINALYSIS Collected: 09/02/2017 Status: F Source: [place] 1:00 PM [facility] OTHER CAMPUS REPOSITORY TYPE CODE TESTS RESULT OUT OF RANGE REFERENCE UNITS LAB UCOL Yellow Color Yellow LAB [facility] Clear Clarity Clear LAB UGLUC Negative mg/dL Glucose, Urine Negative LAB UBIL Negative Bilirubin, Urine Negative LAB UKET Negative Ketones, Urine Negative LAB USPG 1.001-1.029 Specific [place], Ur <=1.005 LAB UHGB Negative Hemoglobin/Blood, Negative Ur LAB UPH 5.0-8.0 pH 6.0 LAB UPROT Negative mg/dL Protein, Urine Negative LAB UUROB 0.2-1.0 Urobilinogen 0.2 LAB UNITR Negative Nitrites Negative LAB ULKEST Negative Leukest Abnormal Trace Alert Performed By: #### UA, UAMIC #### [facility] [address] [facility] [phone] URINE MICROSCOPIC Collected: 09/02/2017 Status: F Source: [place] (FOR LAB USE ONLY) 1:00 PM [facility] OTHER CAMPUS REPOSITORY TYPE CODE TESTS RESULT OUT OF REFERENCE UNITS RANGE LAB UWBC 0-5 /HPF WBC 0-5 LAB URBC 0-3 /HPF RBC 0-3 LAB UCAST 0 /LPF Cast SEE COMMENT Result Comment: 0 LAB UBACT 0 /HPF Abnormal Bacteria Alert Few LAB UEPI /HPF Epithelial Cells SEE COMMENT Result Comment: 0-5 Squamous Epithelial Cells Performed By: #### UA, UAMIC #### [facility] [address] [facility] [phone] ED NOTE Observed: 09/02/2017 Status: COMPLETED Source: [place] 12:52 PM [facility] REPOSITORY HNO ID: [id number] Author: Jaelyn Alcaraz) SAUL Reveles Service: (none) Author Type: Registered Nurse Type: ED Notes Filed: 09/02/2017 12:52 PM Note Text: Pt is resting comfortably in bed with call light in reach. Pt updated on plan of care. Bed is locked and in the lowest position. Pt is stable. No acute distress. Will continue to monitor. ED NOTE Observed: 09/02/2017 Status: COMPLETED Source: [place] 12:51 PM [facility] REPOSITORY HNO ID: [id number] Author: Jaelyn Alcaraz) SAUL Reveles Service: (none) Author Type: Registered Nurse Type: ED Notes Filed: 09/02/2017 12:51 PM Note Text: Clean catch urine specimen obtained and sent. EKG Observed: 09/02/2017 Status: F Source: [place] 12:46 PM [facility] REPOSITORY NAME : CELESTE DESOUZA PID : [id number] 1950 Gender : Female Race : ORD : [id number] Procedure Date : Sep 02 2017 12:46:01 Edit Date : Sep 03 2017 14:51:40 Diagnosis:NORMAL SINUS RHYTHM NORMAL ECG WHEN COMPARED WITH ECG OF 24-APR-2012 10:31, NO SIGNIFICANT CHANGE WAS FOUND Confirmed by VIRGIL VARGAS D.O. ([id number]) on 09/03/2017 2:51:34 PM Ventricular Rate : 69 BPM Atrial Rate : 69 BPM P-R Interval : 178 ms QRS Duration : 102 ms Q-T Interval : 428 ms QTC Calculation(Bezet) : 458 ms P [place] : 55 degrees R [place] : 26 degrees T [place] : 37 degrees Test Reason : Arrhythmia Location : 1 : ER 16 Overread By : VIRGIL VARGAS D.O. Edited By : VIRGIL VARGAS D.O. Referred By : , Acquired by : [id number], ED NOTE Observed: 09/02/2017 Status: COMPLETED Source: [place] 12:38 PM CLINIC OTHER CAMPUS REPOSITORY HNO ID: [id number] Author: Jaelyn GomezRn) SAUL Reveles Service: (none) Author Type: Registered Nurse Type: ED Notes Filed: 09/02/2017 12:38 PM Note Text: Assumed pt care and agree with previous RN assessments. ED PROV NOTE Observed: 09/02/2017 Status: COMPLETED Source: [place] 12:14 PM CLINIC OTHER [place] REPOSITORY HNO ID: [id number] Author: Inna Segovia Service: Emergency Medicine Author Type: Physician Set Up And Lay Out Inspector Type: ED Provider Notes Filed: 09/02/2017 2:27 PM Note Text: Attestation signed by Kenneth Roblero III, MD at 09/03/2017 8:23 AM Attending Note I have personally performed a face to face assessment of the patient and have reviewed the PA/TAR WORKER note. My laird findings include: This is a 67-year-old female who was sent here by primary care physician for acute renal failure. Patient's creatinine is gone from 2, less than one month prior to now 4 with an elevated BUN of greater than 70. Etiology uncertain at this point time. Discussed with patient's station attendant will be admitted for further workup and treatment. Differential includes progressive nephropathy from diabetes, hypertension versus acute insult from possible obstruction vs. Pre-renal injury. Here given gentle hydration Signature: Kenneth Roblero III, MD Date: 09/03/2017 Time: 8:22 AM ED Provider Note Patient Name: Celeste Desouza SERVICE DATE: 09/02/17 History Patient presents with: Blood Test Abnormality This is a 67 y/o female PMHx of NIDDM, GERD, RLS, HTN, s/p bariatric surgery here per recommendations of her PCP for further evaluation of acute on chronic kidney disease. Patient recently switched PCP's and had routine visit outpatient yesterday and had bloodwork done as well. She was contacted this morning informing her that her creatinine was much higher than baseline and she should go to [facility]. Patient states that she feels fine and at baseline. She states that she routinely feels tired however she states that she is old and this is expected. No fevers, chills, dizziness, chest pain, dyspnea, n/v/d, abdominal pain, urinary symptoms, back pain, swelling in extremities, palpitations. PAST MEDICAL HISTORY Diagnosis Date - Ankle fracture, bimalleolar, closed s/p surgery R, - CTS (carpal tunnel syndrome) bilateral s/p surgery - Diabetes mellitus 1989 - Esophageal varices with hemorrhage (HCC) 2008 cauterized - Hypercholesteremia - Hyperkalemia history of admit - Hypertension - Osteoarthritis multiple sites - Osteopenia - PUD (peptic ulcer disease) 2009 after bariatric surgery - Restless leg syndrome PAST SURGICAL HISTORY Procedure Laterality Date - BREAST BIOPSY 2007 right - CARPAL TUNNEL 2012 left then right - COLONOSCOPY - COLONOSCOPY 07/06 Dr Kline - KNEE SCOPE,DIAGNOSTIC 04/29/12 meniscal tear - LAPAROSCOP GASTRIC BYPASS 2009 - PAST SURGICAL HISTORY OF Left toe fracture - PROC RM-UPPER GI ENDSCOPY W/CA - REPAIR COMPL ROTATOR CUFF AVULSN,CHR right - TREATMENT OF ANKLE FRACTURE ~2001 left plates and screws - TREATMENT OF ANKLE FRACTURE 2011 ORIF ANKLE BIMALLEOLAR (Right) - VAGINAL HYSTERECTOMY adenomyosis FAMILY HISTORY Problem Relation Age of Onset - Adopted: Yes - Cancer Mother uterine - None Son - Multiple Sclerosis Son Social History Social History Main Topics - Smoking status: Former Smoker Packs/day: 1.00 Years: 0.00 Types: Cigarettes - Smokeless tobacco: Never Used Comment: quit 20 years ago - Alcohol use No - Drug use: No - Sexual activity: No ALLERGIES Allergen Reactions - Amitriptyline Other: See Comments Dizziness - Clozapine Other: See Comments Nightmares - Enalapril Other: See Comments Increase potassium - Lisinopril Other: See Comments increases potassium Review of Systems Constitutional: Negative for chills and fever. Eyes: Negative for visual disturbance. Respiratory: Negative for shortness of breath. Cardiovascular: Negative for chest pain, palpitations and leg swelling. Gastrointestinal: Negative for abdominal pain, diarrhea, nausea and vomiting. Genitourinary: Negative for difficulty urinating, dysuria, flank pain, frequency, hematuria and urgency. Musculoskeletal: Negative for back pain. Allergic/Immunologic: Negative for immunocompromised state. Neurological: Negative for dizziness, seizures, weakness, light-headedness and headaches. Hematological: Does not bruise/bleed easily. Psychiatric/Behavioral: Negative for confusion. Physical Exam BP 134/62 Pulse 73 Temp (Src) 97.9 (Oral) Resp 14 Wt 179 lb (81.2kg) SpO2 99% Physical Exam Constitutional: She appears well-developed and well-nourished. No distress. HENT: Head: Normocephalic and atraumatic. Mucous membranes dry Eyes: Conjunctivae are normal. No scleral icterus. Neck: Neck supple. Cardiovascular: Normal rate and regular rhythm. Pulmonary/Chest: Effort normal and breath sounds normal. Abdominal: Soft. She exhibits no distension and no mass. There is no tenderness. There is no rebound and no guarding. Musculoskeletal: RIVERA x 4 Neurological: She is alert. Awake and alert. Normal speech. Steady gait. Motor grossly intact. Skin: Skin is warm and dry. Psychiatric: She has a normal mood and affect. Her behavior is normal. Nursing note and vitals reviewed. Diagnostic Testing Results for orders placed or performed during the hospital encounter of 09/02/17 CBC + DIFF Result Value Ref Range WBC 7.48 3.70 - 11.00 k/uL RBC 3.97 3.90 - 5.20 m/uL Hemoglobin 10.4 (L) 11.5 - 15.5 g/dL Hematocrit 32.3 (L) 36.0 - 46.0 % MCV 81.4 80.0 - 100.0 fL MCH 26.2 26.0 - 34.0 pG MCHC 32.2 30.5 - 36.0 g/dL RDW-CV 16.8 (H) 11.5 - 15.0 % Platelet Count 263 150 - 400 k/uL MPV 10.4 9.0 - 12.7 fL Neut% 57.6 % Abs Neut (ANC) 4.31 1.45 - 7.50 k/uL Lymph% 30.6 % Abs Lymph 2.29 1.00 - 4.00 k/uL [place]% 6.6 % Abs [place] 0.49 <0.87 k/uL Eosin% 4.7 % Abs Eosin 0.35 <0.46 k/uL Baso% 0.5 % Abs Baso 0.04 <0.11 k/uL COMP METABOLIC PANEL Result Value Ref Range Protein, Total 7.6 6.3 - 8.0 g/dL Albumin 3.9 3.9 - 4.9 g/dL Calcium 9.2 8.5 - 10.2 mg/dL Bilirubin, Total 0.3 0.2 - 1.3 mg/dL Alkaline Phosphatase 109 32 - 117 U/L AST 20 13 - 35 U/L Glucose 111 (H) 74 - 99 mg/dL BUN 73 (H) 7 - 21 mg/dL Creatinine 4.61 (H) 0.58 - 0.96 mg/dL Sodium 140 136 - 144 mmol/L Potassium 4.5 3.7 - 5.1 mmol/L Chloride 103 97 - 105 mmol/L CO2 21 (L) 22 - 30 mmol/L Anion Gap 16 9 - 18 mmol/L ALT 15 7 - 38 U/L eGFR- 11 eGFR-All Other Races 9 . MAGNESIUM BLD Result Value Ref Range Magnesium 2.8 (H) 1.7 - 2.3 mg/dL URINALYSIS Result Value Ref Range Color Yellow Yellow Appearance (U) Clear Clear Glucose, Urine Negative Negative mg/dL Bilirubin, Urine Negative Negative Ketones, Urine Negative Negative Specific [place], Ur <=1.005 1.001 - 1.029 Hemoglobin/Blood,Ur Negative Negative pH, Urine 6.0 5.0 - 8.0 Protein, Urine Negative Negative mg/dL Urobilinogen 0.2 0.2 - 1.0 Nitrites Negative Negative Leukest Trace (A) Negative URINE MICROSCOPIC Result Value Ref Range WBC, Urine 0-5 0 - 5 /HPF RBC, Urine 0-3 0 - 3 /HPF Cast SEE COMMENT 0 /LPF Bacteria Few (A) 0 /HPF Epithelial Cells SEE COMMENT /HPF -routine labs obtained and interpreted: UA with trace leuks, few bacteria. Magnesium elevated 2.8. Bicarb low 21. Stable chronic anemia 10.4/32.3. Acute on chronic renal failure 73/4.61 (2.22/38 07/2017). Procedures ED Course / Clinical Impression -IV hydration started. Clinical Impressions as of Sep 02 141 Acute renal failure superimposed on chronic kidney disease, unspecified CKD stage, unspecified acute renal failure type (HCC) Hypermagnesemia MDM / Disposition / Plan This is a 67 y/o female sent here by PCP for elevated creatinine/BUN from baseline that was found from routine outpatient blood work. Patient feeling well otherwise. HD stable. Afebrile. Non-toxic appearing. Patient already established with station attendant Dr. Luciana Singh and she would like to be consulted during patient's hospital admission. The patient was TRANSFERRED to: Medicine Condition at time of disposition: stable SIGNATURE: MICH Guadarrama Pa-C 09/02/17 1427 Kenneth Roblero III, MD 09/03/17 0823 CBC AND DIFFERENTIAL Collected: 09/02/2017 Status: F Source: [place] 11:50 AM CLINIC OTHER CAMPUS REPOSITORY TYPE CODE TESTS RESULT OUT OF REFERENCE UNITS RANGE LAB WBC 3.70-11.00 k/uL WBC 7.48 LAB RBC 3.90-5.20 m/uL RBC 3.97 LAB HGB 11.5-15.5 g/dL Low Hemoglobin 10.4 LAB HCT 36.0-46.0 % Low Hematocrit 32.3 LAB MCV 80.0-100.0 fL MCV 81.4 LAB MCH 26.0-34.0 pG MCH 26.2 LAB MCHC 30.5-36.0 g/dL MCHC 32.2 LAB RDWCV 11.5-15.0 % RDW-CV High 16.8 LAB PLTCT 150-400 k/uL Platelet Count 263 LAB MPV 9.0-12.7 fL MPV 10.4 LAB ANEUT % Neut% 57.6 LAB AANEUT 1.45-7.50 k/uL Abs Neut 4.31 LAB ALYMP % Lymph% 30.6 LAB AALYMP 1.00-4.00 k/uL Abs Lymph 2.29 LAB AMONO % [place]% 6.6 LAB AAMONO <0.87 k/uL Abs [place] 0.49 LAB AEOS % Eosin% 4.7 LAB AAEOS <0.46 k/uL Abs Eosin 0.35 LAB ABASO % Baso% 0.5 LAB AABASO <0.11 k/uL Abs Baso 0.04 Performed By: #### CBCDIF, CMP, MG1 #### [facility] [address] [facility] [phone] COMP METABOLIC PANEL Collected: 09/02/2017 Status: F Source: [place] 11:50 AM CLINIC OTHER CAMPUS REPOSITORY TYPE CODE TESTS RESULT OUT OF REFERENCE UNITS RANGE LAB TP 6.3-8.0 g/dL Protein, Total 7.6 LAB ALB 3.9-4.9 g/dL Albumin 3.9 LAB CA 8.5-10.2 mg/dL Calcium, Total 9.2 LAB TBIL 0.2-1.3 mg/dL Bilirubin, Total 0.3 LAB ALKP 32-117 U/L Alkaline Phosphatase 109 LAB AST 13-35 U/L AST 20 LAB GLU 74-99 mg/dL Glucose High 111 Result Comment: The [place] [employer] (ADA) provides guidance for cutoff values for fasting glucose and random glucose. The ADA defines fasting as no caloric intake for at least 8 hours. Fas ting plasma glucose results between 100 to 125 mg/dL indicate increased risk for diabetes (prediabetes). Fasting plasma glucose results greater than or equal to 126 mg/dL meet the criteria for diagnosis of diabetes. In the absence of unequivocal hyperglycemia, results should be confirmed by repeat testing. In a patient with classic symptoms of hyperglycemia or hyperglycemic crisis, random plasma glucose results greater than or equal to 200 mg/dL meet the criteria for diagnosis of diabetes. Reference: Standards of Medical Care in Diabetes 2016, [place] [employer] Association. Diabetes Care. 2016.39(Suppl 1). LAB BUN 7-21 mg/dL BUN High 73 LAB CRET 0.58-0.96 mg/dL Creatinine High 4.61 LAB NA 136-144 mmol/L Sodium 140 LAB K 3.7-5.1 mmol/L Potassium 4.5 LAB CL 97-105 mmol/L Chloride 103 LAB CO2 22-30 mmol/L Low CO2 21 LAB AGAP 9-18 mmol/L Anion Gap 16 LAB ALT 7-38 U/L ALT 15 LAB GFRAA eGFR- Amer. 11 LAB GFRNAA . eGFR-All Other Races 9 Result Comment: eGFR (Estimated GFR) Units of measure: mL/min/1.73 meters squared eGFR is derived from the reexpressed MDRD Study equation using the following parameters: serum creatinine, age, gender and race. The creatinine assay has been calibrated to be traceable to IDWV. An eGFR <60 mL/min/1.73m2 for >3 months is consistent with chronic kidney disease. Refer to KDOQI guidelines for clinical interpretation. In patients with unstable renal function, e.g. those with acute kidney injury, the eGFR may not accurately reflect actual GFR. Performed By: #### CBCDIF, CMP, MG1 #### [facility] [address] [place], [place] [id number] MAGNESIUM Collected: 09/02/2017 Status: F Source: [place] 11:50 AM [facility] OTHER [place] REPOSITORY TYPE CODE TESTS RESULT OUT OF REFERENCE UNITS RANGE LAB MG 1.7-2.3 mg/dL High Magnesium 2.8 Performed By: #### CBCDIF, CMP, MG1 #### [facility] [address] [place], [place] [id number] PHOSPHORUS Collected: 09/02/2017 Status: F Source: [place] 11:50 AM [facility] REPOSITORY TYPE CODE TESTS RESULT OUT OF REFERENCE UNITS RANGE LAB PHOS 2.7-4.8 mg/dL High Phosphorus 5.5 Performed By: #### PHOS #### [facility] [address] [place], [place] [id number] #### PTHI #### [facility] [address] [address] PTH, INTACT Collected: 09/02/2017 Status: F Source: [place] 11:50 AM [facility] REPOSITORY TYPE CODE TESTS RESULT OUT OF REFERENCE UNITS RANGE LAB PTH 15-65 pg/mL High PTH, Intact 124 Performed By: #### PHOS #### [facility] [address] [place], [place] [id number] #### PTHI #### [facility] [address] [address] ED NOTE Observed: 09/02/2017 Status: COMPLETED Source: [place] 11:48 AM [facility] OTHER [place] REPOSITORY HNO ID: [id number] Author: Isela Alcaraz) SAUL Lezama Service: (none) Author Type: Registered Nurse Type: ED Notes Filed: 09/02/2017 11:49 AM Note Text: Patient presents to ED per doctors office. Patient was sent in for abnormal labs patient only complaint is fatigue. ED NOTE Observed: 09/02/2017 Status: COMPLETED Source: [place] 11:02 AM CLINIC OTHER CAMPUS REPOSITORY HNO ID: [id number] Author: Virgil (Rn) SAUL Bender Service: (none) Author Type: Registered Nurse Type: ED Notes Filed: 09/02/2017 11:03 AM Note Text: Pt to ED today after receiving a phone call from her PCP Dr Singh out of [facility] advising her to come to the ED for Kidney Failure. Pt sts she had blood work drawn yesterday. CBC W/DIFF, AUTOMATED Collected: 09/01/2017 Status: F Source: [place] 4:57 PM [facility] REPOSITORY TYPE CODE TESTS RESULT OUT OF RANGE REFERENCE UNITS LAB L100.1000 4.4-11.0 K/mm3 Normal WBC 7.0 LAB L100.1200 4.2-5.4 M/mm3 Low RBC 3.81 LAB L100.1300 12.0-15.0 g/dl Low HGB 10.2 LAB L100.1400 37-47 % Low HCT 31.0 LAB L100.1500 81-99 fL Normal MCV 81.4 LAB L100.1600 27.0-32.0 pg Low MCH 26.8 LAB L100.1700 32-36 g/gl Normal MCHC 32.9 LAB L100.1810 11.6-14.6 % High RDW CV 16.7 LAB L100.1820 35.1-43.9 fl High RDW SD 48.1 LAB L100.1900 150-450 K/mm3 Normal PLT 271 LAB L100.2000 6.2-12.0 fl Normal MPV 10.8 LAB L100.2100 47-70 % Normal NEUT% 58.9 LAB L100.2200 19-41 % Normal LY% 30.4 LAB L100.2300 0-10 % Normal MONO% 6.0 LAB L100.2400 0-5 % Normal EO% 4.0 LAB L100.2500 0-1 % Normal BASO% 0.6 LAB L100.2550 0.0-0.9 % Normal IM GRAN % 0.100 Result Comment: IG% - Immature Granulocytes (promyelocytes, myelocytes and metamyelocytes) > 1% indicates that a LEFT SHIFT is Present. LAB L100.2620 2.0-7.7 X10 3/uL Normal Absolute Neut 4.1 LAB L100.2720 0.83-4.51 X10 3/ul Normal Absolute Lymph 2.13 Performed By: #### L100.0100 #### [facility] [address] [place], [address] VITAMIN D,25 HYDROXY Collected: 09/01/2017 Status: F Source: [place] 4:57 PM [facility] REPOSITORY TYPE CODE TESTS RESULT OUT OF RANGE REFERENCE UNITS LAB L506.1000 29.95-100.01 ng/mL Normal Vitamin D 58.8 25-OH Result Comment: Vitamin D 25(OH) Status Range Deficiency <20 ng/mL (50nmol/L) Insuffciency 20 - 30 ng/mL (50 - 75 nmol/L) Sufficiency 30 - 100 ng/mL (75 - 250 nmol/L) Toxicity >100 ng/mL (>250 nmol/L) Performed By: #### L506.1000 #### [facility] [address] [facility] [place], [address] COMPREHENSIVE METABOLIC Collected: 09/01/2017 Status: F Source: [facility] 4:57 PM [facility] REPOSITORY TYPE CODE TESTS RESULT OUT OF RANGE REFERENCE UNITS LAB L501.0100 74-106 mg/dL Normal GLU 84 Result Comment: Please note revised GLUCOSE reference range effective 2017. LAB L501.1000 7-18 mg/dL High BUN 71 LAB L501.1100 0.55-1.02 mg/dL High CREAT,SERUM 4.63 Result Comment: The validity of the calculated GFR AND GFRAA in patients over 70 years has not been determined. Clinical correlation is essential. LAB L501.1110 >60 mL/min Low EST GFR 10 Result Comment: Non- GFR Calc LAB L501.1115 >60 mL/min Low EST GFR - AA 12 Result Comment: GFR Calc LAB L501.1300 10-20 RATIO Normal BUN/CRE 15.3 LAB L501.1500 6.4-8.2 g/dL High T PROT 8.4 LAB L501.1800 3.2-5.0 g/dL Normal ALB 4.0 LAB L501.1950 2.2-4.2 g/dL High GLOB 4.4 LAB L501.2000 0.9-2.4 RATIO Normal A/G 0.9 LAB L501.2200 8.5-10.1 mg/dL CA Normal 8.7 LAB L501.4100 15-37 U/L Normal AST 24 LAB L501.4305 45-117 U/L Normal ALK P 114 LAB L501.4405 13-56 U/L Normal ALT 24 LAB L501.4600 0.20-1.00 mg/dL T Normal BILI 0.30 LAB L501.5300 136-145 mmol/L NA Normal 140 LAB L501.5600 3.5-5.1 mmol/L K Normal 4.9 LAB L501.5900 98-107 mmol/L High CL 108 LAB L501.6100 21.0-32.0 mmol/L Normal CO2 22.0 LAB L501.6200 5-15 Normal GAP 10 Performed By: #### L500.4050, L501.9520, L503.6030 #### [facility] [address], [place], [id number] THYROID STIM HORMONE Collected: 09/01/2017 Status: F Source: [place] (TSH) 4:57 PM [facility] REPOSITORY TYPE CODE TESTS RESULT OUT OF RANGE REFERENCE UNITS LAB L501.9520 0.358-3.74 uIU/mL Normal TSH 0.81 Performed By: #### L500.4050, L501.9520, L503.6030 #### [facility] [address], [place], [address] IRON+IRON BINDING Collected: 09/01/2017 Status: F Source: [place] CAPACITY 4:57 PM [facility] REPOSITORY TYPE CODE TESTS RESULT OUT OF RANGE REFERENCE UNITS LAB L503.6075 250-450 ug/dL TIBC Normal 316 LAB L503.6150 50-170 ug/dL IRON Normal 65 LAB L503.6250 15.0-55.0 % IRON Normal SATURATION 20.6 Performed By: #### L500.4050, L501.9520, L503.6030 #### [facility] [address] [place], [address] HEPATITIS C ANTIBODIES Collected: 09/01/2017 Status: F Source: [place] 4:57 PM [facility] REPOSITORY TYPE CODE TESTS RESULT OUT OF RANGE REFERENCE UNITS LAB L3100.0650 0.0-0.9 s/co ratio Normal HEP C AB <0.1 Result Comment: Negative: < 0.8 Indeterminate: 0.8 - 0.9 Positive: > 0.9 The CDC recommends that a positive HCV antibody result be followed up with a HCV Nucleic Acid Amplification test ([id number]). Performed at: [facility] [id number] [place] Dipper: Mega Blanca PhD, Phone: [phone] Performed By: #### L3100.0625 #### [facility] (refer to report for specific site) refer to report for address and phone number RENAL PROFILE Collected: 08/21/2017 Status: F Source: [place] 3:45 PM [facility] REPOSITORY TYPE CODE TESTS RESULT OUT OF RANGE REFERENCE UNITS LAB L501.0100 74-106 mg/dL High GLU 109 Result Comment: Fasting Glucose result from 100 to 125 mg/dL suggests IMPAIRED HOMEOSTASIS per A.D.A. criteria. Please note revised GLUCOSE reference range effective 2017. LAB L501.1000 7-18 mg/dL High BUN 52 LAB L501.1100 0.55-1.02 mg/dL High CREAT,SERUM 2.63 Result Comment: The validity of the calculated GFR AND GFRAA in patients over 70 years has not been determined. Clinical correlation is essential. LAB L501.1110 >60 mL/min Low EST GFR 19 Result Comment: Non- GFR Calc LAB L501.1115 >60 mL/min Low EST GFR - AA 23 Result Comment: GFR Calc LAB L501.1300 10-20 RATIO Normal BUN/CRE 19.8 LAB L501.1800 3.2-5.0 g/dL Normal ALB 3.9 LAB L501.2200 8.5-10.1 mg/dL CA Normal 8.6 LAB L501.2300 2.5-4.9 mg/dL Normal PHOS 4.8 LAB L501.5300 136-145 mmol/L NA Normal 140 LAB L501.5600 3.5-5.1 mmol/L K Normal 5.0 LAB L501.5900 98-107 mmol/L High CL 109 LAB L501.6100 21.0-32.0 mmol/L Normal CO2 23.0 Performed By: #### L500.3600 #### [facility] [address] [place], [address] COMP METABOLIC PANEL Collected: 08/13/2017 Status: F Source: [place] 2:47 PM [facility] REPOSITORY TYPE CODE TESTS RESULT OUT OF REFERENCE UNITS RANGE LAB TP 6.3-8.0 g/dL Protein, Total 8.0 LAB ALB 3.9-4.9 g/dL Albumin 4.5 LAB CA 8.5-10.2 mg/dL Calcium, Total 9.6 LAB TBIL 0.2-1.3 mg/dL Bilirubin, Total 0.3 LAB ALKP 32-117 U/L Alkaline Phosphatase 89 LAB AST 13-35 U/L AST 26 LAB GLU 74-99 mg/dL Glucose High 119 Result Comment: The [place] [employer] (ADA) provides guidance for cutoff values for fasting glucose and random glucose. The ADA defines fasting as no caloric intake for at least 8 hours. Fas ting plasma glucose results between 100 to 125 mg/dL indicate increased risk for diabetes (prediabetes). Fasting plasma glucose results greater than or equal to 126 mg/dL meet the criteria for diagnosis of diabetes. In the absence of unequivocal hyperglycemia, results should be confirmed by repeat testing. In a patient with classic symptoms of hyperglycemia or hyperglycemic crisis, random plasma glucose results greater than or equal to 200 mg/dL meet the criteria for diagnosis of diabetes. Reference: Standards of Medical Care in Diabetes 2016, [place] [employer]. Diabetes Care. 2016.39(Suppl 1). LAB BUN 7-21 mg/dL BUN High 38 LAB CRET 0.58-0.96 mg/dL Creatinine High 2.22 LAB NA 136-144 mmol/L Sodium 141 LAB K 3.7-5.1 mmol/L Potassium High 5.4 LAB CL 97-105 mmol/L Chloride High 107 LAB CO2 22-30 mmol/L CO2 22 LAB AGAP 9-18 mmol/L Anion Gap 12 LAB ALT 7-38 U/L ALT 15 LAB GFRAA eGFR- Amer. 27 LAB GFRNAA . eGFR-All Other Races 22 Result Comment: eGFR (Estimated GFR) Units of measure: mL/min/1.73 meters squared eGFR is derived from the reexpressed MDRD Study equation using the following parameters: serum creatinine, age, gender and race. The creatinine assay has been calibrated to be traceable to IDMS. An eGFR <60 mL/min/1.73m2 for >3 months is consistent with chronic kidney disease. Refer to KDOQI guidelines for clinical interpretation. In patients with unstable renal function, e.g. those with acute kidney injury, the eGFR may not accurately reflect actual GFR. Performed By: #### CMP, MG1 #### [facility] [address] [place], [place] [address] MAGNESIUM Collected: 08/13/2017 Status: F Source: [place] 2:47 PM [facility] REPOSITORY TYPE CODE TESTS RESULT OUT OF REFERENCE UNITS RANGE LAB MG 1.7-2.3 mg/dL High Magnesium 2.4 Performed By: #### CMP, MG1 #### [facility] [address] [place], [place] [address] PROGRESS Observed: 08/13/2017 Status: COMPLETED Source: [place] 1:59 PM [facility] REPOSITORY HNO ID: [id number] Author: Rell Serrano Service: (none) Author Type: Physician Type: Progress Notes Filed: 08/13/2017 5:54 PM Note Text: This note was created using Guverariter. Subjective Celeste Desouza is a 67 year old female. The history is provided by the patient. Diabetes She presents for her follow-up diabetic visit. She has type 2 diabetes mellitus. Her disease course has been stable. Hypoglycemia symptoms include tremors. Pertinent negatives for hypoglycemia include no dizziness, headaches, seizures or speech difficulty. There are no diabetic associated symptoms. Pertinent negatives for diabetes include no chest pain and no fatigue. Risk factors for coronary artery disease include diabetes mellitus and hypertension. Current diabetic treatment includes oral agent (monotherapy). She is compliant with treatment all of the time. She is following a generally healthy diet. An BIB inhibitor/angiotensin II receptor ervin is being taken. Hypertension This is a chronic problem. The current episode started more than 1 year ago. The problem is unchanged. The problem is controlled. Pertinent negatives include no chest pain, headaches, neck pain, palpitations or shortness of breath. There are no associated agents to hypertension. Risk factors for coronary artery disease include post-menopausal state, diabetes mellitus and dyslipidemia. Abdominal Pain This is a recurrent problem. The current episode started more than 1 week ago. The problem occurs daily. The problem has not changed since onset.The pain is associated with an unknown factor. The pain is located in the generalized abdominal region. Pertinent negatives include fever, diarrhea, nausea, vomiting, constipation, dysuria, hematuria, headaches and arthralgias. Neurologic Problem This is a new problem. The current episode started more than 1 month ago. The problem occurs daily. The problem has been unchanged. Pertinent negatives include no abdominal pain, arthralgias, chest pain, chills, congestion, coughing, diaphoresis, fatigue, fever, headaches, nausea, neck pain, numbness, rash, sore throat or vomiting. Associated symptoms comments: Tremor, fumbling with things, dropping things, trouble eating at times (chili, etc). Review of Systems Constitutional: Negative for chills, diaphoresis, fatigue and fever. HENT: Negative for congestion, sinus pressure and sore throat. Respiratory: Negative for cough, shortness of breath and wheezing. Cardiovascular: Negative for chest pain and palpitations. Gastrointestinal: Negative for abdominal pain, constipation, diarrhea, nausea and vomiting. Genitourinary: Negative for dysuria and hematuria. Musculoskeletal: Negative for arthralgias, back pain and neck pain. Skin: Negative for rash. Neurological: Positive for tremors. Negative for dizziness, seizures, facial asymmetry, speech difficulty, light-headedness, numbness and headaches. Objective BP 133/65 Pulse (!) 59 Ht 162.6 cm (5' 4) Wt 84.4 kg (186 lb) BMI 31.93 kg/m? Physical Exam Constitutional: She is oriented to person, place, and time. She appears well-developed and well-nourished. No distress. HENT: Head: Normocephalic and atraumatic. Right Ear: External ear normal. Left Ear: External ear normal. Nose: Nose normal. Mouth/Throat: Oropharynx is clear and moist. No oropharyngeal exudate. Eyes: No scleral icterus. Neck: Neck supple. No thyromegaly present. Cardiovascular: Normal rate, regular rhythm, normal heart sounds and intact distal pulses. No murmur heard. Pulmonary/Chest: Effort normal and breath sounds normal. No stridor. No respiratory distress. She has no wheezes. Abdominal: Soft. Bowel sounds are normal. She exhibits no distension. There is no tenderness. There is no rebound. Musculoskeletal: She exhibits no edema or tenderness. Neurological: She is alert and oriented to person, place, and time. Skin: Skin is dry. No rash noted. She is not diaphoretic. Psychiatric: She has a normal mood and affect. Nursing note and vitals reviewed. Lab Results Component Value Date HBA1C 6.6 07/24/2017 HBA1C 7.8 01/28/2017 HBA1C 6.7 07/29/2016 Cholesterol, Total Date Value Ref Range Status 01/28/2017 158 100 - 199 mg/dL Final HDL Cholesterol Date Value Ref Range Status 01/28/2017 29 (L) >55 mg/dL Final LDL Cholesterol Date Value Ref Range Status 01/28/2017 74 60 - 129 mg/dL Final Triglyceride Date Value Ref Range Status 01/28/2017 277 (H) 30 - 149 mg/dL Final Glucose (mg/dL) Date Value 01/25/2017 102 Potassium (mmol/L) Date Value 01/25/2017 4.8 Sodium (mmol/L) Date Value 01/25/2017 143 Chloride (mmol/L) Date Value 01/25/2017 104 CO2 (mmol/L) Date Value 01/25/2017 25 Creatinine (mg/dL) Date Value 01/25/2017 1.36 BUN (mg/dL) Date Value 01/25/2017 26 Anion Gap (mmol/L) Date Value 01/25/2017 14 Calcium (mg/dL) Date Value 01/25/2017 9.5 Results for CELESTE DESOUZA ( ) as of 08/13/2017 13:59 Ref. Range 07/24/2017 10:20 07/24/2017 10:25 07/24/2017 15:38 07/29/2017 17:55 Vitamin B12 Latest Ref Range: 232 - 1,245 pg/mL >2,000 (H) Folate Latest Ref Range: >4.7 ng/mL >20.0 Ferritin Latest Ref Range: 14.7 - 205.1 ng/mL 108.8 109.0 Iron Latest Ref Range: 41 - 186 ug/dL 52 TIBC Latest Ref Range: 232 - 386 ug/dL 238 Transferrin Saturation Latest Ref Range: 15 - 57 % 22 Creatinine, Ur Random (UCRR) Latest Ref Range: 20 - 300 mg/dL 71.7 Hematocrit Latest Ref Range: 36.0 - 46.0 % 32.2 (L) Hemoglobin A1C Latest Ref Range: 4.3 - 5.6 % 6.6 (H) Estimated Average Glucose Latest Units: mg/dL 143 WBC Latest Ref Range: 3.70 - 11.00 k/uL 8.27 RBC Latest Ref Range: 3.90 - 5.20 m/uL 3.83 (L) Hemoglobin Latest Ref Range: 11.5 - 15.5 g/dL 10.2 (L) Platelet Count Latest Ref Range: 150 - 400 k/uL 255 MCV Latest Ref Range: 80.0 - 100.0 fL 84.1 MCH Latest Ref Range: 26.0 - 34.0 pG 26.6 MCHC Latest Ref Range: 30.5 - 36.0 g/dL 31.7 MPV Latest Ref Range: 9.0 - 12.7 fL 12.0 RDW-CV Latest Ref Range: 11.5 - 15.0 % 15.9 (H) Absolute nRBC Latest Ref Range: <0.01 k/uL <0.01 Albumin/Creat Ratio Latest Ref Range: 0 - 30 mg/g 21 Albumin, Urine Random Latest Ref Range: 0.0 - 23.0 mg/L 15.3 Assessment and Plan Blood pressure 133/65, pulse (!) 59, height 162.6 cm (5' 4), weight 84.4 kg (186 lb). ASSESSMENT: (E11.9) Type 2 diabetes mellitus without complication, unspecified whether chcf insulin use (HCC) (primary encounter diagnosis) (I10) Essential hypertension (R27.8) Decreased dexterity (R25.1) Tremor (G25.81) RLS (restless legs syndrome) PLAN: Celeste was seen today for recheck. Diagnoses and all orders for this visit: Type 2 diabetes mellitus without complication, unspecified whether watermelon inspector insulin use (HCC) Essential hypertension Decreased dexterity - CONSULT TO NEUROLOGY Tremor - CONSULT TO NEUROLOGY RLS (restless legs syndrome) - CONSULT TO NEUROLOGY DM under good control HTN stable No med changes. Patient is instructed to schedule a follow-up office visit in 3 months, sooner if problems arise. No Follow-up on file. Rell Serrano MD CNOV Observed: 08/13/2017 Status: COMPLETED Source: [place] 1:40 PM [facility] REPOSITORY Office Visit (INTMST) CELESTE DESOUZA ([id number]) 1950 F Date Time Provider Department 08/13/17 1:40 PM RELL SERRANO INTMST During your visit today, we recorded the following information about you: Pulse Blood pressure Weight Height 59/minute 133/65 84.4 kg 1.626 m Domonique Real Ma 08/13/2017 1:45 PM Signed [facility] FACTS [phone] LAB HOURS: Lab is open 7:30am to 6:00pm , 7:30am to 5:00pm Fridays and open 8:00am-12:00pm on Saturdays. PHARMACY HOURS: Friday through Friday 8:00am - 6:00pm. Lab Orders 365 days after they are entered. If your lab orders , you may be required to wait in the lab while they are reinstated STANDING ORDERS are recurring orders with an expiration date. The interval will indicate how often the test should be completed. FASTING LAB means nothing to eat or drink (except water) 10- 12 hours before your blood is drawn. CT MRI IVP If you have one of these radiology exams ordered along with blood work, please complete the blood work at least one day prior to the scheduled exam. [facility] HOURS OF OPERATIONS Friday 8:00am to 12:00pm, Friday through 7:30am to 8:00pm, Friday 7:30am to 5:00pm. [facility] HOURS OF OPERATIONS Friday and Friday 8:00am to 4:00pm, Friday 6:00am to 9:00pm. Express care is for patients 2 years and older. [facility] HOURS OF OPERATIONS Friday and Friday 8:00am to 4:00pm, Friday 6:00am to 9:00pm. The walk in clinic is for patients 6 months and older. [facility] HOURS OF OPERATIONS Friday and Friday 9:00am to 4:00pm, Friday 6:00am to 9:00pm. The walk in clinic is for patients 2 years and older. For Express [facility] LOCATIONS, HOURS OF OPERATION and CURRENT WAIT TIMES, visit the following link [email or web address] for details Rell Serrano MD 08/13/2017 5:54 PM Signed This note was created using Guverariter. Subjective Celeste Desouza is a 67 year old female. The history is provided by the patient. Diabetes She presents for her follow-up diabetic visit. She has type 2 diabetes mellitus. Her disease course has been stable. Hypoglycemia symptoms include tremors. Pertinent negatives for hypoglycemia include no dizziness, headaches, seizures or speech difficulty. There are no diabetic associated symptoms. Pertinent negatives for diabetes include no chest pain and no fatigue. Risk factors for coronary artery disease include diabetes mellitus and hypertension. Current diabetic treatment includes oral agent (monotherapy). She is compliant with treatment all of the time. She is following a generally healthy diet. An BIB inhibitor/angiotensin II receptor ervin is being taken. Hypertension This is a chronic problem. The current episode started more than 1 year ago. The problem is unchanged. The problem is controlled. Pertinent negatives include no chest pain, headaches, neck pain, palpitations or shortness of breath. There are no associated agents to hypertension. Risk factors for coronary artery disease include post-menopausal state, diabetes mellitus and dyslipidemia. Abdominal Pain This is a recurrent problem. The current episode started more than 1 week ago. The problem occurs daily. The problem has not changed since onset.The pain is associated with an unknown factor. The pain is located in the generalized abdominal region. Pertinent negatives include fever, diarrhea, nausea, vomiting, constipation, dysuria, hematuria, headaches and arthralgias. Neurologic Problem This is a new problem. The current episode started more than 1 month ago. The problem occurs daily. The problem has been unchanged. Pertinent negatives include no abdominal pain, arthralgias, chest pain, chills, congestion, coughing, diaphoresis, fatigue, fever, headaches, nausea, neck pain, numbness, rash, sore throat or vomiting. Associated symptoms comments: Tremor, fumbling with things, dropping things, trouble eating at times (chili, etc). Review of Systems Constitutional: Negative for chills, diaphoresis, fatigue and fever. HENT: Negative for congestion, sinus pressure and sore throat. Respiratory: Negative for cough, shortness of breath and wheezing. Cardiovascular: Negative for chest pain and palpitations. Gastrointestinal: Negative for abdominal pain, constipation, diarrhea, nausea and vomiting. Genitourinary: Negative for dysuria and hematuria. Musculoskeletal: Negative for arthralgias, back pain and neck pain. Skin: Negative for rash. Neurological: Positive for tremors. Negative for dizziness, seizures, facial asymmetry, speech difficulty, light-headedness, numbness and headaches. Objective BP 133/65 Pulse (!) 59 Ht 162.6 cm (5' 4) Wt 84.4 kg (186 lb) BMI 31.93 kg/m? Physical Exam Constitutional: She is oriented to person, place, and time. She appears well-developed and well-nourished. No distress. HENT: Head: Normocephalic and atraumatic. Right Ear: External ear normal. Left Ear: External ear normal. Nose: Nose normal. Mouth/Throat: Oropharynx is clear and moist. No oropharyngeal exudate. Eyes: No scleral icterus. Neck: Neck supple. No thyromegaly present. Cardiovascular: Normal rate, regular rhythm, normal heart sounds and intact distal pulses. No murmur heard. Pulmonary/Chest: Effort normal and breath sounds normal. No stridor. No respiratory distress. She has no wheezes. Abdominal: Soft. Bowel sounds are normal. She exhibits no distension. There is no tenderness. There is no rebound. Musculoskeletal: She exhibits no edema or tenderness. Neurological: She is alert and oriented to person, place, and time. Skin: Skin is dry. No rash noted. She is not diaphoretic. Psychiatric: She has a normal mood and affect. Nursing note and vitals reviewed. Lab Results Component Value Date HBA1C 6.6 07/24/2017 HBA1C 7.8 01/28/2017 HBA1C 6.7 07/29/2016 Cholesterol, Total Date Value Ref Range Status 01/28/2017 158 100 - 199 mg/dL Final HDL Cholesterol Date Value Ref Range Status 01/28/2017 29 (L) >55 mg/dL Final LDL Cholesterol Date Value Ref Range Status 01/28/2017 74 60 - 129 mg/dL Final Triglyceride Date Value Ref Range Status 01/28/2017 277 (H) 30 - 149 mg/dL Final Glucose (mg/dL) Date Value 01/25/2017 102 Potassium (mmol/L) Date Value 01/25/2017 4.8 Sodium (mmol/L) Date Value 01/25/2017 143 Chloride (mmol/L) Date Value 01/25/2017 104 CO2 (mmol/L) Date Value 01/25/2017 25 Creatinine (mg/dL) Date Value 01/25/2017 1.36 BUN (mg/dL) Date Value 01/25/2017 26 Anion Gap (mmol/L) Date Value 01/25/2017 14 Calcium (mg/dL) Date Value 01/25/2017 9.5 Results for CELESTE DESOUZA ( ) as of 08/13/2017 13:59 Ref. Range 07/24/2017 10:20 07/24/2017 10:25 07/24/2017 15:38 07/29/2017 17:55 Vitamin B12 Latest Ref Range: 232 - 1,245 pg/mL >2,000 (H) Folate Latest Ref Range: >4.7 ng/mL >20.0 Ferritin Latest Ref Range: 14.7 - 205.1 ng/mL 108.8 109.0 Iron Latest Ref Range: 41 - 186 ug/dL 52 TIBC Latest Ref Range: 232 - 386 ug/dL 238 Transferrin Saturation Latest Ref Range: 15 - 57 % 22 Creatinine, Ur Random (UCRR) Latest Ref Range: 20 - 300 mg/dL 71.7 Hematocrit Latest Ref Range: 36.0 - 46.0 % 32.2 (L) Hemoglobin A1C Latest Ref Range: 4.3 - 5.6 % 6.6 (H) Estimated Average Glucose Latest Units: mg/dL 143 WBC Latest Ref Range: 3.70 - 11.00 k/uL 8.27 RBC Latest Ref Range: 3.90 - 5.20 m/uL 3.83 (L) Hemoglobin Latest Ref Range: 11.5 - 15.5 g/dL 10.2 (L) Platelet Count Latest Ref Range: 150 - 400 k/uL 255 MCV Latest Ref Range: 80.0 - 100.0 fL 84.1 MCH Latest Ref Range: 26.0 - 34.0 pG 26.6 MCHC Latest Ref Range: 30.5 - 36.0 g/dL 31.7 MPV Latest Ref Range: 9.0 - 12.7 fL 12.0 RDW-CV Latest Ref Range: 11.5 - 15.0 % 15.9 (H) Absolute nRBC Latest Ref Range: <0.01 k/uL <0.01 Albumin/Creat Ratio Latest Ref Range: 0 - 30 mg/g 21 Albumin, Urine Random Latest Ref Range: 0.0 - 23.0 mg/L 15.3 Assessment and Plan Blood pressure 133/65, pulse (!) 59, height 162.6 cm (5' 4), weight 84.4 kg (186 lb). ASSESSMENT: (E11.9) Type 2 diabetes mellitus without complication, unspecified whether watermelon inspector insulin use (HCC) (primary encounter diagnosis) (I10) Essential hypertension (R27.8) Decreased dexterity (R25.1) Tremor (G25.81) RLS (restless legs syndrome) PLAN: Celeste was seen today for recheck. Diagnoses and all orders for this visit: Type 2 diabetes mellitus without complication, unspecified whether watermelon inspector insulin use (HCC) Essential hypertension Decreased dexterity - CONSULT TO NEUROLOGY Tremor - CONSULT TO NEUROLOGY RLS (restless legs syndrome) - CONSULT TO NEUROLOGY DM under good control HTN stable No med changes. Patient is instructed to schedule a follow-up office visit in 3 months, sooner if problems arise. No Follow-up on file. Rell Serrano MD Referring Provider: SELF [[id number]] Allergies As of Date: 08/13/2017 Noted Allergy Reaction AMITRIPTYLINE 07/06/2010 14 - Other: See Comments Comments: Dizziness CLOZAPINE 07/06/2010 14 - Other: See Comments Comments: Nightmares ENALAPRIL 08/19/2011 14 - Other: See Comments Comments: Increase potassium LISINOPRIL 07/06/2010 14 - Other: See Comments Comments: increases potassium Date Reviewed: 08/13/2017 Reviewed by: Domonique Real Ma - Fully Assessed Reason for Visit: Recheck [92] Cmt: dropping thing, jerky movements, body shakes Primary Visit Diagnosis:Type 2 diabetes mellitus without complication, unspecified whether chcf insulin use (HCC) [E11.9] Other Visit Diagnoses:Essential hypertension [I10] Decreased dexterity [R27.8] Tremor [R25.1] RLS (restless legs syndrome) [G25.81] Impaired ambulation [R26.2] Order(s):CONSULT TO NEUROLOGY [9019] Order #: [id number]: 1 COMP METABOLIC PANEL [SQCMP] Order #: [id number] FUTURE MAGNESIUM BLD [SQMG1] Order #: [id number] FUTURE tiZANidine (ZANAFLEX) 4 mg tabletTake 1 tablet by mouth three times daily as needed.Disp: 30 tabletRfl: 0 PARKING FOR HANDICAPPED [7056078] Order #: [id number] Prescriptions as of 08/13/2017 Sig: BLOOD SUGAR DIAGNOSTIC STRIPS Accu check test strips check * ERGOCALCIFEROL (VITAMIN D2) 5* TAKE ONE CAPSULE BY MOUTH ONC* GABAPENTIN 300 MG CAPSULE TAKE 1 CAPSULE BY MOUTH TWICE* FAMOTIDINE 20 MG TABLET TAKE 1 TABLET BY MOUTH TWICE * LOVASTATIN 20 MG TABLET TAKE 1 TABLET BY MOUTH DAILY * AMLODIPINE 10 MG TABLET TAKE 1 TABLET BY MOUTH ONCE D* METOPROLOL TARTRATE 50 MG TAB* TAKE 1 TABLET BY MOUTH TWICE * METAMUCIL ORAL Take by mouth. LOSARTAN 25 MG TABLET Take 1 tablet by mouth once d* PREVALITE 4 GRAM POWDER FOR S* LANCETS Use as instructed TIZANIDINE 4 MG TABLET Take 1 tablet by mouth three * EMPAGLIFLOZIN 10 MG TABLET Take 1 tablet by mouth once d* Patient not taking: Reported on 08/13/2017 GLIMEPIRIDE 1 MG TABLET Take one tablet twice a day. Patient not taking: Reported on 08/13/2017 Problem List As Of Date 08/13/2017 Noted Resolved Hypertension [I10] INVALID FOR*12/15/2014 More... Hypercholesterolemia [E78.00] INVALID FOR* Diabetes mellitus [E11.9] INVALID FOR*12/15/2014 More... Osteopenia [M85.80] INVALID FOR* CTS (carpal tunnel syndrome) [G56.00] INVALID FOR*01/24/2016 Bimalleolar ankle fracture [S82.843A] INVALID FOR*05/14/2013 More... SUMMARY [V999.95] INVALID FOR*11/29/2015 Priority: A More... Delirium [R41.0] INVALID FOR*05/14/2013 Priority: C More... Fever and leucocytosis [R50.9] INVALID FOR*05/14/2013 Priority: B More... PUD (peptic ulcer disease) [K27.9] More... 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 Restless leg syndrome [G25.81] Medial meniscus tear [S83.249A] INVALID FOR*11/15/2013 Fibromyalgia [M79.7] INVALID FOR*01/24/2016 Fracture of metatarsal bone, open [S92.309B] INVALID FOR*11/15/2013 Fracture of metatarsal [S92.309A] INVALID FOR*11/15/2013 Metatarsal fracture [S92.309A] INVALID FOR* Hyperkalemia [E87.5] 12/15/2014 More... Trigger ring finger of right hand [M65.341] INVALID FOR*01/24/2016 Degenerative arthritis of finger [M19.049] INVALID FOR* Type 2 diabetes mellitus without complication (*INVALID FOR* Essential hypertension [I10] INVALID FOR* Primary osteoarthritis involving multiple joint*INVALID FOR* Tubular adenoma [D36.9] INVALID FOR* More... Other instructions from your clinician: [facility] LAB FACTS [phone] LAB HOURS: Lab is open 7:30am to 6:00pm , 7:30am to 5:00pm Fridays and open 8:00am-12:00pm on Saturdays. PHARMACY HOURS: Friday through Friday 8:00am - 6:00pm. Lab Orders 365 days after they are entered. If your lab orders , you may be required to wait in the lab while they are reinstated STANDING ORDERS are recurring orders with an expiration date. The interval will indicate how often the test should be completed. FASTING LAB means nothing to eat or drink (except water) 10-12 hours before your blood is drawn. CT MRI IVP If you have one of these radiology exams ordered along with blood work, please complete the blood work at least one day prior to the scheduled exam. [facility] HOURS OF OPERATIONS Friday 8:00am to 12:00pm, Friday through 7:30am to 8:00pm, Friday 7:30am to 5:00pm. [facility] HOURS OF OPERATIONS Friday 8:00am to 4:00pm, Friday 6:00am to 9:00pm. Express care is for patients 2 years and older. [facility] HOURS OF OPERATIONS Friday and Friday 8:00am to 4:00pm, Friday 6:00am to 9:00pm. The walk in clinic is for patients 6 months and older. [facility] HOURS OF OPERATIONS Friday 9:00am to 4:00pm, Friday 6:00am to 9:00pm. The walk in clinic is for patients 2 years and older. For Express [facility] LOCATIONS, HOURS OF OPERATION and CURRENT WAIT TIMES, visit the following link [email or web address] [email or web address] for details Prescriptions ordered this encounter Disp Refills Start End TIZANIDINE 4 MG TABLET 30 t* 0 08/13/2017 Route: ORAL Sig: Take 1 tablet by mouth three times daily as needed. Encounter Status:Closed by RELL SERRANO MD on 08/13/17 CNCO Observed: 08/11/2017 Status: COMPLETED Source: [place] 12:00 AM [facility] [place] REPOSITORY Letter Text Celeste Desouza Date this form was last completed: August 11, 2017 Name: Celeste Desouza Date of : 1950 Social Security number: [id number] [facility] Number : [id number] Current Outpatient Prescriptions: blood sugar diagnostic test strip Accu check test strips check twice time daily dx dm 250.00 ICD E11.9 ergocalciferol, vitamin D2, (DRISDOL) 50,000 unit capsule TAKE ONE CAPSULE BY MOUTH ONCE A WEEK empagliflozin (JARDIANCE) 10 mg tablet Take 1 tablet by mouth once daily. gabapentin (NEURONTIN) 300 mg capsule TAKE 1 CAPSULE BY MOUTH TWICE DAILY. famotidine (PEPCID) 20 mg tablet TAKE 1 TABLET BY MOUTH TWICE DAILY. lovastatin (MEVACOR) 20 mg tablet TAKE 1 TABLET BY MOUTH DAILY AT BEDTIME. amLODIPine (NORVASC) 10 mg tablet TAKE 1 TABLET BY MOUTH ONCE DAILY. metoprolol tartrate, short acting, (LOPRESSOR) 50 mg tablet TAKE 1 TABLET BY MOUTH TWICE DAILY. PSYLLIUM HUSK (METAMUCIL ORAL) Take by mouth. losartan (COZAAR) 25 mg tablet Take 1 tablet by mouth once daily. PREVALITE 4 gram packet glimepiride (AMARYL) 1 mg tablet Take one tablet twice a day. Lancets lancets Use as instructed No current facility-administered medications for this visit. Primary care physician: Rell Serrano MD [facility] ALBUMIN/CREAT RATIO Collected: 07/24/2017 Status: F Source: [place] 3:38 PM [facility] [place] REPOSITORY TYPE CODE TESTS RESULT OUT OF REFERENCE UNITS RANGE LAB UCRR 20-300 mg/dL Creatinine,Ur 71.7 ine,Ran LAB UALBR 0.0-23.0 mg/L Albumin Urine 15.3 Random LAB UALBCR 0-30 mg/g Albumin/Creat 21 Ratio Result Comment: 30 to 300 mg/g indicates an increased risk for diabetic nephropathy. Greater than 300 mg/g is consistent with clinical nephropathy. (Am J Kidney Disease 1995, 25:107) Performed By: #### UACR #### [facility] [address] [address] HEMOGLOBIN A1C Collected: 07/24/2017 Status: F Source: [place] 10:20 AM [facility] REPOSITORY TYPE CODE TESTS RESULT OUT OF REFERENCE UNITS RANGE LAB HGBA1C 4.3-5.6 % High Hemoglobin A1c 6.6 LAB HBA0 mg/dL Est. Average Glucose 143 Result Comment: eAG: (Estimated average glucose) is a calculated value from HgbA1c and is financial sales representative of the average blood glucose level in the last 2-3 month period. Performed By: #### HBA1C, FERR #### [address] [place] [id number] [address] FERRITIN Collected: 07/24/2017 Status: F Source: [place] 10:20 AM [facility] REPOSITORY TYPE CODE TESTS RESULT OUT OF REFERENCE UNITS RANGE LAB FERR 14.7-205.1 ng/mL Ferritin 108.8 Performed By: #### HBA1C, FERR #### [address] [place] [id number] [address] CNCO Observed: 07/15/2017 Status: COMPLETED Source: [place] 4:28 PM [facility] OTHER CAMPUS REPOSITORY HNO ID: [id number] Author: Mammography Coordinator Service: (none) Author Type: Physician Type: Letter Filed: 07/16/2017 11:32 PM Note Text: July 15, 2017 PID: [id number] Celeste Desouza [address] [place] [address] [place] [address] Dear Ms. Desouza, We are pleased to inform you that the results of your recent breast imaging exam on 07/15/2017 are normal. Your mammogram demonstrates that you have dense breast tissue, which could hide abnormalities. Dense breast tissue, in and of itself, is a relatively common condition. Therefore, this information is not provided to cause undue concern; rather, it is to raise your awareness and promote discussion with your health care provider regarding the presence of dense breast tissue in addition to other risk factors. Early detection of cancer is very important. We also understand recommendations regarding breast cancer screening are controversial. Please discuss with your primary care provider which strategy is best for you and whether a mammogram is right for you. Your imaging studies and report will be kept on file at [facility] as part of your permanent medical record and are available for your continuing care. Thank you for allowing us to help in meeting your health care needs. Sincerely, Dr. Vega Interpreting Radiologist [facility]. (Normal over 40) [facility] SCREENING W JULIO Observed: 07/15/2017 Status: F Source: [place] 2:56 PM CLINIC OTHER CAMPUS REPOSITORY * * *Final Report* * * DATE OF EXAM: Jul 15 2017 2:56PM JOCELYN [id number] - [facility] SCREENING W JULIO / PROCEDURE REASON: Z12.31-Encounter for screening mammogram for malignant neoplasm of breast * * * * Physician Interpretation * * * * #[id number] - [facility] SCREENING W JULIO BILATERAL DIGITAL SCREENING MAMMOGRAM TOMOSYNTHESIS WITH CAD: 07/15/2017 HISTORY: Z12.31-Encounter For Screening Mammogram For Malignant Neoplasm Of Breast /Screening Mammogram - patient reports NO symptoms. RESULT: TECHNIQUE: The study was acquired using full field digital technology and interpreted from soft copy. Digital Breast Tomosynthesis (DBT) images were obtained and used to assist in the interpretation of this examination. Current study was also evaluated with a Computer Aided Detection (CAD). Comparison is made to exams dated: 04/04/2016 mammogram and 01/20/2015 mammogram - [facility]. The tissue of both breasts is heterogeneously dense. This may lower the sensitivity of mammography. There are biopsy clips in the right breast. No significant masses, calcifications, or other findings are seen in either breast. There has been no significant interval change. IMPRESSION: NEGATIVE There is no mammographic evidence of malignancy. A 1 year screening mammogram is recommended. Cindy osullivan/penrad:07/15/2017 16:28:46 Rope Twisting Machine Operator: Caryn JENNINGS(Lilly)(Sara), [facility] letter sent: Normal over 40 Mammogram BI-RADS: 1 Negative Health Analyst: Nestor Transcribe Date/Time: Jul 15 2017 2:42P Dictated by : CINDY VEGA MD This examination was interpreted and the report reviewed and electronically signed by: CINDY VEGA MD on Jul 15 2017 4:28PM EST [id number] CNCO Observed: 07/11/2017 Status: COMPLETED Source: [place] 12:00 AM [facility] REPOSITORY Letter Text Celeste Jerry Desouza [facility] [address] [place] [address] July 11, 2017 Dear Ms. Celeste Desouza, Due to a change in Dr. Serrano's schedule, it is necessary to reschedule your appointment on 07/28/17. We apologize for the inconvenience. Please call the office at [phone] to reschedule and as always thank you for choosing the [facility]. The [facility] [place] CNPN Observed: 07/08/2017 Status: COMPLETED Source: [place] 12:00 AM [facility] REPOSITORY Telephone (INTMST) CELESTE DESOUZA ([id number]) 1950 F Date Time Provider Department 07/08/17 RELL SERRANO INTMST During your visit today, we recorded the following information about you: Preeti Joe Psr 07/08/2017 1:31 PM Signed Patient has been identified by name and date of : Yes traMADOL (ULTRAM) 50 mg ORAL tablet RX INSTRUCTIONS: Controlled medication - must be called in. Preeti Joe Psr Marely Bella RN 07/08/2017 1:57 PM Signed See traMADol (ULTRAM) 50 mg tablet 180 tablet 0 05/28/2017 06/27/2017 Sig: Take 1-2 tablets every 8 hours as needed max of 6 pills per day Class: Call Rx Rell Serrano MD 07/08/2017 5:19 PM Signed Patient's request for medication is as follows: Signed Prescriptions Disp Refills traMADol (ULTRAM) 50 mg tablet 180 tablet 0 Sig: Take 1-2 tablets every 8 hours as needed max of 6 pills per day PREMA Class: C-IV EL: No Authorizing Provider: RELL SERRANO Prescription(s) as above. Please process accordingly. MD Preeti Arce Psr 07/09/2017 1:41 PM Signed Patient is calling to check status can this be called into her pharmacy please advise . It has been approved and patient is out of medication Rell Serrano MD 07/09/2017 6:53 PM Signed No idea if this was called to pharmacy or not. Please advise. Domonique Real Ma 07/10/2017 10:06 AM Signed The following prescriptions have been called to [facility] in [facility] pharmacy 07/10/2017 at 10:05 AM by Domonique Real Ma. I spoke with voicemail in the pharmacy. Signed Prescriptions Disp Refills traMADol (ULTRAM) 50 mg tablet 180 tablet 0 Sig: Take 1-2 tablets every 8 hours as needed max of 6 pills per day PREMA Class: C-IV EL: No Authorizing Provider: RELL SERRANO Psr 07/10/2017 10:45 AM Signed Patient called and wanted to know what is going on; relayed message that is was called in today; patient stated the pharmacy told her they do not have it. I called and spoke to the pharmacist at [facility] and she confirmed she just got it off the voice mail and it will be ready in 30 minutes. I called the patient back to notify her; she is satisfied. Allergies As of Date: 07/08/2017 Noted Allergy Reaction AMITRIPTYLINE 07/06/2010 14 - Other: See Comments Comments: Dizziness CLOZAPINE 07/06/2010 14 - Other: See Comments Comments: Nightmares ENALAPRIL 08/19/2011 14 - Other: See Comments Comments: Increase potassium LISINOPRIL 07/06/2010 14 - Other: See Comments Comments: increases potassium Date Reviewed: 01/27/2017 Reviewed by: Domonique Real Ma - Fully Assessed Reason for Visit: Refill Request [94] Cmt: rx must be called in Reason For Visit History Recorded Visit Diagnoses:Fibromyalgia [M79.7] Restless leg syndrome [G25.81] Order(s):traMADol (ULTRAM) 50 mg tabletTake 1-2 tablets every 8 hours as needed max of 6 pills per dayDisp: 180 tabletRfl: 0 Prescriptions as of 07/08/2017 Sig: TRAMADOL 50 MG TABLET Take 1-2 tablets every 8 hour* BLOOD SUGAR DIAGNOSTIC STRIPS Accu check test strips check * ERGOCALCIFEROL (VITAMIN D2) 5* TAKE ONE CAPSULE BY MOUTH ONC* EMPAGLIFLOZIN 10 MG TABLET Take 1 tablet by mouth once d* GABAPENTIN 300 MG CAPSULE TAKE 1 CAPSULE BY MOUTH TWICE* FAMOTIDINE 20 MG TABLET TAKE 1 TABLET BY MOUTH TWICE * LOVASTATIN 20 MG TABLET TAKE 1 TABLET BY MOUTH DAILY * AMLODIPINE 10 MG TABLET TAKE 1 TABLET BY MOUTH ONCE D* METOPROLOL TARTRATE 50 MG TAB* TAKE 1 TABLET BY MOUTH TWICE * METAMUCIL ORAL Take by mouth. LOSARTAN 25 MG TABLET Take 1 tablet by mouth once d* PREVALITE 4 GRAM POWDER FOR S* GLIMEPIRIDE 1 MG TABLET Take one tablet twice a day. LANCETS Use as instructed Problem List As Of Date 07/08/2017 Noted Resolved Hypertension [I10] INVALID FOR*12/15/2014 More... Hypercholesterolemia [E78.00] INVALID FOR* Diabetes mellitus [E11.9] INVALID FOR*12/15/2014 More... Osteopenia [M85.80] INVALID FOR* CTS (carpal tunnel syndrome) [G56.00] INVALID FOR*01/24/2016 Bimalleolar ankle fracture [S82.843A] INVALID FOR*05/14/2013 More... SUMMARY [V999.95] INVALID FOR*11/29/2015 Priority: A More... Delirium [R41.0] INVALID FOR*05/14/2013 Priority: C More... Fever and leucocytosis [R50.9] INVALID FOR*05/14/2013 Priority: B More... PUD (peptic ulcer disease) [K27.9] More... 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 Restless leg syndrome [G25.81] Medial meniscus tear [S83.249A] INVALID FOR*11/15/2013 Fibromyalgia [M79.7] INVALID FOR*01/24/2016 Fracture of metatarsal bone, open [S92.309B] INVALID FOR*11/15/2013 Fracture of metatarsal [S92.309A] INVALID FOR*11/15/2013 Metatarsal fracture [S92.309A] INVALID FOR* Hyperkalemia [E87.5] 12/15/2014 More... Trigger ring finger of right hand [M65.341] INVALID FOR*01/24/2016 Degenerative arthritis of finger [M19.049] INVALID FOR* Type 2 diabetes mellitus without complication (*INVALID FOR* Essential hypertension [I10] INVALID FOR* Primary osteoarthritis involving multiple joint*INVALID FOR* Tubular adenoma [D36.9] INVALID FOR* More... Prescriptions ordered this encounter Disp Refills Start End TRAMADOL 50 MG TABLET 180 * 0 07/08/2017 08/07/2017 Class: Call Rx Sig: Take 1-2 tablets every 8 hours as needed max of 6 pills per day Medications Discontinued During This Encounter traMADol (ULTRAM) 50 mg tablet 180 * 0 05/28/2017 07/08/2017 Class: Call Rx Sig: Take 1-2 tablets every 8 hours as needed max of 6 pills per day Disc: Reason for discontinue is not on file. Encounter Status:Closed by DOMONIQUE REAL MA on 07/10/17 RENAL PROFILE Collected: 05/27/2017 Status: F Source: [place] 3:46 PM [facility] REPOSITORY TYPE CODE TESTS RESULT OUT OF RANGE REFERENCE UNITS LAB L501.0100 74-106 mg/dL High GLU 232 Result Comment: Glucose result greater than or equal to 200 mg/dL suggests DIABETES MELLITUS per A.D.A. criteria. Please note revised GLUCOSE reference range effective 2017. LAB L501.1000 7-18 mg/dL High BUN 28 LAB L501.1100 0.55-1.02 mg/dL High CREAT,SERUM 1.42 Result Comment: The validity of the calculated GFR AND GFRAA in patients over 70 years has not been determined. Clinical correlation is essential. LAB L501.1110 >60 mL/min Low EST GFR 39 Result Comment: Non- GFR Calc LAB L501.1115 >60 mL/min Low EST GFR - AA 47 Result Comment: GFR Calc LAB L501.1300 10-20 RATIO Normal BUN/CRE 19.7 LAB L501.1800 3.2-5.0 g/dL Normal ALB 4.0 LAB L501.2200 8.5-10.1 mg/dL CA Normal 8.7 LAB L501.2300 2.5-4.9 mg/dL Normal PHOS 4.1 LAB L501.5300 136-145 mmol/L NA Normal 138 LAB L501.5600 3.5-5.1 mmol/L K Normal 4.6 LAB L501.5900 98-107 mmol/L CL Normal 104 LAB L501.6100 21.0-32.0 mmol/L Normal CO2 27.0 Performed By: #### L500.3600 #### [facility] [address] [place], [address] RENAL PROFILE Collected: 04/28/2017 Status: F Source: [place] 2:01 PM [facility] REPOSITORY TYPE CODE TESTS RESULT OUT OF RANGE REFERENCE UNITS LAB L501.0100 74-106 mg/dL High GLU 153 Result Comment: Fasting Glucose result greater than or equal to 126 mg/dL suggests DIABETES MELLITUS per A.D.A. criteria. Please note revised GLUCOSE reference range effective 2017. LAB L501.1000 7-18 mg/dL High BUN 33 LAB L501.1100 0.55-1.02 mg/dL High CREAT,SERUM 1.56 Result Comment: The validity of the calculated GFR AND GFRAA in patients over 70 years has not been determined. Clinical correlation is essential. LAB L501.1110 >60 mL/min Low EST GFR 35 Result Comment: Non- GFR Calc LAB L501.1115 >60 mL/min Low EST GFR - AA 42 Result Comment: GFR Calc LAB L501.1300 10-20 RATIO High BUN/CRE 21.2 LAB L501.1800 3.2-5.0 g/dL Normal ALB 3.8 LAB L501.2200 8.5-10.1 mg/dL CA Normal 8.5 LAB L501.2300 2.5-4.9 mg/dL Normal PHOS 4.5 LAB L501.5300 136-145 mmol/L NA Normal 141 LAB L501.5600 3.5-5.1 mmol/L K Normal 4.9 LAB L501.5900 98-107 mmol/L CL Normal 106 LAB L501.6100 21.0-32.0 mmol/L Normal CO2 26.0 Performed By: #### L500.3600 #### [facility] [address] [facility] [place], [place], [address] RENAL PROFILE Collected: 03/28/2017 Status: F Source: [place] 2:27 PM [facility] REPOSITORY Order Comment: FAX RESULTS TO TYPE CODE TESTS RESULT OUT OF RANGE REFERENCE UNITS LAB L501.0100 74-106 mg/dL High GLU 182 Result Comment: Fasting Glucose result greater than or equal to 126 mg/dL suggests DIABETES MELLITUS per A.D.A. criteria. LAB L501.1000 7-18 mg/dL High BUN 24 LAB L501.1100 0.55-1.02 mg/dL High CREAT,SERUM 1.36 Result Comment: The validity of the calculated GFR AND GFRAA in patients over 70 years has not been determined. Clinical correlation is essential. LAB L501.1110 >60 mL/min Low EST GFR 41 Result Comment: Non- GFR Calc LAB L501.1115 >60 mL/min Low EST GFR - AA 50 Result Comment: GFR Calc LAB L501.1300 10-20 RATIO Normal BUN/CRE 17.6 LAB L501.1800 3.2-5.0 g/dL Normal ALB 3.8 LAB L501.2200 8.5-10.1 mg/dL CA Normal 8.8 LAB L501.2300 2.5-4.9 mg/dL Normal PHOS 4.2 LAB L501.5300 136-145 mmol/L NA Normal 140 LAB L501.5600 3.5-5.1 mmol/L K Normal 4.6 LAB L501.5900 98-107 mmol/L CL Normal 107 LAB L501.6100 21.0-32.0 mmol/L Normal CO2 26.0 Performed By: #### L500.3600 #### [facility] [address] [place], [place], [address] RENAL PROFILE Collected: 02/27/2017 Status: F Source: [place] 1:07 PM [facility] REPOSITORY TYPE CODE TESTS RESULT OUT OF RANGE REFERENCE UNITS LAB L501.0100 70-110 mg/dL High GLU 147 Result Comment: Fasting Glucose result greater than or equal to 126 mg/dL suggests DIABETES MELLITUS per A.D.A. criteria. LAB L501.1000 7-18 mg/dL High BUN 29 LAB L501.1100 0.55-1.02 mg/dL High CREAT,SERUM 1.36 Result Comment: The validity of the calculated GFR AND GFRAA in patients over 70 years has not been determined. Clinical correlation is essential. LAB L501.1110 >60 mL/min Low EST GFR 41 Result Comment: Non- GFR Calc LAB L501.1115 >60 mL/min Low EST GFR - AA 50 Result Comment: GFR Calc LAB L501.1300 10-20 RATIO High BUN/CRE 21.3 LAB L501.1800 3.4-5.0 g/dL Normal ALB 4.0 Result Comment: Please note revised Albumin AND Globulin reference range effective 2016. LAB L501.2200 8.5-10.1 mg/dL Normal CA 9.1 LAB L501.2300 2.5-4.9 mg/dL Normal PHOS 4.1 LAB L501.5300 136-145 mmol/L Normal NA 138 LAB L501.5600 3.5-5.1 mmol/L Normal K 4.4 LAB L501.5900 98-107 mmol/L Normal CL 105 LAB L501.6100 21.0-32.0 mmol/L Normal CO2 27.0 Performed By: #### L500.3600 #### [facility] [address] [place], [address] OBSOLETE Observed: 02/13/2017 Status: COMPLETED Source: [place] 12:00 AM [facility] REPOSITORY Refill (INTMST) BERTSuzetteMaurilioCELESTE ([id number]) 1950 F Date Time Provider Department 02/13/17 RELL SERRANO INTMST During your visit today, we recorded the following information about you: Elham Mile Psr 02/13/2017 4:04 PM Signed Patient has been identified by name and date of : Yes RX INSTRUCTIONS: Patient aware RX will be sent to pharmacy. No need to notify patient. Elham Treadwell Psr Domonique Real Ma 02/14/2017 10:48 AM Signed The following prescriptions have been called to [facility] pharmacy 02/14/2017 at 10:46 AM by Domonique Real Ma. I spoke with voicemail in the pharmacy. Signed Prescriptions Disp Refills traMADol (ULTRAM) 50 mg tablet 540 tablet 0 Sig: Take 1-2 tablets every 8 hours as needed max of 6 pills per day PREMA Class: C-IV EL: No Authorizing Provider: RELL SERRANO Allergies As of Date: 02/13/2017 Noted Allergy Reaction AMITRIPTYLINE 07/06/2010 14 - Other: See Comments Comments: Dizziness CLOZAPINE 07/06/2010 14 - Other: See Comments Comments: Nightmares ENALAPRIL 08/19/2011 14 - Other: See Comments Comments: Increase potassium LISINOPRIL 07/06/2010 14 - Other: See Comments Comments: increases potassium Date Reviewed: 01/27/2017 Reviewed by: Domonique Real Ma - Fully Assessed Reason for Visit: Refill Request [94] Reason For Visit History Recorded Visit Diagnoses:Fibromyalgia [M79.7] Restless leg syndrome [G25.81] Order(s):[START ON 02/19/2017] traMADol (ULTRAM) 50 mg tabletTake 1-2 tablets every 8 hours as needed max of 6 pills per dayDisp: 540 tabletRfl: 0 Prescriptions as of 02/13/2017 Sig: TRAMADOL 50 MG TABLET Take 1-2 tablets every 8 hour* METAMUCIL ORAL Take by mouth. LOSARTAN 25 MG TABLET Take 1 tablet by mouth once d* PREVALITE 4 GRAM POWDER FOR S* GLIMEPIRIDE 1 MG TABLET Take one tablet twice a day. ERGOCALCIFEROL (VITAMIN D2) 5* TAKE ONE CAPSULE BY MOUTH ONC* METOPROLOL TARTRATE 50 MG TAB* Take 1 tablet by mouth twice * LOVASTATIN 20 MG TABLET Take 1 tablet by mouth daily * GABAPENTIN 300 MG CAPSULE Take 1 capsule by mouth twice* FAMOTIDINE 20 MG TABLET Take 1 tablet by mouth twice * AMLODIPINE 10 MG TABLET Take 1 tablet by mouth once d* BLOOD SUGAR DIAGNOSTIC STRIPS Accu check test strips check * LANCETS Use as instructed Problem List As Of Date 02/13/2017 Noted Resolved Hypertension [I10] INVALID FOR*12/15/2014 More... Hypercholesterolemia [E78.00] INVALID FOR* Diabetes mellitus [E11.9] INVALID FOR*12/15/2014 More... Osteopenia [M85.80] INVALID FOR* CTS (carpal tunnel syndrome) [G56.00] INVALID FOR*01/24/2016 Bimalleolar ankle fracture [S82.843A] INVALID FOR*05/14/2013 More... SUMMARY [V999.95] INVALID FOR*11/29/2015 Priority: A More... Delirium [R41.0] INVALID FOR*05/14/2013 Priority: C More... Fever and leucocytosis [R50.9] INVALID FOR*05/14/2013 Priority: B More... PUD (peptic ulcer disease) [K27.9] More... 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 Restless leg syndrome [G25.81] Medial meniscus tear [S83.249A] INVALID FOR*11/15/2013 Fibromyalgia [M79.7] INVALID FOR*01/24/2016 Fracture of metatarsal bone, open [S92.309B] INVALID FOR*11/15/2013 Fracture of metatarsal [S92.309A] INVALID FOR*11/15/2013 Metatarsal fracture [S92.309A] INVALID FOR* Hyperkalemia [E87.5] 12/15/2014 More... Trigger ring finger of right hand [M65.341] INVALID FOR*01/24/2016 Degenerative arthritis of finger [M19.049] INVALID FOR* Type 2 diabetes mellitus without complication (*INVALID FOR* Essential hypertension [I10] INVALID FOR* Primary osteoarthritis involving multiple joint*INVALID FOR* Tubular adenoma [D36.9] INVALID FOR* More... Prescriptions ordered this encounter Disp Refills Start End TRAMADOL 50 MG TABLET 540 * 0 02/19/2017 05/15/2017 Class: Print RX Sig: Take 1-2 tablets every 8 hours as needed max of 6 pills per day Medications Discontinued During This Encounter traMADol (ULTRAM) 50 mg tablet 540 * 0 11/22/2016 02/14/2017 Class: Call Rx Sig: Take 1-2 tablets every 8 hours as needed max of 6 pills per day Disc: Reason for discontinue is not on file. Encounter Status:Closed by DOMONIQUE REAL MA on 02/14/17 ALLERGIES ALLERGIES DATE TYPE / NAME / CODE REACTION SEVERITY SOURCE CODE 01/09/2018 Drug NSAIDS Had bariatric Unknown [place] [address] (Non-Steroidal surgery Community 1446169( Anti-Inflamma/F001 [facility] OMED CT) [address](RXNORM) Repository 04/29/2012 DRUG ASPIRIN [address] [id number](SN Repository OMED CT) 08/19/2011 DRUG ENALAPRIL OTHER: SEE [address] [id number](SN Repository OMED CT) 07/06/2010 DRUG AMITRIPTYLINE OTHER: SEE [address] 2270867(SN Repository OMED CT) 07/06/2010 DRUG CLOZAPINE OTHER: SEE [address] 0750605(SN Repository OMED CT) 07/06/2010 DRUG LISINOPRIL OTHER: SEE [address] [id number](SN Repository OMED CT) ENCOUNTERS ENCOUNTERS ADMIT/DISCHARGE ACCOUNT ADMITTING ENCOUNTER LOCATION SOURCE NUMBER CLASS 02/09/2018 [id number] Ambulatory [facility] ing:LAB.FUTUR Repository E 02/02/2018/02/03/20 [id number] Ambulatory [address] ing:CLSP Repository 01/23/2018 [id number] Ambulatory [facility] ing:LAB Repository 01/23/2018/01/24/20 [id number] Ambulatory BMSBuilding:B [place] 18 [facility] Repository 01/23/2018/01/24/20 [id number] Ambulatory BMSBuilding:B [place] 18 [facility] Repository 01/21/2018 [id number] Ambulatory BMSBuilding:W [facility] Repository 01/21/2018 [id number] [facility] ing[facility] Repository 01/09/2018/01/10/20 [id number] Ambulatory BMSBuilding:B [place] 18 [facility] Repository 01/08/2018 [id number] Ambulatory BMSBuilding:B [place] MS[facility] Hospital Repository 01/05/2018 [id number] [facility] Repository E 12/24/2017 [id number] [facility] ing:POLAB3 Repository 12/17/2017 [id number] [facility] ing:POLAB3 Repository 12/17/2017/12/18/19 [id number] Ambulatory BMSBuilding:B [place] 18 [facility] Hospital Repository 12/12/2017 [id number] Ambulatory BMSBuilding:B [place] MS.[facility] Hospital Repository 12/11/2017/12/13/19 [id number] John Julio [facility] ing:PCURoom: Repository [id number]: 1 12/11/2017 [id number] Ambulatory BMSBuilding:W [facility] Repository 12/10/2017 [id number] Ambulatory BMSBuilding:B [place] MS.CF[facility] Hospital Repository 12/10/2017 [id number] [facility] ing[facility] Repository 12/10/2017/12/11/19 [id number] Ambulatory BMSBuilding:B [place] 18 [facility] Hospital Repository 12/10/2017 [id number] [facility] ing:CT Repository 12/09/2017 [id number] [facility] ing:RAD Repository 10/13/2017 [id number] Ambulatory [facility] ing:LAB.FUTUR Repository E 10/07/2017/10/10/19 [id number] Ambulatory [address] [place] Repository 10/06/2017 [id number] Ambulatory [facility] ing:POLAB3 Repository 09/16/2017 [id number] Ambulatory [facility] ing:POLAB3 Repository 09/16/2017 [id number] Ambulatory [facility] ing:RAD Repository 09/02/2017/09/06/19 [id number] ALTONCora, Inpatient [address] Other [place] Repository 09/01/2017 [id number] Ambulatory [facility] ing:POLAB3 Repository 08/21/2017 [id number] Ambulatory [facility] ing:LAB.FUTUR Repository E 08/13/2017/08/14/19 [id number] Ambulatory [address] Main [place] Repository 08/13/2017/08/15/19 [id number] Ambulatory [address] Main [place] Repository 07/24/2017 [id number] Ambulatory [facility] Main [place] Repository 07/15/2017 [id number] Ambulatory [facility] Other [place] Repository 06/24/2017 [id number] Ambulatory [facility] ing:LAB Repository 05/27/2017/05/28/19 [id number] Ambulatory [address] Hospital ing:LAB Repository 04/28/2017/04/29/19 [id number] Ambulatory [address] [facility] Hospital ing:LAB Repository 03/28/2017/03/28/19 [id number] Ambulatory [address] [facility] Hospital ing:LAB Repository 02/27/2017 [id number] Ambulatory [facility] ing:LAB Repository PAYERS PAYERS ENCOUNTER GUARANTOR PAYER SUBSCRIBER SOURCE 02/09/2018 CELESTE Edwards Primary CELESTE Crainoster [id number] Insurance:MEDICARE NIKHILZDOB: [facility] [id number] [place] Number: Repository [address]Kji: 330 [id number] [phone] (HP) Date:2017-12-26 02/09/2018 Secondary MARIO J [place] Insurance:NALCPolicy PIETRASZDOB: Community Number: [id number] Hospital [id number] Repository Date: [place], [place] [address]BL: 02/09/2018 Tertiary NOT GIVENUNK [place] Insurance:SELF PAY [facility] Number: Effective Repository Date:2017-12-26 02/02/2018 CELESTE J Primary CELESTE J [place] [id number] Insurance:MEDICARE PIETRASZDOB: Community [facility] [id number] Number: Repository [address]Ycy: [phone] [id number] [phone] (HP) Date:2018-01-21 02/02/2018 Secondary MARIO J [place] Insurance:NALCPolicy PIETRASZDOB: Community Number: [id number] Hospital [id number] Repository Date: [place], [place] [address]OO: 02/02/2018 Tertiary NOT GIVENUNK [place] Insurance:SELF PAY [facility] Number: Effective Repository Date:2018-01-21 01/23/2018 CELESTE J Primary CELESTE J [place] [id number] Insurance:MEDICARE PIETRASZDOB: Community [facility] [id number] Number: Repository [address]Mkz: [phone] [id number] [phone] (HP) Date:2018-01-23 01/23/2018 Secondary MARIO J [place] Insurance:NALCPolicy PIETRASZDOB: Community Number: [id number] Hospital [id number] Repository Date: [place], [place] [address]ET: 01/23/2018 Tertiary NOT GIVENUNK [place] Insurance:SELF PAY [facility] Number: Effective Repository Date:2018-01-23 01/23/2018 CELESTE J Primary CELESTE J [place] [id number] Insurance:MEDICARE PIETRASZDOB: [facility] [id number] Number: Repository [address]Pxf: 330 [id number] [phone] (HP) Date:2017-12-17 01/23/2018 Secondary MARIO J [place] Insurance:NALCPolicy PIETRASZDOB: Community Number: [id number] Hospital [id number] Repository Date: [place], [place] [address]LX: 01/23/2018 Tertiary NOT GIVENUNK [place] Insurance:SELF PAY [facility] Number: Effective Repository Date:2018-01-20 01/23/2018 CELESTE J Primary CELESTE J [place] [id number] Insurance:MEDICARE PIETRASZDOB: [facility] [id number] [facility] [place] Number: Repository [address]Qul: 330 [id number] [phone] (HP) Date:2018-01-22 01/23/2018 Secondary MAROI J [place] Insurance:NALCPolicy PIETRASZDOB: Community Number: [id number] Hospital [id number] Repository Date: [place], [place] [address]TS: 01/23/2018 Tertiary NOT GIVENUNK [place] Insurance:SELF PAY [facility] Number: Effective Repository Date:2018-01-23 01/21/2018 CELESTE J Primary CELESTE J [place] [id number] Insurance:MEDICARE PIETRASZDOB: [facility] [id number] Number: Repository [address]Tpl: 330 [id number] [phone] (HP) Date:2018-01-09 01/21/2018 Secondary MARIO J [place] Insurance:NALCPolicy PIETRASZDOB: Community Number: [id number] Hospital [id number] Repository Date: [place], [place] [address]OL: 01/21/2018 Tertiary NOT GIVENUNK [place] Insurance:SELF PAY [facility] Number: Effective Repository Date:2018-01-21 01/21/2018 CELESTE J Primary CELESTE J [place] [id number] Insurance:MEDICARE PIETRASZDOB: Community [place] [facility] [place] [id number] Number: Repository [address]Efd: (991) [id number] [phone] () Date:2018-01-09 01/21/2018 Secondary MARIO J [place] Insurance:NALCPolicy PIETRASZDOB: Community Number: [id number] Hospital [id number] Repository Date: [place], [place] [address]PA: 01/21/2018 Tertiary NOT GIVENUNK [place] Insurance:SELF PAY [facility] Number: Effective Repository Date:2018-01-09 01/09/2018 CELESTE J Primary CELESTE J [place] [id number] Insurance:MEDICARE PIETRASZDOB: Community [place] [facility] [place] [id number], [place] Number: Repository [address]Faz: 330 [id number] [phone] () Date:2017-12-17 01/09/2018 Secondary MARIO J [place] Insurance:NALCPolicy PIETRASZDOB: Community Number: [id number] Hospital [id number] Repository Date: [place], [place] [address]LR: 01/09/2018 Tertiary NOT GIVENUNK [place] Insurance:SELF PAY [facility] Number: Effective Repository Date:2018-01-09 01/08/2018 CELESTE J Primary CELESTE J [place] [id number] Insurance:MEDICARE PIETRASZDOB: Community [facility] [id number], [place] Number: Repository [address]Fih: [phone]) [id number] [phone] (HP) Date:2018-01-08 01/08/2018 Secondary MARIO J [place] Insurance:NALCPolicy PIETRASZDOB: Community Number: [id number] Hospital [id number] Repository Date: [place], [place] [address]OI: 01/08/2018 Tertiary NOT GIVENUNK [place] Insurance:SELF PAY [facility] Hospital Number: Effective Repository Date:2018-01-08 01/05/2018 CELESTE J Primary CELESTE J [place] [id number] Insurance:MEDICARE PIETRASZDOB: [facility] [id number] Number: Repository [address]Elt: [phone]) [id number] [phone] (HP) Date:2018-01-05 01/05/2018 Secondary MARIO J [place] Insurance:NALCPolicy PIETRASZDOB: Community Number: [id number] Hospital [id number] Repository Date: [place], [place] [address]RF: 01/05/2018 Tertiary NOT GIVENUNK [place] Insurance:SELF PAY [facility] Hospital Number: Effective Repository Date:2018-01-05 12/24/2017 CELESTE J Primary CELESTE J [place] [id number] Insurance:MEDICARE PIETRASZDOB: [facility] [id number] Number: Repository [address]Voi: [phone]) [id number] [phone] (HP) Date:2017-12-24 12/24/2017 Secondary MARIO J [place] Insurance:NALCPolicy PIETRASZDOB: Community Number: [id number] Hospital [id number] Repository Date: [place], [place] [address]IE: 12/24/2017 Tertiary NOT GIVENUNK [place] Insurance:SELF PAY [facility] Number: Effective Repository Date:2017-12-24 12/17/2017 CELESTE J Primary CELESTE J [place] [id number] Insurance:MEDICARE PIETRASZDOB: Community [facility] [id number], [place] Number: Repository [address]Tca: [phone]) [id number] [phone] (HP) Date:2017-12-17 12/17/2017 Secondary MARIO J [place] Insurance:NALCPolicy PIETRASZDOB: Community Number: [id number] Hospital [id number] Repository Date: [place], [place] [address]TH: 12/17/2017 Tertiary NOT GIVENUNK [place] Insurance:SELF PAY [facility] Hospital Number: Effective Repository Date:2017-12-17 12/17/2017 CELESTE J Primary CELESTE J [place] [id number] Insurance:MEDICARE PIETRASZDOB: Community [facility] [facility] [id number], [place] Number: Repository [address]Ayy: 330 [id number] [phone] (HP) Date:2017-12-10 12/17/2017 Secondary MARIO J [place] Insurance:NALCPolicy PIETRASZDOB: Community Number: [id number] Hospital [id number] Repository Date: [place], [place] [address]TS: 12/17/2017 Tertiary NOT GIVENUNK [place] Insurance:SELF PAY [facility] Number: Effective Repository Date:2017-12-17 12/12/2017 CELESTE J Primary CELESTE J [place] [id number] Insurance:MEDICARE PIETRASZDOB: Community [facility] [id number], [place] Number: Repository [address]Dxy: 330 [id number] [phone] (HP) Date:2017-12-10 12/12/2017 Secondary MARIO J [place] Insurance:NALCPolicy PIETRASZDOB: Community Number: [id number] Hospital [id number] Repository Date: [place], [place] [address]RL: 12/12/2017 Tertiary NOT GIVENUNK [place] Insurance:SELF PAY [facility] Number: Effective Repository Date:2017-12-12 12/11/2017 CELESTE J Primary CELESTE J [place] [id number] Insurance:MEDICARE PIETRASZDOB: Community [place] [facility] [place] [id number], [place] Number: Repository [address]Ftw: (468) [id number] [phone] () Date:2017-12-10 12/11/2017 Secondary MARIO J [place] Insurance:NALCPolicy PIETRASZDOB: Community Number: [id number] Hospital [id number] Repository Date: [place], [place] [address]BX: 12/11/2017 Tertiary NOT GIVENUNK [place] Insurance:SELF PAY [facility] Number: Effective Repository Date:2017-12-10 12/11/2017 CELESTE J Primary CELESTE J [place] [id number] Insurance:MEDICARE PIETRASZDOB: Community [facility] [id number], [place] Number: Repository [address]Rhj: [phone]) [id number] [phone] () Date:2017-12-10 12/11/2017 Secondary MARIO J [place] Insurance:NALCPolicy PIETRASZDOB: Community Number: [id number] Hospital [id number] Repository Date: [place], [place] [address]EB: 12/11/2017 Tertiary NOT GIVENUNK [place] Insurance:SELF PAY [facility] Number: Effective Repository Date:2017-12-11 12/10/2017 CELESTE J Primary CELESTE J [place] [id number] Insurance:MEDICARE PIETRASZDOB: Community [facility] [id number], [place] Number: Repository [address]Kac: [phone] [id number] [phone] (HP) Date:2017-12-10 12/10/2017 Secondary MARIO J [place] Insurance:NALCPolicy PIETRASZDOB: Community Number: [id number] Hospital [id number] Repository Date: [place], [place] [address]ML: 12/10/2017 Tertiary NOT GIVENUNK [place] Insurance:SELF PAY [facility] Number: Effective Repository Date:2017-12-10 12/10/2017 CELESTE J Primary CELESTE J [place] [id number] Insurance:MEDICARE PIETRASZDOB: [facility] [id number], [place] Number: Repository [address]Nmw: 330 [id number] [phone] (HP) Date:2017-12-10 12/10/2017 Secondary MARIO J [place] Insurance:NALCPolicy PIETRASZDOB: Community Number: [id number] Hospital [id number] Repository Date: [place], [place] [address]FO: 12/10/2017 Tertiary NOT GIVENUNK [place] Insurance:SELF PAY [facility] Hospital Number: Effective Repository Date:2017-12-10 12/10/2017 CELESTE J Primary CELESTE J [place] [id number] Insurance:MEDICARE PIETRASZDOB: [facility] [id number] Number: Repository [address]Mnr: [phone]) [id number] [phone] (HP) Date:2017-12-10 12/10/2017 Secondary MARIO J [place] Insurance:NALCPolicy PIETRASZDOB: Community Number: [id number] Hospital [id number] Repository Date: [place], [place] [address]DI: 12/10/2017 Tertiary NOT GIVENUNK [place] Insurance:SELF PAY [facility] Number: Effective Repository Date:2017-12-10 12/10/2017 CELESTE J Primary CELESTE J [place] [id number] Insurance:MEDICARE PIETRASZDOB: Community [facility] olic [id number], [place] Number: Repository [address]Jll: 330 [id number] [phone] (HP) Date:2017-12-10 12/10/2017 Secondary MARIO J [place] Insurance:NALCPolicy PIETRASZDOB: Community Number: [id number] Hospital [id number] Repository Date: [place], [place] [address]DK: 12/10/2017 Tertiary NOT GIVENUNK [place] Insurance:SELF PAY [facility] Number: Effective Repository Date:2017-12-10 12/09/2017 CELESTE J Primary CELESTE J [place] [id number] Insurance:MEDICARE PIETRASZDOB: [facility] [id number] [place] Number: Repository [address]Irk: 330 [id number] [phone] (HP) Date:2017-12-09 12/09/2017 Secondary MARIO J [place] Insurance:NALCPolicy PIETRASZDOB: Community Number: [id number] Hospital [id number] Repository Date: [place], [place] [address]XI: 12/09/2017 Tertiary NOT GIVENUNK [place] Insurance:SELF PAY [facility] Number: Effective Repository Date:2017-12-09 10/13/2017 CELESTE J Primary CELESTE J [place] [id number] Insurance:MEDICARE PIETRASZDOB: [facility] [id number], [place] Number: Repository [address]Rfq: 330 [id number] [phone] (HP) Date:2017-09-18 10/13/2017 Secondary MARIO J [place] Insurance:NALCPolicy PIETRASZDOB: Community Number: [id number] Hospital [id number] Repository Date: [place], [place] [address]QJ: 10/13/2017 Tertiary NOT GIVENUNK [place] Insurance:SELF PAY [facility] Number: Effective Repository Date:2017-09-18 10/06/2017 CELESTE J Primary CELESTE J [place] [id number] Insurance:MEDICARE PIETRASZDOB: Community [facility] [facility] [id number], [place] Number: Repository [address]Cfk: (141) [id number] [phone] () Date:2017-10-06 10/06/2017 Secondary MARIO J [place] Insurance:NALCPolicy PIETRASZDOB: Community Number: [id number] Hospital [id number] Repository Date: [place], [place] [address]DS: 10/06/2017 Tertiary NOT GIVENUNK [place] Insurance:SELF PAY [facility] Hospital Number: Effective Repository Date:2017-10-06 09/16/2017 CELESTE J Primary CELESTE J [place] [id number] Insurance:MEDICARE PIETRASZDOB: Community [place] [facility] [id number], [place] Number: Repository [address]Dkm: ([phone] [id number] [phone] () Date:2017-09-16 09/16/2017 Secondary MARIO [place] Insurance:NALCPolicy PIETRASZDOB: Community Number: [id number] Hospital [id number] Repository Date: [place], [place] [address]SN: 09/16/2017 Tertiary NOT GIVENUNK [place] Insurance:SELF PAY [facility] Number: Effective Repository Date:2017-09-16 09/16/2017 CELESTE J Primary CELESTE J [place] [id number] Insurance:MEDICARE PIETRASZDOB: Community [place] [facility] [id number] [facility] [place] Number: Repository [address]Oxl: 330 [id number] [phone] (HP) Date:2017-09-16 09/16/2017 Secondary MARIO [place] Insurance:NALCPolicy PIETRASZDOB: Community Number: [id number] Hospital [id number] Repository Date: [place], [place] [address]XX: 09/16/2017 Tertiary NOT GIVENUNK [place] Insurance:SELF PAY [facility] Number: Effective Repository Date:2017-09-16 09/01/2017 CELESTE J Primary CELESTE J [place] [id number] Insurance:MEDICARE PIETRASZDOB: Community [place] [facility] [id number] Number: Repository [address]Eqh: 330 [id number] [phone] (HP) Date:2017-09-01 09/01/2017 Secondary MARIO [place] Insurance:NALCPolicy PIETRASZDOB: Community Number: [id number] Hospital [id number] Repository Date: [place], [place] [address]IY: 09/01/2017 Tertiary NOT GIVENUNK [place] Insurance:SELF PAY [facility] Number: Effective Repository Date:2017-09-01 08/21/2017 CELESTE J Primary CELESTE J [place] [id number] Insurance:MEDICARE PIETRASZDOB: Community [facility] [facility] [id number] [place] Number: Repository [address]Nyw: 330 [id number] [phone] (HP) Date:2017-08-19 08/21/2017 Secondary MARIO [place] Insurance:NALCPolicy PIETRASZDOB: Community Number: [id number] Hospital [id number] Repository Date: [place], [place] [address]ZJ: 08/21/2017 Tertiary NOT GIVENUNK [place] Insurance:SELF PAY [facility] Number: Effective Repository Date:2017-08-19 06/24/2017 CELESTE J Primary CELESTE J [place] [id number] Insurance:MEDICARE PIETRASZDOB: Community [facility] [facility] [id number] [place] Number: Repository [address]Nmd: 330 [id number] [phone] (HP) Date:2017-03-28 06/24/2017 Secondary MARIO [place] Insurance:NALCPolicy PIETRASZDOB: Community Number: [id number] Hospital [id number] Repository Date: [place], [place] [address]YG: 06/24/2017 Tertiary NOT GIVENUNK [place] Insurance:SELF PAY [facility] Number: Effective Repository Date:2017-06-24 05/27/2017 CELESTE J Primary CELESTE J [place] [id number] Insurance:MEDICARE PIETRASZDOB: Community [facility] [facility] [id number] [place] Number: Repository [address]Oyr: 330 [id number] [phone] (HP) Date:2017-03-28 05/27/2017 Secondary MARIO [place] Insurance:NALCPolicy PIETRASZDOB: Community Number: [id number] Hospital [id number] Repository Date: [place], [place] [address]FU: 05/27/2017 Tertiary NOT GIVENUNK [place] Insurance:SELF PAY [facility] Hospital Number: Effective Repository Date:2017-05-26 04/28/2017 Celeste Primary Celeste [place] [id number] Insurance:MEDICARE PietraszDOB: Community [facility] [facility] [id number] [place] Number: Repository [address]Hht: 330 [id number] [phone] (HP) Date:2017-03-28 04/28/2017 Secondary MARIO [place] Insurance:NALCPolicy PIETRASZDOB: Community Number: [id number] Hospital [id number] Repository Date: [place], [place] [address]CW: 04/28/2017 Tertiary NOT GIVENUNK [place] Insurance:SELF PAY [facility] Number: Effective Repository Date:2017-04-25 03/28/2017 Celeste Primary Celeste [place] [id number] Insurance:MEDICARE PietraszDOB: Community [facility] [id number] Number: Repository [address]Scr: (015) [id number] [phone] (HP) Date:2017-03-28 03/28/2017 Secondary MARIO [place] Insurance:NALCPolicy PIETRASZDOB: Community Number: [id number] Hospital [id number] Repository Date: [place], [place] [address]DT: 03/28/2017 Tertiary NOT GIVENUNK [place] Insurance:SELF PAY [facility] Number: Effective Repository Date:2017-03-28 02/27/2017 Celeste Primary Celeste Browne [id number] Insurance:MEDICARE PietraszDOB: Community [facility] [facility] [id number], [place] Number: Repository [address]Zkh: (561) [id number] [phone] (HP) Date:2017-02-27 02/27/2017 Secondary MARIO [place] Insurance:NALCPolicy PIETRASZDOB: Community Number: [id number] Hospital [id number] Repository Date: [place], [place] [address]UO: 02/27/2017 Tertiary NOT GIVENUNK [place] Insurance:SELF PAY [facility] Number: Effective Repository Date:2017-02-27
== END ==
PROVIDERS: Family Provider Family Medicine Geriatric Medicine; PCP Family Medicine Geriatric Medicine; Referring Provider Internal Medicine Cardiovascular Disease; Visit Provider Internal Medicine Cardiovascular Disease
DX: I50.32 Chronic diastolic (congestive) heart failure (principal)
CPT/HCPCS: 78452; 93017; A9500; A4216; J2785

== ENCOUNTER → 2018-01-23 15:21 | Outpatient (CLI) | payer MEDICARE, OTHER, SELFPAY ==
[2018-01-23 17:18] LABS: Absolute Lymphocyte Count 3.16 X10^3/ul (0.83-4.51); Absolute Neutrophil Count 5.2 X10^3/uL (2.0-7.7); Basophil# 0.04 X10^3/uL; Basophil% 0.4 % (0-1); Eosinophil# 0.45 X10^3/uL; Eosinophils% 4.8 % (0-5); Hematocrit 33.8 % (37-47); Hemoglobin 10.6 g/dl (12.0-15.0); Lymphocyte # 3.16 X10^3/ul (4.0); Lymphocyte % 33.4 % (19-41); Mean Corp Hgb Conc 31.4 g/gl (32-36); Mean Corpuscular Hgb 26.4 pg (27.0-32.0); Mean Corpuscular Volume 84.3 fL (81-99); Mean Platelet Vol. 9.5 fl (6.2-12.0); Monocyte# 0.61 X10^3/uL; Monocyte% 6.5 % (0-10); Neutrophil # 5.18 X10^3/uL (2.7-7.7); Neutrophil % 54.8 % (47-70); Platelet Count 321 K/mm3 (150-450); RBC Distribution Width CV 15.2 % (11.6-14.6); RBC Distribution Width SD 47.2 fl (35.1-43.9); Red Blood Count 4.01 M/mm3 (4.2-5.4); White Blood Count 9.5 K/mm3 (4.4-11.0)
[2018-01-23 17:22] LABS: Prothrombin Time (Protime)PT. 13.5 SECONDS (11.7-14.9)
[2018-01-23 17:23] LABS: POSITIVE COUNT NO; POSITIVE DIFFERENTIAL NO; POSITIVE MORPHOLOGY NO
[2018-01-23 17:41] LABS: Anion Gap 6 (5-15); BUN 29 mg/dL (7-18); BUN/Creat Ratio 17.7 RATIO (10-20); Calcium,Total 9.2 mg/dL (8.5-10.1); Chloride 108 mmol/L (98-107); Creatinine, Serum 1.64 mg/dL (0.55-1.02); EST Glomerular Filtration Rate 33 mL/min (>60); Est Glom Filt Rate - Afr Amer 40 mL/min (>60); Glucose 73 mg/dL (74-106); Potassium 5.1 mmol/L (3.5-5.1); Sodium Level 142 mmol/L (136-145)
--- OUTSIDE RECORDS SUMMARY | 2018-03-20 14:28 | XMS RPT_ITS ---
:1950 Author Organization [place] Support Name Relationship Address Phone IRISHROJELIOY Unavailable [address] + [place] [address] PIETRASZ, ZHANG Unavailable Unavailable + [place] [address] R Unavailable Unavailable Unavailable PIETRASZ, LUCÍA Unavailable [address] + [place] [address] PIETRASZ, ZHANG Unavailable Unavailable + [place] [address] R Unavailable Unavailable Unavailable PIETRASZ, LUCÍA Unavailable [address] + [place] [address] PIETRASZ, ZHANG Unavailable Unavailable + [place] [address] R Unavailable Unavailable Unavailable PIETRASZ, LUCÍA Unavailable [address] + [place] [address] PIETRASZ, ZHANG Unavailable Unavailable + [place] [address] R Unavailable Unavailable Unavailable PIETRASZ, LUCÍA Unavailable [address] + [place] [address] PIETRASZ, ZHANG Unavailable Unavailable + [place] [address] R Unavailable Unavailable Unavailable PIETRASZ, LUCÍA Unavailable [address] + [place] [address] PIETRASZ, ZHANG Unavailable Unavailable + [place] [address] R Unavailable Unavailable Unavailable PIETRASZ, LUCÍA Unavailable [address] + [place] [address] PIETRASZ, ZHANG Unavailable Unavailable + [place] [address] R Unavailable Unavailable Unavailable PIETRASZ, LUCÍA Unavailable [address] + [place] [address] PIETRASZ, ZHANG Unavailable Unavailable + [place] [address] R Unavailable Unavailable Unavailable PIETRASZ, LUCÍA Unavailable [address] + [place] [address] PIETRASZ, ZHANG Unavailable Unavailable + [place] [address] R Unavailable Unavailable Unavailable PIETRASZ, LUCÍA Unavailable [address] + [place] [address] PIETRASZ, ZHANG Unavailable Unavailable + [place] [address] R Unavailable Unavailable Unavailable PIETRASZ, LUCÍA Unavailable [address] + [place] [address] PIETRASZ, ZHANG Unavailable Unavailable + [place] [address] R Unavailable Unavailable Unavailable PIETRASZ, LUCÍA Unavailable [address] + [place] [address] PIETRASZ, ZHANG Unavailable Unavailable + [place] [address] R Unavailable Unavailable Unavailable PIETRASZ, LUCÍA Unavailable [address] + [place] [address] PIETRASZ, ZHANG Unavailable Unavailable + [place] [address] R Unavailable Unavailable Unavailable PIETRASZ, LUCÍA Unavailable [address] + [place] [address] PIETRASZ, ZHANG Unavailable Unavailable + [place] [address] R Unavailable Unavailable Unavailable PIETRASZ, LUCÍA Unavailable [address] + [place] [address] PIETRASZ, ZHANG Unavailable Unavailable + [place] [address] R Unavailable Unavailable Unavailable PIETRASZ, LUCÍA Unavailable [address] + [place] [address] PIETRASZ, ZHANG Unavailable Unavailable + [place] [address] R Unavailable Unavailable Unavailable PIETRASZ, LUCÍA Unavailable [address] + [place] [address] PIETRASZ, ZHANG Unavailable Unavailable + [place] [address] R Unavailable Unavailable Unavailable PIETRASZ, LUCÍA Unavailable [address] + [place] [address] PIETRASZ, ZHANG Unavailable Unavailable + [place] [address] R Unavailable Unavailable Unavailable PIETRASZ, LUCÍA Unavailable [address] + [place] [address] PIETRASZ, ZHANG Unavailable Unavailable + [place] [address] R Unavailable Unavailable Unavailable PIETRASZ, LUCÍA Unavailable [address] + [place] [address] PIETRASZ, ZHANG Unavailable Unavailable + [place] [address] R Unavailable Unavailable Unavailable PIETRASZ, LUCÍA Unavailable [address] + [place] [address] PIETRASZ, ZHANG Unavailable Unavailable + [place] [address] R Unavailable Unavailable Unavailable PIETRASZ, LUCÍA Unavailable [address] + [place] [address] PIETRASZ, ZHANG Unavailable Unavailable + [place] [address] R Unavailable Unavailable Unavailable PIETRASZ, LUCÍA Unavailable [address] + [place] [address] PIETRASZ, ZHANG Unavailable Unavailable + [place] [address] R Unavailable Unavailable Unavailable PIETRASZ, LUCÍA Unavailable [address] + [place] [address] PIETRASZ, ZHANG Unavailable Unavailable + [place] [address] R Unavailable Unavailable Unavailable PIETRASZ, LUCÍA Unavailable [address] + [place] [address] PIETRASZ, ZHANG Unavailable Unavailable + [place] [address] R Unavailable Unavailable Unavailable PIETRASZ, LUCÍA Unavailable [address] + [place] [address] PIETRASZ, ZHANG Unavailable Unavailable + [place] [address] R Unavailable Unavailable Unavailable PIETRASZ, LUCÍA Unavailable [address] + [place] [address] PIETRASZ, ZHANG Unavailable Unavailable + [place] [address] R Unavailable Unavailable Unavailable PIETRASZ, LUCÍA Unavailable [address] + [place] [address] PIETRASZ, ZHANG Unavailable Unavailable + [place] [address] R Unavailable Unavailable Unavailable PIETRASZ, LUCÍA Unavailable [address] + [place] [address] PIETRASZ, ZHANG Unavailable Unavailable + [place] [address] R Unavailable Unavailable Unavailable PIETRASZ, LUCÍA Unavailable [address] + [place] [address] PIETRASZ, ZHANG Unavailable . + [place] [address] R Unavailable Unavailable Unavailable PIETRASZ, LUCÍA Unavailable [address] + [place] [address] PIETRASZ, ZHANG Unavailable . + [place] [address] R Unavailable Unavailable Unavailable PIETRASZ, LUCÍA Unavailable [address] + [place] [address] PIETRASZ, ZHANG Unavailable . + [place] [address] R Unavailable Unavailable Unavailable Care Team Providers Name Role Phone RELL SERRANO Referring Unavailable RELL SERRANO Attending Unavailable RELL SERRANO Referring Unavailable YAMILET MAGANA Attending Unavailable YAMILET MAGANA Referring Unavailable JANET PATTERSON Admitting Unavailable JANET PATTERSON Attending Unavailable LUCIANA REDMAN Consulting Unavailable Sumanth, John Attending Unavailable Sumanth, Orlando Referring Unavailable Rubén Singhine Attending Unavailable NEGRO [...] Hank, Rigo Chi Primary Care Unavailable Sumanth, Orlando Referring Unavailable Sumanth, Orlando Admitting Unavailable Sumanth, Orlando Attending Unavailable Hank, Rigo Chi Primary Care Unavailable Sumanth, John Attending Unavailable Hank, Rigo Chi Referring Unavailable Hank, Rigo Chi Primary Care Unavailable Hank, Rigo Chi Consulting Unavailable Sumanth, John Attending Unavailable Sumanth, John Referring Unavailable Hank, Rigo Chi Primary Care Unavailable Sumanth, John Consulting Unavailable Katie Perry Attending Unavailable Hank, Rigo Chi Referring Unavailable Hank, Rigo Chi Attending Unavailable Hank, Rigo Chi Primary Care Unavailable Francisco, Luciana Attending Unavailable Hank, Rigo Chi Primary Care Unavailable Francisco, Luciana Attending Unavailable Hank, Rigo Chi Primary Care Unavailable Sumanth, Orlando Attending Unavailable Sumanth, Orlando Referring Unavailable Francisco, Luciana Attending Unavailable Hank, Rigo Chi Primary Care Unavailable Heide Ivey Attending Unavailable Sumanth, Orlando Attending Unavailable Hank, Rigo Chi Referring Unavailable Sumanth, Orlando Attending Unavailable Sumanth, John Referring Unavailable Hank, Rigo Chi Primary Care Unavailable Katie Perry Attending Unavailable Hank, Rigo Chi Referring Unavailable Nurse, Standard Attending Unavailable Hank, Rigo Chi Referring Unavailable Sumanth, John Attending Unavailable Sumanth, John Referring Unavailable Hank, Rigo Chi Primary Care Unavailable Sumanth, Orlando Attending Unavailable Sumanth, John Referring Unavailable Hank, Rigo Chi Primary Care Unavailable PROBLEMS PROBLEMS DATE TYPE CONDITION / CODE ATTENDING STATUS SOURCE 02/10/2018 Unknown R06.02 - Shortness of Sumanth, Orlando Active [place] breath / Community R06.02(ICD-10) Hospital Repository 01/09/2018 Unknown I10 - Essential Sumanth, John Active [facility] (primary) hypertension Community / I10(ICD-10) Hospital Repository 01/09/2018 Unknown Z95.0 - Presence of Sumanth, Orlando Active [place] cardiac pacemaker / Community Z95.0(ICD-10) Hospital Repository 01/09/2018 Unknown I50.32 - Chronic Sumanth, Orlando Active [place] diastolic (congestive) Community heart failure / Hospital I50.32(ICD-10) Repository 12/17/2017 Unknown E55.9 - Vitamin D Hank, Rigo Chi Active [place] deficiency, Community unspecified / Hospital E55.9(ICD-10) Repository 12/18/2017 Unknown 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, second degree / Hospital I44.1(ICD-10) Repository 12/18/2017 Unknown R00.1 - Bradycardia, Katie Perry Active [place] unspecified / Community R00.1(ICD-10) Hospital Repository 12/18/2017 Unknown I51.9 - Heart disease, Katie Perry Active [place] unspecified / Community I51.9(ICD-10) Hospital Repository 12/10/2017 Unknown I50.9 - Heart failure, Sumanth, [place] Active [place] unspecified / Community I50.9(ICD-10) Hospital Repository 10/07/2017 Active Unknown / UNK(Unknown) YAMILET MAGANA Active [facility] [place] Repository 10/31/2017 Unknown N18.3 - Chronic kidney Hank, Rigo Chi Active [place] disease, stage 3 Community (moderate) / Hospital N18.3(ICD-10) Repository 09/16/2017 Unknown M54.5 - Low back pain Hank, Rigo Chi Active [place] / M54.5(ICD-10) Community Hospital Repository 09/05/2017 Active Hyperosmolality and CHUKWUANI, Active [place] hypernatremia / [facility] Other E87.0(ICD-10) [place] Repository 09/05/2017 Active Acidosis / CHUKWUANI, Active [place] E87.2(ICD-10) [facility] Other [place] Repository 09/05/2017 Active Anemia, unspecified / CHUKWUANI, Active [place] D64.9(ICD-10) [facility] Other [place] Repository 09/02/2017 Active Chronic kidney CHUKWUANI, Active [place] disease, stage 5 / [facility] Other N18.5(ICD-10) [place] Repository 09/02/2017 Active Type 2 diabetes CHUKWUANI, Active [place] mellitus with diabetic [facility] Other chronic kidney disease [place] / E11.22(ICD-10) Repository 09/02/2017 Active Essential (primary) CHUKWUANI, Active [place] hypertension / [facility] Other I10(ICD-10) [place] Repository 09/02/2017 Active Acute kidney failure, CHUKWUANI, Active [place] unspecified / [facility] Other N17.9(ICD-10) [place] Repository 09/02/2017 Active Chronic kidney CHUKWUANI, Active [place] disease, unspecified / [facility] Other N18.9(ICD-10) [place] Repository 09/02/2017 Active Hypermagnesemia / CHUKWUANI, Active [facility] E83.41(ICD-10) [facility] Other [place] Repository 09/02/2017 Active Other acute kidney CHUKWUANI, Active [facility] failure / [facility] Other N17.8(ICD-10) [place] Repository 08/13/2017 Active Restless legs syndrome NA Active [facility] / G25.81(ICD-10) Clinic Main [place] Repository 07/24/2017 Active Iron deficiency NA Active [facility] anemia, unspecified / Clinic Main D50.9(ICD-10) [place] Repository 07/24/2017 Active Type 2 diabetes NA Active [facility] mellitus without Clinic Main complications / [place] E11.9(ICD-10) Repository 07/15/2017 Active Encounter for NA Active [facility] screening mammogram Clinic Other for malignant neoplasm [place] of breast / Repository Z12.31(ICD-10) PROCEDURES PROCEDURES No Procedure Records FoundRESULTS RESULTS PACEMAKER CHECK Observed: 01/26/2018 Status: F Source: [place] 8:40 AM [facility] REPOSITORY [facility] [address] [place] [address]. [address] [place] [address] Pacemaker Check Date of Service: 01/23/18 1659 MR#: [id number] Acct: [id number] Name: CELESTE DESOUZA Rep #: [id number] : 1950 From: Katie Perry Age/Sex: 67/F Location: [facility] Status: Signed Billing Codes PM Device Codes: PM Dev Erin Wise, Dual 01/23/18 1701 <Electronically signed by Katie Perry > Date Katie Perry 01/26/18 0840<Electronically signed by John Julio MD> Cosigner Signature: Date (if applicable) John Julio MD CC: PROTHROMBIN TIME W/INR Collected: 01/23/2018 Status: F Source: [place] 3:25 PM [facility] REPOSITORY TYPE CODE TESTS RESULT OUT OF RANGE REFERENCE UNITS LAB L300.4150 11.7-14.9 SECONDS Normal PROTIME 13.5 LAB L300.4200 Normal INR 1.0 Performed By: #### L300.3900 #### [facility] [place], [address] CBC W/DIFF, AUTOMATED Collected: 01/23/2018 Status: F Source: [place] 3:25 PM [facility] REPOSITORY TYPE CODE TESTS RESULT OUT OF [...] Lymph 3.16 Performed By: #### L100.0100 #### [facility] [address] [place], [address] BASIC METABOLIC Collected: 01/23/2018 Status: F Source: [place] PROFILE ([facility]) 3:25 PM [facility] REPOSITORY TYPE CODE TESTS RESULT OUT OF [...] GAP 6 Performed By: #### L500.2500 #### [facility] [address] [facility] [place], [address] STRESS REPORT Observed: 01/21/2018 Status: F Source: [place] 1:08 PM [facility] REPOSITORY [facility] Cardiovascular Services [address] [place] [address] MR#: [id number] Acct: [id number] Name: CELESTE DESOUZA Rep #: [id number] : 1950 67 From: John Julio MD [...] MD Date Dictated: 01/21/181304 Date Transcribed: 01/21/181304 Planning Assistant: CO Signed CARDIOLOGY VISIT Observed: 01/09/2018 Status: F Source: [place] REPORT 2:39 PM [facility] REPOSITORY [facility] 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 mg/dL Normal UR CREAT 82.30 LAB L501.1930 <11.9 mg/dL High 244.8 PROTEIN,UR.R AN. LAB L501.1940 0-200 mg/g CRE High PROT:CRE 2974 RATIO Performed By: #### L501.0900 #### [facility] [address] [place], [address] PACEMAKER CHECK Observed: 12/17/2017 Status: F Source: [place] 4:38 PM [facility] REPOSITORY [facility] [address] [place] [address] Pacemaker Check Date of Service: 12/17/171623 MR#: [id number] Acct: [id number] Name: CELESTE DESOUZA Rep #: [id number] : 1950 From: Katie Perry Age/Sex: 67/F Location: [facility] Status: Signed Billing Codes PM Device Codes: PM Dev Prog Eval, Dual 12/17/17 1625 <Electronically signed by Katie Perry > Date Katie Perry 12/17/17 1638<Electronically signed by Vijaya GROSSMAN> Cosigner Signature: Date (if applicable) Vijaya Coyle CC: John Julio MD CBC W/DIFF, AUTOMATED Collected: 12/17/2017 Status: F Source: [place] 3:47 PM [facility] REPOSITORY TYPE CODE TESTS RESULT [...] Lymph 2.89 Performed By: #### L100.0100 #### [facility] [address] [facility]. [place], [place], [address] COMPREHENSIVE METABOLIC Collected: 12/17/2017 Status: F [facility]47 PM [facility] REPOSITORY Order Comment: DR SINGH ORDERED RENAL [...] #### L500.4050, L500.4100, L501.2300, L501.4700, L501.9520 #### [facility] [address] [place], [address] LIPID PROFILE Collected: 12/17/2017 Status: F Source: [place] 3:47 PM [facility] REPOSITORY Order Comment: DR SINGH ORDERED RENAL [...] #### L500.4050, L500.4100, L501.2300, L501.4700, L501.9520 #### [facility] [address] [place], [place], [address] PHOSPHORUS Collected: 12/17/2017 Status: F Source: [place] 3:47 PM [facility] REPOSITORY Order Comment: DR SINGH ORDERED RENAL ONLY PT UNABLE TO VOID TYPE CODE TESTS RESULT OUT OF RANGE REFERENCE UNITS LAB L501.2300 2.5-4.9 mg/dL Normal PHOS 3.4 Performed By: #### L500.4050, L500.4100, L501.2300, L501.4700, L501.9520 #### [facility] [address] [place], [place], [address] BILIRUBIN, DIRECT Collected: 12/17/2017 Status: F Source: [place] 3:47 PM [facility] REPOSITORY Order Comment: DR SINGH ORDERED RENAL ONLY PT UNABLE TO VOID TYPE CODE TESTS RESULT OUT OF RANGE REFERENCE UNITS LAB L501.4700 0.00-0.30 mg/dL Normal D BILI 0.07 Performed By: #### L500.4050, L500.4100, L501.2300, L501.4700, L501.9520 #### [facility] [address] [place], [place], [address] THYROID STIM HORMONE Collected: 12/17/2017 Status: F Source: [place] ([facility]) 3:47 PM [facility] REPOSITORY Order Comment: DR SINGH ORDERED RENAL ONLY PT UNABLE TO VOID TYPE CODE TESTS RESULT OUT OF RANGE REFERENCE UNITS LAB L501.9520 0.358-3.74 uIU/mL Normal TSH 1.21 Performed By: #### L500.4050, L500.4100, L501.2300, L501.4700, L501.9520 #### [facility] [address] [place], [address] VITAMIN D,25 HYDROXY Collected: 12/17/2017 Status: F Source: [place] 3:47 PM [facility] REPOSITORY TYPE CODE TESTS RESULT OUT OF RANGE REFERENCE UNITS LAB L506.1000 29.95-100.01 ng/mL Normal Vitamin D 48.4 25-OH Result Comment: Vitamin D 25(OH) Status Range Deficiency <20 ng/mL (50nmol/L) Insuffciency 20 - 30 ng/mL (50 - 75 nmol/L) Sufficiency 30 - 100 ng/mL (75 - 250 nmol/L) Toxicity >100 ng/mL (>250 nmol/L) Performed By: #### L506.1000 #### [facility] [address] [place], [address] PTHIN Collected: 12/17/2017 Status: F Source: [place] 3:47 PM [facility] REPOSITORY TYPE CODE TESTS RESULT OUT OF RANGE REFERENCE UNITS LAB L509.1000 18.4-80.1 pg/mL High PTHIN 138.6 Performed By: #### L509.1000 #### [facility] [address] [place], [address] DISCHARGE INSTRUCTION Observed: 12/12/2017 Status: F Source: [place] 7:52 AM [facility] REPOSITORY [facility] Medical Records Department [address] [place] [place] [address] Instructions for Home/Discharge Instructions 12/12/17 0748 MR#: [id number] Acct: [id number] Name: CELESTE DESOUZA Rep #: [id number] : 1950 67 From: John Julio MD [...] call your doctor's office or Doctor's Registry ([phone]) Call 911 or go to the nearest [...] 12/12/2017 Status: F Source: [place] 12:12 AM [facility] REPOSITORY [facility] Imaging Services [address] [place] [address] Chest 1 View MR#: [id number] Acct: [id number] Name: CELESTE DESOUZA Rep #: [id number] : 1950 F 67 From: Rell Yanez MD PCP: Rigo Mckinney MD, Chi Status: [place] [facility] [place]: Chest 1 View Date of Exam: 12/12/17 Exam# [id number] Ordering Dr: John Julio MD STUDY: X-RAY CHEST REASON FOR EXAM: Female, 67 years old. Pacemaker insertion TECHNIQUE: Single frontal view of the chest. # of Images: 1 COMPARISON: 12/12/2017 FINDINGS: Dual-chamber pacemaker on the left. Leads overlie the appropriate positions. No pneumothorax. Stable left basilar atelectasis. Evolving central vascular congestion. There is no demonstrated pleural abnormality. Normal size heart. Normal mediastinum and roal. Normal visualized pulmonary arteries. Normal visualized aortic [...] CC: John Julio MD; Rigo Mckinney MD Planning Assistant: Signed CHEST PA AND LATERAL Observed: 12/12/2017 Status: F Source: [place] 12:00 AM [facility] REPOSITORY [facility] Imaging Services [address] [place] [address] Chest PA and Lateral MR#: [id number] Acct: [id number] Name: CELESTE DESOUZA Rep #: [id number] : 1950 F 67 From: Rell Yanez MD PCP: Rgio Mckinney MD, Chi Status: [facility] Study: Chest PA and Lateral Date of Exam: 12/12/17 Exam# [id number] Ordering Dr: John Julio MD STUDY: X-RAY [...] CC: John Julio MD; Rigo Mckinney MD Planning Assistant: Signed ECHOCARDIOGRAM COMPLETE Observed: 12/10/2017 Status: F Source: [place] 5:10 PM [facility] REPOSITORY [facility] Cardiovascular [place] [address] Echo Complete 12/10/17 1427 MR#: [id number] Acct: [id number] Name: CELESTE DESOUZA Rep #: [id number] : 1950 67 From: John Julio MD Attending Dr: Rigo Mckinney MD, Chi Status: REG CLI Ordering Dr: John Julio MD Date: 12/10/17 Location: [place] Sex: F C Admitted: Reason For Study: [...] Doppler Measurements AND Calculations MV E max josephine: 156.2 cm/sec Ao V2 max: 186.5 cm/sec [...] Date Dictated: 12/10/17 142 Date Transcribed: 12/10/171709 Planning Assistant: Signed URINALYSIS, COMPLETE Collected: 12/10/2017 Status: F Source: [place] 1:51 PM [facility] REPOSITORY Order Comment: How was Urine Obtained? [...] AMORPHOUS URATE Performed By: #### L400.0001 #### [facility] [address] [place], [address] CARDIOLOGY VISIT Observed: 12/10/2017 Status: F Source: [place] REPORT 11:50 AM [facility] REPOSITORY [facility] [address] [place] [address] OFFICE VISIT Date of Service: 12/10/17 MR#: [id number] Acct: [id number] Name: CELESTE DESOUZA Rep #: [id number] : 1950 Provider: John Julio MD Age/Sex: 67/F Location: [facility] Status: Signed HPI HPI Chief Complaint: Initial [...] F Source: [place] PROFILE (BMP) 10:53 AM [facility] REPOSITORY Order Comment: 'TROP' Serial specimen #1, [...] Performed By: #### L500.2500, L501.3620, L501.4010 #### [facility] [address] [place], [address] CPK TOTAL, CREATINE Collected: 12/10/2017 Status: F Source: [place] KINASE 10:53 AM [facility] REPOSITORY Order Comment: 'TROP' Serial specimen #1, #2, #3, or #4: 1 TYPE CODE TESTS RESULT OUT OF RANGE REFERENCE UNITS LAB L501.3620 26-192 U/L Normal CPK TOTAL 57 Performed By: #### L500.2500, L501.3620, L501.4010 #### [facility] [address] [place], [place], [address] TROPONIN-I Collected: 12/10/2017 Status: F Source: [place] 10:53 AM [facility] REPOSITORY Order Comment: 'TROP' Serial specimen #1, #2, #3, or #4: 1 TYPE CODE TESTS RESULT OUT OF RANGE REFERENCE UNITS LAB L501.4010 <0.045 ng/mL Normal < 0.015 TROPONIN-I Result Comment: TROPONIN-I EXPECTED VALUES <0.045 Negative 0.045 - 0.590 Consistent with Cardiac Damage > OR = 0.600 Critical Value Not every elevated troponin is indicative of MT. These values should be used with clinical judgement in examining the patient's clinical picture for diagnosis. To establish a diagnosis of MT versus myocardial injury, there must be a demonstrated rise and/or fall in the troponin values, in addition to ischemic symptoms, EKG changes, new regional wall motion abnormality, and/or angiographical evidence. PLEASE NOTE: REFERENCE RANGES EDITED 17 Performed By: #### L500.2500, L501.3620, L501.4010 #### [facility] [address] [place], [address] MYOGLOBIN, SERUM Collected: 12/10/2017 Status: F Source: [place] 10:53 AM [facility] REPOSITORY TYPE CODE TESTS RESULT OUT OF RANGE REFERENCE UNITS LAB L3600.5100 25-58 ng/mL High 64 Myoglobin, Ser Result Comment: Performed at: - [facility] [id number] Pad Machine Offbearer: Mega Blanca PhD, Phone: [phone] Performed By: #### L3600.5100 #### [facility] (refer to report for specific site) refer to report for address and phone number CTA CHEST W/WO Observed: 12/10/2017 Status: F Source: [place] CONTRAST 8:33 AM [facility] REPOSITORY [facility] Imaging Services [address] [place] [address] CTA Chest W/WO Contrast MR#: [id number] Acct: [id number] Name: CELESTE DESOUZA Rep #: [id number] : 1950 F 67 From: Sean Bush DO PCP: Rigo Mckinney MD, Chi Status: REG CLI Study: CTA Chest W/WO Contrast Date of Exam: 12/10/17 Exam# [id number] Ordering Dr: Rigo Mckinney MD STUDY: CTA [...] Service support , CC: Rigo Mckinney MD Planning Assistant: Signed CHEST PA AND LATERAL Observed: 12/09/2017 Status: F Source: [place] 4:13 PM [facility] REPOSITORY [facility] Imaging Services [address] [place] [address] Chest PA and Lateral MR#: [id number] Acct: [id number] Name: CELESTE DESOUZA Rep #: [id number] : 1950 F 67 From: Christopher Waddell DO PCP: Rigo Mckinney MD, Chi Status: REG CLI Study: Chest PA and Lateral Date of Exam: 12/09/17 Exam# [id number] Ordering Dr: Rigo Mckinney MD STUDY: X-RAY [...] Christopher Waddell DO at 18:32 EDT Tel [phone], Service support , CC: Rigo Mckinney MD Planning Assistant: Signed CBC-COMPLETE BLOOD CNT Collected: 12/09/2017 Status: F Source: [place] NO DIFF 3:58 PM [facility] REPOSITORY TYPE CODE TESTS RESULT OUT OF [...] MPV 11.2 Performed By: #### L100.0500 #### [facility] [place], [address] BASIC METABOLIC Collected: 12/09/2017 Status: F Source: [place] PROFILE (BMP) 3:58 PM [facility] REPOSITORY TYPE CODE TESTS RESULT OUT OF [...] Performed By: #### L500.2500, L501.3620, L501.9520 #### [facility] [address] [place], [place], [id number] CPK TOTAL, CREATINE Collected: 12/09/2017 Status: F Source: [place] KINASE 3:58 PM [facility] REPOSITORY TYPE CODE TESTS RESULT OUT OF RANGE REFERENCE UNITS LAB L501.3620 26-192 U/L Normal CPK TOTAL 60 Performed By: #### L500.2500, L501.3620, L501.9520 #### [facility] [address] [place], [address] THYROID STIM HORMONE Collected: 12/09/2017 Status: F Source: [place] (TSH) 3:58 PM [facility] REPOSITORY TYPE CODE TESTS RESULT OUT OF RANGE REFERENCE UNITS LAB L501.9520 0.358-3.74 uIU/mL Normal TSH 0.90 Performed By: #### L500.2500, L501.3620, L501.9520 #### [facility] [address] [place], [address] BNP,B-TYPE NATRIURETIC Collected: 12/09/2017 Status: F Source: [place] PEPTIDE 3:58 PM [facility] REPOSITORY TYPE CODE TESTS RESULT OUT OF RANGE REFERENCE UNITS LAB L503.6620 0-100 pg/mL High B-TYPE 606.2 NIC PEP Performed By: #### L503.6620 #### [facility] [address] [place], [address] D-DIMER QUANTITATIVE Collected: 12/09/2017 Status: F Source: [place] (DVT/PE) 3:58 PM [facility] REPOSITORY TYPE CODE TESTS RESULT OUT OF [...] SAME . Performed By: #### L300.8000 #### [facility] [address] [place], [address] MYOGLOBIN, SERUM Collected: 12/09/2017 Status: F Source: [place] 3:58 PM [facility] REPOSITORY TYPE CODE TESTS RESULT OUT OF RANGE REFERENCE UNITS LAB L3600.5100 25-58 ng/mL High 81 Myoglobin, Ser Result Comment: Performed at: - [facility] [address] [id number] Pad Machine Offbearer: Mega Blanca PhD, Phone: [phone] Performed By: #### L3600.5100 #### [facility] (refer to report for specific site) refer to report for address and phone number PROGRESS Observed: 10/07/2017 Status: COMPLETED Source: [place] 4:16 PM [facility] [place] REPOSITORY HNO ID: [id number] Author: Yamilet Magana MD Service: (none) Author Type: Physician Type: Progress Notes Filed: 10/08/2017 3:53 PM Note Text: Celeste Desouza is a 67 year old who presents for her annual gynecologic exam without complaints. Thorough past history obtained/updated/reviewed with today's visit. Pt states there are no significant changes to her past medical and surgical history. Machine Technician offered: Patient declines. ABN discussed- her supplemental [...] external genitalia normal, normal Bartholin's glands, urethra, [place]'s glands, no vulvar lesions, physiologic discharge present, [...] MD MARREROOV Observed: 10/07/2017 Status: COMPLETED Source: [place] 3:30 PM [facility] REPOSITORY Office Visit (OBGMEM) CELESTE DESOUZA ([id number]) 1950 F Date Time Provider Department 10/07/17 [...] to her past medical and surgical history. Machine Technician offered: Patient declines. ABN discussed- her supplemental [...] external genitalia normal, normal Bartholin's glands, urethra, [place]'s glands, no vulvar lesions, physiologic discharge present, [...] salmon and sardines and vegetables, such as Algerian cabbage, kale, and broccoli. Foods fortified with [...] acid, calcium carbonate is found in some cfeh-yod-wgbqecb antacid products, such as Tums? and Rolaids?. [...] health screening schedule is recommended by the [place] [employer]ne[employer] (ACOG). Some [...] for screening mammogram for breast cancer [Z12.31] Order(s):[facility] SCREENING W JULIO [[id number]] Order #: [id number] FUTURE Prescriptions as of 10/07/2017 Sig: VITAMIN [...] FOR* Tubular adenoma [D36.9] INVALID FOR* More... Kabfi-qk-sswhnzh kidney injury (HCC) [N17.9, N1*INVALID FOR*09/05/2017 Anemia [...] salmon and sardines and vegetables, such as Algerian cabbage, kale, and broccoli. Foods fortified with [...] acid, calcium carbonate is found in some eccj-fiu-xkupgqr antacid products, such as Tums? and Rolaids?. [...] health screening schedule is recommended by the [place] [employer] (ACOG). Some [...] BASIC METABOLIC Collected: 10/06/2017 Status: F Source: [place] PROFILE (BMP) 4:57 PM [facility] REPOSITORY TYPE CODE TESTS RESULT OUT OF [...] 6 Performed By: #### L500.2500, L500.4100 #### [facility] [address] [place], [place], [id number] LIPID PROFILE Collected: 10/06/2017 Status: F Source: [place] 4:57 PM [facility] REPOSITORY TYPE CODE TESTS RESULT OUT OF [...] 43 Performed By: #### L500.2500, L500.4100 #### [facility] [address] [place], [address] RENAL PROFILE Collected: 09/16/2017 Status: F Source: [place] 3:57 PM [facility] REPOSITORY TYPE CODE TESTS RESULT OUT OF [...] CO2 28.0 Performed By: #### L500.3600 #### [facility] [address] [place], [address] PTHIN Collected: 09/16/2017 Status: F Source: [place] 3:57 PM [facility] REPOSITORY TYPE CODE TESTS RESULT OUT OF RANGE REFERENCE UNITS LAB L509.1000 18.4-80.1 pg/mL High PTHIN 160.7 Performed By: #### L509.1000 #### [facility] [address] [place], [address] LUMBAR SPINE 2 OR 3 Observed: 09/16/2017 Status: F Source: [place] VIEWS 12:02 PM [facility] REPOSITORY [facility] Imaging Services [address] [facility] [place] [address] Lumbar Spine 2 or 3 Views MR#: [id number] Acct: [id number] Name: CELESTE DESOUZA Rep #: [id number] : 1950 F 67 From: Matias Hussein MD PCP: OUT OF [facility] DOCTOR Status: REG CLI Study: Lumbar Spine 2 or 3 Views Date of Exam: 09/16/17 Exam# [id number] Ordering Dr: Rigo Mckinney MD STUDY: X-RAY [...] OUT OF TOWN DOCTOR; Rigo Mckinney MD Planning Assistant: Signed CASE MANAGEM Observed: 09/05/2017 Status: COMPLETED Source: [place] 4:07 PM CLINIC OTHER CAMPUS REPOSITORY O ID: [id number] Author: Amanda Buckner (Sw) Service: Care Management Author Type: Regulated Program Manager Type: Care Mgt Progress Note Filed: 09/05/2017 [...] ED to Hosp-Admission (Current) from 09/02/2017 in [facility] Follow-Up Appointment Specialty PCP Provider Name Rigo Mckinney MD Address [address] [place] [address], [facility] [address] Mckinney's office will contact [...] prior to CM discussing d/c with pt. [facility] scheduled [facility] follow up appt. No identified skilled needs. Summary of care sent to PCP via [facility]. SIGNATURE: Amanda Buckner MSW, MEAT HOSTESS PATIENT NAME: Celeste Desouza DATE: September 05, 2017 TIME: 4:07 PM PAGER/CONTACT #: [phone] CNDS Observed: 09/05/2017 Status: COMPLETED Source: [place] 3:50 PM CLINIC OTHER CAMPUS REPOSITORY HNO ID: [id number] Author: Janet Patterson Service: Hospital Medicine Author [...] (including losartan) was recently stopped by her security monitor. Cr on admission Was 4.61.It was 2.22 on 08/13/17. Last baseline 01/25/17 was 1.4 Renal U/S was negative. Kidney numbers improved with intravenous hydration. Her medications were adjusted Per renal dosing. Cr at discharge was 3.34. She was seen by the security monitor who recc continuing the IVF, adjusted her BP meds. She belives the tremors is due to tramadol./neurontin And plans to wean her off the medication during f/up.. The security monitor recommends f/up in a week. She was [...] stage 5, GFR less than 15 ml/min ([facility]) Resolved Problems: Ogjpm-wh-fssjwuz kidney injury (HCC) Hyperchloremic metabolic acidosis Hypernatremia [...] to call for appointment?: Yes Rigo Mckinney [phone] [address] PCP Requested Referral Follow-Up Appointment When: In 5 days Luciana Singh I [phone] [facility] [address] [facility] [address] [address] PCP Requested Referral Additional Provider to Provider Information: See discharge instructions FOLLOW-UP APPOINTMENTS ALREADY SCHEDULED WITH A [facility] PROVIDER: Future Appointments Date Time Provider Department Center 10/07/2017 3:30 PM Yamilet Magana MD [facility] 11/14/2017 1:40 PM [facility] Discharge Information Row Name ED to Hosp-Admission (Discharged) from 09/02/2017 in [facility] Medical Follow-Up Appointment Specialty PCP Provider Name Rigo Mckinney MD Address [address] [facility] [address], [facility] [address] Mckinney's office will contact [...] Performed By: #### CBC, BMP, MG1 #### [facility] [address] [facility] [phone] BASIC METABOLIC PANL Collected: 09/05/2017 Status: F Source: [place] 4:43 AM [facility] OTHER CAMPUS REPOSITORY TYPE CODE TESTS RESULT OUT OF REFERENCE UNITS RANGE LAB GLU 74-99 mg/dL High Glucose 106 Result Comment: The [place] Diabetes Association (ADA) provides guidance for cutoff [...] Standards of Medical Care in Diabetes 2016, [place] Diabetes Association. Diabetes Care. 2016.39(Suppl 1). LAB [...] has been calibrated to be traceable to IDWA. An eGFR <60 mL/min/1.73m2 for >3 months is consistent with chronic kidney disease. Refer to KDOQI guidelines for clinical interpretation. In patients with unstable renal function, e.g. those with acute kidney injury, the eGFR may not accurately reflect actual GFR. Performed By: #### CBC, BMP, MG1 #### [facility] [address] [place] [address] MAGNESIUM Collected: 09/05/2017 Status: F Source: [place] 4:43 AM [facility] REPOSITORY TYPE CODE TESTS RESULT OUT OF REFERENCE UNITS RANGE LAB MG 1.7-2.3 mg/dL Magnesium 1.8 Performed By: #### CBC, BMP, MG1 #### [facility] [address] [facility] [phone] NURSING PROG Observed: 09/05/2017 Status: COMPLETED Source: [place] 3:09 AM [facility] REPOSITORY HNO ID: [id number] Author: Carlota (Rn) SAUL Fernandze Service: (none) Author Type: Registered Nurse Type: Nursing Progress Note Filed: 09/05/2017 3:13 AM Note Text: Nursing Progress Note Patient Name: Celeste Desouza Patient Location: [facility]/[id number] Daily Note: Patient calls for assist to [...] RN CNCO Observed: 09/05/2017 Status: COMPLETED Source: [place] 12:00 AM [facility] OTHER [place] REPOSITORY Letter Text September 05, 2017 Celeste Desouza [address] [place] [address] Dear Ms. Desouza, The nurses and staff of [facility] hope this letter finds you feeling [...] free to contact me, Domonique Narvaez RN ([phone]) or email me at, [email or web address] Additionally, you will receive a survey [...] participation and thank you for choosing the [facility] for your health needs. Sincerely, Nurse Ur Coordinator: Domonique Narvaez RN ([phone]) [facility] Unit: [address] [facility] CASE MANAGEM Observed: 09/04/2017 Status: COMPLETED Source: [place] 3:01 PM [facility] OTHER CAMPUS REPOSITORY HNO ID: [id number] Author: Amanda Buckner (Sw) Service: Care Management Author Type: Regulated Program Manager Type: Care Mgt Progress Note Filed: 09/04/2017 [...] 04, 2017 TIME: 3:01 PM PAGER/CONTACT #: [phone] NUTRITION Observed: 09/04/2017 Status: COMPLETED Source: [place] 2:57 PM CLINIC OTHER CAMPUS REPOSITORY HNO ID: [id number] Author: Nikia Dominique) Sierra Service: Nutrition Therapy [...] no Admitting Diagnosis: Acute renal failure (ARF) ([facility]) [N17.9] Present Diet Order: Heart Healthy 2 [...] PM NUTRITION Observed: 09/04/2017 Status: COMPLETED Source: [place] 2:55 PM [facility] OTHER [place] REPOSITORY HNO ID: [id number] Author: Nikia Esquivel Service: Nutrition Therapy Author [...] PM PROGRESS Observed: 09/04/2017 Status: COMPLETED Source: [place] 12:10 PM [facility] OTHER [place] REPOSITORY HNO ID: [id number] Author: Luciana Singh I Service: Nephrology Author [...] PM PROGRESS Observed: 09/04/2017 Status: COMPLETED Source: [place] 11:09 AM CLINIC OTHER CAMPUS REPOSITORY HNO ID: [id number] Author: Janet Patterson Service: Hospital Medicine Author [...] and imaging results. Assessment/Plan Active Problems: ? Vjnns-dq-eqmuhzk kidney injury (HCC) POA: Yes ?Assessment AND?Plan: [...] VTE Prophylaxis/Anticoagulants 09/02/17 1645 pneumatic compression stockings (pa,sd) 09/02/17 1645 activity - mobilize patient ([place], [place]) VTE Prophylaxis: VTE prophylaxis appropriate SIGNATURE: Janet Patterson MD PATIENT NAME: Celeste Desouza DATE: September 04, 2017 TIME: 11:09 AM PAGER: [phone] CBC Collected: 09/04/2017 Status: F Source: [place] 4:57 AM CLINIC OTHER CAMPUS REPOSITORY TYPE [...] Performed By: #### CBC, MG1, RFP #### [facility] [address] [facility] [phone] MAGNESIUM Collected: 09/04/2017 Status: F Source: [place] 4:57 AM CLINIC OTHER CAMPUS REPOSITORY TYPE CODE TESTS RESULT OUT OF REFERENCE UNITS RANGE LAB MG 1.7-2.3 mg/dL Magnesium 2.1 Performed By: #### CBC, MG1, RFP #### [facility] [address] [facility] [phone] RENAL FUNCTION PANEL Collected: 09/04/2017 Status: F Source: [place] 4:57 AM CLINIC OTHER CAMPUS REPOSITORY TYPE CODE TESTS RESULT OUT OF REFERENCE UNITS RANGE LAB ALB 3.9-4.9 g/dL Low Albumin 3.7 LAB CA 8.5-10.2 mg/dL Calcium, Total 9.2 LAB PHOS 2.7-4.8 mg/dL Phosphorus 4.2 LAB GLU 74-99 mg/dL Glucose 99 Result Comment: The [place] Diabetes Association (ADA) provides guidance for cutoff [...] Standards of Medical Care in Diabetes 2016, [place] Diabetes Association. Diabetes Care. 2016.39(Suppl 1). LAB [...] Performed By: #### CBC, MG1, RFP #### [facility] [address] [place] [address] NURSING PROG Observed: 09/04/2017 Status: COMPLETED Source: [place] 12:10 AM [facility] REPOSITORY HNO ID: [id number] Author: Ely (Rn) SAUL Navas Service: (none) Author Type: Registered Nurse Type: Nursing Progress Note Filed: 09/04/2017 2:11 AM Note Text: Nursing Progress Note Patient Name: Celeste Desouza Patient Location: [place] [address]/DJ-[id number] Daily Note:Pt assessment completed at this time. Pt c/o restless legs, but improving. Pt with no further complaints or other needs at this time. Pt aware to call for any needs. Pts call light and belongings within reach. This note was completed by: Ely Navas CREATININE,URINE,RAN Collected: Status: F Source: [place] 09/03/2017 5:45 PM [facility] REPOSITORY TYPE CODE TESTS RESULT OUT OF RANGE REFERENCE UNITS LAB UCRR 20-300 mg/dL Low 18.0 Creatinine,U rine,Ran Performed By: #### UCRR, UNAR #### [facility] [address] [place] [address] SODIUM,URINE,RANDOM Collected: Status: F Source: [place] 09/03/2017 5:45 PM CLINIC OTHER CAMPUS REPOSITORY TYPE CODE TESTS RESULT OUT OF RANGE REFERENCE UNITS LAB UNAR 14-216 mmol/L 76 Sodium,Urine ,Random Performed By: #### UCRR, UNAR #### [facility] [address] [facility] [phone] CONSULT Observed: 09/03/2017 Status: COMPLETED Source: [place] 4:20 PM CLINIC OTHER CAMPUS REPOSITORY HNO ID: [id number] Author: Luciana Singh I Service: Nephrology Author [...] see her prior PCP Dr Aldrich from [facility] for coarse tremors that started in [...] 03, 2017 TIME: 4:21 PM PAGER/CONTACT #: [phone] PROGRESS Observed: 09/03/2017 Status: COMPLETED Source: [place] 1:39 PM CLINIC OTHER CAMPUS REPOSITORY HNO ID: [id number] Author: Janet Patterson Service: Hospital Medicine Author [...] and imaging results. Assessment/Plan Active Problems: ? Gcvfz-en-cwmnjwm kidney injury (HCC) POA: Yes Assessment AND [...] VTE Prophylaxis/Anticoagulants 09/02/17 1645 pneumatic compression stockings (pa,sd) 09/02/17 1645 activity - mobilize patient ([place], [place]) VTE Prophylaxis: VTE prophylaxis appropriate SIGNATURE: Janet Patterson MD PATIENT NAME: Celeste Desouza DATE: September 03, 2017 TIME: 1:39 PM PAGER: [phone] CBC Collected: 09/03/2017 Status: F Source: [place] 6:26 AM CLINIC OTHER CAMPUS REPOSITORY TYPE [...] Performed By: #### CBC, BMP, MG1 #### [facility] [address] [facility] [phone] BASIC METABOLIC PANL Collected: 09/03/2017 Status: F Source: [place] 6:26 AM CLINIC OTHER CAMPUS REPOSITORY TYPE CODE TESTS RESULT OUT OF REFERENCE UNITS RANGE LAB GLU 74-99 mg/dL Glucose 92 Result Comment: The [place] Diabetes Association (ADA) provides guidance for cutoff [...] Standards of Medical Care in Diabetes 2016, [place] Diabetes Association. Diabetes Care. 2016.39(Suppl 1). LAB [...] Performed By: #### CBC, BMP, MG1 #### [facility] [address] [place] [address] MAGNESIUM Collected: 09/03/2017 Status: F Source: [place] 6:26 AM [facility] OTHER [place] REPOSITORY TYPE CODE TESTS RESULT OUT OF REFERENCE UNITS RANGE LAB MG 1.7-2.3 mg/dL High Magnesium 2.5 Performed By: #### CBC, BMP, MG1 #### [facility] [address] [place] [address] URINALYSIS Collected: 09/02/2017 Status: F Source: [place] 10:25 PM [facility] OTHER [place] REPOSITORY TYPE CODE TESTS RESULT OUT OF RANGE REFERENCE UNITS LAB UCOL Yellow Color Abnormal Straw Alert LAB [facility] Clear Clarity Clear LAB UGLUC Negative mg/dL Glucose, Urine Negative LAB UBIL Negative Bilirubin, Urine Negative LAB UKET Negative Ketones, Urine Negative LAB USPG 1.001-1.029 Specific [place], Ur <=1.005 LAB UHGB Negative Hemoglobin/Blood, Negative Ur LAB UPH 5.0-8.0 pH 6.0 LAB UPROT Negative mg/dL Protein, Urine Negative LAB UUROB 0.2-1.0 Urobilinogen 0.2 LAB UNITR Negative Nitrites Negative LAB ULKEST Negative Leukest Negative Performed By: #### UA #### [facility] [address] [place] [id number] US KIDNEY/BLADDER Observed: 09/02/2017 Status: F Source: [place] 6:41 PM [facility] OTHER CAMPUS REPOSITORY * * *Final [...] patient body habitus and overlying bowel gas Planning Assistant[facility] Transcribe Date/Time: Sep 02 2017 7:33P Dictated by : NATHAN QUINONES MD This examination was interpreted and the report reviewed and electronically signed by: NATHAN QUINONES MD on Sep 02 2017 7:36PM EST [id number] XR CHEST 1V FRONTAL Observed: 09/02/2017 Status: F Source: [facility] 5:01 PM CLINIC OTHER CAMPUS REPOSITORY [...] Cardiomediastinal silhouette: Normal cardiomediastinal silhouette. Other: . Planning Assistant: [facility] Transcribe Date/Time: Sep 02 2017 5:07P Dictated by : HATTIE ROBINS MD This examination was interpreted and the report reviewed and electronically signed by: HATTIE ROBINS MD on Sep 02 2017 5:07PM EST [id number] HISTORY PHYSICAL Observed: 09/02/2017 Status: COMPLETED Source: [place] 4:09 PM CLINIC OTHER CAMPUS REPOSITORY HNO ID: [id number] Author: Janet Carreon Kayceeolivachandnicora Service: Hospital Medicine [...] labs and imaging results. Assessment/Plan Active Problems: Ucxfq-ts-rxvlzjs kidney injury (HCC) POA: Yes Assessment AND [...] 02, 2017 TIME: 4:09 PM PAGER/CONTACT #: [phone] ED NOTE Observed: 09/02/2017 Status: COMPLETED Source: [place] 2:42 PM CLINIC OTHER CAMPUS REPOSITORY HNO ID: [id number] Author: Jaelyn Alcaraz) SAUL Reveles Service: (none) Author Type: Registered Nurse Type: ED Notes Filed: 09/02/2017 2:42 PM Note Text: report given to Carlota HUGHES. ED NOTE Observed: 09/02/2017 Status: COMPLETED Source: [place] 2:40 PM CLINIC OTHER CAMPUS REPOSITORY HNO ID: [id number] Author: Jaelyn Alcaraz) SAUL Reveles Service: (none) Author Type: Registered Nurse Type: ED Notes Filed: 09/02/2017 2:40 PM Note Text: Report called to [facility] pt updated to POC and agreeable to admission. CASE MGT INIT Observed: 09/02/2017 Status: COMPLETED Source: [facility] 2:27 PM CLINIC OTHER CAMPUS REPOSITORY HNO ID: [id number] Author: Marely (Rn) SAUL Acosta Service: (none) Author Type: Registered Nurse Type: Care Mgt Initial Assessment Filed: 09/02/2017 3:37 PM Note Text: CARE MANAGEMENT: ASSESSMENT AND DISCHARGE PLAN SERVICE DATE: 09/02/2017 SERVICE TIME: 2:27 PM teen counselor met with patient, patient spouse and friend [...] prefers afternoon appointments. ADMISSION STATUS: Emergency MEDICAL: Patient/Cloth Seconds Sorter Stated Goals: To return home to life as it was Health Insurance: MEDICARE A AND B and [employer] Health Issues Impacting Discharge Plan: Acute Renal Failure Last Admission Date: Previous admit date: 09/26/2011 Is this Within the Past 30 days? No Advance Directive: Current Advance Directive: Health Care Power of Cop Winder;Living Will In Chart: No Health Literacy: 1. [...] None Has the Patient Been in a Intermediate Facility in the Past 30 days? No SOCIAL: Living Arrangement: Home Lives With: Spouse Financial Resources: Retired Primary Contact: [place] [address] [place] Mobile Relation: Spouse Zhang Desouza Address: [address] [place] [address] [place] [address] Relation: Son Krunal Desouza Relation: Son Supportive: [...] 0 I feel financially burdened by my nsg-jb-boocwg expenses for my prescription medication: Disagree completely [...] Primary Care Physician: Rigo Mckinney MD - [facility] Summary of Care to be sent at discharge. SIGNATURE: Marely Acosta RN PATIENT NAME: Celeste Desouza DATE: September 02, 2017 TIME: 2:27 PM PAGER/CONTACT #: [phone] ED NOTE Observed: 09/02/2017 Status: COMPLETED Source: [place] 2:23 PM CLINIC OTHER CAMPUS REPOSITORY HNO ID: [id number] Author: Jaelyn Alcaraz) SAUL Reveles Service: (none) Author Type: Registered Nurse Type: ED Notes Filed: 09/02/2017 2:24 PM Note Text: 10 minute report called ED NOTE Observed: 09/02/2017 Status: COMPLETED Source: [place] 2:00 PM CLINIC OTHER CAMPUS REPOSITORY HNO ID: [id number] Author: Jaelyn GomezRn) Abdirizak RN Service: (none) Author Type: Registered Nurse Type: ED Notes Filed: 09/02/2017 2:42 PM Note Text: Pt is resting comfortably in bed with call light in reach. Pt updated on plan of care. Bed is locked and in the lowest position. Pt is stable. No acute distress. Will continue to monitor. ED NOTE Observed: 09/02/2017 Status: COMPLETED Source: [place] 1:30 PM [facility] OTHER CAMPUS REPOSITORY HNO ID: [id number] Author: Jaelyn Alcaraz) SAUL Reveles Service: (none) Author Type: Registered Nurse Type: ED Notes Filed: 09/02/2017 2:43 PM Note Text: Pt is resting comfortably in bed with call light in reach. Pt updated on plan of care. Bed is locked and in the lowest position. Pt is stable. No acute distress. Will continue to monitor. URINALYSIS Collected: 09/02/2017 Status: F Source: [place] 1:00 PM [facility] OTHER CAMPUS REPOSITORY TYPE CODE TESTS RESULT OUT OF RANGE REFERENCE UNITS LAB UCOL Yellow Color Yellow LAB [facility] Clear Clarity Clear LAB UGLUC Negative mg/dL Glucose, Urine Negative LAB UBIL Negative Bilirubin, Urine Negative LAB UKET Negative Ketones, Urine Negative LAB USPG 1.001-1.029 Specific [place], Ur <=1.005 LAB UHGB Negative Hemoglobin/Blood, Negative Ur LAB UPH 5.0-8.0 pH 6.0 LAB UPROT Negative mg/dL Protein, Urine Negative LAB UUROB 0.2-1.0 Urobilinogen 0.2 LAB UNITR Negative Nitrites Negative LAB ULKEST Negative Leukest Abnormal Trace Alert Performed By: #### UA, UAMIC #### [facility] [address] [facility] [phone] URINE MICROSCOPIC Collected: 09/02/2017 Status: F Source: [place] (FOR LAB USE ONLY) 1:00 PM [facility] OTHER CAMPUS REPOSITORY TYPE CODE TESTS RESULT OUT OF REFERENCE UNITS RANGE LAB UWBC 0-5 /HPF WBC 0-5 LAB URBC 0-3 /HPF RBC 0-3 LAB UCAST 0 /LPF Cast SEE COMMENT Result Comment: 0 LAB UBACT 0 /HPF Abnormal Bacteria Alert Few LAB UEPI /HPF Epithelial Cells SEE COMMENT Result Comment: 0-5 Squamous Epithelial Cells Performed By: #### UA, UAMIC #### [facility] [address] [facility] [phone] ED NOTE Observed: 09/02/2017 Status: COMPLETED Source: [place] 12:52 PM [facility] REPOSITORY HNO ID: [id number] Author: Jaelyn Alcaraz) SAUL Reveles Service: (none) Author Type: Registered Nurse Type: ED Notes Filed: 09/02/2017 12:52 PM Note Text: Pt is resting comfortably in bed with call light in reach. Pt updated on plan of care. Bed is locked and in the lowest position. Pt is stable. No acute distress. Will continue to monitor. ED NOTE Observed: 09/02/2017 Status: COMPLETED Source: [place] 12:51 PM [facility] REPOSITORY HNO ID: [id number] Author: Jaelyn Alcaraz) SAUL Reveles Service: (none) Author Type: Registered Nurse Type: ED Notes Filed: 09/02/2017 12:51 PM Note Text: Clean catch urine specimen obtained and sent. EKG Observed: 09/02/2017 Status: F Source: [place] 12:46 PM [facility] REPOSITORY NAME : CELESTE DESOUZA PID : [id number] : 1950 Gender : Female Race : ORD : [id number] Procedure Date : Sep 02 2017 12:46:01 [...] ms QTC Calculation(Bezet) : 458 ms P [place] : 55 degrees R [place] : 26 degrees T [place] : 37 degrees Test Reason : Arrhythmia Location : 1 : ER 16 Overread By : VIRGIL VARGAS D.O. Edited By : VIRGIL VARGAS D.O. Referred By : , Acquired by : [id number], ED NOTE Observed: 09/02/2017 Status: COMPLETED Source: [place] 12:38 PM CLINIC OTHER CAMPUS REPOSITORY HNO ID: [id number] Author: Jaelyn GomezRn) SAUL Reveles Service: (none) Author Type: Registered Nurse Type: ED Notes Filed: 09/02/2017 12:38 PM Note Text: Assumed pt care and agree with previous RN assessments. ED PROV NOTE Observed: 09/02/2017 Status: COMPLETED Source: [place] 12:14 PM CLINIC OTHER [place] REPOSITORY HNO ID: [id number] Author: Inna Segovia Service: Emergency Medicine Author Type: Physician Zoning Engineer Type: ED Provider Notes Filed: 09/02/2017 2:27 PM Note Text: Attestation signed by Kenneth Roblero III, MD at 09/03/2017 8:23 AM Attending Note I have personally performed a face to face assessment of the patient and have reviewed the PA/MATLAB DEVELOPER note. My laird findings include: This is a 67-year-old female who was sent here by primary care physician for acute renal failure. Patient's creatinine is gone from 2, less than one month prior to now 4 with an elevated BUN of greater than 70. Etiology uncertain at this point time. Discussed with patient's security monitor will be admitted for further workup and [...] than baseline and she should go to [facility]. Patient states that she feels fine [...] Abs Lymph 2.29 1.00 - 4.00 k/uL Cascade% 6.6 % Abs Cascade 0.49 <0.87 k/uL Eosin% 4.7 % Abs [...] Negative Negative Ketones, Urine Negative Negative Specific [place], Ur <=1.005 1.001 - 1.029 Hemoglobin/Blood,Ur Negative [...] Afebrile. Non-toxic appearing. Patient already established with security monitor Dr. Luciana Singh and she would like to be consulted during patient's hospital admission. The patient was TRANSFERRED to: Medicine Condition at time of disposition: stable SIGNATURE: MICH Guadarrama Pa-C 09/02/17 1427 Kenneth Roblero III, MD 09/03/17 0823 CBC AND DIFFERENTIAL Collected: 09/02/2017 Status: F Source: [place] 11:50 AM CLINIC OTHER CAMPUS REPOSITORY TYPE [...] k/uL Abs Lymph 2.29 LAB AMONO % Cascade% 6.6 LAB AAMONO <0.87 k/uL Abs Cascade 0.49 LAB AEOS % Eosin% 4.7 LAB AAEOS <0.46 k/uL Abs Eosin 0.35 LAB ABASO % Baso% 0.5 LAB AABASO <0.11 k/uL Abs Baso 0.04 Performed By: #### CBCDIF, CMP, MG1 #### [facility] [address] [facility] [phone] COMP METABOLIC PANEL Collected: 09/02/2017 Status: F Source: [place] 11:50 AM CLINIC OTHER CAMPUS REPOSITORY TYPE [...] mg/dL Glucose High 111 Result Comment: The [place] Diabetes Association (ADA) provides guidance for cutoff [...] Standards of Medical Care in Diabetes 2016, [place] Diabetes Association. Diabetes Care. 2016.39(Suppl 1). LAB [...] has been calibrated to be traceable to IDWA. An eGFR <60 mL/min/1.73m2 for >3 months is consistent with chronic kidney disease. Refer to KDOQI guidelines for clinical interpretation. In patients with unstable renal function, e.g. those with acute kidney injury, the eGFR may not accurately reflect actual GFR. Performed By: #### CBCDIF, CMP, MG1 #### [facility] [address] [place], [place] [id number] MAGNESIUM Collected: 09/02/2017 Status: F Source: [place] 11:50 AM [facility] OTHER [place] REPOSITORY TYPE CODE TESTS RESULT OUT OF REFERENCE UNITS RANGE LAB MG 1.7-2.3 mg/dL High Magnesium 2.8 Performed By: #### CBCDIF, CMP, MG1 #### [facility] [address] [place], [place] [id number] PHOSPHORUS Collected: 09/02/2017 Status: F Source: [place] 11:50 AM [facility] REPOSITORY TYPE CODE TESTS RESULT OUT OF REFERENCE UNITS RANGE LAB PHOS 2.7-4.8 mg/dL High Phosphorus 5.5 Performed By: #### PHOS #### [facility] [address] [place], [place] [id number] #### PTHI #### [facility] [address] [address] PTH, INTACT Collected: 09/02/2017 Status: F Source: [place] 11:50 AM [facility] REPOSITORY TYPE CODE TESTS RESULT OUT OF REFERENCE UNITS RANGE LAB PTH 15-65 pg/mL High PTH, Intact 124 Performed By: #### PHOS #### [facility] [address] [place], [place] [id number] #### PTHI #### [facility] [address] [address] ED NOTE Observed: 09/02/2017 Status: COMPLETED Source: [place] 11:48 AM [facility] OTHER [place] REPOSITORY HNO ID: [id number] Author: Isela Alcaraz) SAUL Lezama Service: (none) Author Type: Registered Nurse Type: ED Notes Filed: 09/02/2017 11:49 AM Note Text: Patient presents to ED per doctors office. Patient was sent in for abnormal labs patient only complaint is fatigue. ED NOTE Observed: 09/02/2017 Status: COMPLETED Source: [place] 11:02 AM CLINIC OTHER CAMPUS REPOSITORY HNO ID: [id number] Author: Virgil (Rn) SAUL Bender Service: (none) Author Type: Registered Nurse Type: ED Notes Filed: 09/02/2017 11:03 AM Note Text: Pt to ED today after receiving a phone call from her PCP Dr Singh out of [facility] advising her to come to the ED for Kidney Failure. Pt sts she had blood work drawn yesterday. CBC W/DIFF, AUTOMATED Collected: 09/01/2017 Status: F Source: [place] 4:57 PM [facility] REPOSITORY TYPE CODE TESTS RESULT OUT OF [...] Lymph 2.13 Performed By: #### L100.0100 #### [facility] [address] [place], [address] VITAMIN D,25 HYDROXY Collected: 09/01/2017 Status: F Source: [place] 4:57 PM [facility] REPOSITORY TYPE CODE TESTS RESULT OUT OF RANGE REFERENCE UNITS LAB L506.1000 29.95-100.01 ng/mL Normal Vitamin D 58.8 25-OH Result Comment: Vitamin D 25(OH) Status Range Deficiency <20 ng/mL (50nmol/L) Insuffciency 20 - 30 ng/mL (50 - 75 nmol/L) Sufficiency 30 - 100 ng/mL (75 - 250 nmol/L) Toxicity >100 ng/mL (>250 nmol/L) Performed By: #### L506.1000 #### [facility] [address] [place], [address] COMPREHENSIVE METABOLIC Collected: 09/01/2017 Status: F Source: [facility] 4:57 PM [facility] REPOSITORY TYPE CODE TESTS RESULT OUT OF [...] Performed By: #### L500.4050, L501.9520, L503.6030 #### [facility] [address] [place], [place], [id number] THYROID STIM HORMONE Collected: 09/01/2017 Status: F Source: [place] ([facility]) 4:57 PM [facility] REPOSITORY TYPE CODE TESTS RESULT OUT OF RANGE REFERENCE UNITS LAB L501.9520 0.358-3.74 uIU/mL Normal TSH 0.81 Performed By: #### L500.4050, L501.9520, L503.6030 #### [facility] [address] [place], [place], [address] IRON+IRON BINDING Collected: 09/01/2017 Status: F Source: [place] CAPACITY 4:57 PM [facility] REPOSITORY TYPE CODE TESTS RESULT OUT OF RANGE REFERENCE UNITS LAB L503.6075 250-450 ug/dL TIBC Normal 316 LAB L503.6150 50-170 ug/dL IRON Normal 65 LAB L503.6250 15.0-55.0 % IRON Normal SATURATION 20.6 Performed By: #### L500.4050, L501.9520, L503.6030 #### [facility] [address] [place], [address] HEPATITIS C ANTIBODIES Collected: 09/01/2017 Status: F Source: [place] 4:57 PM [facility] REPOSITORY TYPE CODE TESTS RESULT OUT OF RANGE REFERENCE UNITS LAB L3100.0650 0.0-0.9 s/co ratio Normal HEP C AB <0.1 Result Comment: Negative: < 0.8 Indeterminate: 0.8 - 0.9 Positive: > 0.9 The CDC recommends that a positive HCV antibody result be followed up with a HCV Nucleic Acid Amplification test (158699). Performed at: [facility] [id number] Pad Machine Offbearer: Mega Blanca PhD, Phone: [phone] Performed By: #### L3100.0625 #### [facility] (refer to report for specific site) refer to report for address and phone number RENAL PROFILE Collected: 08/21/2017 Status: F Source: [place] 3:45 PM [facility] REPOSITORY TYPE CODE TESTS RESULT OUT OF [...] CO2 23.0 Performed By: #### L500.3600 #### [facility] [address] [place], [address] COMP METABOLIC PANEL Collected: 08/13/2017 Status: F Source: [place] 2:47 PM [facility] REPOSITORY TYPE CODE TESTS RESULT OUT OF REFERENCE UNITS RANGE LAB TP 6.3-8.0 g/dL Protein, Total 8.0 LAB ALB 3.9-4.9 g/dL Albumin 4.5 LAB CA 8.5-10.2 mg/dL Calcium, Total 9.6 LAB TBIL 0.2-1.3 mg/dL Bilirubin, Total 0.3 LAB ALKP 32-117 U/L Alkaline Phosphatase 89 LAB AST 13-35 U/L AST 26 LAB GLU 74-99 mg/dL Glucose High 119 Result Comment: The [place] Diabetes Association (ADA) provides guidance for cutoff [...] Standards of Medical Care in Diabetes 2016, [place] Diabetes Association. Diabetes Care. 2016.39(Suppl 1). LAB [...] GFR. Performed By: #### CMP, MG1 #### [facility] [employer] [address] [place], [place] [address] MAGNESIUM Collected: 08/13/2017 Status: F Source: [place] 2:47 PM [facility] REPOSITORY TYPE CODE TESTS RESULT OUT OF REFERENCE UNITS RANGE LAB MG 1.7-2.3 mg/dL High Magnesium 2.4 Performed By: #### CMP, MG1 #### [facility] [employer] [address] [place], [place] [address] PROGRESS Observed: 08/13/2017 Status: COMPLETED Source: [place] 1:59 PM [facility] REPOSITORY HNO ID: [id number] Author: Rell Serrano Service: (none) Author Type: Physician Type: Progress Notes Filed: 08/13/2017 5:54 PM Note Text: This note was created using SearchForceriter. Subjective Celeste Desouza is a 67 year [...] 2 diabetes mellitus without complication, unspecified whether group home insulin use (HCC) (primary encounter diagnosis) (I10) Essential hypertension (R27.8) Decreased dexterity (R25.1) Tremor (G25.81) RLS (restless legs syndrome) PLAN: Celeste was seen today for recheck. Diagnoses and all orders for this visit: Type 2 diabetes mellitus without complication, unspecified whether moth exterminator insulin use (HCC) Essential hypertension Decreased dexterity - CONSULT TO NEUROLOGY Tremor - CONSULT TO NEUROLOGY RLS (restless legs syndrome) - CONSULT TO NEUROLOGY DM under good control HTN stable No med changes. Patient is instructed to schedule a follow-up office visit in 3 months, sooner if problems arise. No Follow-up on file. Rell Serrano MD CNOV Observed: 08/13/2017 Status: COMPLETED Source: [place] 1:40 PM [facility] REPOSITORY Office Visit (INTMST) CELESTE DESOUZA ([id number]) 1950 F Date Time Provider Department 08/13/17 1:40 PM RELL SERRANO INTMST During your visit today, we recorded the following information about you: Pulse Blood pressure Weight Height 59/minute 133/65 84.4 kg 1.626 m Domonique Real Ma 08/13/2017 1:45 PM Signed [facility] FACTS [phone] LAB HOURS: Lab is open 7:30am to [...] one day prior to the scheduled exam. [facility] HOURS OF OPERATIONS Friday 8:00am to 12:00pm, Friday through 7:30am to 8:00pm, Friday 7:30am to 5:00pm. [facility] HOURS OF OPERATIONS Friday and Friday 8:00am to 4:00pm, Friday 6:00am to 9:00pm. Express care is for patients 2 years and older. [facility]ALK IN CL[facility] HOURS OF OPERATIONS Friday and Friday 8:00am to 4:00pm, Friday 6:00am to 9:00pm. The walk in clinic is for patients 6 months and older. [facility] WALK-IN HOURS HOURS OF OPERATIONS Friday and Friday 9:00am to 4:00pm, Friday 6:00am to 9:00pm. The walk in clinic is for patients 2 years and older. For [facility] LOCATIONS, HOURS OF OPERATION and CURRENT WAIT TIMES, visit the following link [email or web address] for details Rell Serrano MD 08/13/2017 5:54 PM Signed This note was created using SearchForceriter. Subjective Celeste Desouza is a 67 year [...] 2 diabetes mellitus without complication, unspecified whether moth exterminator insulin use (HCC) (primary encounter diagnosis) (I10) Essential hypertension (R27.8) Decreased dexterity (R25.1) Tremor (G25.81) RLS (restless legs syndrome) PLAN: Celeste was seen today for recheck. Diagnoses and all orders for this visit: Type 2 diabetes mellitus without complication, unspecified whether moth exterminator insulin use (HCC) Essential hypertension Decreased dexterity [...] 2 diabetes mellitus without complication, unspecified whether group home insulin use (HCC) [E11.9] Other Visit Diagnoses:Essential hypertension [I10] Decreased dexterity [R27.8] Tremor [R25.1] RLS (restless legs syndrome) [G25.81] Impaired ambulation [R26.2] Order(s):CONSULT TO NEUROLOGY [9019] Order #: [id number]: 1 COMP METABOLIC PANEL [SQCMP] Order #: [id number] FUTURE MAGNESIUM BLD [SQMG1] Order #: [id number] FUTURE tiZANidine (ZANAFLEX) 4 mg tabletTake 1 tablet by mouth three times daily as needed.Disp: 30 tabletRfl: 0 PARKING FOR HANDICAPPED [5100357] Order #: [id number] Prescriptions as of 08/13/2017 Sig: BLOOD SUGAR [...] FOR* More... Other instructions from your clinician: [facility] FACTS [phone] LAB HOURS: Lab is open 7:30am to [...] one day prior to the scheduled exam. [facility] HOURS OF OPERATIONS Friday 8:00am to 12:00pm, Friday through 7:30am to 8:00pm, Friday 7:30am to 5:00pm. [facility] HOURS OF OPERATIONS Friday 8:00am to 4:00pm, Friday 6:00am to 9:00pm. Express care is for patients 2 years and older. [facility] IN CL[facility]IC HOURS OF OPERATIONS Friday and Friday 8:00am to 4:00pm, Friday 6:00am to 9:00pm. The walk in clinic is for patients 6 months and older. [facility] WALK-IN HOURS HOURS OF OPERATIONS Friday 9:00am [...] 08/13/17 CNCO Observed: 08/11/2017 Status: COMPLETED Source: [place] 12:00 AM [facility] [place] REPOSITORY Letter Text Celeste Desouza Date this form was last completed: August 11, 2017 Name: Celeste Desouza Date of : 1950 Social Security number: [id number] [facility] Number : [id number] Current Outpatient Prescriptions: blood sugar diagnostic test [...] Primary care physician: Rell Serrano MD [facility] ALBUMIN/CREAT RATIO Collected: 07/24/2017 Status: F Source: [place] 3:38 PM [facility] [place] REPOSITORY TYPE CODE TESTS RESULT OUT OF [...] 1995, 25:107) Performed By: #### UACR #### [facility] [address] [address] HEMOGLOBIN A1C Collected: 07/24/2017 Status: F Source: [place] 10:20 AM [facility] REPOSITORY TYPE CODE TESTS RESULT OUT OF REFERENCE UNITS RANGE LAB HGBA1C 4.3-5.6 % High Hemoglobin A1c 6.6 LAB HBA0 mg/dL Est. Average Glucose 143 Result Comment: eAG: (Estimated average glucose) is a calculated value from HgbA1c and is insurance follow up representative of the average blood glucose level in the last 2-3 month period. Performed By: #### HBA1C, FERR #### [address] [place] [address] FERRITIN Collected: 07/24/2017 Status: F Source: [place] 10:20 AM [facility] REPOSITORY TYPE CODE TESTS RESULT OUT OF REFERENCE UNITS RANGE LAB FERR 14.7-205.1 ng/mL Ferritin 108.8 Performed By: #### HBA1C, FERR #### [address] [place] [address] CNCO Observed: 07/15/2017 Status: COMPLETED Source: [place] 4:28 PM [facility] OTHER CAMPUS REPOSITORY HNO ID: [id number] Author: Mammography Coordinator Service: (none) Author Type: Physician Type: Letter Filed: 07/16/2017 11:32 PM Note Text: July 15, 2017 PID: [id number] Celeste Desouza [address] [place] [address] [place] [address] Dear Ms. Desouza, We are pleased to [...] report will be kept on file at [facility] as part of your permanent medical record and are available for your continuing care. Thank you for allowing us to help in meeting your health care needs. Sincerely, Dr. Vega Interpreting Radiologist [facility]. (Normal over 40) [facility] SCREENING W JULIO Observed: 07/15/2017 Status: F Source: [place] 2:56 PM CLINIC OTHER CAMPUS REPOSITORY * * *Final Report* * * DATE OF EXAM: Jul 15 2017 2:56PM JOCELYN [id number] - [facility] SCREENING W JULIO / PROCEDURE REASON: Z12.31-Encounter for screening mammogram for malignant neoplasm of breast * * * * Physician Interpretation * * * * #[id number] - [facility] SCREENING W JULIO BILATERAL DIGITAL SCREENING MAMMOGRAM [...] dated: 04/04/2016 mammogram and 01/20/2015 mammogram - [facility]. The tissue of both breasts is heterogeneously dense. This may lower the sensitivity of mammography. There are biopsy clips in the right breast. No significant masses, calcifications, or other findings are seen in either breast. There has been no significant interval change. IMPRESSION: NEGATIVE There is no mammographic evidence of malignancy. A 1 year screening mammogram is recommended. Cindy osullivan/penrad:07/15/2017 16:28:46 Supervisor Network Control Operators: Caryn JENNINGS(Lilly)(Sara), [facility] letter sent: Normal over 40 Mammogram BI-RADS: 1 Negative Planning Assistant: Nestor Transcribe Date/Time: Jul 15 2017 2:42P Dictated by : CINDY VEGA MD This examination was interpreted and the report reviewed and electronically signed by: CINDY VEGA MD on Jul 15 2017 4:28PM EST [id number] CNCO Observed: 07/11/2017 Status: COMPLETED Source: [place] 12:00 AM [facility] REPOSITORY Letter Text Celeste Jerry Desouza [facility] [address] [place] [address] July 11, 2017 Dear Ms. Celeste Desouza, Due to a change in Dr. Serrano's schedule, it is necessary to reschedule your appointment on 07/28/17. We apologize for the inconvenience. Please call the office at [phone] to reschedule and as always thank you for choosing the [facility]. The [facility] [place] CNPN Observed: 07/08/2017 Status: COMPLETED Source: [place] 12:00 AM [facility] REPOSITORY Telephone (INTMST) CELESTE DESOUZA ([id number]) 1950 F Date Time Provider Department 07/08/17 [...] The following prescriptions have been called to [facility] 07/10/2017 at 10:05 AM by [...] and spoke to the pharmacist at [facility] and she confirmed she just got it [...] RENAL PROFILE Collected: 05/27/2017 Status: F Source: [place] 3:46 PM [facility] REPOSITORY TYPE CODE TESTS RESULT OUT OF [...] CO2 27.0 Performed By: #### L500.3600 #### [facility] [address] [place], [address] RENAL PROFILE Collected: 04/28/2017 Status: F Source: [place] 2:01 PM [facility] REPOSITORY TYPE CODE TESTS RESULT OUT OF [...] CO2 26.0 Performed By: #### L500.3600 #### [facility] [address] [facility] [place], [place], [address] RENAL PROFILE Collected: 03/28/2017 Status: F Source: [place] 2:27 PM [facility] REPOSITORY Order Comment: FAX RESULTS TO TYPE [...] CO2 26.0 Performed By: #### L500.3600 #### [facility] [address] [place], [place], [address] RENAL PROFILE Collected: 02/27/2017 Status: F Source: [place] 1:07 PM [facility] REPOSITORY TYPE CODE TESTS RESULT OUT OF [...] CO2 27.0 Performed By: #### L500.3600 #### [facility] [address] [place], [address] OBSOLETE Observed: 02/13/2017 Status: COMPLETED Source: [place] 12:00 AM [facility] REPOSITORY Refill (INTMST) BERTSuzetteMaurilioCELESTE ([id number]) 1950 F Date Time Provider Department 02/13/17 [...] The following prescriptions have been called to [facility] 02/14/2017 at 10:46 AM by Domonique [...] CODE 01/09/2018 Drug NSAIDS Had bariatric Unknown [place] [address] (Non-Steroidal surgery Community [id number]( Anti-Inflamma/F001 [facility] [place]) [address](RXNORM) Repository 04/29/2012 DRUG ASPIRIN [address] [id number](SN Repository OMED CT) 08/19/2011 DRUG ENALAPRIL OTHER: SEE [address] [id number](SN Repository OMED CT) 07/06/2010 DRUG AMITRIPTYLINE OTHER: SEE [address] [id number](SN Repository OMED CT) 07/06/2010 DRUG CLOZAPINE OTHER: SEE [address] [id number](SN Repository OMED CT) 07/06/2010 DRUG LISINOPRIL OTHER: SEE [address] [id number](SN Repository OMED CT) ENCOUNTERS ENCOUNTERS ADMIT/DISCHARGE ACCOUNT ADMITTING ENCOUNTER LOCATION SOURCE NUMBER CLASS 02/09/2018 [id number] Ambulatory [facility] ing:LAB.FUTUR Repository E 02/02/2018/02/03/20 [id number] Ambulatory [address] ing:CLSP Repository 01/23/2018 [id number] Ambulatory [facility] ing:LAB Repository 01/23/2018/01/24/20 [id number] Ambulatory BMSBuilding:B [place] 18 [facility] Repository 01/23/2018/01/24/20 [id number] Ambulatory BMSBuilding:B [place] 18 [facility] Repository 01/21/2018 [id number] Ambulatory BMSBuilding:W [facility] Hospital Repository 01/21/2018 [id number] Ambulatory [facility] Hospital ing:CVS Repository 01/09/2018/01/10/20 [id number] Ambulatory BMSBuilding:B [place] 18 [facility] Hospital Repository 01/08/2018 [id number] Ambulatory BMSBuilding:B [place] Hospital Repository 01/05/2018 [id number] [facility]LAB[facility] Repository E 12/24/2017 [id number] Ambulatory [facility] Hospital ing:POLAB3 Repository 12/17/2017 [id number] Ambulatory [facility] Hospital[facility] Hospital ing:POLAB3 Repository 12/17/2017/12/18/19 [id number] Ambulatory BMSBuilding:B [place] 18 [facility] Hospital Repository 12/12/2017 [id number] Ambulatory BMSBuilding:B [place] MS.[facility] Hospital Repository 12/11/2017/12/13/19 [id number] John Julio Amb[address] ing:PCURoom: Repository [id number]: 1 12/11/2017 [id number] Ambulatory BMSBuilding:W [facility] Hospital Repository 12/10/2017 [id number] Ambulatory BMSBuilding:B [place] MS.[facility] Hospital Repository 12/10/2017 [id number] Ambulatory [facility] HospitalBuild Hospital ing:CVS Repository 12/10/2017/12/11/19 [id number] Ambulatory BMSBuilding:B [place] 18 [facility] Hospital Repository 12/10/2017 [id number] Ambulatory [facility] HospitalBuild Hospital ing:CT Repository 12/09/2017 [id number] Ambulatory [facility] Hospital ing:RAD Repository 10/13/2017 [id number] Ambulatory [facility] Hospital ing:LAB.FUTUR Repository E 10/07/2017/10/10/19 [id number] Ambulatory [address] [place] Repository 10/06/2017 [id number] Ambulatory [facility] Hospital ing:POLAB3 Repository 09/16/2017 [id number] Ambulatory [facility] Hospital ing:POLAB3 Repository 09/16/2017 [id number] Ambulatory [facility] Hospital ing:RAD Repository 09/02/2017/09/06/19 [id number] ALTONCora, Inpatient [address] Other [place] Repository 09/01/2017 [id number] Ambulatory [facility] Hospital ing:POLAB3 Repository 08/21/2017 [id number] Ambulatory [facility] Hospital ing:LAB.FUTUR Repository E 08/13/2017/08/14/19 [id number] Ambulatory [address] Main [place] Repository 08/13/2017/08/15/19 [id number] Ambulatory [address] Main [place] Repository 07/24/2017 [id number] Ambulatory [facility] Main [place] Repository 07/15/2017 [id number] Ambulatory [facility] Other [place] Repository 06/24/2017 [id number] Ambulatory [facility] Hospital ing:LAB Repository 05/27/2017/05/28/19 [id number] Ambulatory [address] Hospital ing:LAB Repository 04/28/2017/04/29/19 [id number] Ambulatory [address] Hospitalild Hospital ing:LAB Repository 03/28/2017/03/28/19 [id number] Ambulatory [address] Hospitalild Hospital ing:LAB Repository 02/27/2017 [id number] Ambulatory [facility] Hospital ing:LAB Repository PAYERS PAYERS ENCOUNTER GUARANTOR PAYER SUBSCRIBER SOURCE 02/09/2018 CELESTE Edwards Primary CELESTE [place] [id number] Insurance:MEDICARE NIKHILZDOB: [facility] PART A [facility] [id number] [place] Number: Repository [address]Rlh: 330 [id number] [phone] (HP) Date:2017-12-26 02/09/2018 Secondary MARIO J [place] Insurance:NALCPolicy PIETRASZDOB: Community Number: [id number] Hospital [id number] Repository Date: [place], [place] [address]KJ: 02/09/2018 Tertiary NOT GIVENUNK [place] Insurance:SELF PAY [facility] Number: Effective Repository Date:2017-12-26 02/02/2018 CELESTE J Primary CELESTE J [place] [id number] Insurance:MEDICARE PIETRASZDOB: Community [place] [facility] [id number] Number: Repository [address]Cpf: [phone] [id number] [phone] (HP) Date:2018-01-21 02/02/2018 Secondary MARIO J [place] Insurance:NALCPolicy PIETRASZDOB: Community Number: [id number] Hospital [id number] Repository Date: [place], [place] [address]UW: 02/02/2018 Tertiary NOT GIVENUNK [place] Insurance:SELF PAY [facility] Number: Effective Repository Date:2018-01-21 01/23/2018 CELESTE J Primary CELESTE J [place] [id number] Insurance:MEDICARE PIETRASZDOB: Community [place] PART A [facility] [id number] Number: Repository [address]Ilc: [phone] [id number] [phone] (HP) Date:2018-01-23 01/23/2018 Secondary MARIO J [place] Insurance:NALCPolicy PIETRASZDOB: Community Number: [id number] Hospital [id number] Repository Date: [place], [place] [address]DL: 01/23/2018 Tertiary NOT GIVENUNK [place] Insurance:SELF PAY [facility] Number: Effective Repository Date:2018-01-23 01/23/2018 CELESTE J Primary CELESTE J [place] [id number] Insurance:MEDICARE PIETRASZDOB: [facility] PART A [facility] [id number][place] Number: Repository [address]Iki: 330 [id number] [phone] (HP) Date:2017-12-17 01/23/2018 Secondary MARIO J [place] Insurance:NALCPolicy PIETRASZDOB: Community Number: [id number] Hospital [id number] Repository Date: [place], [place] [address]YM: 01/23/2018 Tertiary NOT GIVENUNK [place] Insurance:SELF PAY [facility] Number: Effective Repository Date:2018-01-20 01/23/2018 CELESTE J Primary CELESTE J [place] [id number] Insurance:MEDICARE PIETRASZDOB: [facility] PART A [facility] [id number]. [facility] [place] Number: Repository [address]Kdz: 330 [id number] [phone] (HP) Date:2018-01-22 01/23/2018 Secondary MARIO J [place] Insurance:NALCPolicy PIETRASZDOB: Community Number: [id number] Hospital [id number] Repository Date: [place], [place] [address]WT: 01/23/2018 Tertiary NOT GIVENUNK [place] Insurance:SELF PAY [facility] Number: Effective Repository Date:2018-01-23 01/21/2018 CELESTE J Primary CELESTE J [place] [id number] Insurance:MEDICARE PIETRASZDOB: [facility] PART A [facility] [id number], [place] Number: Repository [address]Tki: 330 [id number] [phone] (HP) Date:2018-01-09 01/21/2018 Secondary MARIO J [place] Insurance:NALCPolicy PIETRASZDOB: Community Number: [id number] Hospital [id number] Repository Date: [place], [place] [address]HS: 01/21/2018 Tertiary NOT GIVENUNK [place] Insurance:SELF PAY [facility] Number: Effective Repository Date:2018-01-21 01/21/2018 CELESTE J Primary CELESTE J [place] [id number] Insurance:MEDICARE PIETRASZDOB: Community [place] olicy [id number], [place] Number: Repository [address]Bjl: ([phone] [id number] [phone] () Date:2018-01-09 01/21/2018 Secondary MARIO J [place] Insurance:NALCPolicy PIETRASZDOB: Community Number: [id number] Hospital [id number] Repository Date: [place], [place] [address]VH: 01/21/2018 Tertiary NOT GIVENUNK [place] Insurance:SELF PAY [facility] Number: Effective Repository Date:2018-01-09 01/09/2018 CELESTE J Primary CELESTE J [place] [id number] Insurance:MEDICARE PIETRASZDOB: Community [place] olicy [id number], [place] Number: Repository [address]Vrb: 330 [id number] [phone] () Date:2017-12-17 01/09/2018 Secondary MARIO J [place] Insurance:NALCPolicy PIETRASZDOB: Community Number: [id number] Hospital [id number] Repository Date: [place], [place] [address]NI: 01/09/2018 Tertiary NOT GIVENUNK [place] Insurance:SELF PAY [facility] Number: Effective Repository Date:2018-01-09 01/08/2018 CELESTE J Primary CELESTE J [place] [id number] Insurance:MEDICARE PIETRASZDOB: Community [place] PART A [facility] [id number], [place] Number: Repository [address]Txy: [phone]) [id number] [phone] (HP) Date:2018-01-08 01/08/2018 Secondary MARIO J [place] Insurance:NALCPolicy PIETRASZDOB: Community Number: [id number] Hospital [id number] Repository Date: [place] [address]VG: 01/08/2018 Tertiary NOT GIVENUNK [place] Insurance:SELF PAY [facility] Hospital Number: Effective Repository Date:2018-01-08 01/05/2018 CELESTE J Primary CELESTE J [place] [id number] Insurance:MEDICARE PIETRASZDOB: [facility] PART A [facility] [id number], [place] Number: Repository [address]Tda: [phone]) [id number] [phone] (HP) Date:2018-01-05 01/05/2018 Secondary MARIO J [place] Insurance:NALCPolicy PIETRASZDOB: Community Number: [id number] Hospital [id number] Repository Date: [place], [place] [address]XO: 01/05/2018 Tertiary NOT GIVENUNK [place] Insurance:SELF PAY [facility] Hospital Number: Effective Repository Date:2018-01-05 12/24/2017 CELESTE J Primary CELESTE J [place] [id number] Insurance:MEDICARE PIETRASZDOB: [facility] PART A [facility] [id number], [place] Number: Repository [address]Vzm: [phone] [id number] [phone] (HP) Date:2017-12-24 12/24/2017 Secondary MARIO J [place] Insurance:NALCPolicy PIETRASZDOB: Community Number: [id number] Hospital [id number] Repository Date: [place], [place] [address]NB: 12/24/2017 Tertiary NOT GIVENUNK [place] Insurance:SELF PAY [facility] Number: Effective Repository Date:2017-12-24 12/17/2017 CELESTE J Primary CELESTE J [place] [id number] Insurance:MEDICARE PIETRASZDOB: Community [place] PART A [facility] [id number], [place] Number: Repository [address]Bcp: [phone] [id number] [phone] (HP) Date:2017-12-17 12/17/2017 Secondary MARIO J [place] Insurance:NALCPolicy PIETRASZDOB: Community Number: [id number] Hospital [id number] Repository Date: [place], [place] [address]AN: 12/17/2017 Tertiary NOT GIVENUNK [place] Insurance:SELF PAY [facility] Hospital Number: Effective Repository Date:2017-12-17 12/17/2017 CELESTE J Primary CELESTE J [place] [id number] Insurance:MEDICARE PIETRASZDOB: Community [place] PART [place] [facility] [id number], [place] Number: Repository [address]Zdx: 330 [id number] [phone] (HP) Date:2017-12-10 12/17/2017 Secondary MARIO J [place] Insurance:NALCPolicy PIETRASZDOB: Community Number: [id number] Hospital [id number] Repository Date: [place], [place] [address]DT: 12/17/2017 Tertiary NOT GIVENUNK [place] Insurance:SELF PAY [facility] Number: Effective Repository Date:2017-12-17 12/12/2017 CELESTE J Primary CELESTE J [place] [id number] Insurance:MEDICARE PIETRASZDOB: Community [place] PART A [facility] [id number], [place] Number: Repository [address]Sxh: 330 [id number] [phone] (HP) Date:2017-12-10 12/12/2017 Secondary MARIO J [place] Insurance:NALCPolicy PIETRASZDOB: Community Number: [id number] Hospital [id number] Repository Date: [place], [place] [address]GR: 12/12/2017 Tertiary NOT GIVENUNK [place] Insurance:SELF PAY [facility] Number: Effective Repository Date:2017-12-12 12/11/2017 CELESTE J Primary CELESTE J [place] [id number] Insurance:MEDICARE PIETRASZDOB: Community [place] PART A olic [id number], [place] Number: Repository [address]Anj: [phone]) [id number] [phone] () Date:2017-12-10 12/11/2017 Secondary MARIO J [place] Insurance:NALCPolicy PIETRASZDOB: Community Number: [id number] Hospital [id number] Repository Date: [place], [place] [address]DE: 12/11/2017 Tertiary NOT GIVENUNK [place] Insurance:SELF PAY [facility] Number: Effective Repository Date:2017-12-10 12/11/2017 CELESTE J Primary CELESTE J [place] [id number] Insurance:MEDICARE PIETRASZDOB: Community [place] PART A [facility] [id number], [place] Number: Repository [address]Nqa: [phone] [id number] [phone] () Date:2017-12-10 12/11/2017 Secondary MARIO J [place] Insurance:NALCPolicy PIETRASZDOB: Community Number: [id number] Hospital [id number] Repository Date: [place], [place] [address]XY: 12/11/2017 Tertiary NOT GIVENUNK [place] Insurance:SELF PAY [facility] Number: Effective Repository Date:2017-12-11 12/10/2017 CELESTE J Primary CELESTE J [place] [id number] Insurance:MEDICARE PIETRASZDOB: Community [place] PART A [facility] [id number], [place] Number: Repository [address]Ksq: [phone] [id number] [phone] (HP) Date:2017-12-10 12/10/2017 Secondary MARIO J [place] Insurance:NALCPolicy PIETRASZDOB: Community Number: [id number] Hospital [id number] Repository Date: [place], [place] [address]HI: 12/10/2017 Tertiary NOT GIVENUNK [place] Insurance:SELF PAY [facility] Number: Effective Repository Date:2017-12-10 12/10/2017 CELESTE J Primary CELESTE J [place] [id number] Insurance:MEDICARE PIETRASZDOB: [facility] PART A [facility] [id number], [place] Number: Repository [address]Rbm: 330 [id number] [phone] (HP) Date:2017-12-10 12/10/2017 Secondary MARIO J [place] Insurance:NALCPolicy PIETRASZDOB: Community Number: [id number] Hospital [id number] Repository Date: [place], [place] [address]RE: 12/10/2017 Tertiary NOT GIVENUNK [place] Insurance:SELF PAY [facility] Hospital Number: Effective Repository Date:2017-12-10 12/10/2017 CELESTE J Primary CELESTE J [place] [id number] Insurance:MEDICARE PIETRASZDOB: [facility] PART A [facility] [id number], [place] Number: Repository [address]Lzo: [phone] [id number] [phone] (HP) Date:2017-12-10 12/10/2017 Secondary MARIO J [place] Insurance:NALCPolicy PIETRASZDOB: Community Number: [id number] Hospital [id number] Repository Date: [place], [place] [address]QR: 12/10/2017 Tertiary NOT GIVENUNK [place] Insurance:SELF PAY [facility] Number: Effective Repository Date:2017-12-10 12/10/2017 CELESTE J Primary CELESTE J [place] [id number] Insurance:MEDICARE PIETRASZDOB: [facility] olic [id number], [place] Number: Repository [address]Usa: 330 [id number] [phone] (HP) Date:2017-12-10 12/10/2017 Secondary MARIO J [place] Insurance:NALCPolicy PIETRASZDOB: Community Number: [id number] Hospital [id number] Repository Date: [place], [place] [address]GB: 12/10/2017 Tertiary NOT GIVENUNK [place] Insurance:SELF PAY [facility] Number: Effective Repository Date:2017-12-10 12/09/2017 CELESTE J Primary CELESTE J [place] [id number] Insurance:MEDICARE PIETRASZDOB: [facility] PART A [facility] [id number]. [facility] [place] Number: Repository [address]Ocf: 330 [id number] [phone] (HP) Date:2017-12-09 12/09/2017 Secondary MARIO J [place] Insurance:NALCPolicy PIETRASZDOB: Community Number: [id number] Hospital [id number] Repository Date: [place], [place] [address]YN: 12/09/2017 Tertiary NOT GIVENUNK [place] Insurance:SELF PAY [facility] Number: Effective Repository Date:2017-12-09 10/13/2017 CELESTE J Primary CELESTE J [place] [id number] Insurance:MEDICARE PIETRASZDOB: [facility] PART A [facility] [id number], [place] Number: Repository [address]Qos: 330 [id number] [phone] (HP) Date:2017-09-18 10/13/2017 Secondary MARIO J [place] Insurance:NALCPolicy PIETRASZDOB: Community Number: [id number] Hospital [id number] Repository Date: [place], [place] [address]OH: 10/13/2017 Tertiary NOT GIVENUNK [place] Insurance:SELF PAY [facility] Number: Effective Repository Date:2017-09-18 10/06/2017 CELESTE J Primary CELESTE J [place] [id number] Insurance:MEDICARE PIETRASZDOB: Community [place] PART A [facility] [id number], [place] Number: Repository [address]Mpo: [phone]) [id number] [phone] () Date:2017-10-06 10/06/2017 Secondary MARIO J [place] Insurance:NALCPolicy PIETRASZDOB: Community Number: [id number] Hospital [id number] Repository Date: [place], [place] [address]YH: 10/06/2017 Tertiary NOT GIVENUNK [place] Insurance:SELF PAY [facility] Hospital Number: Effective Repository Date:2017-10-06 09/16/2017 CELESTE J Primary CELESTE J [place] [id number] Insurance:MEDICARE PIETRASZDOB: Community [place] PART A [facility] [id number], [place] Number: Repository [address]Keg: [phone] [id number] [phone] () Date:2017-09-16 09/16/2017 Secondary MARIO [place] Insurance:NALCPolicy PIETRASZDOB: Community Number: [id number] Hospital [id number] Repository Date: [place], [place] [address]TK: 09/16/2017 Tertiary NOT GIVENUNK [place] Insurance:SELF PAY [facility] Number: Effective Repository Date:2017-09-16 09/16/2017 CELESTE J Primary CELESTE J [place] [id number] Insurance:MEDICARE PIETRASZDOB: Community [place] PART A [facility] [id number]. [facility] [place] Number: Repository [address]Ebf: 330 [id number] [phone] (HP) Date:2017-09-16 09/16/2017 Secondary MARIO [place] Insurance:NALCPolicy PIETRASZDOB: Community Number: [id number] Hospital [id number] Repository Date: [place], [place] [address]VO: 09/16/2017 Tertiary NOT GIVENUNK [place] Insurance:SELF PAY [facility] Number: Effective Repository Date:2017-09-16 09/01/2017 CELESTE J Primary CELESTE J [place] [id number] Insurance:MEDICARE PIETRASZDOB: Community [place] PART A [facility] [id number] Number: Repository [address]Lbd: 330 [id number] [phone] (HP) Date:2017-09-01 09/01/2017 Secondary MARIO [place] Insurance:NALCPolicy PIETRASZDOB: Community Number: [id number] Hospital [id number] Repository Date: [place], [place] [address]TL: 09/01/2017 Tertiary NOT GIVENUNK [place] Insurance:SELF PAY [facility] Number: Effective Repository Date:2017-09-01 08/21/2017 CELESTE J Primary CELESTE J [place] [id number] Insurance:MEDICARE PIETRASZDOB: Community [place] PART A [facility] [id number] [facility] [place] Number: Repository [address]Uzz: 330 [id number] [phone] (HP) Date:2017-08-19 08/21/2017 Secondary MARIO [place] Insurance:NALCPolicy PIETRASZDOB: Community Number: [id number] Hospital [id number] Repository Date: [place], [place] [address]EM: 08/21/2017 Tertiary NOT GIVENUNK [place] Insurance:SELF PAY [facility] Number: Effective Repository Date:2017-08-19 06/24/2017 CELESTE J Primary CELESTE J [place] [id number] Insurance:MEDICARE PIETRASZDOB: Community [place] PART A [facility] [id number] [place] Number: Repository [address]Qnf: 330 [id number] [phone] (HP) Date:2017-03-28 06/24/2017 Secondary MARIO [place] Insurance:NALCPolicy PIETRASZDOB: Community Number: [id number] Hospital [id number] Repository Date: [place], [place] [address]ZX: 06/24/2017 Tertiary NOT GIVENUNK [place] Insurance:SELF PAY [facility] Number: Effective Repository Date:2017-06-24 05/27/2017 CELESTE J Primary CELESTE J [place] [id number] Insurance:MEDICARE PIETRASZDOB: Community [place] PART A [facility] [id number] [place] Number: Repository [address]Vqh: 330 [id number] [phone] (HP) Date:2017-03-28 05/27/2017 Secondary MARIO [place] Insurance:NALCPolicy PIETRASZDOB: Community Number: [id number] Hospital [id number] Repository Date: [place], [place] [address]JH: 05/27/2017 Tertiary NOT GIVENUNK [place] Insurance:SELF PAY [facility] Hospital Number: Effective Repository Date:2017-05-26 04/28/2017 Celeste Primary Celeste [place] [id number] Insurance:MEDICARE PietraszDOB: Community [place] PART A [facility] [id number] [place] Number: Repository [address]Hve: 330 [id number] [phone] (HP) Date:2017-03-28 04/28/2017 Secondary MARIO [place] Insurance:NALCPolicy PIETRASZDOB: Community Number: [id number] Hospital [id number] Repository Date: [place], [place] [address]QG: 04/28/2017 Tertiary NOT GIVENUNK [place] Insurance:SELF PAY [facility] Number: Effective Repository Date:2017-04-25 03/28/2017 Celeste Primary Celeste [place] [id number] Insurance:MEDICARE PietraszDOB: Community [place] PART A [facility] [id number] [place] Number: Repository [address]Sar: [phone] [id number] [phone] (HP) Date:2017-03-28 03/28/2017 Secondary MARIO [place] Insurance:NALCPolicy PIETRASZDOB: Community Number: [id number] Hospital [id number] Repository Date: [place], [place] [address]QP: 03/28/2017 Tertiary NOT GIVENUNK [place] Insurance:SELF PAY [facility] Number: Effective Repository Date:2017-03-28 02/27/2017 Celeste Primary Celeste Browne [id number] Insurance:MEDICARE PietraszDOB: Community [place] PART A [facility] [id number] Park, [place] Number: Repository [address]Dts: [phone] [id number] [phone] (HP) Date:2017-02-27 02/27/2017 Secondary MARIO [place] Insurance:NALCPolicy PIETRASZDOB: Community Number: [id number] Hospital [id number] Repository Date: [place], [place] [address]NF: 02/27/2017 Tertiary NOT GIVENUNK [place] Insurance:SELF PAY [facility] Number: Effective Repository Date:2017-02-27
== END ==
PROVIDERS: Family Provider Family Medicine Geriatric Medicine; PCP Family Medicine Geriatric Medicine; Referring Provider Internal Medicine Cardiovascular Disease; Visit Provider Internal Medicine Cardiovascular Disease
DX: R94.39 Abnormal result of other cardiovascular function study (principal)
CPT/HCPCS: 36415; 80048; 85025; 85610

== ENCOUNTER 2018-02-02 06:59 | Day surgery (SDC) | payer MEDICARE, OTHER, SELFPAY ==
--- NOTE | 2018-02-02 10:09 | CL.D_ITS ---
Patient Name: GILBERTO COBURN Study Date: 02/02/2018 Performing: John Julio MD Ht: 64.17 inches 163 cm : 1950 Wt: 174.17 lbs 79 kg Age: 67 Gender: female BSA: 1.85 PROCEDURE(S) PERFORMED [id number] CLINICAL PROFILE AND INDICATIONS Indications: Suspected CAD Heart Failure: None Stress/Imaging Stress/Image Study Performed: No CAD Presentations: Stable angina. CONCLUSIONS Severe LAD stenosis with 80pct long stenosis RECOMMENDATIONS Referred for immediate PCI DESCRIPTION OF PROCEDURE The patient arrived to the procedure lab. The risks and benefits of the procedure as well as a full d escription of our services here and current unavailability of surgical backup were fully explained to the patient and/or their significant other prior to the catheterization. The Timeout was completed, verifying the correct patient and procedure. The patient's procedural site was prepped and draped in the usual fashion. Local anesthetic was given subcutaneously to right radial region with Lidocaine 2% . Using a modified Seldinger technique, arterial access was obtained via the right radial artery, a 6 Fr sheath was inserted. Left Coronary Artery selective angiography was performed in multiple views u sing a 5 Fr. 4.0 [place] catheter. Right Coronary Artery selective angiography was then performed in mu ltiple views using a 5 Fr. 4.0 [place] catheter.The arterial sheath was pulled and a TR Band was applie d for hemostasis w/ 12ml air CORONARY ANGIOGRAPHY DOMINANCE: Right Dominant LEFT HEART ASSESSMENT Left Ventricular Ejection Fraction: by Echo 60 % Normal LV wall motion Normal Left Ventricular systolic function LEFT MAIN: Mild calcification, Mild luminal irregularities LEFT ANTERIOR DECENDING ARTERY: Severe calcification PROX LAD: LONG STENOSIS UP TO 80PCT CIRCUMFLEX ARTERY: Mild luminal irregularities less than 30% RIGHT CORONARY ARTERY: Mild luminal irregularities less than 30% COMPLICATIONS No Complications PROCEDURE MEDICATIONS Versed 1 mg IV Versed 1 mg IV Fentanyl 50 mcg IV Versed 1 mg IV Heparin diluted in 23cc Heparinized saline. Patient given 10cc IA of this solution. 02/02/2018 09:51 :29 Verapamil 2.5mg, Ntg 100mcgs, 2000 units of Heparin diluted in 23cc Heparinized saline. Patient give n 10cc IA of this solution. 02/02/2018 09:51:29 IV Fluids: .9 NaCl IV started @ 100 ml/hr 02/02/2018 07:40:00 SUMMARY OF HEMODYNAMIC DATA Time AIR REST ECG 07:40:41 AO 141/68 (99) SA 09:53:22 Signed By John Julio MD On 02/02/2018 10:08:37 John Julio MD
== END 2018-02-02 12:50 | disposition home or self-care (01) ==
LOC: CLSP 07:00
PROVIDERS: Family Provider Family Medicine Geriatric Medicine; PCP Family Medicine Geriatric Medicine; Referring Provider Internal Medicine Cardiovascular Disease; Visit Provider Internal Medicine Cardiovascular Disease
DX: I25.119 Atherosclerotic heart disease of native coronary artery with unspecified angina pectoris (principal); R07.89 Other chest pain; I13.0 Hypertensive heart and chronic kidney disease with heart failure and stage 1 through stage 4 chronic kidney disease, or unspecified chronic kidney disease; I50.32 Chronic diastolic (congestive) heart failure; N18.9 Chronic kidney disease, unspecified; E11.22 Type 2 diabetes mellitus with diabetic chronic kidney disease; I44.1 Atrioventricular block, second degree; I27.21 Secondary pulmonary arterial hypertension; D64.9 Anemia, unspecified; F32.9 Major depressive disorder, single episode, unspecified; E66.9 Obesity, unspecified; Z79.82 Long term (current) use of aspirin; Z79.02 Long term (current) use of antithrombotics/antiplatelets; Z79.899 Other long term (current) drug therapy; Z87.891 Personal history of nicotine dependence; Z98.84 Bariatric surgery status; Z95.0 Presence of cardiac pacemaker
CPT/HCPCS: 93454; 99152; 99153; J7040; Q9967; C1769; C1894

== ENCOUNTER → 2018-03-18 14:41 | Outpatient (CLI) | payer MEDICARE, OTHER, SELFPAY ==
[2018-03-18 17:28] LABS: Hematocrit 33.8 % (37-47); Hemoglobin 10.6 g/dl (12.0-15.0); Mean Corp Hgb Conc 31.4 g/gl (32-36); Mean Corpuscular Hgb 26.8 pg (27.0-32.0); Mean Corpuscular Volume 85.4 fL (81-99); Mean Platelet Vol. 9.5 fl (6.2-12.0); Platelet Count 309 K/mm3 (150-450); RBC Distribution Width CV 16.5 % (11.6-14.6); RBC Distribution Width SD 51.5 fl (35.1-43.9); Red Blood Count 3.96 M/mm3 (4.2-5.4); White Blood Count 7.7 K/mm3 (4.4-11.0)
[2018-03-18 17:34] LABS: Scan Indicated on CBC? Y/N NO
[2018-03-18 17:43] LABS: Vitamin D,25 Hydroxy 32.1 ng/mL (29.95-100.01)
[2018-03-18 17:53] LABS: Albumin, Serum 3.9 g/dL (3.2-5.0); BUN 42 mg/dL (7-18); BUN/Creat Ratio 18.8 RATIO (10-20); Chloride 110 mmol/L (98-107); Creatinine, Serum 2.23 mg/dL (0.55-1.02); EST Glomerular Filtration Rate 23 mL/min (>60); Est Glom Filt Rate - Afr Amer 28 mL/min (>60); Ferritin 52 ng/mL (8-252); Glucose 113 mg/dL (74-106); Iron 99 ug/dL (50-170); Iron Binding Capacity,Total 319 ug/dL (250-450); PTHIN 112.7 pg/mL (18.4-80.1); Potassium 5.1 mmol/L (3.5-5.1); Sodium Level 142 mmol/L (136-145)
--- OUTSIDE RECORDS SUMMARY | 2018-05-20 15:35 | XMS RPT_ITS ---
:1950 Author Organization OHIP Support Name Relationship Address Phone LUCÍA DESOUZA Unavailable [address] + [place] [address] ZHANG DESOUZA Unavailable Unavailable + [place] [address] R Unavailable Unavailable Unavailable MARIO DESOUZA Unavailable [address] + [place] [address] MARIO DESOUZA Unavailable [address] + [place] [address] MARIO DESOUZA Unavailable Unavailable + LUCÍA DESOUZA Unavailable [address] + [place] [address] PIEXAVI TORRESKE Unavailable Unavailable + [place] [address] R Unavailable Unavailable Unavailable LYLY LUCÍA Unavailable [address] + [place] [address] ZHANG DESUOZA Unavailable Unavailable + [place] [address] R Unavailable Unavailable Unavailable BERTSMaurilio, LUCÍA Unavailable [address] + [place] [address] ZHANG DESOUZA Unavailable Unavailable + [place] [address] R Unavailable Unavailable Unavailable LYLY LUCÍA Unavailable [address] + [place] [address] ZHANG DESOUZA Unavailable Unavailable + [place] [address] R Unavailable Unavailable Unavailable BERTSMaurilio LUCÍA Unavailable [address] + [place] [address] LYLY ZHANG Unavailable Unavailable + [place] [address] R Unavailable Unavailable Unavailable LYLY LUCÍA Unavailable [address] + [place] [address] PIETRASZ, ZHANG Unavailable Unavailable + [place] [address] R Unavailable Unavailable Unavailable PIETRASZ, LUCÍA Unavailable [address] + [place] [address] PIETRASZ, ZHANG Unavailable Unavailable + [place] [address] R Unavailable Unavailable Unavailable PIETRASZ, LUCÍA Unavailable [address] + [place] [address] PIETRASZ, ZHANG Unavailable Unavailable + [place] [address] R Unavailable Unavailable Unavailable PIETRASZ, LUCÍA Unavailable [address] + [place] [address] PIETRASZ, ZHANG Unavailable Unavailable + [place] [address] R Unavailable Unavailable Unavailable PIETRASZ, LUCÍA Unavailable [address] + [place] [address] PIETRASZ, ZHANG Unavailable Unavailable + [place] [address] R Unavailable Unavailable Unavailable PIETRASZ, LUCÍA Unavailable [address] + [place] [address] PIETRASZ, ZHANG Unavailable Unavailable + [place] [address] R Unavailable Unavailable Unavailable PIETRASZ, LUCÍA Unavailable [address] + [place] [address] PIETRASZ, ZHANG Unavailable Unavailable + [place] [address] R Unavailable Unavailable Unavailable PIETRASZ, LUCÍA Unavailable [address] + [place] [address] PIETRASZ, ZHANG Unavailable Unavailable + [place] [address] R Unavailable Unavailable Unavailable PIETRASZ, LUCÍA Unavailable [address] + [place] [address] PIETRASZ, ZHANG Unavailable Unavailable + [place] [address] R Unavailable Unavailable Unavailable PIETRASZ, LUCÍA Unavailable [address] + [place] [address] PIETRASZ, ZHANG Unavailable Unavailable + [place] [address] R Unavailable Unavailable Unavailable PIETRASZ, LUCÍA Unavailable [address] + [place] [address] PIETRASZ, ZAHNG Unavailable Unavailable + [place] [address] R Unavailable Unavailable Unavailable PIETRASZ, LUCÍA Unavailable [address] + [place] [address] PIETRASZ, ZHANG Unavailable Unavailable + [place] [address] R Unavailable Unavailable Unavailable PIETRASZ, LUCÍA Unavailable [address] + [place] [address] PIETRASZ, ZHANG Unavailable Unavailable + [place] [address] R Unavailable Unavailable Unavailable PIETRASZ, LUCÍA Unavailable [address] + [place] [address] PIETRASZ, ZHANG Unavailable Unavailable + [place] [address] R Unavailable Unavailable Unavailable PIETRASZ, LUCÍA Unavailable [address] + [place] [address] PIETRASZ, ZHANG Unavailable Unavailable + [place] [address] R Unavailable Unavailable Unavailable PIETRASZ, LUCÍA Unavailable [address] + [place] [address] PIETRASZ, ZHANG Unavailable Unavailable + [place] [address] R Unavailable Unavailable Unavailable PIETRASZ, LUCÍA Unavailable [address] + [place] [address] PIETRASZ, ZHANG Unavailable Unavailable + [place] [address] R Unavailable Unavailable Unavailable PIETRASZ, LUCÍA Unavailable [address] + [place] [address] PIETRASZ, ZHANG Unavailable Unavailable + [place] [address] R Unavailable Unavailable Unavailable PIETRASZ, LUCÍA Unavailable [address] + [place] [address] PIETRASZ, ZHANG Unavailable Unavailable + [place] [address] R Unavailable Unavailable Unavailable PIETRASZ, LUCÍA Unavailable [address] + [place] [address] PIETRASZ, ZHANG Unavailable Unavailable + [place] [address] R Unavailable Unavailable Unavailable PIETRASZ, LUCÍA Unavailable [address] + [place] [address] PIETRASZ, ZHANG Unavailable Unavailable + [place] [address] R Unavailable Unavailable Unavailable PIETRASZ, LUCÍA Unavailable [address] + [place] [address] PIETRASZ, ZHANG Unavailable Unavailable + [place] [address] R Unavailable Unavailable Unavailable PIETRASZ, LUCÍA Unavailable [address] + [place] [address] PIETRASZ, ZHANG Unavailable Unavailable + [place] [address] R Unavailable Unavailable Unavailable PIETRASZ, LUCÍA Unavailable [address] + [place] [address] PIETRASZ, ZHANG Unavailable Unavailable + [place] [address] R Unavailable Unavailable Unavailable PIETRASZ, LUCÍA Unavailable [address] + [place] [address] PIETRASZ, ZHANG Unavailable . + [place] [address] R Unavailable Unavailable Unavailable PIETRASZ, LUCÍA Unavailable [address] + [place] [address] PIETRASZ, ZHANG Unavailable . + [place] [address] R Unavailable Unavailable Unavailable Care Team Providers Name Role Phone MARY HUI Attending Unavailable SUMANTH, JOHN S Referring Unavailable HANK, RIGO-CHI Primary Care Unavailable MARY HUI Attending Unavailable SUMANTH, JOHN S Referring Unavailable HANK, RIGO-CHI Primary Care Unavailable YAMILET MAGANA Referring Unavailable JANET PATTERSON Admitting Unavailable JANET PATTERSON Attending Unavailable LUCIANA REDMAN Unavailable UNKNOWN, PROVIDER Attending Unavailable WOOD GONZALEZ Primary Care Unavailable RELL SERRANO Referring Unavailable RELL SERRANO Attending Unavailable RELL SERRANO Referring Unavailable YAMILET MAGANA Attending Unavailable Sumanth, Gilmer Attending Unavailable Sumanth, John Referring Unavailable Hank, Rigo Chi Primary Care Unavailable Sumanth, Gilmer Attending Unavailable Sumanth, John Referring Unavailable Hank, Rigo Chi Primary Care Unavailable Nurse, Standard Attending Unavailable Hank, Rigo Chi Referring Unavailable Katie Perry Attending Unavailable Hank, Rigo Chi Referring Unavailable Sumanth, John Attending Unavailable Sumanth, John Referring Unavailable Hank, Rigo Chi Primary Care Unavailable Sumanth, Gilmer Attending Unavailable Hank, Rigo Chi Referring Unavailable Heide Ivey Attending Unavailable Francisco, Luciana Attending Unavailable Hank, Rigo Chi Primary Care Unavailable Sumanth, Gilmer Attending Unavailable Sumanth, Gilmer Referring Unavailable Francisco, Luciana Attending Unavailable Hank, Rigo Chi Primary Care Unavailable Francisco, Luciana Attending Unavailable Hank, Rigo Chi Primary Care Unavailable Sumanth, Gilmer Attending Unavailable Sumanth, Gilmer Referring Unavailable Francisco, Luciana Attending Unavailable NEGRO KATE Primary Care Unavailable Francisco, Luciana Attending Unavailable Hank, Rigo Chi Attending Unavailable Hank, Rigo Chi Referring Unavailable NEGRO KATE Primary Care Unavailable Hank, Rigo Chi Attending Unavailable NEGRO KATE Primary Care Unavailable Francisco, Luciana Attending Unavailable NEGRO KATE Primary Care Unavailable Francisco, Luciana Referring Unavailable Francisco, Luciana Attending Unavailable Francisco, Luciana Referring Unavailable NEGRO KATE Primary Care Unavailable Francisco, Luciaan Attending Unavailable Francisco, Luciana Referring Unavailable NEGRO KATE Primary Care Unavailable Francisco, Luciana Attending Unavailable Francisco, Luciana Referring Unavailable NEGRO KATE Primary Care Unavailable Francisco, Luciana Attending Unavailable Francisco, Luciana Referring Unavailable NEGRO KATE Primary Care Unavailable Hank, Rigo Chi Attending Unavailable Hank, Rigo Chi Primary Care Unavailable Katie Perry Attending Unavailable Hank, Rigo Chi Referring Unavailable Sumanth, Gilmer Attending Unavailable Sumanth, John Referring Unavailable Hank, Rigo Chi Primary Care Unavailable Sumanth, John Consulting Unavailable Sumanth, John Attending Unavailable Hank, Rigo Chi Referring Unavailable Hank, Rigo Chi Primary Care Unavailable Hank, Rigo Chi Consulting Unavailable Sumanth, Gilmer Attending Unavailable Hank, Rigo Chi Primary Care Unavailable Sumanth, Gilmer Attending Unavailable Sumanth, John Referring Unavailable Sumanth, Gilmer Attending Unavailable Hank, Rigo Chi Primary Care Unavailable Sumanth, Gilmer Referring Unavailable Sumanth, John Admitting Unavailable Sumanth, John Attending Unavailable Hank, Rigo Chi Referring Unavailable Hank, Rigo Chi Attending Unavailable Hank, Rigo Chi Referring Unavailable Hank, Rigo Chi Primary Care Unavailable Hank, Rigo Chi Attending Unavailable Hank, Rigo Chi Referring Unavailable Hank, Rigo Chi Primary Care Unavailable Hank, Rigo Chi Attending Unavailable NEGRO KATE Primary Care Unavailable SAÚL SMYTH, WOOD Admitting Unavailable SAÚL SMYTH, WOOD Attending Unavailable SAÚL SMYTH, WOOD Attending Unavailable SAÚL SMYTH, WOOD Referring Unavailable PROBLEMS PROBLEMS DATE TYPE CONDITION / CODE ATTENDING STATUS SOURCE 02/26/2018 Admitting Encounter for Unknown Active [facility] diagnosis preprocedural Repository laboratory examination / Z01.812(ICD-9) 02/26/2018 Final Encounter for Unknown Active [facility] diagnosis preprocedural Repository (discharge) laboratory examination / Z01.812(ICD-9) 02/10/2018 Unknown R06.02 - Shortness of Sumanth, John Active [facility] breath / Community R06.02(ICD-10) Hospital Repository 01/09/2018 Unknown I50.32 - Chronic Sumanth, John Active [facility] diastolic Community (congestive) heart Hospital failure / Repository I50.32(ICD-10) 01/09/2018 Unknown Z95.0 - Presence of Sumanth, John Active [facility] cardiac pacemaker / Community Z95.0(ICD-10) Hospital Repository 01/09/2018 Unknown I10 - Essential Sumanth, John Active [facility] (primary) Community hypertension / Hospital I10(ICD-10) Repository 12/17/2017 Unknown E55.9 - Vitamin D Hank, Rigo Chi Active [facility] deficiency, Community unspecified / Hospital E55.9(ICD-10) Repository 12/18/2017 Unknown I44.1 - [place], Katie Active [facility] Atrioventricular Community block, second degree Hospital / I44.1(ICD-10) Repository 12/18/2017 Unknown R00.1 - Bradycardia, [place], Katie Active [facility] unspecified / Community R00.1(ICD-10) Hospital Repository 12/18/2017 Unknown I51.9 - Heart [place], Katie Active [facility] disease, unspecified Community / I51.9(ICD-10) Hospital Repository 12/10/2017 Unknown I50.9 - Heart Sumanth, John Active [facility] failure, unspecified Community / I50.9(ICD-10) Hospital Repository 10/07/2017 Active Unknown / YAMILET MAGANA Active [facility] UNK(Unknown) [facility] Main [facility] Repository 10/31/2017 Unknown N18.3 - Chronic Hank, Rigo Chi Active [facility] kidney disease, stage Community 3 (moderate) / Hospital N18.3(ICD-10) Repository 09/16/2017 Unknown M54.5 - Low back pain Hank, Rigo Chi Active [facility] / M54.5(ICD-10) [facility] Hospital Repository 09/05/2017 Active Hyperosmolality and CHUKWUANI, Active [facility] hypernatremia / [facility] A Clinic Other E87.0(ICD-10) [facility] Repository 09/05/2017 Active Acidosis / CHUKWUANI, Active [facility] E87.2(ICD-10) [facility] Other [facility] Repository 09/05/2017 Active Anemia, unspecified / CHUKWUANI, Active [facility] D64.9(ICD-10) [facility] Other [facility] Repository 09/02/2017 Active Chronic kidney CHUKWUANI, Active [facility] disease, stage 5 / [facility] Clinic Other N18.5(ICD-10) [facility] Repository 09/02/2017 Active Type 2 diabetes CHUKWUANI, Active [facility] mellitus with [facility] Clinic Other diabetic chronic [facility] kidney disease / Repository E11.22(ICD-10) 09/02/2017 Active Essential (primary) CHUKWUANI, Active [facility] hypertension / [facility] Clinic Other I10(ICD-10) [facility] Repository 09/02/2017 Active Acute kidney failure, CHUKWUANI, Active [facility] unspecified / [facility] A Clinic Other N17.9(ICD-10) [facility] Repository 09/02/2017 Active Chronic kidney CHUKWUANI, Active [facility] disease, unspecified [facility] Clinic Other / N18.9(ICD-10) [facility] Repository 09/02/2017 Active Hypermagnesemia / CHUKWUANI, Active [facility] E83.41(ICD-10) [facility] Clinic Other [facility] Repository 09/02/2017 Active Other acute kidney CHUKWUANI, Active [facility] failure / [facility] Clinic Other N17.8(ICD-10) [facility] Repository 08/13/2017 Active Restless legs NA Active [facility] syndrome / Clinic Main G25.81(ICD-10) [facility] Repository 07/24/2017 Active Iron deficiency NA Active [facility] anemia, unspecified / Clinic Main D50.9(ICD-10) [facility] Repository 07/24/2017 Active Type 2 diabetes NA Active [facility] mellitus without Clinic Main complications / [facility] E11.9(ICD-10) Repository 07/15/2017 Active Encounter for NA Active [facility] screening mammogram Clinic Other for malignant [facility] neoplasm of breast / Repository Z12.31(ICD-10) PROCEDURES PROCEDURES No Procedure Records FoundRESULTS RESULTS CBC-COMPLETE BLOOD CNT Collected: 03/18/2018 Status: F Source: [facility] NO DIFF 2:43 PM [facility] REPOSITORY TYPE CODE TESTS RESULT OUT OF RANGE REFERENCE UNITS LAB L100.1000 4.4-11.0 K/mm3 Normal WBC 7.7 LAB L100.1200 4.2-5.4 M/mm3 Low RBC 3.96 LAB L100.1300 12.0-15.0 g/dl Low HGB 10.6 LAB L100.1400 37-47 % Low HCT 33.8 LAB L100.1500 81-99 fL Normal MCV 85.4 LAB L100.1600 27.0-32.0 pg Low MCH 26.8 LAB L100.1700 32-36 g/gl Low MCHC 31.4 LAB L100.1810 11.6-14.6 % High RDW CV 16.5 LAB L100.1820 35.1-43.9 fl High RDW SD 51.5 LAB L100.1900 150-450 K/mm3 Normal PLT 309 LAB L100.2000 6.2-12.0 fl Normal MPV 9.5 Performed By: #### L100.0500 #### [facility] [address] [place], [place], [id number] VITAMIN D,25 HYDROXY Collected: 03/18/2018 Status: F Source: [facility] 2:43 PM [facility] REPOSITORY TYPE CODE TESTS RESULT OUT OF RANGE REFERENCE UNITS LAB L506.1000 29.95-100.01 ng/mL Normal Vitamin D 32.1 25-OH Result Comment: Vitamin D 25(OH) Status Range Deficiency <20 ng/mL (50nmol/L) Insuffciency 20 - 30 ng/mL (50 - 75 nmol/L) Sufficiency 30 - 100 ng/mL (75 - 250 nmol/L) Toxicity >100 ng/mL (>250 nmol/L) Performed By: #### L506.1000 #### [facility] [address] [place], [address] PTHIN Collected: 03/18/2018 Status: F Source: HERCULES 2:43 PM [facility] REPOSITORY TYPE CODE TESTS RESULT OUT OF RANGE REFERENCE UNITS LAB L509.1000 18.4-80.1 pg/mL High PTHIN 112.7 Performed By: #### L509.1000 #### [facility] [address] [place], [address] RENAL PROFILE Collected: 03/18/2018 Status: F Source: [place] 2:43 PM [facility] REPOSITORY TYPE CODE TESTS RESULT OUT OF RANGE REFERENCE UNITS LAB L501.0100 74-106 mg/dL High GLU 113 Result Comment: Fasting Glucose result from 100 to 125 mg/dL suggests IMPAIRED HOMEOSTASIS per A.D.A. criteria. Please note revised GLUCOSE reference range effective 2017. LAB L501.1000 7-18 mg/dL High BUN 42 LAB L501.1100 0.55-1.02 mg/dL High CREAT,SERUM 2.23 Result Comment: The validity of the calculated GFR AND GFRAA in patients over 70 years has not been determined. Clinical correlation is essential. LAB L501.1110 >60 mL/min Low EST GFR 23 Result Comment: Non- GFR Calc LAB L501.1115 >60 mL/min Low EST GFR - AA 28 Result Comment: GFR Calc LAB L501.1300 10-20 RATIO Normal BUN/CRE 18.8 LAB L501.1800 3.2-5.0 g/dL Normal ALB 3.9 LAB L501.2200 8.5-10.1 mg/dL CA Normal 9.0 LAB L501.2300 2.5-4.9 mg/dL High PHOS 5.0 LAB L501.5300 136-145 mmol/L NA Normal 142 LAB L501.5600 3.5-5.1 mmol/L K Normal 5.1 LAB L501.5900 98-107 mmol/L High CL 110 LAB L501.6100 21.0-32.0 mmol/L Normal CO2 22.0 Performed By: #### L500.3600, L503.6075, L503.6150, L503.6550 #### [facility] [address] [place], [address] IRON BINDING Collected: 03/18/2018 Status: F Source: [facility] CAPACITY,TOTAL 2:43 PM [facility] REPOSITORY TYPE CODE TESTS RESULT OUT OF RANGE REFERENCE UNITS LAB L503.6075 250-450 ug/dL Normal TIBC 319 Performed By: #### L500.3600, L503.6075, L503.6150, L503.6550 #### [facility] [address] [facility] [address] IRON Collected: 03/18/2018 Status: F Source: [place] 2:43 PM [facility] REPOSITORY TYPE CODE TESTS RESULT OUT OF RANGE REFERENCE UNITS LAB L503.6150 50-170 ug/dL Normal IRON 99 Performed By: #### L500.3600, L503.6075, L503.6150, L503.6550 #### [facility] [address] [place], [address] FERRITIN Collected: 03/18/2018 Status: F Source: [place] 2:43 PM [facility] REPOSITORY TYPE CODE TESTS RESULT OUT OF RANGE REFERENCE UNITS LAB L503.6550 8-252 ng/mL Normal FERRITIN 52 Performed By: #### L500.3600, L503.6075, L503.6150, L503.6550 #### [facility] [address] [place], [address] CARDIAC CATHETERIZATION-REPORT Observed: Status: F Source: [facility] 03/13/2018 9:42 AM [facility] REPOSITORY [facility] CARDIAC CATHETERIZATION CELESTE DESOUZA PACU <[id number] [facility] WOOD GONZALEZ MD [id number] DATE: 02/27/2018 CINE NO.: PROCEDURE: 1. PTCA of drug-eluting stents of the LAD. 2. PTCA of diagonal branch. INDICATIONS: High-grade stenosis of the LAD, calcified vessels, with known angina class 4. She had catheterization done elsewhere. Referred for intervention. PROCEDURE IN DETAIL: Patient was brought to the cardiac catheterization lab. Prepped in a sterile fashion. Local anesthetic was given to right radial artery. Through a right radial artery puncture, a 6-Kazakh sheath was inserted. An EBU 3.5 guiding catheter was placed in the left coronary artery. Angiogram was done. 014 run-through wire was advanced across the LAD, and a BMW wire across the diagonal. The lesion was predilated with 2.5 x 20 mm balloon, and stented with a 2.5 x 20 mm PROMUS stent, and a 3.0 x 8 mm PROMUS stent, in overlapping fashion. The wire was then advanced to the diagonal, and a 2.0 x 12 mm balloon was used to dilate the diagonal. Repeat angiogram showed widely patent LAD, with MARCELLE-3 flow. This sheath was removed. Patient received intravenous heparin during the procedure with ACT above 300. FINAL DIAGNOSES: 1. Calcified 90% stenosis of mid left anterior descending, with 80% stenosis of ostial diagonal. 2. Successful PTCA of drug-eluting stents of the left anterior descending, with reduction of stenosis down to 0%. 3. Successful PTCA of ostial diagonal branch. . MD RENO SANTACRUZ/Anastacia /[id number] NURSING CLINICAL NOTE Observed: 02/28/2018 Status: C Source: [facility] 10:25 AM [facility] REPOSITORY patient sitting up in bed. patient alert and oriented x 3. no complaints of pain or sob at present. 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 2 + right radial pulse noted with good cap refill noted. patient up independently in room and to bathroom. discharge orders in for patient per Dr. Bennett. will await pharmacy to review meds for disch arge. will continue to monitor. safety maintained. call mota in reach. 0900 sl x 2 removed and tele off for discharge home. 1015 discharge instructions reviewed with patient for d/c home. will await her to come and pick her up. PROGRESS NOTE-PHYSICIAN Observed: 02/28/2018 Status: F Source: [facility] 8:23 AM [facility] REPOSITORY Patient: CELESTE DESOUZA Age: 67 years Sex: Female : 1950 Associated Diagnoses: None Author: EMELYN BENNETT MD Patient with no complaints this morning, denies chest pain or shortness of breath Temperature 36.8, heart rate 70 bpm, respiratory rate 16/min, blood pressure 135/67 mmHg Skin warm and dry Neck no carotid bruits upstroke and volumes are normal Heart rate and rhythm are regular S1 and S2 are normal Lungs are clear to auscultation and normal air entry Abdomen is obese positive bowel sounds soft and Right radial artery the site of left heart catheterization no active bleeding or hematoma and digits warm to palpation Twelve-lead EKG ventricular paced rhythm Sodium 144, potassium 4.3, BUN 26, creatinine 1.4 Peak troponin of 0.962 Hemoglobin 9.8, hematocrit of 28.9 Angina pectoris class IV, left heart catheterization revealing 90% proximal LAD involving the first diagonal patient underwent PTCA and drug- eluting stent to the LAD and PTCA of the diagonal branch, thi s morning patient without symptoms, case was discussed with the patient her questions were answered, medication list is reviewed we will continue with metoprolol, atorvastatin, aspirin, and Plavix, the remainder of home medication were reviewed and continued, no BIB inhibitor medication at this time due to her underlying renal dysfunction, patient may be discharged home NURSING CLINICAL NOTE Observed: 02/28/2018 Status: C Source: [facility] 7:39 AM [facility] REPOSITORY 1900- Initial rounding completed with shift handoff report from Nurse [place]. Patient needs met at this time. Patient safety intact and belongings and call button within reach. 0608- Patient resting quietly in bed with eyes closed and no expressed needs at this time. Shift hourly rounding completed at this time as patient has no morning medication administration. 0638- Critical lab value reported to this RN. Call placed to report value to Dr Bennett, wildlife biostation research ecologist for Dr Gonzalez. 0710- Value reported to Dr Bennett. No orders received at this time. BASICMETA Collected: 02/28/2018 Status: F Source: [facility] 6:29 AM [facility] REPOSITORY TYPE CODE TESTS RESULT OUT OF RANGE REFERENCE UNITS LAB [id number] 8.5-10.5 mg/dL Normal Calcium 8.8 LAB 1579937 3.5-5.1 mmol/L Normal K 4.3 LAB 4817425 72-100 mg/dL Normal Glucose 82 Result Comment: Venipuncture should occur prior to sulfasalazine administration due to the potential for falsely depressed results. Venipuncture should occur prior to sulfapyridine administration due t o the potential falsely elevated results. Baseline assay values before administration of sulfasalazine and sulfapyridine therapy would not be affected. LAB 7678 10-20 mg/dL High BUN 26 LAB 1947362 100-109 mmol/L High Chloride 114 LAB 9761068 135-145 mmol/L Na Normal 144 LAB 2715370 0.6-1.0 mg/dL High Creatinine 1.4 LAB 3951645 21.0-32.0 mmol/L CO2, venous Normal 24.6 LAB 4130939 275-295 mOsm/kg Calculated Normal Osmolality 291 LAB 32653809 mL/min/1.73 m? Glomerular Normal Filtration Rate 38 Result Comment: Non GFR Calc Medical judgement is necessary to interpret GFR. The calculated GFR may not accurately reflect renal status in patients >70 years, women, acutely ill hospitalized patients and patients with acute renal failure or known renal disease. The MDRD GFR formula is valid only for adults greater than 18 years of age. Note: Creatinine clearance (not GFR) should be used for drug dosing. LAB [id number] Normal BUN/Creat Ratio 19.1 LAB [id number](LOINC ) Normal GFR AA 47 Result Comment: GFR Calc Medical judgement is necessary to interpret GFR. The calculated GFR may not accurately reflect renal status in patients >70 years, women, acutely ill hospitalized patients and patients with acute renal failure or known renal disease. The MDRD GFR formula is valid only for adults greater than 18 years of age. Note: Creatinine clearance (not GFR) should be used for drug dosing. Performed By: #### [id number], [id number], [id number], [id number] #### [facility] [address] [place], [place] [id number] Arnp: Mario Valle MD TROPONIN Collected: 02/28/2018 Status: F Source: [facility] 6:29 AM [facility] REPOSITORY TYPE CODE TESTS RESULT OUT OF RANGE REFERENCE UNITS LAB 445325 0.000-0.099 ng/mL Abnormal TROPONIN 0.962 alert Result Comment: Critical Result(s) called at: 06:29:40 on 02/28/2018 by: Andrea Wong rechecked, RBR to: EG on 3E This test is a quantitative determination of cardiac troponin I. High levels of serum biotin may interfere with this test. Performed By: #### [id number], [id number], [id number], [id number] #### [facility] Laboratory Services [address] [place] [address] Arnp: Mario Valle MD HEMO Collected: 02/28/2018 Status: F Source: [facility] 5:47 AM [facility] REPOSITORY TYPE CODE TESTS RESULT OUT OF REFERENCE UNITS RANGE LAB 7349323(LOINC) Instr Normal WBC 7.9 LAB 8315 80.0-100.0 fL MCV Normal 81.7 LAB 8340 7.4-10.4 fL MPV Normal 7.7 LAB 8153 12.0-16.0 g/dL Low HGB 9.8 LAB 8618 11.5-14.5 RDW High 15.3 LAB 8986 4.5-11.0 x10 WBC Normal 7.9 LAB 8313 27.0-34.0 pg MCH Normal 27.8 LAB 15117421 /100WBC Normal Nucleated RBC 0 LAB 8129 36.0-46.0 % Low HCT 28.9 LAB 6028765 150-450 x1000 Normal Platelet 265 LAB 8611 4.20-5.40 x10 Low RBC 3.53 Result Comment: Note: RBC morphology is normal unless otherwise stated. Evaluation performed only if differential is requested. LAB 8314 32.0-37.0 g/dL Normal MCHC 34.0 LAB 5319366(LOIN C) Normal DIFF? No Performed By: #### [id number], 1005841, 273643, 264312 #### [facility] Laboratory Services [address] [place] [address] Arnp: Mario Valle MD AUTO DIFF Collected: 02/28/2018 Status: F Source: [facility] 5:47 AM [facility] REPOSITORY TYPE CODE TESTS RESULT OUT OF REFERENCE UNITS RANGE LAB 1881504 0.00-0.20 x1000 Baso Normal Count 0.05 LAB 9331114 0.10-1.00 x1000 [place] Normal Count 0.72 LAB 7135116 % [place] % Normal 9.0 LAB 5379329 % Normal Neutrophil % 47.0 LAB 6917507 1.40-8.80 x1000 Normal Neutrophil Count 3.73 (ANC) LAB 4701543 % Eosin % Normal 4.1 LAB 8119260 0.00-0.50 x1000 Eos Normal Count 0.33 LAB 8174150 1.20-4.80 x1000 Lymph Normal Count 3.11 LAB 0180555 % Lymph % Normal 39.2 LAB 9076736 % Basos % Normal 0.7 Performed By: #### [id number], 0284122, 820705, 680775 #### [facility] Laboratory Services [address] [place] [address] Arnp: Mario Valle MD NURSING CLINICAL NOTE Observed: 02/27/2018 Status: C Source: [facility] 5:36 PM [facility] REPOSITORY 1602- Pt arrived to from lab support technician in stable condition with lab support technician nurse at bedside. Pt is fully reovered from right radial heart cath. This RN and CLINICAL CYTOGENETICIST SCIENTIST at bedside for vitals and assessment. 1630- Pt resting in bed with family at bedside. Alert and orientedx3. Lung sounds are clear. No edema or skin breakdown noted besides incision in right radial wrist where heart cath was completed. Dress ing to site is clean, dry, intact with no drainage noted. Pt complains of generalized pain which tylenol previously taken has not helped. IVF post heart cath are infusing without any difficulty. Continu es on room air. Call light within reach. Will continue to monitor. 3097- Pt sitting up in bed eating dinner with no complaints at this time. CBC Collected: 02/26/2018 Status: F Source: [facility] 10:42 AM REPOSITORY TYPE CODE TESTS RESULT OUT OF REFERENCE UNITS RANGE LAB WBCIR(LOIN 4.4-9.9 10*3/uL C) WBC 8.2 LAB RBC(LOINC) 3.85-5.10 10*6/uL RBC 3.85 LAB HGB(LOINC) 11.8-15.3 g/dL Low HGB 10.4 LAB HCT(LOINC) 36.5-46.6 % Low HCT 32.2 LAB MCV(LOINC) 85.4-100.0 fL Low MCV 83.6 LAB MCH(LOINC) 27.5-33.0 pg Low MCH 27.0 LAB MCHC(LOINC 30.1-35.0 g/dL ) MCHC 32.3 LAB RDWCV(LOIN 12.0-15.4 % C) RDW High CV 16.1 LAB RDWSD(LOIN 39.3-48.6 fL C) RDW High SD 48.9 LAB PLTC(LOINC 155-404 10*3/uL ) Platelet Count 343 LAB MPV(LOINC) 9.9-12.1 fL MPV 9.9 LAB NRBCR(LOIN /100{WBCs} C) NRBC Automated 0.0 LAB NRBCA(LOIN 10*3/uL C) NRBC Absolute 0.00 Performed By: #### [id number] #### [facility] [address] [place] [address] PROTHROMBIN TIME Collected: 02/26/2018 Status: F Source: [facility] 10:42 AM [facility] REPOSITORY TYPE CODE TESTS RESULT OUT OF RANGE REFERENCE UNITS LAB PTI(LOINC) 9.7-12.7 sec PT 11.6 Result Comment: PLEASE NOTE NEW REFERENCE RANGE EFFECTIVE 2017 LAB INR(LOINC) 0.90-1.10 INR 1.03 Performed By: #### [id number] #### [facility] [address] [place] [address] BASIC METABOLIC PANEL Collected: 02/26/2018 Status: F Source: [facility] 10:42 AM REPOSITORY TYPE CODE TESTS RESULT OUT OF REFERENCE UNITS RANGE LAB GLU(LOINC) 70-100 mg/dL Glucose High 106 LAB UREA(LOINC 6-23 mg/dL ) Urea High Nitrogen 28 LAB CREAT(LOIN 0.50-1.05 mg/dL C) High Creatinine 1.49 LAB GFR(LOINC) Glomerular 35 Filtration Rate Result Comment: Interpretation for Chronic Kidney Disease: Stages 1&2 >60 Healthy or potential kidney damage. Mild decrease of GFR. Stage 3 30-59 Moderate decrease of GFR. Stage 4 15-29 Severe decrease of GFR. Stage 5 <15 Kidney failure or on dialysis. LAB SOD(LOINC) 136-145 mmol/L Sodium 142 LAB POT(LOINC) 3.5-5.1 mmol/L Potassium 4.3 LAB CHLOR(LOINC) 98-107 mmol/L Chloride High 110 LAB BICAR(LOINC) 21-32 mmol/L Bicarbonate 22 LAB CA(LOINC) 8.6-10.3 mg/dL Calcium 9.4 LAB ANGAP(LOINC) 10-20 mmol/L Anion Gap 14 LAB BCRAT(LOINC) 5-25 Urea/Creatinine Ratio 19 Performed By: #### [id number] #### [facility] [address] [place] [address] PACEMAKER CHECK Observed: 01/26/2018 Status: F Source: [place] 8:40 AM [facility] REPOSITORY [facility] [address] [place] [address] Pacemaker Check Date of Service: 01/23/181658 MR#: [id number] Acct: [id number] Name: CELESTE DESOUZA Rep #: [id number] : 1950 From: Katie Perry Age/Sex: 67/F Location[place] [facility] Status: Signed Billing Codes PM Device Codes: PM Dev Prog Eval, Dual 01/23/18 1701 <Electronically signed by Katie Perry > Date Katie Perry 01/26/18 0840<Electronically signed by John Julio MD> Shahram Signature: Date (if applicable) John Julio MD CC: PROTHROMBIN TIME W/INR Collected: 01/23/2018 Status: F Source: [place] 3:25 PM [facility] REPOSITORY TYPE CODE TESTS RESULT OUT OF RANGE REFERENCE UNITS LAB L300.4150 11.7-14.9 SECONDS Normal PROTIME 13.5 LAB L300.4200 Normal INR 1.0 Performed By: #### L300.3900 #### [facility] [address] [place], [address] CBC W/DIFF, AUTOMATED Collected: 01/23/2018 Status: F Source: [place] 3:25 PM [facility] REPOSITORY TYPE CODE TESTS RESULT OUT OF [...] Lymph 3.16 Performed By: #### L100.0100 #### [facility] [address] [place], [address] BASIC METABOLIC Collected: 01/23/2018 Status: F Source: [place] PROFILE (BMP) 3:25 PM [facility] REPOSITORY TYPE CODE TESTS RESULT OUT OF [...] GAP 6 Performed By: #### L500.2500 #### [facility] [address] [place], [place], [address] STRESS REPORT Observed: 01/21/2018 Status: F Source: [place] 1:08 PM [facility] Cardiovascular Services [address] [place] [address] MR#: [id number] Acct: [id number] Name: CELESTE DESOUZA Rep #: [id number] : 1950 67 From: John Julio MD Primary Care: Hank SMYTH,Rigo Valdes Status: REG CLI Ordering Dr: Sex: F [...] Julio MD; Rigo Mckinney MD Date Dictated: 01/21/18 1305 Date Transcribed: 01/21/18 130 Business Test Analyst: CO Signed CARDIOLOGY VISIT Observed: 01/09/2018 Status: F Source: [place] REPORT 2:39 PM [facility] REPOSITORY [facility] 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 mg/dL Normal UR CREAT 82.30 LAB L501.1930 <11.9 mg/dL High 244.8 PROTEIN,UR.R AN. LAB L501.1940 0-200 mg/g CRE High PROT:CRE 2974 RATIO Performed By: #### L501.0900 #### [facility] [address] [place], [address] PACEMAKER CHECK Observed: 12/17/2017 Status: F Source: [place] 4:38 PM [facility] REPOSITORY [facility] [place] [address] Pacemaker Check Date of Service: 12/17/171623 MR#: [id number] Acct: [id number] Name: CELESTE DESOUZA Rep #: [id number] : 1950 From: Katie Perry Age/Sex: 67/F Location: [facility] Status: Signed Billing Codes PM Device Codes: PM Dev Prog Eval, Dual 12/17/17 1625 <Electronically signed by Katie Perry > Date Katie Perry 12/17/17 1638<Electronically signed by Vijaya GROSSMAN> Cosigner Signature: Date (if applicable) Vijaya Coyle CC: John Julio MD CBC W/DIFF, AUTOMATED Collected: 12/17/2017 Status: F Source: [place] 3:47 PM [facility] REPOSITORY TYPE CODE TESTS RESULT OUT OF [...] Lymph 2.89 Performed By: #### L100.0100 #### [facility] [address] [place], [address] COMPREHENSIVE METABOLIC Collected: 12/17/2017 Status: F Source: [place] PROFIL 3:47 PM [facility] REPOSITORY Order Comment: DR SINGH ORDERED RENAL [...] #### L500.4050, L500.4100, L501.2300, L501.4700, L501.9520 #### [facility] [address] [place], [place], [address] LIPID PROFILE Collected: 12/17/2017 Status: F Source: [place] 3:47 PM [facility] REPOSITORY Order Comment: DR SINGH ORDERED RENAL [...] #### L500.4050, L500.4100, L501.2300, L501.4700, L501.9520 #### [facility] [address] [place], [address] PHOSPHORUS Collected: 12/17/2017 Status: F Source: [place] 3:47 PM [facility] REPOSITORY Order Comment: DR SINGH ORDERED RENAL ONLY PT UNABLE TO VOID TYPE CODE TESTS RESULT OUT OF RANGE REFERENCE UNITS LAB L501.2300 2.5-4.9 mg/dL Normal PHOS 3.4 Performed By: #### L500.4050, L500.4100, L501.2300, L501.4700, L501.9520 #### [facility] [address] [place], [address] BILIRUBIN, DIRECT Collected: 12/17/2017 Status: F Source: [place] 3:47 PM [facility] REPOSITORY Order Comment: DR SINGH ORDERED RENAL ONLY PT UNABLE TO VOID TYPE CODE TESTS RESULT OUT OF RANGE REFERENCE UNITS LAB L501.4700 0.00-0.30 mg/dL Normal D BILI 0.07 Performed By: #### L500.4050, L500.4100, L501.2300, L501.4700, L501.9520 #### [facility] [address] [place], [address] THYROID STIM HORMONE Collected: 12/17/2017 Status: F Source: [place] (TSH) 3:47 PM [facility] REPOSITORY Order Comment: DR SINGH ORDERED RENAL ONLY PT UNABLE TO VOID TYPE CODE TESTS RESULT OUT OF RANGE REFERENCE UNITS LAB L501.9520 0.358-3.74 uIU/mL Normal TSH 1.21 Performed By: #### L500.4050, L500.4100, L501.2300, L501.4700, L501.9520 #### [facility] [address] [place], [address] VITAMIN D,25 HYDROXY Collected: 12/17/2017 Status: F Source: [place] 3:47 PM [facility] REPOSITORY TYPE CODE TESTS RESULT OUT OF RANGE REFERENCE UNITS LAB L506.1000 29.95-100.01 ng/mL Normal Vitamin D 48.4 25-OH Result Comment: Vitamin D 25(OH) Status Range Deficiency <20 ng/mL (50nmol/L) Insuffciency 20 - 30 ng/mL (50 - 75 nmol/L) Sufficiency 30 - 100 ng/mL (75 - 250 nmol/L) Toxicity >100 ng/mL (>250 nmol/L) Performed By: #### L506.1000 #### [facility] [address] [place], [address] PTHIN Collected: 12/17/2017 Status: F Source: [place] 3:47 PM [facility] REPOSITORY TYPE CODE TESTS RESULT OUT OF RANGE REFERENCE UNITS LAB L509.1000 18.4-80.1 pg/mL High PTHIN 138.6 Performed By: #### L509.1000 #### [facility] [address] [facility] [place], [address] DISCHARGE INSTRUCTION Observed: 12/12/2017 Status: F Source: [place] 7:52 AM [facility] REPOSITORY [facility] Medical Records Department [address] [facility] [place] [address] Instructions for Home/Discharge Instructions 12/12/17 0748 MR#: [id number] Acct: [id number] Name: CELESTE DESOUZA Rep #: [id number] : 1950 67 From: John Julio MD PCP: Hank SMYTH,Rigo Valdes Status: REG [facility] Discharge Diet: No Restrictions Discharge Activity: May [...] call your doctor's office or Doctor's Registry ([phone]) Call 911 or go to the nearest [...] PACER CLINIC 12/17 AT 2 PM 12/12/17 0913 <Electronically signed by John Julio MD> Date John Julio MD CC: Rigo Mckinney MD CHEST 1 VIEW Observed: 12/12/2017 Status: F Source: [facility] 12:12 AM [facility] REPOSITORY [facility] Imaging Services [address] [place] [address] Chest 1 View MR#: [id number] Acct: [id number] Name: JALILSOCOCELESTE MCNULTY Jerry Rep #: [id number] : 1950 F 67 From: Rell Yanez MD PCP: Rigo Mckinney MD, Chi Status: REG [facility] Study: Chest 1 View Date of Exam: 12/12/17 Exam# [id number] Ordering Dr: John Julio MD STUDY: X-RAY [...] CC: John Julio MD; Rigo Mckinney MD Business Test Analyst: Signed CHEST PA AND LATERAL Observed: 12/12/2017 Status: F Source: [place] 12:00 AM [facility] REPOSITORY [facility] Imaging Services [address] [place] [address] Chest PA and Lateral MR#: [id number] Acct: [id number] Name: CELESTE DESOUZA Rep #: [id number] : 1950 F 67 From: Rell Yanez MD PCP: Rigo Mckinney MD, Chi Status: REG [facility] Study: Chest PA and Lateral Date of Exam: 12/12/17 Exam# [id number] Ordering Dr: John Julio MD STUDY: X-RAY [...] CC: John Julio MD; Rigo Mckinney MD Business Test Analyst: Signed ECHOCARDIOGRAM COMPLETE Observed: 12/10/2017 Status: F Source: [place] 5:10 PM [facility] REPOSITORY [facility] Cardiovascular Services [address] [place] [address] Echo Complete 12/10/17 1427 MR#: [id number] Acct: [id number] Name: CELESTE DESOUZA Rep #: [id number] : 1950 67 From: John Julio MD Attending Dr: Rigo Mckinney MD, Chi Status: REG CLI Ordering Dr: John Julio MD Date: 12/10/17 [place] [facility] Sex: F C Admitted: Reason For Study: [...] MD; Rigo Mckinney MD Date Dictated: 12/10/17 1427 Date Transcribed: 12/10/171709 Business Test Analyst: Signed URINALYSIS, COMPLETE Collected: 12/10/2017 Status: F Source: [place] 1:51 PM [facility] REPOSITORY Order Comment: How was Urine Obtained? [...] AMORPHOUS URATE Performed By: #### L400.0001 #### [facility] [address] [place], [address] CARDIOLOGY VISIT Observed: 12/10/2017 Status: F Source: [place] REPORT 11:50 AM [facility] REPOSITORY [facility] [address] [place] [address] OFFICE VISIT Date of Service: 12/10/17 MR#: [id number] Acct: [id number] Name: CELESTE DESOUZA Rep #: [id number] : 1950 Provider: John Julio MD Age/Sex: 67/F Location: [facility] Status: Signed HPI HPI Chief Complaint: Initial [...] BASIC METABOLIC Collected: 12/10/2017 Status: F Source: [place] PROFILE (BMP) 10:53 AM [facility] REPOSITORY Order Comment: 'TROP' Serial specimen #1, [...] Performed By: #### L500.2500, L501.3620, L501.4010 #### [facility] [address] [place], [address] CPK TOTAL, CREATINE Collected: 12/10/2017 Status: F Source: [place] KINASE 10:53 AM [facility] REPOSITORY Order Comment: 'TROP' Serial specimen #1, #2, #3, or #4: 1 TYPE CODE TESTS RESULT OUT OF RANGE REFERENCE UNITS LAB L501.3620 26-192 U/L Normal CPK TOTAL 57 Performed By: #### L500.2500, L501.3620, L501.4010 #### [facility] [address] [place], [address] TROPONIN-I Collected: 12/10/2017 Status: F Source: [place] 10:53 AM [facility] REPOSITORY Order Comment: 'TROP' Serial specimen #1, #2, #3, or #4: 1 TYPE CODE TESTS RESULT OUT OF RANGE REFERENCE UNITS LAB L501.4010 <0.045 ng/mL Normal < 0.015 TROPONIN-I Result Comment: TROPONIN-I EXPECTED VALUES <0.045 Negative 0.045 - 0.590 Consistent with Cardiac Damage > OR = 0.600 Critical Value Not every elevated troponin is indicative of NE. These values should be used with clinical judgement in examining the patient's clinical picture for diagnosis. To establish a diagnosis of NE versus myocardial injury, there must be a demonstrated rise and/or fall in the troponin values, in addition to ischemic symptoms, EKG changes, new regional wall motion abnormality, and/or angiographical evidence. PLEASE NOTE: REFERENCE RANGES EDITED 17 Performed By: #### L500.2500, L501.3620, L501.4010 #### [facility] [address] [place], [address] MYOGLOBIN, SERUM Collected: 12/10/2017 Status: F Source: [place] 10:53 AM [facility] REPOSITORY TYPE CODE TESTS RESULT OUT OF RANGE REFERENCE UNITS LAB L3600.5100 25-58 ng/mL High 64 Myoglobin, Ser Result Comment: Performed at: [address] [id number] Circular Clerk: Mega Blanca PhD, Phone: [phone] Performed By: #### L3600.5100 #### [facility] (refer to report for specific site) refer to report for address and phone number CTA CHEST W/WO Observed: 12/10/2017 Status: F Source: [place] CONTRAST 8:33 AM [facility] REPOSITORY [facility] Imaging Services [address] [place] [address] CTA Chest W/WO Contrast MR#: [id number] Acct: [id number] Name: CELESTE DESOUZA Rep #: [id number] : 1950 F 67 From: Sean Bush DO PCP: Rigo Mckinney MD, Chi Status: REG CLI Study: CTA Chest W/WO Contrast Date of Exam: 12/10/17 Exam# [id number] Ordering Dr: Rigo Mckinney MD STUDY: CTA [...] pulmonary nodules as above Electronically Signed: Sean DO Rachelle at 9:18 EDT Tel , Service support , CC: Rigo Mckinney MD Business Test Analyst: Signed CHEST PA AND LATERAL Observed: 12/09/2017 Status: F Source: [place] 4:13 PM [facility] REPOSITORY [facility] Imaging Services [address] [place] [address] Chest PA and Lateral MR#: [id number] Acct: [id number] Name: CELESTE DESOUZA Rep #: [id number] : 1950 F 67 From: Christopher Waddell DO PCP: Rigo Mckinney MD, Chi Status: REG CLI Study: Chest PA and Lateral Date of Exam: 12/09/17 Exam# [id number] Ordering Dr: Rigo Mckinney MD STUDY: X-RAY [...] Christopher Waddell DO at 18:32 EDT Tel [phone], Service support , CC: Rigo Mckinney MD Business Test Analyst: Signed CBC-COMPLETE BLOOD CNT Collected: 12/09/2017 Status: F Source: [place] NO DIFF 3:58 PM [facility] REPOSITORY TYPE CODE TESTS RESULT OUT OF [...] MPV 11.2 Performed By: #### L100.0500 #### [facility] [address] [place], [address] BASIC METABOLIC Collected: 12/09/2017 Status: F Source: [place] PROFILE (BMP) 3:58 PM [facility] REPOSITORY TYPE CODE TESTS RESULT OUT OF [...] Performed By: #### L500.2500, L501.3620, L501.9520 #### [facility] [address] [place], [address] CPK TOTAL, CREATINE Collected: 12/09/2017 Status: F Source: [place] KINASE 3:58 PM [facility] REPOSITORY TYPE CODE TESTS RESULT OUT OF RANGE REFERENCE UNITS LAB L501.3620 26-192 U/L Normal CPK TOTAL 60 Performed By: #### L500.2500, L501.3620, L501.9520 #### [facility] [address] [place], [address] THYROID STIM HORMONE Collected: 12/09/2017 Status: F Source: [place] (TSH) 3:58 PM [facility] REPOSITORY TYPE CODE TESTS RESULT OUT OF RANGE REFERENCE UNITS LAB L501.9520 0.358-3.74 uIU/mL Normal TSH 0.90 Performed By: #### L500.2500, L501.3620, L501.9520 #### [facility] [address] [place], [address] BNP,B-TYPE NATRIURETIC Collected: 12/09/2017 Status: F Source: [place] PEPTIDE 3:58 PM [facility] REPOSITORY TYPE CODE TESTS RESULT OUT OF RANGE REFERENCE UNITS LAB L503.6620 0-100 pg/mL High B-TYPE 606.2 NIC PEP Performed By: #### L503.6620 #### [facility] [address] [place], [address] D-DIMER QUANTITATIVE Collected: 12/09/2017 Status: F Source: [place] (DVT/PE) 3:58 PM [facility] REPOSITORY TYPE CODE TESTS RESULT OUT OF RANGE REFERENCE UNITS LAB L300.8000 0.27-0.49 FEU/ug/m High alert D-DIMER 2.40 QUANT Result Comment: D-Dimer ELEVATED (>0.49): Additional studies and clinical assessments are indicated to conclude diagnosis of: Deep Vein Thrombosis (DVT) or Pulmonary Embolism (PE) CRITICAL VALUE VERIFIED. CALLED TO DR MCKINNEY 12/09/17 1729 Kajal Worrell. RESULTS READ BACK BY SAME . Performed By: #### L300.8000 #### [facility] [address] [place], [address] MYOGLOBIN, SERUM Collected: 12/09/2017 Status: F Source: [place] 3:58 PM [facility] REPOSITORY TYPE CODE TESTS RESULT OUT OF RANGE REFERENCE UNITS LAB L3600.5100 25-58 ng/mL High 81 Myoglobin, Ser Result Comment: Performed at: - [facility] [address] [id number] Circular Clerk: Mega Blanca PhD, Phone: [phone] Performed By: #### L3600.5100 #### [facility] (refer to report for specific site) refer to report for address and phone number PROGRESS Observed: 10/07/2017 Status: COMPLETED Source: [place] 4:16 PM [facility] REPOSITORY O ID: [id number] Author: Yamilet Magana MD Service: (none) Author Type: Physician Type: Progress Notes Filed: 10/08/2017 3:53 PM Note Text: Celeste Desouza is a 67 year old who presents for her annual gynecologic exam without complaints. Thorough past history obtained/updated/reviewed with today's visit. Pt states there are no significant changes to her past medical and surgical history. Deputy City Clerk offered: Patient declines. ABN discussed- her supplemental [...] external genitalia normal, normal Bartholin's glands, urethra, [place]'s glands, no vulvar lesions, physiologic discharge present, [...] results at her convenience. Yamilet Magana MD, CNOV Observed: 10/07/2017 Status: COMPLETED Source: [place] 3:30 PM [facility] REPOSITORY Office Visit (OBGMEM) LYLYCELESTE Jerry ([id number]) 1950 F Date Time Provider Department 10/07/17 3:30 PM YAMILET MAGANA OBEM During your visit today, we recorded the following information about you: Blood pressure Weight 110/52 77.5 kg Yamilet Magana MD, MD 10/08/2017 3:53 PM Signed Celeste Desouza is a 67 year old who presents for her annual gynecologic exam without complaints. Thorough past history obtained/updated/reviewed with today's visit. Pt states there are no significant changes to her past medical and surgical history. Deputy City Clerk offered: Patient declines. ABN discussed- her supplemental [...] external genitalia normal, normal Bartholin's glands, urethra, [place]'s glands, no vulvar lesions, physiologic discharge present, [...] to date with screening- [facility] (2016) TSH/lipids/glucose: With PCP AND up to date [...] salmon and sardines and vegetables, such as Polish cabbage, kale, and broccoli. Foods fortified with [...] acid, calcium carbonate is found in some hkud-sbo-dfqbytl antacid products, such as Tums? and Rolaids?. [...] health screening schedule is recommended by the [employer] ([employer]). Some [...] for screening mammogram for breast cancer [Z12.31] Order(s):MONTANA SCREENING W JULIO [[id number]] Order #: [id number] FUTURE Prescriptions as of 10/07/2017 Sig: VITAMIN [...] FOR* Tubular adenoma [D36.9] INVALID FOR* More... Eybqh-qg-gscvtln kidney injury (HCC) [N17.9, N1*INVALID FOR*09/05/2017 Anemia [...] salmon and sardines and vegetables, such as Polish cabbage, kale, and broccoli. Foods fortified with [...] acid, calcium carbonate is found in some ywhy-ofx-msrlltt antacid products, such as Tums? and Rolaids?. [...] health screening schedule is recommended by the [place] [employer] (ACOG). Some [...] BASIC METABOLIC Collected: 10/06/2017 Status: F Source: PAVAN PROFILE (BMP) 4:57 PM [facility] REPOSITORY TYPE CODE TESTS RESULT OUT OF [...] 6 Performed By: #### L500.2500, L500.4100 #### [facility] [address] [place], [address] LIPID PROFILE Collected: 10/06/2017 Status: F Source: HERCULES 4:57 PM [facility] REPOSITORY TYPE CODE TESTS RESULT OUT OF [...] 43 Performed By: #### L500.2500, L500.4100 #### [facility] [address] [facility] [place], [place], [address] RENAL PROFILE Collected: 09/16/2017 Status: F Source: [place] 3:57 PM [facility] REPOSITORY TYPE CODE TESTS RESULT OUT OF [...] CO2 28.0 Performed By: #### L500.3600 #### [facility] [address] [place], [place], [id number] PTHIN Collected: 09/16/2017 Status: F Source: [place] 3:57 PM [facility] REPOSITORY TYPE CODE TESTS RESULT OUT OF RANGE REFERENCE UNITS LAB L509.1000 18.4-80.1 pg/mL High PTHIN 160.7 Performed By: #### L509.1000 #### [facility] [address] [place], [address] LUMBAR SPINE 2 OR 3 Observed: 09/16/2017 Status: F Source: HERCULES VIEWS 12:02 PM [facility] REPOSITORY [facility] Imaging Services [address] [place] [address] Lumbar Spine 2 or 3 Views MR#: [id number] Acct: [id number] Name: CELESTE DESOUZA Rep #: [id number] : 1950 F 67 From: Matias Hussein MD PCP: OUT OF TOWN DOCTOR Status: REG CLI Study: Lumbar Spine 2 or 3 Views Date of Exam: 09/16/17 Exam# [id number] Ordering Dr: Rigo Mckinney MD STUDY: X-RAY [...] OUT OF TOWN DOCTOR; Rigo Mckinney MD Business Test Analyst: Signed CASE MANAGEM Observed: 09/05/2017 Status: COMPLETED Source: [place] 4:07 PM CLINIC OTHER CAMPUS REPOSITORY HNO ID: [id number] Author: Amanda Buckner (Sw) Service: Care Management Author Type: Photo Machine Operator Type: Care Mgt Progress Note Filed: 09/05/2017 [...] ED to Hosp-Admission (Current) from 09/02/2017 in [facility] Follow-Up Appointment Specialty PCP Provider Name Rigo Mckinney MD Address [address] [place] [address], [facility] [address] Mckinney's office will contact [...] Summary of care sent to PCP via [employer]. SIGNATURE: BENITO Ruiz LSW PATIENT NAME: Celeste Desouza DATE: September 05, 2017 TIME: 4:07 PM PAGER/CONTACT #: [phone] CNDS Observed: 09/05/2017 Status: COMPLETED Source: [place] 3:50 PM CLINIC OTHER CAMPUS REPOSITORY O ID: [id number] Author: Janet Patterson Service: Hospital Medicine Author [...] (including losartan) was recently stopped by her talent acquisition partner. Cr on admission Was 4.61.It was 2.22 on 08/13/17. Last baseline 01/25/17 was 1.4 Renal U/S was negative. Kidney numbers improved with intravenous hydration. Her medications were adjusted Per renal dosing. Cr at discharge was 3.34. She was seen by the talent acquisition partner who recc continuing the IVF, adjusted her BP meds. She belives the tremors is due to tramadol./neurontin And plans to wean her off the medication during f/up.. The talent acquisition partner recommends f/up in a week. She was [...] stage 5, GFR less than 15 ml/min (HCC) Resolved Problems: Ljmhe-je-qdwcpoi kidney injury (HCC) Hyperchloremic metabolic acidosis Hypernatremia [...] to call for appointment?: Yes Rigo Mckinney [phone] [address] [facility] [place] [address] [address] PCP Requested Referral Follow-Up Appointment When: In 5 days Luciana Singh I [phone] [facility] Nephrology [facility] [address] [facility] [place] [address] [address] PCP Requested Referral Additional Provider to Provider Information: See discharge instructions FOLLOW-UP APPOINTMENTS ALREADY SCHEDULED WITH A [facility] PROVIDER: Future Appointments Date Time Provider Department Center 10/07/2017 3:30 PM Yamilet Magana MD [facility] 11/14/2017 1:40 PM Rell Serrano [facility] Stro Discharge Information Row Name ED to Hosp-Admission (Discharged) from 09/02/2017 in [facility] Medical Follow-Up Appointment Specialty PCP Provider Name Rigo Mckinney MD Address [address], [facility] [address] Mckinney's office will contact [...] AM CBC Collected: 09/05/2017 Status: F Source: [place] 4:43 AM CLINIC OTHER CAMPUS REPOSITORY TYPE [...] Performed By: #### CBC, BMP, MG1 #### [facility] [address] [facility] [phone] BASIC METABOLIC PANL Collected: 09/05/2017 Status: F Source: [place] 4:43 AM CLINIC OTHER CAMPUS REPOSITORY TYPE CODE TESTS RESULT OUT OF REFERENCE UNITS RANGE LAB GLU 74-99 mg/dL High Glucose 106 Result Comment: The [place] [employer] Association (ADA) provides guidance for cutoff [...] Standards of Medical Care in Diabetes 2016, [place] [employer]. Diabetes Care. 2016.39(Suppl 1). LAB [...] accurately reflect actual GFR. Performed By: #### JUSTINE, BMP, MG1 #### [facility] [address] [place] [phone] MAGNESIUM Collected: 09/05/2017 Status: F Source: [place] 4:43 AM [facility] REPOSITORY TYPE CODE TESTS RESULT OUT OF REFERENCE UNITS RANGE LAB MG 1.7-2.3 mg/dL Magnesium 1.8 Performed By: #### CBC, BMP, MG1 #### [facility] [address] [facility] [phone] NURSING PROG Observed: 09/05/2017 Status: COMPLETED Source: [place] 3:09 AM [facility] REPOSITORY HNO ID: [id number] Author: Carlota (Rn) SAUL Fernandez Service: (none) Author Type: Registered Nurse Type: Nursing Progress Note Filed: 09/05/2017 3:13 AM Note Text: Nursing Progress Note Patient Name: Celeste Desouza Patient Location: [place] [address] [address] Daily Note: Patient calls for assist to use the BR. Patient unsteady with plugging and unplugging her iv pump. Patient is pleasant and cooperative, and maintains all safety instruction and education. Patient hopes to be discharged in the am. MD to check labs in am to determine DC or not. Safety maintained. Will continue to monitor patient. This note was completed by: Carlota Fernandez RN CNCO Observed: 09/05/2017 Status: COMPLETED Source: [place] 12:00 AM [facility] REPOSITORY Letter Text September 05, 2017 Celeste Desouza [address] [place] [address] [place] [address] Dear Ms. Desouza, The nurses and staff of [facility] hope this letter finds you feeling [...] free to contact me, Domonique Narvaez RN ([phone]) or email me at, [email or web address] Additionally, you will receive a survey [...] participation and thank you for choosing the [facility] for your health needs. Sincerely, Nurse Dredging Inspector: Domonique Narvaez RN ([phone]) [facility] Unit: [address] [place] [address] CASE MANAGEM Observed: 09/04/2017 Status: COMPLETED Source: [place] 3:01 PM [facility] OTHER CAMPUS REPOSITORY HNO ID: [id number] Author: Amanda Buckner (Sw) Service: Care Management Author Type: Photo Machine Operator Type: Care Mgt Progress Note Filed: 09/04/2017 [...] follow for d/c planning. SIGNATURE: BENITO Ruiz, CARDIAC NURSE PRACTITIONER PATIENT NAME: Celeste Desouza DATE: September 04, 2017 TIME: 3:01 PM PAGER/CONTACT #: [phone] NUTRITION Observed: 09/04/2017 Status: COMPLETED Source: [place] 2:57 PM [facility] OTHER CAMPUS REPOSITORY HNO ID: [id number] Author: Nikia Esquivel Service: Nutrition Therapy Author [...] Diagnosis: Acute renal failure (ARF) ([facility]) [N17.9] Present Diet Order: Heart Healthy 2 [...] metabolism diet that they discovered on Dr. Jean. They cycle carbs (3 days high carb [...] PM NUTRITION Observed: 09/04/2017 Status: COMPLETED Source: [place] 2:55 PM CLINIC OTHER CAMPUS REPOSITORY HNO ID: [id number] Author: Nikia Esquivel Service: Nutrition Therapy Author [...] PM PROGRESS Observed: 09/04/2017 Status: COMPLETED Source: [place] 12:10 PM CLINIC OTHER CAMPUS REPOSITORY O ID: [id number] Author: Luciana Singh I Service: Nephrology Author [...] PM PROGRESS Observed: 09/04/2017 Status: COMPLETED Source: [place] 11:09 AM CLINIC OTHER CAMPUS REPOSITORY [facility] ID: [id number] Author: Janet Patterson Service: Hospital Medicine Author [...] and imaging results. Assessment/Plan Active Problems: ? Dnyqf-hu-axbdlul kidney injury (HCC) POA: Yes ?Assessment AND?Plan: [...] VTE Prophylaxis/Anticoagulants 09/02/17 1645 pneumatic compression stockings (ia,ok) 09/02/17 1645 activity - mobilize patient (ia,ok) VTE Prophylaxis: VTE prophylaxis appropriate SIGNATURE: Janet Patterson MD PATIENT NAME: Celeste Desouza DATE: September 04, 2017 TIME: 11:09 AM PAGER: [phone] CBC Collected: 09/04/2017 Status: F Source: [place] 4:57 AM CLINIC OTHER CAMPUS REPOSITORY TYPE [...] Performed By: #### CBC, MG1, RFP #### [facility] [address] [place] [address] MAGNESIUM Collected: 09/04/2017 Status: F Source: [place] 4:57 AM [facility] OTHER CAMPUS REPOSITORY TYPE CODE TESTS RESULT OUT OF REFERENCE UNITS RANGE LAB MG 1.7-2.3 mg/dL Magnesium 2.1 Performed By: #### CBC, MG1, RFP #### [facility] [address] [facility] [phone] RENAL FUNCTION PANEL Collected: 09/04/2017 Status: F Source: [place] 4:57 AM CLINIC OTHER CAMPUS REPOSITORY TYPE CODE TESTS RESULT OUT OF REFERENCE UNITS RANGE LAB ALB 3.9-4.9 g/dL Low Albumin 3.7 LAB CA 8.5-10.2 mg/dL Calcium, Total 9.2 LAB PHOS 2.7-4.8 mg/dL Phosphorus 4.2 LAB GLU 74-99 mg/dL Glucose 99 Result Comment: The [place] Diabetes [employer] (ADA) provides guidance for cutoff [...] Standards of Medical Care in Diabetes 2016, [place] [employer]. Diabetes Care. 2016.39(Suppl 1). LAB [...] Performed By: #### CBC, MG1, RFP #### [facility] [address] [place] [address] NURSING PROG Observed: 09/04/2017 Status: COMPLETED Source: [place] 12:10 AM [facility] [place] REPOSITORY HNO ID: [id number] Author: Ely (Rn) Yosef RN Service: (none) Author Type: Registered Nurse Type: Nursing Progress Note Filed: 09/04/2017 2:11 AM Note Text: Nursing Progress Note Patient Name: Celeste Desouza Patient Location: [facility]220/[id number] Daily Note:Pt assessment completed at this time. Pt c/o restless legs, but improving. Pt with no further complaints or other needs at this time. Pt aware to call for any needs. Pts call light and belongings within reach. This note was completed by: Ely Navas CREATININE,URINE,RAN Collected: Status: F Source: [place] 09/03/2017 5:45 PM [facility] [place] REPOSITORY TYPE CODE TESTS RESULT OUT OF RANGE REFERENCE UNITS LAB UCRR 20-300 mg/dL Low 18.0 Creatinine,U rine,Ran Performed By: #### UCRR, UNAR #### [facility] [address] [place], [place] [id number] SODIUM,URINE,RANDOM Collected: Status: F Source: [place] 09/03/2017 5:45 PM [facility] [place] REPOSITORY TYPE CODE TESTS RESULT OUT OF RANGE REFERENCE UNITS LAB UNAR 14-216 mmol/L 76 Sodium,Urine ,Random Performed By: #### UCRR, UNAR #### [facility] [address] [place] [phone] CONSULT Observed: 09/03/2017 Status: COMPLETED Source: [place] 4:20 PM [facility] REPOSITORY HNO ID: [id number] Author: Luciana Singh I Service: Nephrology Author [...] see her prior PCP Dr Aldrich from [facility] for coarse tremors that started in July [...] - Osteopenia - PUD (peptic ulcer disease) 2008 after bariatric surgery - Restless leg syndrome PAST SURGICAL HISTORY Procedure Laterality Date - BREAST BIOPSY 2007 right - CARPAL TUNNEL 2012 left then right - COLONOSCOPY - COLONOSCOPY 07/06 Dr Kline - KNEE SCOPE,DIAGNOSTIC 04/29/12 meniscal tear - LAPAROSCOP GASTRIC BYPASS 2008 - PAST SURGICAL HISTORY OF Left toe [...] 03, 2017 TIME: 4:21 PM PAGER/CONTACT #: [phone] PROGRESS Observed: 09/03/2017 Status: COMPLETED Source: [place] 1:39 PM CLINIC OTHER CAMPUS REPOSITORY HNO ID: [id number] Author: Janet Patterson Service: Hospital Medicine Author [...] and imaging results. Assessment/Plan Active Problems: ? Npsuz-nm-skibgbk kidney injury (HCC) POA: Yes Assessment AND [...] VTE Prophylaxis/Anticoagulants 09/02/17 1645 pneumatic compression stockings ([place], [place]) 09/02/17 1645 activity - mobilize patient ([place]) VTE Prophylaxis: VTE prophylaxis appropriate SIGNATURE: Janet Patterson MD PATIENT NAME: Celeste Desouza DATE: September 03, 2017 TIME: 1:39 PM PAGER: [phone] CBC Collected: 09/03/2017 Status: F Source: [place] 6:26 AM CLINIC OTHER CAMPUS REPOSITORY TYPE [...] Performed By: #### CBC, BMP, MG1 #### [facility] [address] [facility] [phone] BASIC METABOLIC PANL Collected: 09/03/2017 Status: F Source: [place] 6:26 AM CLINIC OTHER CAMPUS REPOSITORY TYPE CODE TESTS RESULT OUT OF REFERENCE UNITS RANGE LAB GLU 74-99 mg/dL Glucose 92 Result Comment: The [place] Diabetes Association (ADA) provides guidance for cutoff [...] Standards of Medical Care in Diabetes 2016, [place] [employer]. Diabetes Care. 2016.39(Suppl 1). LAB [...] Performed By: #### CBC, BMP, MG1 #### [facility] [address] [place] [address] MAGNESIUM Collected: 09/03/2017 Status: F Source: [place] 6:26 AM [facility] [place] REPOSITORY TYPE CODE TESTS RESULT OUT OF REFERENCE UNITS RANGE LAB MG 1.7-2.3 mg/dL High Magnesium 2.5 Performed By: #### CBC, BMP, MG1 #### [facility] [address] [place] [address] URINALYSIS Collected: 09/02/2017 Status: F Source: [place] 10:25 PM [facility] [place] REPOSITORY TYPE CODE TESTS RESULT OUT OF RANGE REFERENCE UNITS LAB UCOL Yellow Color Abnormal Straw Alert LAB [facility] Clear Clarity Clear LAB UGLUC Negative mg/dL Glucose, Urine Negative LAB UBIL Negative Bilirubin, Urine Negative LAB UKET Negative Ketones, Urine Negative LAB USPG 1.001-1.029 Specific Michie, Ur <=1.005 LAB UHGB Negative Hemoglobin/Blood, Negative Ur LAB UPH 5.0-8.0 pH 6.0 LAB UPROT Negative mg/dL Protein, Urine Negative LAB UUROB 0.2-1.0 Urobilinogen 0.2 LAB UNITR Negative Nitrites Negative LAB ULKEST Negative Leukest Negative Performed By: #### UA #### [facility] [address] [place] [address] US KIDNEY/BLADDER Observed: 09/02/2017 Status: F Source: [place] 6:41 PM [facility] REPOSITORY * * *Final Report* * * [...] patient body habitus and overlying bowel gas Business Test Analyst: ABBIE Transcribe Date/Time: Sep 02 2017 7:33P Dictated by : NATHAN QUINONES MD This examination was interpreted and the report reviewed and electronically signed by: NATHAN QUINONES MD on Sep 02 2017 7:36PM EST [id number] XR CHEST 1V FRONTAL Observed: 09/02/2017 Status: F Source: [facility] 5:01 PM CLINIC OTHER CAMPUS REPOSITORY [...] Cardiomediastinal silhouette: Normal cardiomediastinal silhouette. Other: . Business Test Analyst: [facility] Transcribe Date/Time: Sep 02 2017 5:07P Dictated by : HATTIE ROBINS MD This examination was interpreted and the report reviewed and electronically signed by: HATTIE ROBINS MD on Sep 02 2017 5:07PM EST [id number] HISTORY PHYSICAL Observed: 09/02/2017 Status: COMPLETED Source: [place] 4:09 PM [facility] OTHER CAMPUS REPOSITORY O ID: [id number] Author: Janet Patterson Service: Hospital Medicine Author [...] labs and imaging results. Assessment/Plan Active Problems: Otsnz-gj-chzzwds kidney injury (HCC) POA: Yes Assessment AND [...] 02, 2017 TIME: 4:09 PM PAGER/CONTACT #: [phone] ED NOTE Observed: 09/02/2017 Status: COMPLETED Source: [place] 2:42 PM [facility] OTHER [place] REPOSITORY HNO ID: [id number] Author: Jaelyn GomezRn) SAUL Reveles Service: (none) Author Type: Registered Nurse Type: ED Notes Filed: 09/02/2017 2:42 PM Note Text: report given to Carlota HUGHES. ED NOTE Observed: 09/02/2017 Status: COMPLETED Source: [place] 2:40 PM [facility] OTHER [place] REPOSITORY HNO ID: [id number] Author: Jaelyn Alcaraz) SAUL Reveles Service: (none) Author Type: Registered Nurse Type: ED Notes Filed: 09/02/2017 2:40 PM Note Text: Report called to [facility] pt updated to POC and agreeable to admission. CASE MGT INIT Observed: 09/02/2017 Status: COMPLETED Source: [facility] 2:27 PM CLINIC OTHER CAMPUS REPOSITORY HNO ID: [id number] Author: Marely GomezRn) SAUL Acosta Service: (none) Author Type: Registered Nurse Type: Care Mgt Initial Assessment Filed: 09/02/2017 3:37 PM Note Text: CARE MANAGEMENT: ASSESSMENT AND DISCHARGE PLAN SERVICE DATE: 09/02/2017 SERVICE TIME: 2:27 PM real estate officer met with patient, patient spouse and friend [...] prefers afternoon appointments. 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 No Advance Directive: Current Advance Directive: Health Care Power of Accounts Payable Representative;Living Will In Chart: No Health Literacy: 1. [...] None Has the Patient Been in a Long-Term Facility in the Past 30 days? No SOCIAL: Living Arrangement: Home Lives With: Spouse Financial Resources: Retired Primary Contact: Mario Desouza [address] [place] [address] [place] [address] [facility] Mobile Relation: Spouse LylyZhang Address: [address] [place] [id number] Relation: Son Krunal Desouza Relation: Son Supportive: [...] 0 I feel financially burdened by my oic-ao-xminhi expenses for my prescription medication: Disagree completely [...] Primary Care Physician: Rigo Mckinney MD - [facility] Summary of Care to be sent at discharge. SIGNATURE: Marely Acosta RN PATIENT NAME: Celeste Desouza DATE: September 02, 2017 TIME: 2:27 PM PAGER/CONTACT #: [phone] ED NOTE Observed: 09/02/2017 Status: COMPLETED Source: [place] 2:23 PM [facility] [place] REPOSITORY HNO ID: [id number] Author: Jaelyn Reveles RN Service: (none) Author Type: Registered Nurse Type: ED Notes Filed: 09/02/2017 2:24 PM Note Text: 10 minute report called ED NOTE Observed: 09/02/2017 Status: COMPLETED Source: [place] 2:00 PM [facility] [place] REPOSITORY HNO ID: [id number] Author: Jaelyn Reveles RN Service: (none) Author Type: Registered Nurse Type: ED Notes Filed: 09/02/2017 2:42 PM Note Text: Pt is resting comfortably in bed with call light in reach. Pt updated on plan of care. Bed is locked and in the lowest position. Pt is stable. No acute distress. Will continue to monitor. ED NOTE Observed: 09/02/2017 Status: COMPLETED Source: [place] 1:30 PM [facility] [place] REPOSITORY HNO ID: [id number] Author: Jaelyn GomezRn) SAUL Reveles Service: (none) Author Type: Registered Nurse Type: ED Notes Filed: 09/02/2017 2:43 PM Note Text: Pt is resting comfortably in bed with call light in reach. Pt updated on plan of care. Bed is locked and in the lowest position. Pt is stable. No acute distress. Will continue to monitor. URINALYSIS Collected: 09/02/2017 Status: F Source: [place] 1:00 PM [facility] OTHER CAMPUS REPOSITORY TYPE CODE TESTS RESULT OUT OF RANGE REFERENCE UNITS LAB UCOL Yellow Color Yellow LAB [facility] Clear Clarity Clear LAB UGLUC Negative mg/dL Glucose, Urine Negative LAB UBIL Negative Bilirubin, Urine Negative LAB UKET Negative Ketones, Urine Negative LAB USPG 1.001-1.029 Specific Michie, Ur <=1.005 LAB UHGB Negative Hemoglobin/Blood, Negative Ur LAB UPH 5.0-8.0 pH 6.0 LAB UPROT Negative mg/dL Protein, Urine Negative LAB UUROB 0.2-1.0 Urobilinogen 0.2 LAB UNITR Negative Nitrites Negative LAB ULKEST Negative Leukest Abnormal Trace Alert Performed By: #### UA, UAMIC #### [facility] [address] [facility] [phone] URINE MICROSCOPIC Collected: 09/02/2017 Status: F Source: [place] (FOR LAB USE ONLY) 1:00 PM [facility] OTHER [place] REPOSITORY TYPE CODE TESTS RESULT OUT OF REFERENCE UNITS RANGE LAB UWBC 0-5 /HPF WBC 0-5 LAB URBC 0-3 /HPF RBC 0-3 LAB UCAST 0 /LPF Cast SEE COMMENT Result Comment: 0 LAB UBACT 0 /HPF Abnormal Bacteria Alert Few LAB UEPI /HPF Epithelial Cells SEE COMMENT Result Comment: 0-5 Squamous Epithelial Cells Performed By: #### UA, UAMIC #### [facility] [address] [facility] [phone] ED NOTE Observed: 09/02/2017 Status: COMPLETED Source: [place] 12:52 PM [facility] [place] REPOSITORY HNO ID: [id number] Author: Jaelyn GomezRn) Abdirizak, SAUL Service: (none) Author Type: Registered Nurse Type: ED Notes Filed: 09/02/2017 12:52 PM Note Text: Pt is resting comfortably in bed with call light in reach. Pt updated on plan of care. Bed is locked and in the lowest position. Pt is stable. No acute distress. Will continue to monitor. ED NOTE Observed: 09/02/2017 Status: COMPLETED Source: [place] 12:51 PM [facility] [place] REPOSITORY HNO ID: [id number] Author: Jaelyn GomezRn) SAUL Reveles Service: (none) Author Type: Registered Nurse Type: ED Notes Filed: 09/02/2017 12:51 PM Note Text: Clean catch urine specimen obtained and sent. EKG Observed: 09/02/2017 Status: F Source: [place] 12:46 PM [facility] [place] REPOSITORY NAME : CELESTE DESOUZA PID : [id number] : 1950 Gender : Female Race : ORD : [id number] Procedure Date : Sep 02 2017 12:46:01 [...] ms QTC Calculation(Bezet) : 458 ms P Penning[place] : 55 degrees R Pen[place] : 26 degrees T Pen[place] : 37 degrees Test Reason : Arrhythmia Location : 1 : ER 16 Overread By : VIRGIL VARGAS D.O. Edited By : VIRGIL VARGAS D.O. Referred By : , Acquired by : [id number], ED NOTE Observed: 09/02/2017 Status: COMPLETED Source: [place] 12:38 PM [facility] [place] REPOSITORY HNO ID: [id number] Author: Jaelyn GomezRn) SAUL Reveles Service: (none) Author Type: Registered Nurse Type: ED Notes Filed: 09/02/2017 12:38 PM Note Text: Assumed pt care and agree with previous RN assessments. ED PROV NOTE Observed: 09/02/2017 Status: COMPLETED Source: [place] 12:14 PM [facility] [place] REPOSITORY HNO ID: [id number] Author: Inna Segovia Service: Emergency Medicine Author Type: Physician Dehairing Machine Tender Type: ED Provider Notes Filed: 09/02/2017 2:27 PM Note Text: Attestation signed by Kenneth Roblero III, MD at 09/03/2017 8:23 AM Attending Note I have personally performed a face to face assessment of the patient and have reviewed the PA/HOME CARE ASSOCIATE note. My laird findings include: This is a 67-year-old female who was sent here by primary care physician for acute renal failure. Patient's creatinine is gone from 2, less than one month prior to now 4 with an elevated BUN of greater than 70. Etiology uncertain at this point time. Discussed with patient's talent acquisition partner will be admitted for further workup and [...] than baseline and she should go to [facility]. Patient states that she feels fine [...] Abs Lymph 2.29 1.00 - 4.00 k/uL [place]% 6.6 % Abs [place] 0.49 <0.87 k/uL Eosin% 4.7 % Abs [...] Negative Negative Ketones, Urine Negative Negative Specific Michie, Ur <=1.005 1.001 - 1.029 Hemoglobin/Blood,Ur Negative [...] started. Clinical Impressions as of Sep 02 1418 Acute renal failure superimposed on chronic kidney disease, unspecified CKD stage, unspecified acute renal failure type (HCC) Hypermagnesemia MDM / Disposition / Plan This is a 67 y/o female sent here by PCP for elevated creatinine/BUN from baseline that was found from routine outpatient blood work. Patient feeling well otherwise. HD stable. Afebrile. Non-toxic appearing. Patient already established with talent acquisition partner Dr. Luciana Singh and she would like to be consulted during patient's hospital admission. The patient was TRANSFERRED to: Medicine Condition at time of disposition: stable SIGNATURE: MICH Guadarrama Pa-C 09/02/17 1427 Kenneth Roblero III, MD 09/03/17 0816 CBC AND DIFFERENTIAL Collected: 09/02/2017 Status: F Source: [place] 11:50 AM [facility] OTHER CAMPUS REPOSITORY TYPE CODE TESTS [...] k/uL Abs Lymph 2.29 LAB AMONO % [place]% 6.6 LAB AAMONO <0.87 k/uL Abs [place] 0.49 LAB AEOS % Eosin% 4.7 LAB AAEOS <0.46 k/uL Abs Eosin 0.35 LAB ABASO % Baso% 0.5 LAB AABASO <0.11 k/uL Abs Baso 0.04 Performed By: #### CBCDIF, CMP, MG1 #### [facility] [address] [place] [address] COMP METABOLIC PANEL Collected: 09/02/2017 Status: F Source: [place] 11:50 AM [facility] OTHER CAMPUS REPOSITORY TYPE CODE TESTS RESULT OUT OF REFERENCE UNITS RANGE LAB TP 6.3-8.0 g/dL Protein, Total 7.6 LAB ALB 3.9-4.9 g/dL Albumin 3.9 LAB CA 8.5-10.2 mg/dL Calcium, Total 9.2 LAB TBIL 0.2-1.3 mg/dL Bilirubin, Total 0.3 LAB ALKP 32-117 U/L Alkaline Phosphatase 109 LAB AST 13-35 U/L AST 20 LAB GLU 74-99 mg/dL Glucose High 111 Result Comment: The [place] Diabetes Association (ADA) provides guidance for cutoff [...] Standards of Medical Care in Diabetes 2016, [place] [employer]. Diabetes Care. 2016.39(Suppl 1). LAB [...] Performed By: #### CBCDIF, CMP, MG1 #### [facility] [address] [facility] [phone] MAGNESIUM Collected: 09/02/2017 Status: F Source: [place] 11:50 AM CLINIC OTHER CAMPUS REPOSITORY TYPE CODE TESTS RESULT OUT OF REFERENCE UNITS RANGE LAB MG 1.7-2.3 mg/dL High Magnesium 2.8 Performed By: #### CBCDIF, CMP, MG1 #### [facility] [address] [place] [phone] PHOSPHORUS Collected: 09/02/2017 Status: F Source: [place] 11:50 AM [facility] OTHER [place] REPOSITORY TYPE CODE TESTS RESULT OUT OF REFERENCE UNITS RANGE LAB PHOS 2.7-4.8 mg/dL High Phosphorus 5.5 Performed By: #### PHOS #### [facility] [address] [place] [address] #### PTHI #### [place] [phone] PTH, INTACT Collected: 09/02/2017 Status: F Source: [place] 11:50 AM [facility] OTHER [place] REPOSITORY TYPE CODE TESTS RESULT OUT OF REFERENCE UNITS RANGE LAB PTH 15-65 pg/mL High PTH, Intact 124 Performed By: #### PHOS #### [facility] [address] [place] [phone] #### PTHI #### [place] [address] ED NOTE Observed: 09/02/2017 Status: COMPLETED Source: [place] 11:48 AM [facility] REPOSITORY HNO ID: [id number] Author: Isela GomezRn) Lise RN Service: (none) Author Type: Registered Nurse Type: ED Notes Filed: 09/02/2017 11:49 AM Note Text: Patient presents to ED per doctors office. Patient was sent in for abnormal labs patient only complaint is fatigue. ED NOTE Observed: 09/02/2017 Status: COMPLETED Source: [place] 11:02 AM [facility] OTHER [place] REPOSITORY HNO ID: [id number] Author: Virgil GomezRn) Napoleon, RN Service: (none) Author Type: Registered Nurse Type: ED Notes Filed: 09/02/2017 11:03 AM Note Text: Pt to ED today after receiving a phone call from her PCP Dr Singh out of [facility] advising her to come to the ED for Kidney Failure. Pt sts she had blood work drawn yesterday. CBC W/DIFF, AUTOMATED Collected: 09/01/2017 Status: F Source: [place] 4:57 PM [facility] REPOSITORY TYPE CODE TESTS RESULT OUT OF [...] Lymph 2.13 Performed By: #### L100.0100 #### [facility] [address], [phone] VITAMIN D,25 HYDROXY Collected: 09/01/2017 Status: F Source: [place] 4:57 PM [facility] REPOSITORY TYPE CODE TESTS RESULT OUT OF RANGE REFERENCE UNITS LAB L506.1000 29.95-100.01 ng/mL Normal Vitamin D 58.8 25-OH Result Comment: Vitamin D 25(OH) Status Range Deficiency <20 ng/mL (50nmol/L) Insuffciency 20 - 30 ng/mL (50 - 75 nmol/L) Sufficiency 30 - 100 ng/mL (75 - 250 nmol/L) Toxicity >100 ng/mL (>250 nmol/L) Performed By: #### L506.1000 #### [facility] [place], [address] COMPREHENSIVE METABOLIC Collected: 09/01/2017 Status: F Source: [place] [facility] 4:57 PM [facility] REPOSITORY TYPE CODE TESTS RESULT OUT OF [...] Performed By: #### L500.4050, L501.9520, L503.6030 #### [facility] [address] [place], [place], [address] THYROID STIM HORMONE Collected: 09/01/2017 Status: F Source: [place] (TSH) 4:57 PM [facility] REPOSITORY TYPE CODE TESTS RESULT OUT OF RANGE REFERENCE UNITS LAB L501.9520 0.358-3.74 uIU/mL Normal TSH 0.81 Performed By: #### L500.4050, L501.9520, L503.6030 #### [facility] [address] [place], [place], [address] IRON+IRON BINDING Collected: 09/01/2017 Status: F Source: [place] CAPACITY 4:57 PM [facility] REPOSITORY TYPE CODE TESTS RESULT OUT OF RANGE REFERENCE UNITS LAB L503.6075 250-450 ug/dL TIBC Normal 316 LAB L503.6150 50-170 ug/dL IRON Normal 65 LAB L503.6250 15.0-55.0 % IRON Normal SATURATION 20.6 Performed By: #### L500.4050, L501.9520, L503.6030 #### [facility] [place], [place], [address] HEPATITIS C ANTIBODIES Collected: 09/01/2017 Status: F Source: [place] 4:57 PM [facility] REPOSITORY TYPE CODE TESTS RESULT OUT OF RANGE REFERENCE UNITS LAB L3100.0650 0.0-0.9 s/co ratio Normal HEP C AB <0.1 Result Comment: Negative: < 0.8 Indeterminate: 0.8 - 0.9 Positive: > 0.9 The CDC recommends that a positive HCV antibody result be followed up with a HCV Nucleic Acid Amplification test (361301). Performed at: [address] [id number] Circular Clerk: Mega Blanca PhD, Phone: [phone] Performed By: #### L3100.0621 #### [facility] (refer to report for specific site) refer to report for address and phone number RENAL PROFILE Collected: 08/21/2017 Status: F Source: [place] 3:45 PM [facility] REPOSITORY TYPE CODE TESTS RESULT OUT OF [...] CO2 23.0 Performed By: #### L500.3600 #### [facility] [address] [place], [place], [address] COMP METABOLIC PANEL Collected: 08/13/2017 Status: F Source: [place] 2:47 PM CL[facility]IC MAIN CAMPUS REPOSITORY TYPE CODE TESTS RESULT OUT OF REFERENCE UNITS RANGE LAB TP 6.3-8.0 g/dL Protein, Total 8.0 LAB ALB 3.9-4.9 g/dL Albumin 4.5 LAB CA 8.5-10.2 mg/dL Calcium, Total 9.6 LAB TBIL 0.2-1.3 mg/dL Bilirubin, Total 0.3 LAB ALKP 32-117 U/L Alkaline Phosphatase 89 LAB AST 13-35 U/L AST 26 LAB GLU 74-99 mg/dL Glucose High 119 Result Comment: The [place] Diabetes Association (ADA) provides guidance for cutoff [...] Standards of Medical Care in Diabetes 2016, [place] Diabetes Association. Diabetes Care. 2016.39(Suppl 1). LAB [...] GFR. Performed By: #### CMP, MG1 #### [facility] [address] [place], [place] [address] MAGNESIUM Collected: 08/13/2017 Status: F Source: [place] 2:47 PM [facility] REPOSITORY TYPE CODE TESTS RESULT OUT OF REFERENCE UNITS RANGE LAB MG 1.7-2.3 mg/dL High Magnesium 2.4 Performed By: #### CMP, MG1 #### [facility] [address] [place], [place] [address] PROGRESS Observed: 08/13/2017 Status: COMPLETED Source: [place] 1:59 PM [facility] REPOSITORY HNO ID: [id number] Author: Rell Serrano Service: (none) Author Type: Physician Type: Progress Notes Filed: 08/13/2017 5:54 PM Note Text: This note was created using Remarkriter. Subjective Celeste Desouza is a 67 year [...] 2 diabetes mellitus without complication, unspecified whether retirement insulin use (HCC) (primary encounter diagnosis) (I10) Essential hypertension (R27.8) Decreased dexterity (R25.1) Tremor (G25.81) RLS (restless legs syndrome) PLAN: Celeste was seen today for recheck. Diagnoses and all orders for this visit: Type 2 diabetes mellitus without complication, unspecified whether retirement insulin use (HCC) Essential hypertension Decreased dexterity - CONSULT TO NEUROLOGY Tremor - CONSULT TO NEUROLOGY RLS (restless legs syndrome) - CONSULT TO NEUROLOGY DM under good control HTN stable No med changes. Patient is instructed to schedule a follow-up office visit in 3 months, sooner if problems arise. No Follow-up on file. Rell Serrano MD CNOV Observed: 08/13/2017 Status: COMPLETED Source: [place] 1:40 PM [facility] REPOSITORY Office Visit (INTMST) CELESTE DESOUZA ([id number]) 1950 F Date Time Provider Department 08/13/17 1:40 PM RELL SERRANO INTMST During your visit today, we recorded the following information about you: Pulse Blood pressure Weight Height 59/minute 133/65 84.4 kg 1.626 m Domonique Corsteph Howe 08/13/2017 1:45 PM Signed [facility] FACTS [phone] LAB HOURS: Lab is open 7:30am to [...] one day prior to the scheduled exam. [facility] HOURS OF OPERATIONS Friday 8:00am to 12:00pm, Friday through 7:30am to 8:00pm, Friday 7:30am to 5:00pm. [facility] HOURS OF OPERATIONS Friday and Friday 8:00am to 4:00pm, Friday through Friday 6:00am to 9:00pm. Express care is for patients 2 years and older. [facility] HOURS OF OPERATIONS Friday and Friday 8:00am to 4:00pm, Friday through Friday 6:00am to 9:00pm. The walk in clinic is for patients 6 months and older. [facility] WALK-IN HOURS HOURS OF OPERATIONS Friday and Friday 9:00am to 4:00pm, Friday through Friday 6:00am to 9:00pm. The walk in clinic is for patients 2 years and older. For Express [facility] LOCATIONS, HOURS OF OPERATION and CURRENT WAIT TIMES, visit the following link [email or web address][types][0]=Express%20Care%20ClinicsAND for details Rell Serrano MD 08/13/2017 5:54 PM Signed This note was created using Remarkriter. Subjective Celeste Desouza is a 67 year [...] 2 diabetes mellitus without complication, unspecified whether retirement insulin use (HCC) (primary encounter diagnosis) (I10) Essential hypertension (R27.8) Decreased dexterity (R25.1) Tremor (G25.81) RLS (restless legs syndrome) PLAN: Celeste was seen today for recheck. 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 Other instructions from your clinician: [facility] FACTS [phone] LAB HOURS: Lab is open 7:30am to 6:00pm M-Th, 7:30am to 5:00pm Fridays and open 8:00am-12:00pm [...] one day prior to the scheduled exam. [facility] HOURS OF OPERATIONS Friday 8:00am to 12:00pm, Friday through 7:30am to 8:00pm, Friday 7:30am to 5:00pm. [facility]RS HOURS OF OPERATIONS Friday and Friday 8:00am to 4:00pm, Friday 6:00am to 9:00pm. Express care is for patients 2 years and older. [facility]-WALK IN CLINIC HOURS OF OPERATIONS Friday and Friday 8:00am to 4:00pm, Friday through Friday 6:00am to 9:00pm. The walk in clinic is for patients 6 months and older. [facility] WALK-IN HOURS HOURS OF OPERATIONS Friday and Friday 9:00am to 4:00pm, Friday 6:00am to 9:00pm. The walk in clinic is for patients 2 years and older. For [facility] LOCATIONS, HOURS OF OPERATION and CURRENT WAIT TIMES, visit the following link [email or web address][types][0]=Express%20Care%20Clin icsAND for details Prescriptions ordered this encounter Disp Refills Start End TIZANIDINE 4 MG TABLET 30 t* 0 08/13/2017 Route: ORAL Sig: Take 1 tablet by mouth three times daily as needed. Encounter Status:Closed by RELL SERRANO MD on 08/13/17 CNCO Observed: 08/11/2017 Status: COMPLETED Source: [place] 12:00 AM [facility] REPOSITORY Letter Text Celeste Desouza Date this form was last completed: August 11, 2017 Name: Celeste Desouza Date of : 1950 Social Security number: [id number] [facility] Number : [id number] Current Outpatient Prescriptions: blood sugar diagnostic test [...] Primary care physician: Rell Serrano MD [facility] ALBUMIN/CREAT RATIO Collected: 07/24/2017 Status: F Source: [place] 3:38 PM [facility] REPOSITORY TYPE CODE TESTS RESULT [...] 1995, 25:107) Performed By: #### UACR #### [facility] [address] [place] [address] HEMOGLOBIN A1C Collected: 07/24/2017 Status: F Source: [place] 10:20 AM [facility] MAIN CAMPUS REPOSITORY TYPE CODE TESTS RESULT OUT OF REFERENCE UNITS RANGE LAB HGBA1C 4.3-5.6 % High Hemoglobin A1c 6.6 LAB HBA0 mg/dL Est. Average Glucose 143 Result Comment: eAG: (Estimated average glucose) is a calculated value from HgbA1c and is medical office representative of the average blood glucose level in the last 2-3 month period. Performed By: #### HBA1C, FERR #### [facility] [address] [place], [place] [address] FERRITIN Collected: 07/24/2017 Status: F Source: [place] 10:20 AM [facility]IN [place] REPOSITORY TYPE CODE TESTS RESULT OUT OF REFERENCE UNITS RANGE LAB FERR 14.7-205.1 ng/mL Ferritin 108.8 Performed By: #### HBA1C, FERR #### [facility] [address] [place], [place] [address] CNCO Observed: 07/15/2017 Status: COMPLETED Source: [place] 4:28 PM CLINIC OTHER CAMPUS REPOSITORY HNO ID: [id number] Author: Mammography Coordinator Service: (none) Author Type: Physician Type: Letter Filed: 07/16/2017 11:32 PM Note Text: July 15, 2017 PID: [id number] Celeste Desouza [address] [place] [address] [place] [address] Dear Ms. Desouza, We are pleased to [...] report will be kept on file at [facility] as part of your permanent medical record and are available for your continuing care. Thank you for allowing us to help in meeting your health care needs. Sincerely, Dr. Vega Interpreting Radiologist [facility]. (Normal over 40) [place] [facility] Observed: 07/15/2017 Status: F Source: [place] 2:56 PM [facility] OTHER CAMPUS REPOSITORY * * *Final Report* * * DATE OF EXAM: Jul 15 2017 2:56PM JOCELYN 0582 - [place] SCREENING W JUL[facility] / PROCEDURE REASON: Z12.31-Encounter for screening mammogram for malignant neoplasm of breast * * * * Physician Interpretation * * * * #[id number] - [place] SCREENING [facility] JUL[facility] BILATERAL DIGITAL SCREENING MAMMOGRAM [...] dated: 04/04/2016 mammogram and 01/20/2015 mammogram - [facility]. The tissue of both breasts is heterogeneously dense. This may lower the sensitivity of mammography. There are biopsy clips in the right breast. No significant masses, calcifications, or other findings are seen in either breast. There has been no significant interval change. IMPRESSION: NEGATIVE There is no mammographic evidence of malignancy. A 1 year screening mammogram is recommended. Cindy osullivan/nestor:07/15/2017 16:28:46 Chainstitch Seat Joiner: Caryn JENNINGS(Lilly)(Sara), [facility] letter sent: Normal over 40 Mammogram BI-RADS: 1 Negative Business Test Analyst: Nestor Transcribe Date/Time: Jul 15 2017 2:42P Dictated by : CINDY VEGA MD This examination was interpreted and the report reviewed and electronically signed by: CINDY VEGA MD on Jul 15 2017 4:28PM EST [id number] CNCO Observed: 07/11/2017 Status: COMPLETED Source: [place] 12:00 AM [facility] REPOSITORY Letter Text Celeste Desouza [facility] [address] [place] [address] July 11, 2017 Dear Ms. Celeste Desouza, Due to a change in Dr. Serrano's schedule, it is necessary to reschedule your appointment on 07/28/17. We apologize for the inconvenience. Please call the office at [phone] to reschedule and as always thank you for choosing the [facility]. The [facility] [place] CNPN Observed: 07/08/2017 Status: COMPLETED Source: [place] 12:00 AM [facility] REPOSITORY Telephone (INTMST) CELESTE DESOUZA ([id number]) 1950 F Date Time Provider Department 07/08/17 [...] The following prescriptions have been called to [facility] 07/10/2017 at 10:05 AM by Domonique Real Ma. I spoke with voicemail in the pharmacy. Signed Prescriptions Disp Refills traMADol (ULTRAM) 50 mg tablet 180 tablet 0 Sig: Take 1-2 tablets every 8 hours as needed max of 6 pills per day PREMA Class: C-IV EL: No Authorizing Provider: RELL SERRANO [facility] 07/10/2017 10:45 AM Signed Patient called and wanted to know what is going on; relayed message that is was called in today; patient stated the pharmacy told her they do not have it. I called and spoke to the pharmacist at [facility] and she confirmed she just got it [...] RENAL PROFILE Collected: 05/27/2017 Status: F Source: [place] 3:46 PM [facility] REPOSITORY TYPE CODE TESTS RESULT OUT OF [...] CO2 27.0 Performed By: #### L500.3600 #### [facility] [address] [place], [address] RENAL PROFILE Collected: 04/28/2017 Status: F Source: [place] 2:01 PM [facility] REPOSITORY TYPE CODE TESTS RESULT OUT OF [...] CO2 26.0 Performed By: #### L500.3600 #### [facility] [address] [facility] [address] [place], [place], [address] RENAL PROFILE Collected: 03/28/2017 Status: F Source: [place] 2:27 PM [facility] REPOSITORY Order Comment: FAX RESULTS TO TYPE [...] CO2 26.0 Performed By: #### L500.3600 #### [facility] [address] [place], [place], [address] ALLERGIES ALLERGIES DATE TYPE / NAME / CODE REACTION SEVERITY SOURCE CODE 01/09/2018 Drug NSAIDS Had bariatric Unknown [place] Allergy/41 (Non-Steroidal surgery Community [id number]( Anti-Inflamma/F0010 [facility]) [address]9865(RXNORM) Repository 04/29/2012 [facility] [place] [id number]( Repository [facility]) 08/19/2011 DRUG ENALAPRIL OTHER: [facility] [place] [id number]( Repository [facility]) 07/06/2010 DRUG AMITRIPTYLINE OTHER: SEE C [place] [address] Other [place] [id number](SN Repository [facility]) 07/06/2010 DRUG CLOZAPINE OTHER: SEE C [place] [address] Other [place] [id number](SN Repository [facility]) 07/06/2010 DRUG LISINOPRIL OTHER: SEE C [place] [address] Other [place] [id number](SN Repository [facility]) NG/[id number] AMITRIPTYLINE [facility] 06(SNOMED [facility]) Repository NG/[id number] ASPIRIN [facility] 06(SNOMED [facility] System [facility]) Repository NG/0358603 CLOZAPINE [facility] 06(roomlinxOMED [facility] System CT) Repository NG/8715569 ENALAPRIL [facility] 06(TYMR System CT) Repository NG/1890319 LISINOPRIL [facility] 06(TYMR System CT) Repository ENCOUNTERS ENCOUNTERS ADMIT/DISCHARGE ACCOUNT NUMBER ADMITTING ENCOUNTER LOCATION SOURCE CLASS 03/18/2018 [id number] Ambulatory [facility] ding:POLAB3 Repository 03/13/2018 [id number] Ambulatory [id number] [facility] g:[facility] Repository 03/13/2018 [id number] Ambulatory [facility] MEDICAL Repository CENTERBuildi ng:AGCARDPOB 03/12/2018 [id number] Ambulatory [facility] MEDICAL Repository CENTERBuildi ng:AGCARDPOB 02/27/2018/02/28/19 [id number] SAÚL SMYTH, Ambulatory 63286Yuyjpip [facility] 19 NAIM ETRoom: General X349Krp: [address] [place] [address] Center Repository 02/26/2018 [id number] Ambulatory [address] [facility] Healthcare Repository 02/02/2018/02/03/20 [id number] Ambulatory [address] ding:CLSP Repository 02/02/2018/02/03/20 [id number] Ambulatory BMSBuilding: [place] Repository 01/23/2018 [id number] Ambulatory [facility] ding:LAB Repository 01/23/2018/01/24/20 [id number] Ambulatory BMSBuilding: [place] [facility] Repository 01/23/2018/01/24/20 [id number] Ambulatory BMSBuilding: [place] 18 [facility] Repository 01/21/2018 [id number] Ambulatory [facility] ding:[facility] Repository 01/21/2018 [id number] Ambulatory BMSBuilding: [place] [facility] Repository 01/09/2018/01/10/20 [id number] Ambulatory BMSBuilding: [place] 18 B[facility] Repository 01/08/2018 [id number] Ambulatory BMSBuilding: [place] BMS.[facility] Repository 01/05/2018 [id number] Ambulatory [facility] ding:LAB.FUT Repository URE 12/24/2017 [id number] Ambulatory [facility] ding:POLAB3 Repository 12/17/2017 [id number] Ambulatory [facility] ding:POLAB3 Repository 12/17/2017/12/18/19 [id number] Ambulatory BMSBuilding: [place] 18 [facility] Repository 12/12/2017 [id number] Ambulatory BMSBuilding: [place] BMS.CF.[facility] Repository 12/11/2017 [id number] Ambulatory BMSBuilding: [place] [facility] Repository 12/11/2017/12/13/19 [id number] John Julio Ambulatory [address] ding:PCURoom Repository : GBC234Oal: 1 12/10/2017 [id number] Ambulatory BMSBuilding: [place] BMS.CF.[facility] Repository 12/10/2017 [id number] Ambulatory [facility] ding:[facility] Repository 12/10/2017/12/11/19 [id number] Ambulatory BMSBuilding: [place] 18 BMS.[facility] Repository 12/10/2017 [id number] Ambulatory [facility] ding:CT Repository 12/09/2017 [id number] Ambulatory [facility] ding:RAD Repository 10/13/2017 [id number] Ambulatory [facility] ding:LAB.FUT Repository URE 10/07/2017/10/10/19 [id number] Ambulatory [address] [place] Repository 10/06/2017 [id number] Ambulatory [facility] ding:POLAB3 Repository 09/16/2017 [id number] Ambulatory [facility] ding:POLAB3 Repository 09/16/2017 [id number] Ambulatory [facility] ding:RAD Repository 09/02/2017/09/06/19 [id number] [place], Inpatient [address] Repository 09/01/2017 [id number] [facility] ding:POLAB3 Repository 08/21/2017 [id number] [facility] ding:LAB.FUT Repository URE 08/13/2017/08/14/19 [id number] Ambulatory [address] [place] Repository 08/13/2017/08/15/19 [id number] Ambulatory [address] [place] Repository 07/24/2017 [id number] Ambulatory [facility] Main [place] Repository 07/15/2017 [id number] Ambulatory [facility] Other [place] Repository 06/24/2017 [id number] [facility] ding:LAB Repository 05/27/2017/05/28/19 [id number] Ambulatory [address] ding:LAB Repository 04/28/2017/04/29/19 [id number] Ambulatory [address] ding:LAB Repository 03/28/2017/03/28/19 [id number] Ambulatory [address] ding:LAB Repository PAYERS PAYERS ENCOUNTER GUARANTOR PAYER SUBSCRIBER SOURCE 03/18/2018 CELESTE Edwards Primary CELESTE [place] [id number] Insurance:MEDICARE PIESOCOSZDOB: [facility] PART A BPolic [id number] Hospital michael TRUJILLO Number: Repository [address]Ifz: (434) [id number] [phone] () Date:2017-12-26 03/18/2018 Secondary MARIO J [place] Insurance:NALCPolicy PIETRASZDOB: Community Number: [id number] [facility] [id number] Repository Date: [place], [place] [address]UL: 03/18/2018 Tertiary NOT GIVENUNK [place] Insurance:SELF PAY [facility] Number: Effective Repository Date:2017-12-26 03/13/2018 CELESTE Primary [facility] [place] PIETRASZDOB: Insurance:MEDICAREPol PIETRASZDOB: General Health icy Number: Effective [id number] [facility] Date:7385-11-46Gugr [place] Repository MICHAEL TRUJILLO Name:MICHAEL GUEVARA [address]Ksy: [phone]~mjpietrasz [phone] (HP) @[facility] (HP) (WP) 03/13/2018 Secondary MARIO [facility] Insurance:CIGNAPolicy PIETRASZDOB: General Health Number: Effective [id number] Center Date:0289-00-78Espm [place] Repository Name:MICHAEL FIELDS [address]Txa: (HP) (WP) 03/13/2018 CELESTE J Primary CELESTE J [facility] PIETRASZDOB: Insurance:MEDICARE A PIETRASZDOB: Health System AND BPolicy Number: [id number] Repository [place] [id number] MICHAEL TRUJILLO Date: [address]Cjo: (HP) 03/13/2018 Secondary MARIO J [facility] Insurance:CIGNA NALC PIETRASZDOB: Health System [address] [place] [address] Number: [id number] Repository [id number] Date: 03/12/2018 CELESTE J Primary CELESTE J [facility] PIETRASZDOB: Insurance:MEDICARE A PIETRASZDOB: Health System AND BPolicy Number: [id number] Repository [place] [id number] [place] Date: [address]Aym: (HP) 03/12/2018 Secondary MARIO [facility] Insurance:CIGNA NALC PIETRASZDOB: Health System 2NDPolicy Number: [id number] Repository [id number] Date: 02/27/2018 CELESTE Primary CELESTE [facility] PIETRASZDOB: Insurance:MEDICAREPol PIETRASZDOB: General Health icy Number: Effective [id number] [place] Date:2008-02-25 - [place] Rep[place] [facility] 8324-22-25Oehk [facility] [place], [place] [address]Pjc: [phone]) Name:SOLO 38697Shn: (HP) [phone] (HP) (WP) 02/27/2018 Secondary MARIO [facility] PIETRASZDOB: General Health Number: Effective [id number] Center Date:2008-02-25 - [place] Repository [id number] Name:Gloria [place] [address]Emx: (HP) (WP) 02/26/2018 CELESTE J Primary CELESTE [facility] Healthcare PIETRASZDOB: Insurance:MEDICARE^L^ PIETRASZDOB: Repository 248^^^[id number]^XXPolicy [id number] [place] Number: [place] [facility] [place], [place] [id number] FELICEPREMIER [facility]ITAL[facility] [place], [place] [address]Jjl: (330) Date:Plan Name:Solo [id number]: (HP) [phone] (HP) 134859SJNXKRYHEO, [place] [address]LU: 02/26/2018 Secondary CELESTE J [facility] Healthcare Insurance:MEDICARE^L^ PIETRASZDOB: Repository 248^^^[id number]^XXPolicy [id number] Number: [place] [id number] [place] Date:Plan Name:Solo Randh[place] [facility] [address]EZFWBMNSIC, [place] [address]QP: 02/02/2018 CELESTE J Primary CELESTE J [place] [id number] Insurance:MEDICARE PIETRASZDOB: Community [place] PART A olic [id number] Number: Repository [address]Sfo: 330 [id number] [phone] (HP) Date:2018-01-21 02/02/2018 Secondary MARIO J [place] Insurance:NALCPolicy PIETRASZDOB: Community Number: [id number] Hospital [id number] Repository Date: [place], [place] [address]WS: 02/02/2018 Tertiary NOT GIVENUNK [place] Insurance:SELF PAY [facility] Number: Effective Repository Date:2018-01-21 02/02/2018 CELESTE J Primary CELESTE J [place] [id number] Insurance:MEDICARE PIETRASZDOB: Community [place] PART A [facility] [id number] Number: Repository [address]Szw: 330 [id number] [phone] () Date:2018-01-21 02/02/2018 Secondary MARIO J [place] Insurance:NALCPolicy PIETRASZDOB: Community Number: [id number] Hospital [id number] Repository Date: [place], [place] [address]FM: 02/02/2018 Tertiary NOT GIVENUNK [place] Insurance:SELF PAY [facility] Number: Effective Repository Date:2018-02-02 01/23/2018 CELESTE J Primary CELESTE J [place] [id number] Insurance:MEDICARE PIETRASZDOB: Community [place] PART A [facility] [id number], [place] Number: Repository [address]Fyr: 330 [id number] [phone] (HP) Date:2018-01-23 01/23/2018 Secondary MARIO J [place] Insurance:NALCPolicy PIETRASZDOB: Community Number: [id number] Hospital [id number] Repository Date: [place], [place] [address]QE: 01/23/2018 Tertiary NOT GIVENUNK [place] Insurance:SELF PAY [facility] Number: Effective Repository Date:2018-01-23 01/23/2018 CELESTE J Primary CELESTE J [place] [id number] Insurance:MEDICARE PIETRASZDOB: Community [place] PART A [facility] [id number], [place] Number: Repository [address]Mow: 330 [id number] [phone] () Date:2017-12-17 01/23/2018 Secondary MARIO J Aguanga Insurance:NALCPolicy PIETRASZDOB: Community Number: [id number] Hospital [id number] Repository Date: [place], [place] [address]HE: 01/23/2018 Tertiary NOT GIVENUNK [place] Insurance:SELF PAY [facility] Number: Effective Repository Date:2018-01-20 01/23/2018 CELESTE J Primary CELESTE J [place] [id number] Insurance:MEDICARE PIETRASZDOB: [facility] PART A [facility] [id number] Number: Repository [address]Nsp: 330 [id number] [phone] () Date:2018-01-22 01/23/2018 Secondary MARIO J Aguanga Insurance:NALCPolicy PIETRASZDOB: Community Number: [id number] Hospital [id number] Repository Date: [place], [place] [address]ZK: 01/23/2018 Tertiary NOT GIVENUNK [place] Insurance:SELF PAY [facility] Number: Effective Repository Date:2018-01-23 01/21/2018 CELESTE J Primary CELESTE J Aguanga [id number] Insurance:MEDICARE PIETRASZDOB: Community [place] PART A [facility] [id number], [place] Number: Repository [address]Goe: 330 [id number] [phone] (HP) Date:2018-01-09 01/21/2018 Secondary MARIO J [place] Insurance:NALCPolicy PIETRASZDOB: Community Number: [id number] Hospital [id number] Repository Date: [place], [place] [address]IE: 01/21/2018 Tertiary NOT GIVENUNK [place] Insurance:SELF PAY [facility] Number: Effective Repository Date:2018-01-09 01/21/2018 CELESTE J Primary CELESTE J Agu[place] [id number] Insurance:MEDICARE PIETRASZDOB: [facility] PART A [facility] [id number], [place] Number: Repository [address]Aue: 330 [id number] [phone] (HP) Date:2018-01-09 01/21/2018 Secondary MARIO J Aguanga Insurance:NALCPolicy PIETRASZDOB: Community Number: [id number] Hospital [id number] Repository Date:[id number] [place], [place] [address]GE: 01/21/2018 Tertiary NOT GIVENUNK [place] Insurance:SELF PAY [facility] Number: Effective Repository Date:2018-01-21 01/09/2018 CELESTE J Primary CELESTE J Aguanga [id number] Insurance:MEDICARE PIETRASZDOB: [facility] PART A [facility] [id number], [place] Number: Repository [address]Dvh: 330 [id number] [phone] (HP) Date:2017-12-17 01/09/2018 Secondary MARIO J Aguanga Insurance:NALCPolicy PIETRASZDOB: Community Number: [id number] Hospital [id number] Repository Date:[id number] [place], [place] [address]JS: 01/09/2018 Tertiary NOT GIVENUNK [place] Insurance:SELF PAY [facility] Number: Effective Repository Date:2018-01-09 01/08/2018 CELESTE J Primary CELESTE J [place] [id number] Insurance:MEDICARE PIETRASZDOB: Community [place] PART A [facility] [id number], [place] Number: Repository [address]Wlp: 330 [id number] [phone] (HP) Date:2018-01-08 01/08/2018 Secondary MARIO J Aguanga Insurance:NALCPolicy PIETRASZDOB: Community Number: [id number] Hospital [id number] Repository Date:[id number] [place], [place] [address]AI: 01/08/2018 Tertiary NOT GIVENUNK [place] Insurance:SELF PAY [facility] Number: Effective Repository Date:2018-01-08 01/05/2018 CELESTE J Primary CELESTE J [place] [id number] Insurance:MEDICARE PIETRASZDOB: [facility] PART A [facility] [id number], [place] Number: Repository [address]Rmb: 330 [id number] [phone] () Date:2018-01-05 01/05/2018 Secondary MARIO J [place] Insurance:NALCPolicy PIETRASZDOB: Community Number: [id number] Hospital [id number] Repository Date: [place], [place] [address]IS: 01/05/2018 Tertiary NOT GIVENUNK Agu[place] Insurance:SELF PAY [facility] Number: Effective Repository Date:2018-01-05 12/24/2017 CELESTE J Primary CELESTE J Aguanga [id number] Insurance:MEDICARE PIETRASZDOB: [facility] PART A [facility] [id number], [place] Number: Repository [address]Gqo: (346) [id number] [phone] (HP) Date:2017-12-24 12/24/2017 Secondary MARIO J Aguanga Insurance:NALCPolicy PIETRASZDOB: Community Number: [id number] Hospital [id number] Repository Date: [place], [place] [address]YZ: 12/24/2017 Tertiary NOT GIVENUNK Aguanga Insurance:SELF PAY [facility] Number: Effective Repository Date:2017-12-24 12/17/2017 CELESTE J Primary CELESTE J [place] [id number] Insurance:MEDICARE PIETRASZDOB: Community [place] PART A [facility] [id number], [place] Number: Repository [address]Pbh: 330 [id number] [phone] (HP) Date:2017-12-17 12/17/2017 Secondary MARIO J Aguanga Insurance:NALCPolicy PIETRASZDOB: Community Number: [id number] Hospital [id number] Repository Date: [place], [place] [address]LD: 12/17/2017 Tertiary NOT GIVENUNK [place] Insurance:SELF PAY [facility] Number: Effective Repository Date:2017-12-17 12/17/2017 CELESTE J Primary CELESTE J Aguanga [id number] Insurance:MEDICARE PIETRASZDOB: [facility] PART A [facility] [id number] Number: Repository [address]Iea: 330 [id number] [phone] (HP) Date:2017-12-10 12/17/2017 Secondary MARIO J [place] Insurance:NALCPolicy PIETRASZDOB: Community Number: [id number] Hospital [id number] Repository Date: [place], [place] [address]UZ: 12/17/2017 Tertiary NOT GIVENUNK Aguanga Insurance:SELF PAY [facility] Number: Effective Repository Date:2017-12-17 12/12/2017 CELESTE J Primary CELESTE J Aguanga [id number] Insurance:MEDICARE PIETRASZDOB: Community [place] PART A [facility] [id number], [place] Number: Repository [address]Rvt: 330 [id number] [phone] (HP) Date:2017-12-10 12/12/2017 Secondary MARIO J Aguanga Insurance:NALCPolicy PIETRASZDOB: Community Number: [id number] Hospital [id number] Repository Date: [place], [place] [address]NV: 12/12/2017 Tertiary NOT GIVENUNK [place] Insurance:SELF PAY [facility] Number: Effective Repository Date:2017-12-12 12/11/2017 CELESTE J Primary CELESTE J [place] [id number] Insurance:MEDICARE PIETRASZDOB: [facility] PART A [facility] [id number], [place] Number: Repository [address]Wyw: 330 [id number] [phone] (HP) Date:2017-12-10 12/11/2017 Secondary MARIO J Aguanga Insurance:NALCPolicy PIETRASZDOB: Community Number: [id number] Hospital [id number] Repository Date:[id number] [place], [place] [address]TT: 12/11/2017 Tertiary NOT GIVENUNK Agu[place] Insurance:SELF PAY [facility] Number: Effective Repository Date:2017-12-11 12/11/2017 CELESTE J Primary CELESTE J Aguanga [id number] Insurance:MEDICARE PIETRASZDOB: [facility] PART A [facility] [id number], [place] Number: Repository [address]Nnb: 330 [id number] [phone] (HP) Date:2017-12-10 12/11/2017 Secondary MARIO J [place] Insurance:NALCPolicy PIETRASZDOB: Community Number: [id number] Hospital [id number] Repository Date: [place], [place] [address]TR: 12/11/2017 Tertiary NOT GIVENUNK [place] Insurance:SELF PAY [facility] Number: Effective Repository Date:2017-12-10 12/10/2017 CELESTE J Primary CELESTE J [place] [id number] Insurance:MEDICARE PIETRASZDOB: Community [place] PART A [facility] [id number], [place] Number: Repository [address]Okb: 330 [id number] [phone] (HP) Date:2017-12-10 12/10/2017 Secondary MARIO J P[place] Insurance:NALCPolicy PIETRASZDOB: [facility] Number: [id number] Hospital [id number] Repository Date: [place], [place] [address]TF: 12/10/2017 Tertiary NOT GIVENUNK [place] Insurance:SELF PAY [facility] Number: Effective Repository Date:2017-12-10 12/10/2017 CELESTE J Primary CELESTE J Aguanga [id number] Insurance:MEDICARE PIETRASZDOB: Community [place] PART A [facility] [id number], [place] Number: Repository [address]Uuq: 330 [id number] [phone] (HP) Date:2017-12-10 12/10/2017 Secondary MARIO J [place] Insurance:NALCPolicy PIETRASZDOB: Community Number: [id number] Hospital [id number] Repository Date: [place], [place] [address]KY: 12/10/2017 Tertiary NOT GIVENUNK [place] Insurance:SELF PAY [facility] Number: Effective Repository Date:2017-12-10 12/10/2017 CELESTE J Primary CELESTE J Aguanga [id number] Insurance:MEDICARE PIETRASZDOB: Community [place] PART A [facility] [id number], [place] Number: Repository [address]Tel: (486) [id number] [phone] (HP) Date:2017-12-10 12/10/2017 Secondary MARIO J Aguanga Insurance:NALCPolicy PIETRASZDOB: Community Number: [id number] Hospital [id number] Repository Date: [place], [place] [address]GC: 12/10/2017 Tertiary NOT GIVENUNK Agu[place] Insurance:SELF PAY [facility] Number: Effective Repository Date:2017-12-10 12/10/2017 CELESTE J Primary CELESTE J Aguanga [id number] Insurance:MEDICARE PIETRASZDOB: [facility] PART A [facility] [id number], [place] Number: Repository [address]Pcj: 330 [id number] [phone] (HP) Date:2017-12-10 12/10/2017 Secondary MARIO J [place] Insurance:NALCPolicy PIETRASZDOB: Community Number: [id number] Hospital [id number] Repository Date:[id number] [place], [place] [address]YJ: 12/10/2017 Tertiary NOT GIVENUNK [place] Insurance:SELF PAY [facility] Number: Effective Repository Date:2017-12-10 12/09/2017 CELESTE J Primary CELESTE J [place] [id number] Insurance:MEDICARE PIETRASZDOB: [facility] PART A [facility] [id number] Number: Repository [address]Lds: 330 [id number] [phone] (HP) Date:2017-12-09 12/09/2017 Secondary MARIO J Aguanga Insurance:NALCPolicy PIETRASZDOB: Community Number: [id number] Hospital [id number] Repository Date:[id number] [place], [place] [address]NW: 12/09/2017 Tertiary NOT GIVENUNK Agu[place] Insurance:SELF PAY [facility] Number: Effective Repository Date:2017-12-09 10/13/2017 CELESTE J Primary CELESTE J [place] [id number] Insurance:MEDICARE PIETRASZDOB: Community [place] PART A [facility] [id number], [place] Number: Repository [address]Elq: 330 [id number] [phone] (HP) Date:2017-09-18 10/13/2017 Secondary MARIO J [place] Insurance:NALCPolicy PIETRASZDOB: Community Number: [id number] Hospital [id number] Repository Date: [place], [place] [address]AI: 10/13/2017 Tertiary NOT GIVENUNK Aguanga Insurance:SELF PAY [facility] Number: Effective Repository Date:2017-09-18 10/06/2017 CELESTE J Primary CELESTE J Aguanga [id number] Insurance:MEDICARE PIETRASZDOB: [facility] PART A [facility] [id number], [place] Number: Repository [address]Wxs: 330 [id number] [phone] (HP) Date:2017-10-06 10/06/2017 Secondary MARIO J Aguanga Insurance:NALCPolicy PIETRASZDOB: Community Number: [id number] Hospital [id number] Repository Date: [place], [place] [address]HW: 10/06/2017 Tertiary NOT GIVENUNK [place] Insurance:SELF PAY [facility] Number: Effective Repository Date:2017-10-06 09/16/2017 CELESTE J Primary CELESTE J Aguanga [id number] Insurance:MEDICARE PIETRASZDOB: [facility] PART A [facility] [id number], [place] Number: Repository [address]Gpl: 330 [id number] [phone] (HP) Date:2017-09-16 09/16/2017 Secondary MARIO Aguanga Insurance:NALCPolicy PIETRASZDOB: Community Number: [id number] Hospital [id number] Repository Date: [place], [place] [address]GJ: 09/16/2017 Tertiary NOT GIVENUNK Agu[place] Insurance:SELF PAY [facility] Number: Effective Repository Date:2017-09-16 09/16/2017 CELESTE J Primary CELESTE J [place] [id number] Insurance:MEDICARE PIETRASZDOB: Community [place] PART A olic [id number], [place] Number: Repository [address]Cem: 330 [id number] [phone] (HP) Date:2017-09-16 09/16/2017 Secondary MARIO Aguanga Insurance:NALCPolicy PIETRASZDOB: Community Number: [id number] Hospital [id number] Repository Date: [place], [place] [address]DN: 09/16/2017 Tertiary NOT GIVENUNK Agu[place] Insurance:SELF PAY [facility] Number: Effective Repository Date:2017-09-16 09/01/2017 CELESTE J Primary CELESTE J [place] [id number] Insurance:MEDICARE PIETRASZDOB: Community [place] PART A [facility] [id number], [place] Number: Repository [address]Zrp: 330 [id number] [phone] (HP) Date:2017-09-01 09/01/2017 Secondary MARIO Aguanga Insurance:NALCPolicy PIETRASZDOB: Community Number: [id number] Hospital [id number] Repository Date: [place], [place] [address]LT: 09/01/2017 Tertiary NOT GIVENUNK [place] Insurance:SELF PAY [facility] Number: Effective Repository Date:2017-09-01 08/21/2017 CELESTE J Primary CELESTE J [place] [id number] Insurance:MEDICARE PIETRASZDOB: Community [place] PART A [facility] [id number], [place] Number: Repository [address]Khp: 330 [id number] [phone] () Date:2017-08-19 08/21/2017 Secondary MARIO Aguanga Insurance:NALCPolicy PIETRASZDOB: Community Number: [id number] Hospital [id number] Repository Date:[id number] [place], [place] [address]BQ: 08/21/2017 Tertiary NOT GIVENUNK [place] Insurance:SELF PAY [facility] Number: Effective Repository Date:2017-08-19 06/24/2017 CELESTE J Primary CELESTE J Aguanga [id number] Insurance:MEDICARE PIETRASZDOB: Community [place] PART A [facility] [id number], [place] Number: Repository [address]Pwd: (002) [id number] [phone] () Date:2017-03-28 06/24/2017 Secondary MARIO P[place] Insurance:NALCPolicy PIETRASZDOB: Community Number: [id number] Hospital [id number] Repository Date: [place], [place] [address]QP: 06/24/2017 Tertiary NOT GIVENUNK [place] Insurance:SELF PAY [facility] Number: Effective Repository Date:2017-06-24 05/27/2017 CELESTE J Primary CELESTE J [place] [id number] Insurance:MEDICARE PIETRASZDOB: Community [place] PART A [facility] [id number] Number: Repository [address]Zfw: 330 [id number] [phone] () Date:2017-03-28 05/27/2017 Secondary MARIO Aguanga Insurance:NALCPolicy PIETRASZDOB: Community Number: [id number] Hospital [id number] Repository Date: [place], [place] [address]EN: 05/27/2017 Tertiary NOT GIVENUNK [place] Insurance:SELF PAY [facility] Number: Effective Repository Date:2017-05-26 04/28/2017 Celeste Primary Celeste Aguanga [id number] Insurance:MEDICARE PietraszDOB: Community [place] PART A [facility] [id number], [place] Number: Repository [address]Zjb: 330 [id number] [phone] () Date:2017-03-28 04/28/2017 Secondary MARIO Aguanga Insurance:NALCPolicy PIETRASZDOB: Community Number: [id number] Hospital [id number] Repository Date: [place], [place] [address]PC: 04/28/2017 Tertiary NOT GIVENUNK Aguanga Insurance:SELF PAY [facility] Number: Effective Repository Date:2017-04-25 03/28/2017 Celeste Primary Celeste Sánchezoster [id number] Insurance:MEDICARE PietraszDOB: Community [place] PART A [facility] [id number], [place] Number: Repository [address]Wik: 330 [id number] [phone] () Date:2017-03-28 03/28/2017 Secondary MARIO Aguanga Insurance:NALCPolicy PIETRASZDOB: Community Number: [id number] Hospital [id number] Repository Date: [place], [place] [address]PS: 03/28/2017 Tertiary NOT GIVENUNK [place] Insurance:SELF PAY [facility] Number: Effective Repository Date:2017-03-28
== END ==
PROVIDERS: Family Provider Family Medicine Geriatric Medicine; PCP Family Medicine Geriatric Medicine; Visit Provider Internal Medicine Nephrology
DX: N17.9 Acute kidney failure, unspecified (principal); D50.9 Iron deficiency anemia, unspecified; E21.1 Secondary hyperparathyroidism, not elsewhere classified; E87.5 Hyperkalemia; E55.9 Vitamin D deficiency, unspecified
CPT/HCPCS: 36415; 80069; 82306; 82728; 83540; 83550; 83970; 85027

== ENCOUNTER → 2018-05-19 09:56 | Outpatient (CLI) | payer MEDICARE, OTHER, SELFPAY ==
[2018-05-19 10:56] LABS: Albumin, Serum 3.4 g/dL (3.2-5.0); BUN 30 mg/dL (7-18); BUN/Creat Ratio 19.7 RATIO (10-20); Calcium,Total 8.5 mg/dL (8.5-10.1); Chloride 113 mmol/L (98-107); Creatinine, Serum 1.52 mg/dL (0.55-1.02); EST Glomerular Filtration Rate 36 mL/min (>60); Est Glom Filt Rate - Afr Amer 44 mL/min (>60); Glucose 89 mg/dL (74-106); Phosphorus 3.7 mg/dL (2.5-4.9); Potassium 4.3 mmol/L (3.5-5.1); Sodium Level 141 mmol/L (136-145)
[2018-05-19 11:02] LABS: PTHIN 120.3 pg/mL (18.4-80.1)
[2018-05-19 12:22] LABS: Protein, Urine (Random) 61.1 mg/dL (<11.9); Protein:Creat Ratio 1512 mg/g CRE (0-200)
== END ==
PROVIDERS: Family Provider Family Medicine Geriatric Medicine; PCP Family Medicine Geriatric Medicine; Referring Provider Internal Medicine Nephrology; Visit Provider Internal Medicine Nephrology
DX: E11.22 Type 2 diabetes mellitus with diabetic chronic kidney disease (principal); N18.3 Chronic kidney disease, stage 3 (moderate); N17.9 Acute kidney failure, unspecified; N25.81 Secondary hyperparathyroidism of renal origin
CPT/HCPCS: 36415; 80069; 82570; 83970; 84156

== ENCOUNTER → 2018-09-15 09:32 | Outpatient (CLI) | payer MEDICARE, OTHER, SELFPAY ==
[2018-09-15 12:59] LABS: Albumin, Serum 3.4 g/dL (3.2-5.0); BUN 33 mg/dL (7-18); BUN/Creat Ratio 20.1 RATIO (10-20); Calcium,Total 8.8 mg/dL (8.5-10.1); Chloride 111 mmol/L (98-107); Creatinine, Serum 1.64 mg/dL (0.55-1.02); EST Glomerular Filtration Rate 33 mL/min (>60); Est Glom Filt Rate - Afr Amer 40 mL/min (>60); Glucose 112 mg/dL (74-106); Phosphorus 4.2 mg/dL (2.5-4.9); Sodium Level 139 mmol/L (136-145)
== END ==
PROVIDERS: Family Provider Family Medicine Geriatric Medicine; PCP Family Medicine Geriatric Medicine; Visit Provider Internal Medicine Nephrology
DX: N17.9 Acute kidney failure, unspecified (principal)
CPT/HCPCS: 36415; 80069

== ENCOUNTER → 2018-12-15 13:38 | Outpatient (CLI) | payer MEDICARE, OTHER, SELFPAY ==
[2018-12-15 15:34] LABS: Hematocrit 34.2 % (37-47); Hemoglobin 10.7 g/dL (12.0-15.0); Mean Corp Hgb Conc 31.3 g/dL (32-36); Mean Corpuscular Hgb 27.1 pg (27.0-32.0); Mean Corpuscular Volume 86.6 fL (81-99); Mean Platelet Vol. 10.2 fl (6.2-12.0); Platelet Count 286 K/mm3 (150-450); RBC Distribution Width CV 15.1 % (11.6-14.6); RBC Distribution Width SD 47.8 fl (35.1-43.9); Red Blood Count 3.95 M/mm3 (4.2-5.4); White Blood Count 8.4 K/mm3 (4.4-11.0)
[2018-12-15 16:36] LABS: Albumin, Serum 3.6 g/dL (3.2-5.0); BUN 31 mg/dL (7-18); Calcium,Total 8.7 mg/dL (8.5-10.1); Chloride 107 mmol/L (98-107); Creatinine, Serum 1.94 mg/dL (0.55-1.02); EST Glomerular Filtration Rate 27 mL/min (>60); Est Glom Filt Rate - Afr Amer 33 mL/min (>60); Ferritin 75 ng/mL (8-252); Glucose 171 mg/dL (74-106); Iron 86 ug/dL (50-170); Iron Binding Capacity,Total 262 ug/dL (250-450); PERCENT IRON SATURATION 32.8 % (15.0-55.0); Phosphorus 3.7 mg/dL (2.5-4.9); Potassium 5.4 mmol/L (3.5-5.1); Sodium Level 139 mmol/L (136-145)
== END ==
PROVIDERS: Referring Provider Internal Medicine Nephrology; Visit Provider Internal Medicine Nephrology
DX: N18.3 Chronic kidney disease, stage 3 (moderate) (principal); D50.9 Iron deficiency anemia, unspecified
CPT/HCPCS: 36415; 80069; 82728; 83540; 83550; 85027

== ENCOUNTER → 2018-12-22 | Outpatient (CLI) | payer MEDICARE, OTHER, SELFPAY ==
[2018-12-22 18:07] LABS: Anion Gap 4 (5-15); BUN 30 mg/dL (7-18); BUN/Creat Ratio 17.2 RATIO (10-20); Calcium,Total 9.2 mg/dL (8.5-10.1); Chloride 107 mmol/L (98-107); Creatinine, Serum 1.74 mg/dL (0.55-1.02); EST Glomerular Filtration Rate 31 mL/min (>60); Est Glom Filt Rate - Afr Amer 37 mL/min (>60); Glucose 117 mg/dL (74-106); Potassium 5.5 mmol/L (3.5-5.1); Sodium Level 139 mmol/L (136-145)
== END | disposition home or self-care (01) ==
LOC: POLAB3 13:42
PROVIDERS: Visit Provider Internal Medicine Nephrology
DX: E87.5 Hyperkalemia (principal)
CPT/HCPCS: 36415; 80048

== ENCOUNTER → 2019-01-05 10:39 | Outpatient (CLI) | payer MEDICARE, OTHER, SELFPAY ==
[2019-01-05 12:53] LABS: Creatinine, Serum 1.72 mg/dL (0.55-1.02); EST Glomerular Filtration Rate 31 mL/min (>60); Est Glom Filt Rate - Afr Amer 38 mL/min (>60); Potassium 5.2 mmol/L (3.5-5.1)
== END ==
LOC: LAB.FUTURE 10:56 → LAB 11:55
PROVIDERS: Referring Provider Internal Medicine Nephrology; Visit Provider Internal Medicine Nephrology
DX: N17.9 Acute kidney failure, unspecified (principal); E87.5 Hyperkalemia
CPT/HCPCS: 36415; 82565; 84132

== ENCOUNTER → 2019-03-18 11:32 | Outpatient (CLI) | payer MEDICARE, OTHER, SELFPAY ==
[2019-03-18 12:40] LABS: Absolute Lymphocyte Count 2.19 X10^3/uL (0.83-4.51); Absolute Neutrophil Count 4.4 X10^3/uL (2.0-7.7); Basophil# 0.07 X10^3/uL; Basophil% 0.9 % (0-1); Eosinophil# 0.32 X10^3/uL; Eosinophils% 4.3 % (0-5); Hematocrit 31.9 % (37-47); Hemoglobin 9.6 g/dL (12.0-15.0); Lymphocyte # 2.19 X10^3/ul (4.0); Lymphocyte % 29.2 % (19-41); Mean Corp Hgb Conc 30.1 g/dL (32-36); Mean Corpuscular Hgb 26.8 pg (27.0-32.0); Mean Corpuscular Volume 89.1 fL (81-99); Mean Platelet Vol. 10.3 fl (6.2-12.0); Monocyte# 0.48 X10^3/uL; Monocyte% 6.4 % (0-10); NRBC Flagged by Analyzer 0 % (0-5); Neutrophil # 4.42 X10^3/uL (2.7-7.7); Neutrophil % 58.9 % (47-70); Platelet Count 308 K/mm3 (150-450); RBC Distribution Width CV 13.7 % (11.6-14.6); RBC Distribution Width SD 44.7 fl (35.1-43.9); Red Blood Count 3.58 M/mm3 (4.2-5.4); White Blood Count 7.5 K/mm3 (4.4-11.0)
[2019-03-18 12:52] LABS: Anion Gap 1 (5-15); BUN 50 mg/dL (7-18); BUN/Creat Ratio 24.3 RATIO (10-20); Calcium,Total 9.3 mg/dL (8.5-10.1); Chloride 108 mmol/L (98-107); Creatinine, Serum 2.06 mg/dL (0.55-1.02); EST Glomerular Filtration Rate 25 mL/min (>60); Est Glom Filt Rate - Afr Amer 31 mL/min (>60); Glucose 170 mg/dL (74-106); Potassium 4.9 mmol/L (3.5-5.1); Sodium Level 139 mmol/L (136-145)
== END ==
PROVIDERS: Visit Provider Internal Medicine Nephrology
DX: E87.5 Hyperkalemia (principal); D50.9 Iron deficiency anemia, unspecified
CPT/HCPCS: 36415; 80048; 85025

== ENCOUNTER → 2020-02-01 09:40 | Outpatient (CLI) | payer MEDICARE, OTHER, SELFPAY ==
[2020-02-01 10:06] LABS: Hemoglobin 12.2 g/dL (12.0-15.0); Mean Corp Hgb Conc 32.1 g/dL (32-36); Mean Corpuscular Hgb 27.7 pg (27.0-32.0); Mean Corpuscular Volume 86.4 fL (81-99); Mean Platelet Vol. 10.1 fl (6.2-12.0); Platelet Count 244 K/mm3 (150-450); RBC Distribution Width CV 13.9 % (11.6-14.6); RBC Distribution Width SD 44.2 fl (35.1-43.9)
[2020-02-01 10:42] LABS: Albumin, Serum 3.7 g/dL (3.2-5.0); BUN 31 mg/dL (7-18); BUN/Creat Ratio 17.8 RATIO (10-20); Calcium,Total 9.2 mg/dL (8.5-10.1); Chloride 104 mmol/L (98-107); Creatinine, Serum 1.74 mg/dL (0.55-1.02); EST Glomerular Filtration Rate 31 mL/min (>60); Est Glom Filt Rate - Afr Amer 37 mL/min (>60); Glucose 220 mg/dL (74-106); Phosphorus 3.5 mg/dL (2.5-4.9); Potassium 4.5 mmol/L (3.5-5.1); Sodium Level 137 mmol/L (136-145)
[2020-02-01 12:40] LABS: PTHIN 155.3 pg/mL (18.4-80.1)
== END ==
PROVIDERS: Referring Provider Internal Medicine Nephrology; Visit Provider Internal Medicine Nephrology
DX: N18.30 Chronic kidney disease, stage 3 unspecified (principal); N25.81 Secondary hyperparathyroidism of renal origin; D50.9 Iron deficiency anemia, unspecified
CPT/HCPCS: 36415; 80069; 83970; 85027

== ENCOUNTER → 2020-06-06 13:30 | Outpatient (CLI) | payer MEDICARE, OTHER, SELFPAY ==
[2020-06-06 14:16] LABS: Hematocrit 38.9 % (37-47); Hemoglobin 11.9 g/dL (12.0-15.0); Mean Corp Hgb Conc 30.6 g/dL (32-36); Mean Corpuscular Hgb 26.7 pg (27.0-32.0); Mean Corpuscular Volume 87.2 fL (81-99); Mean Platelet Vol. 10.4 fl (6.2-12.0); Platelet Count 269 K/mm3 (150-450); RBC Distribution Width CV 14.8 % (11.6-14.6); RBC Distribution Width SD 47.5 fl (35.1-43.9); Red Blood Count 4.46 M/mm3 (4.2-5.4); White Blood Count 8.9 K/mm3 (4.4-11.0)
[2020-06-06 14:45] LABS: PTHIN 252.9 pg/mL (18.4-80.1)
[2020-06-06 14:48] LABS: Albumin, Serum 3.7 g/dL (3.2-5.0); BUN 34 mg/dL (7-18); BUN/Creat Ratio 18.3 RATIO (10-20); Calcium,Total 8.9 mg/dL (8.5-10.1); Chloride 106 mmol/L (98-107); Creatinine, Serum 1.86 mg/dL (0.55-1.02); EST Glomerular Filtration Rate 28 mL/min (>60); Est Glom Filt Rate - Afr Amer 34 mL/min (>60); Glucose 198 mg/dL (74-106); Phosphorus 4.6 mg/dL (2.5-4.9); Potassium 4.8 mmol/L (3.5-5.1); Sodium Level 138 mmol/L (136-145)
== END ==
PROVIDERS: Referring Provider Internal Medicine Nephrology; Visit Provider Internal Medicine Nephrology
DX: E11.22 Type 2 diabetes mellitus with diabetic chronic kidney disease (principal); N18.32 Chronic kidney disease, stage 3b; N25.81 Secondary hyperparathyroidism of renal origin
CPT/HCPCS: 36415; 80069; 83970; 85027

== ENCOUNTER → 2020-06-08 | Outpatient (CLI) | payer MEDICARE, OTHER, SELFPAY ==
[2020-06-08 16:04] LABS: Protein:Creat Ratio 1964 mg/g CRE (0-200)
== END | disposition home or self-care (01) ==
LOC: LABSPEC 14:17
PROVIDERS: Visit Provider Internal Medicine Nephrology
DX: E11.22 Type 2 diabetes mellitus with diabetic chronic kidney disease (principal); N18.32 Chronic kidney disease, stage 3b; N25.81 Secondary hyperparathyroidism of renal origin
CPT/HCPCS: 82570; 84156

== ENCOUNTER → 2020-07-03 12:30 | Outpatient (CLI) | payer MEDICARE, OTHER, SELFPAY ==
[2020-07-03 14:20] LABS: PTHIN 136.2 pg/mL (18.4-80.1)
== END ==
PROVIDERS: Visit Provider Internal Medicine Nephrology
DX: N18.4 Chronic kidney disease, stage 4 (severe) (principal); N25.81 Secondary hyperparathyroidism of renal origin
CPT/HCPCS: 36415; 83970

== ENCOUNTER → 2020-10-17 10:27 | Outpatient (CLI) | payer MEDICARE, OTHER, SELFPAY ==
[2020-10-17 13:20] LABS: Vitamin D,25 Hydroxy 64.2 ng/mL
[2020-10-17 13:24] LABS: Albumin, Serum 3.5 g/dL (3.2-5.0); BUN 33 mg/dL (7-18); BUN/Creat Ratio 18.6 RATIO (10-20); Calcium,Total 9.4 mg/dL (8.5-10.1); Chloride 106 mmol/L (98-107); Creatinine, Serum 1.77 mg/dL (0.55-1.02); EST Glomerular Filtration Rate 30 mL/min (>60); Est Glom Filt Rate - Afr Amer 36 mL/min (>60); Glucose 116 mg/dL (74-106); Phosphorus 4.3 mg/dL (2.5-4.9); Potassium 5.2 mmol/L (3.5-5.1); Sodium Level 138 mmol/L (136-145)
[2020-10-17 13:34] LABS: PTHIN 94.8 pg/mL (18.4-80.1)
== END ==
PROVIDERS: Visit Provider Internal Medicine Nephrology
DX: N18.4 Chronic kidney disease, stage 4 (severe) (principal); N25.81 Secondary hyperparathyroidism of renal origin
CPT/HCPCS: 80069; 82306; 83970

== ENCOUNTER → 2020-11-13 13:54 | Outpatient (CLI) | payer MEDICARE, OTHER, SELFPAY ==
[2020-11-13 18:05] LABS: Anion Gap 7 (5-15); BUN 43 mg/dL (7-18); BUN/Creat Ratio 22.6 RATIO (10-20); Calcium,Total 8.9 mg/dL (8.5-10.1); Chloride 110 mmol/L (98-107); EST Glomerular Filtration Rate 28 mL/min (>60); Est Glom Filt Rate - Afr Amer 33 mL/min (>60); Glucose 135 mg/dL (74-106); Potassium 4.8 mmol/L (3.5-5.1); Sodium Level 139 mmol/L (136-145)
[2020-11-14 08:36] LABS: PTHIN 82.3 pg/mL (18.4-80.1)
== END ==
PROVIDERS: PCP Family Medicine Geriatric Medicine; Visit Provider Internal Medicine Nephrology
DX: E11.22 Type 2 diabetes mellitus with diabetic chronic kidney disease (principal); N18.4 Chronic kidney disease, stage 4 (severe); N25.81 Secondary hyperparathyroidism of renal origin; D50.9 Iron deficiency anemia, unspecified; E87.5 Hyperkalemia
CPT/HCPCS: 36415; 80048; 83970

== ENCOUNTER → 2021-02-08 13:34 | Outpatient (CLI) | payer MEDICARE, OTHER, SELFPAY ==
[2021-02-08 16:06] LABS: Albumin, Serum 2.7 g/dL (3.2-5.0); BUN 60 mg/dL (7-18); BUN/Creat Ratio 30.3 RATIO (10-20); Calcium,Total 8.9 mg/dL (8.5-10.1); Chloride 105 mmol/L (98-107); Creatinine, Serum 1.98 mg/dL (0.55-1.02); EST Glomerular Filtration Rate 26 mL/min (>60); Est Glom Filt Rate - Afr Amer 32 mL/min (>60); Glucose 215 mg/dL (74-106); Phosphorus 3.7 mg/dL (2.5-4.9); Potassium 4.8 mmol/L (3.5-5.1); Sodium Level 138 mmol/L (136-145)
[2021-02-09 07:46] LABS: PTHIN 125.9 pg/mL (18.4-80.1)
== END ==
PROVIDERS: PCP Family Medicine Geriatric Medicine; Visit Provider Internal Medicine Nephrology
DX: E11.22 Type 2 diabetes mellitus with diabetic chronic kidney disease (principal); N18.4 Chronic kidney disease, stage 4 (severe); N25.81 Secondary hyperparathyroidism of renal origin; D50.9 Iron deficiency anemia, unspecified; E78.5 Hyperlipidemia, unspecified
CPT/HCPCS: 36415; 80069; 83970

== ENCOUNTER → 2021-07-11 | Outpatient (CLI) | payer MEDICARE, OTHER, SELFPAY ==
[2021-07-11 17:41] LABS: Albumin, Serum 3.5 g/dL (3.2-5.0); BUN 59 mg/dL (7-18); BUN/Creat Ratio 22.5 RATIO (10-20); Calcium,Total 9.5 mg/dL (8.5-10.1); Chloride 103 mmol/L (98-107); Creatinine, Serum 2.62 mg/dL (0.55-1.02); EST Glomerular Filtration Rate 19 mL/min (>60); Est Glom Filt Rate - Afr Amer 23 mL/min (>60); Glucose 100 mg/dL (74-106); Phosphorus 5.3 mg/dL (2.5-4.9); Potassium 4.2 mmol/L (3.5-5.1); Sodium Level 140 mmol/L (136-145)
== END | disposition home or self-care (01) ==
LOC: POLAB3 15:49
PROVIDERS: PCP Family Medicine Geriatric Medicine; Visit Provider Internal Medicine Nephrology
DX: N18.4 Chronic kidney disease, stage 4 (severe) (principal)
CPT/HCPCS: 36415; 80069

== ENCOUNTER → 2021-08-29 | Outpatient (CLI) | payer MEDICARE, OTHER, SELFPAY ==
[2021-08-29 16:42] LABS: Hematocrit 32.6 % (37-47); Hemoglobin 10.4 g/dL (12.0-15.0); Mean Corp Hgb Conc 31.9 g/dL (32-36); Mean Corpuscular Hgb 27.4 pg (27.0-32.0); Mean Platelet Vol. 10.2 fl (6.2-12.0); Platelet Count 241 K/mm3 (150-450); RBC Distribution Width CV 16.6 % (11.6-14.6); RBC Distribution Width SD 52.1 fl (35.1-43.9); Red Blood Count 3.79 M/mm3 (4.2-5.4); White Blood Count 9.1 K/mm3 (4.4-11.0)
[2021-08-29 17:19] LABS: Albumin, Serum 3.3 g/dL (3.2-5.0); BUN 60 mg/dL (7-18); BUN/Creat Ratio 28.6 RATIO (10-20); Calcium,Total 8.7 mg/dL (8.5-10.1); Chloride 108 mmol/L (98-107); EST Glomerular Filtration Rate 25 mL/min (>60); Est Glom Filt Rate - Afr Amer 30 mL/min (>60); Ferritin 61 ng/mL (8-252); Glucose 160 mg/dL (74-106); Iron 66 ug/dL (50-170); Iron Binding Capacity,Total 285 ug/dL (250-450); PERCENT IRON SATURATION 23.2 % (15.0-55.0); Phosphorus 4.7 mg/dL (2.5-4.9); Potassium 4.4 mmol/L (3.5-5.1); Sodium Level 139 mmol/L (136-145)
[2021-08-29 23:56] LABS: PTHIN 160.8 pg/mL (18.4-80.1)
== END | disposition home or self-care (01) ==
PROVIDERS: PCP Family Medicine Geriatric Medicine; Visit Provider Internal Medicine Nephrology
DX: N18.4 Chronic kidney disease, stage 4 (severe) (principal); N25.81 Secondary hyperparathyroidism of renal origin; D50.9 Iron deficiency anemia, unspecified
CPT/HCPCS: 36415; 80069; 82728; 83540; 83550; 83970; 85027

== ENCOUNTER → 2021-10-17 | Outpatient (CLI) | payer MEDICARE, OTHER, SELFPAY ==
[2021-10-17 15:47] LABS: Albumin, Serum 3.2 g/dL (3.2-5.0); BUN 70 mg/dL (7-18); Calcium,Total 8.9 mg/dL (8.5-10.1); Chloride 108 mmol/L (98-107); Creatinine, Serum 2.33 mg/dL (0.55-1.02); EST Glomerular Filtration Rate 22 mL/min (>60); Est Glom Filt Rate - Afr Amer 26 mL/min (>60); Glucose 166 mg/dL (74-106); Phosphorus 4.7 mg/dL (2.5-4.9); Potassium 3.8 mmol/L (3.5-5.1); Sodium Level 139 mmol/L (136-145)
== END | disposition home or self-care (01) ==
LOC: POLAB3 14:08
PROVIDERS: PCP Family Medicine Geriatric Medicine; Visit Provider Internal Medicine Nephrology
DX: N18.4 Chronic kidney disease, stage 4 (severe) (principal)
CPT/HCPCS: 36415; 80069

== ENCOUNTER → 2021-11-09 | Outpatient (CLI) | payer MEDICARE, OTHER, SELFPAY ==
[2021-11-09 13:17] LABS: Albumin, Serum 3.6 g/dL (3.2-5.0); BUN 66 mg/dL (7-18); Calcium,Total 9.6 mg/dL (8.5-10.1); Chloride 108 mmol/L (98-107); Creatinine, Serum 2.36 mg/dL (0.55-1.02); EST Glomerular Filtration Rate 21 mL/min (>60); Est Glom Filt Rate - Afr Amer 26 mL/min (>60); Glucose 196 mg/dL (74-106); Phosphorus 4.7 mg/dL (2.5-4.9); Potassium 4.6 mmol/L (3.5-5.1); Sodium Level 139 mmol/L (136-145)
== END | disposition home or self-care (01) ==
LOC: POLAB3 10:58
PROVIDERS: PCP Family Medicine Geriatric Medicine; Visit Provider Internal Medicine Nephrology
DX: N18.4 Chronic kidney disease, stage 4 (severe) (principal)
CPT/HCPCS: 36415; 80069

== ENCOUNTER → 2022-01-16 | Outpatient (CLI) | payer MEDICARE, OTHER, SELFPAY ==
[2022-01-16 16:03] LABS: Hematocrit 38.6 % (37-47); Hemoglobin 12.3 g/dL (12.0-15.0); Mean Corp Hgb Conc 31.9 g/dL (32-36); Mean Corpuscular Hgb 28.3 pg (27.0-32.0); Mean Corpuscular Volume 88.9 fL (81-99); Mean Platelet Vol. 10.4 fl (6.2-12.0); Platelet Count 251 K/mm3 (150-450); RBC Distribution Width CV 14.6 % (11.6-14.6); RBC Distribution Width SD 47.5 fl (35.1-43.9); Red Blood Count 4.34 M/mm3 (4.2-5.4); White Blood Count 8.7 K/mm3 (4.4-11.0)
[2022-01-16 16:30] LABS: Protein, Urine (Random) 33.9 mg/dL (<11.9); Protein:Creat Ratio 518 mg/g CRE (0-200)
[2022-01-16 16:57] LABS: Albumin, Serum 3.4 g/dL (3.2-5.0); BUN 58 mg/dL (7-18); BUN/Creat Ratio 26.5 RATIO (10-20); Calcium,Total 8.5 mg/dL (8.5-10.1); Chloride 104 mmol/L (98-107); Creatinine, Serum 2.19 mg/dL (0.55-1.02); EST Glomerular Filtration Rate 23 mL/min (>60); Est Glom Filt Rate - Afr Amer 28 mL/min (>60); Glucose 342 mg/dL (74-106); Phosphorus 3.7 mg/dL (2.5-4.9); Potassium 4.5 mmol/L (3.5-5.1); Sodium Level 137 mmol/L (136-145)
[2022-01-18 07:40] LABS: PTHIN 265.8 pg/mL (18.4-80.1)
== END | disposition home or self-care (01) ==
PROVIDERS: PCP Family Medicine Geriatric Medicine; Visit Provider Internal Medicine Nephrology
DX: E11.22 Type 2 diabetes mellitus with diabetic chronic kidney disease (principal); N18.4 Chronic kidney disease, stage 4 (severe); N25.81 Secondary hyperparathyroidism of renal origin; D50.9 Iron deficiency anemia, unspecified
CPT/HCPCS: 36415; 80069; 82570; 83970; 84156; 85027

== ENCOUNTER → 2022-05-10 | Outpatient (CLI) | payer MEDICARE, OTHER, SELFPAY ==
[2022-05-10 16:25] LABS: Hemoglobin 12.4 g/dL (12.0-15.0); Mean Corpuscular Hgb 28.4 pg (27.0-32.0); Mean Corpuscular Volume 91.7 fL (81-99); Mean Platelet Vol. 9.9 fl (6.2-12.0); Platelet Count 269 K/mm3 (150-450); RBC Distribution Width CV 13.9 % (11.6-14.6); RBC Distribution Width SD 47.2 fl (35.1-43.9); Red Blood Count 4.36 M/mm3 (4.2-5.4); White Blood Count 10.1 K/mm3 (4.4-11.0)
[2022-05-10 16:58] LABS: Albumin, Serum 3.5 g/dL (3.2-5.0); BUN 48 mg/dL (7-18); BUN/Creat Ratio 20.7 RATIO (10-20); Calcium,Total 8.9 mg/dL (8.5-10.1); Chloride 106 mmol/L (98-107); Creatinine, Serum 2.32 mg/dL (0.55-1.02); EST Glomerular Filtration Rate 22 mL/min (>60); Est Glom Filt Rate - Afr Amer 26 mL/min (>60); Glucose 314 mg/dL (74-106); Phosphorus 4.3 mg/dL (2.5-4.9); Potassium 4.5 mmol/L (3.5-5.1); Sodium Level 140 mmol/L (136-145)
[2022-05-13 08:10] LABS: PTHIN 198.8 pg/mL (18.4-80.1)
== END | disposition home or self-care (01) ==
PROVIDERS: PCP Family Medicine Geriatric Medicine; Visit Provider Internal Medicine Nephrology
DX: N18.4 Chronic kidney disease, stage 4 (severe) (principal); N25.81 Secondary hyperparathyroidism of renal origin; D50.9 Iron deficiency anemia, unspecified
CPT/HCPCS: 36415; 80069; 83970; 85027

== ENCOUNTER → 2022-09-06 | Outpatient (CLI) | payer MEDICARE, OTHER, SELFPAY ==
[2022-09-06 17:15] LABS: Mean Corp Hgb Conc 31.6 g/dL (32-36); Mean Corpuscular Hgb 28.4 pg (27.0-32.0); Mean Platelet Vol. 10.3 fl (6.2-12.0); Platelet Count 224 K/mm3 (150-450); RBC Distribution Width CV 15.5 % (11.6-14.6); RBC Distribution Width SD 51.5 fl (35.1-43.9); Red Blood Count 4.22 M/mm3 (4.2-5.4); White Blood Count 8.5 K/mm3 (4.4-11.0)
[2022-09-06 17:31] LABS: Hemoglobin A1c 7.9 % (3.8-5.6)
[2022-09-06 18:14] LABS: Vitamin B12 326 pg/mL (211-911)
== END | disposition home or self-care (01) ==
PROVIDERS: PCP Family Medicine Geriatric Medicine; Referring Provider Internal Medicine Nephrology; Visit Provider Internal Medicine Nephrology
DX: N18.4 Chronic kidney disease, stage 4 (severe) (principal); E11.22 Type 2 diabetes mellitus with diabetic chronic kidney disease; N25.81 Secondary hyperparathyroidism of renal origin
CPT/HCPCS: 36415; 82607; 83036; 85027